=== PATIENT | male | born 1950 | race Two or more races ===

== ENCOUNTER 2020-04-19 09:10 | Outpatient (REF) | payer MEDICARE, SELFPAY ==
[2020-04-19 11:01] LABS: Basophils Percent Auto 0.3 % (0-2); Eosinophils Absolute Auto 0.2 X10*3/uL (0.0-0.4); Eosinophils Percent Auto 2.2 % (0-4); Hematocrit 53.3 % (42-52); Hemoglobin 18.2 g/dl (14.0-18.0); Imm Gran Abs Auto 0.02 X10*3/uL (0.00-0.03); Imm Gran Pct Auto 0.3 % (0.0-0.4); Lymphocytes Percent Auto 30.3 % (20-40); MANUAL DIFF FLAG SCAN; Mean Corpuscular HGB Conc 34.1 g/dl (31.0-36.0); Mean Corpuscular Hemoglobin 29.8 pg (27.0-33.0); Mean Corpuscular Volume 87.2 fL (80-98); Monocytes Absolute Auto 0.6 X10*3/uL (0.1-1.2); Monocytes Percent Auto 8.8 % (2-11); Neutrophils Absolute Auto 3.9 X10*3/uL (2.0-8.3); Neutrophils Percent Auto 58.1 % (45-73); PLT CLUMP 1; Red Blood Count 6.11 X10*6/uL (4.60-5.80); Red Cell Distribution Width 13.9 % (11.0-16.0); SCAN SMEAR FLAG 1
[2020-04-19 11:11] LABS: Alanine Aminotransferase 34 U/L (0-40); Albumin Level 4.3 g/dL (3.5-5.0); Alkaline Phosphatase 55 U/L (39-117); Anion Gap 14 (12-20); Aspartate Amino Transferase 28 U/L (5-37); Bilirubin Total 1.4 mg/dL (0.0-1.0); Blood Urea Nitrogen 16 mg/dL (9-16); Carbon Dioxide 24 mmol/L (22-29); Chloride 107 mmol/L (96-108); Cholesterol 154 mg/dL; Estimated Glomerular Filt Rate > 60; Glucose Fasting 102 mg/dL (60-99); HDL Cholesterol 38 mg/dL; LDL Cholesterol Calculated 84 mg/dl; Potassium 3.9 mmol/l (3.3-5.1); Sodium 141 mmol/L (135-145); Triglycerides 160 mg/dL; Uric Acid 4.3 mg/dL (3.4-7.0)
[2020-04-19 11:17] LABS: Vitamin D 25-OH Total 44.8 ng/mL (>30)
[2020-04-19 13:52] LABS: Mean Platelet Volume 13.5 fL (9.4-12.4); Platelet Count 161 X10*3/uL (160-400); White Blood Count 6.7 X10*3/uL (4.8-10.8)
[2020-04-19 13:53] LABS: SLIDE REVIEW VERIFIED
== END 2020-04-19 09:11 | disposition home or self-care (01) ==
LOC: HO.LAB 09:10
PROVIDERS: PCP Internal Medicine; Visit Provider Internal Medicine
DX: E78.00 Pure hypercholesterolemia, unspecified (principal); E55.9 Vitamin D deficiency, unspecified; K21.9 Gastro-esophageal reflux disease without esophagitis; I10 Essential (primary) hypertension; M10.9 Gout, unspecified
CPT/HCPCS: 36415; 80053; 80061; 82306; 84550; 85025

== ENCOUNTER → 2020-06-09 12:36 | Outpatient (BNV) | payer MEDICARE, SELFPAY | PROVIDERS: PCP Internal Medicine; Referring Provider Internal Medicine; Visit Provider Internal Medicine | DX: D75.1 Secondary polycythemia (principal) | CPT/HCPCS: 99202; 99203; 99213; 99214 ==

== ENCOUNTER 2020-08-17 11:39 | Outpatient (REF) | payer MEDICARE, SELFPAY | END 2020-08-17 11:40 | disposition home or self-care (01) | LOC: HO.BBR 11:39 | PROVIDERS: Visit Provider Internal Medicine | DX: D75.1 Secondary polycythemia (principal) | CPT/HCPCS: 85018; 99195 ==

== ENCOUNTER 2020-09-24 08:43 | Outpatient (REF) | payer MEDICARE, SELFPAY ==
[2020-09-24 10:18] LABS: Alanine Aminotransferase 28 U/L (0-40); Albumin Level 4.3 g/dL (3.5-5.0); Alkaline Phosphatase 55 U/L (39-117); Anion Gap 14 (12-20); Aspartate Amino Transferase 26 U/L (5-37); Bilirubin Total 1.3 mg/dL (0.0-1.0); Blood Urea Nitrogen 14 mg/dL (9-16); Calcium 9.4 mg/dL (8.4-10.2); Carbon Dioxide 28 mmol/L (22-29); Chloride 105 mmol/L (96-108); Cholesterol 148 mg/dL; Estimated Glomerular Filt Rate > 60; Glucose Fasting 95 mg/dL (60-99); HDL Cholesterol 38 mg/dL; LDL Cholesterol Calculated 83 mg/dl; Potassium 4.5 mmol/L (3.3-5.1); Sodium 142 mmol/L (135-145); Total Protein 6.9 g/dL (6.5-8.0); Triglycerides 139 mg/dL
== END 2020-09-24 08:44 | disposition home or self-care (01) ==
LOC: HO.LAB 08:43
PROVIDERS: PCP Internal Medicine; Visit Provider Internal Medicine
DX: I10 Essential (primary) hypertension (principal); E78.5 Hyperlipidemia, unspecified
CPT/HCPCS: 36415; 80053; 80061

== ENCOUNTER 2020-09-29 13:44 | Outpatient (REF) | payer MEDICARE, SELFPAY | END 2020-09-29 13:45 | disposition home or self-care (01) | LOC: HO.BBR 13:44 | PROVIDERS: Visit Provider Internal Medicine | DX: D75.1 Secondary polycythemia (principal) | CPT/HCPCS: 36415; 85018 ==

== ENCOUNTER 2020-10-06 11:18 | Outpatient (REF) | payer MEDICARE, SELFPAY | END 2020-10-06 11:19 | disposition home or self-care (01) | LOC: HO.BBR 11:18 | PROVIDERS: Visit Provider Internal Medicine | DX: D75.1 Secondary polycythemia (principal) | CPT/HCPCS: 36415; 85014; 85018; 99195 ==

== ENCOUNTER 2020-11-17 12:02 | Outpatient (REF) | payer MEDICARE, SELFPAY | END 2020-11-17 12:03 | disposition home or self-care (01) | LOC: HO.BBR 12:02 | PROVIDERS: Visit Provider Internal Medicine | DX: D75.1 Secondary polycythemia (principal) | CPT/HCPCS: 85018; 99195 ==

== ENCOUNTER 2020-12-30 11:48 | Outpatient (REF) | payer MEDICARE, SELFPAY | END 2020-12-30 11:49 | disposition home or self-care (01) | LOC: HO.BBR 11:48 | PROVIDERS: Visit Provider Internal Medicine | DX: D75.1 Secondary polycythemia (principal) | CPT/HCPCS: 85014; 85018; 99195 ==

== ENCOUNTER 2021-01-20 10:41 | Outpatient (REF) | payer MEDICARE, SELFPAY ==
--- NOTE | ~2021-01-20 | US_ITS ---
EXAMINATION: US RETROPERITONEAL LIMITED (AORTA) CLINICAL INFORMATION: Personal history of nicotine dependence. COMPARISON: Ultrasound aorta 12/25/2019. TECHNIQUE: Sanches-scale, color Doppler and spectral Doppler evaluation of the abdominal aorta. FINDINGS: There is scattered atherosclerotic disease present. There is no abdominal aortic aneurysm. The measurements of the aorta in maximum AP and transverse dimensions respectively are as follows: Proximal: 2.6 x 2.3 cm. Previously, 2.4 x 2.4 cm. Mid: 2.0 x 2.5 cm. Previously, 2.2 x 2.1 cm. Distal: 2.0 x 1.8 cm. Previously, 1.8 x 1.4 cm. PSV: 81.3 cm/sec The measurements of the common iliac arteries in maximum dimensions are as follows: Right: AP: 1.5 cm. TRV: 1.1 cm. Previously, 1.4 x 1.3 cm. Left: AP: 1.3 cm. TRV: 0.6 cm. Previously, 1.2 x 1.0 cm. US/US abdominal aortic aneurysm IMPRESSION: There is scattered atherosclerotic disease present. There is no abdominal aortic aneurysm..
== END 2021-01-20 10:42 | disposition home or self-care (01) ==
LOC: HO.US 10:41
PROVIDERS: PCP Internal Medicine; Visit Provider Internal Medicine
DX: Z12.2 Encounter for screening for malignant neoplasm of respiratory organs (principal); Z87.891 Personal history of nicotine dependence
CPT/HCPCS: 76706

== ENCOUNTER 2021-02-10 11:54 | Outpatient (REF) | payer MEDICARE, SELFPAY | END 2021-02-10 11:55 | disposition home or self-care (01) | LOC: HO.BBR 11:54 | PROVIDERS: PCP Internal Medicine; Visit Provider Internal Medicine | DX: D75.1 Secondary polycythemia (principal) | CPT/HCPCS: 85018; 99195 ==

== ENCOUNTER 2021-02-24 12:20 | Outpatient (REF) | payer MEDICARE, SELFPAY ==
[2021-02-24 15:07] LABS: Alanine Aminotransferase 26 U/L (0-40); Albumin Level 4.5 g/dL (3.5-5.0); Alkaline Phosphatase 57 U/L (39-117); Anion Gap 12 (12-20); Aspartate Amino Transferase 25 U/L (5-37); Blood Urea Nitrogen 13 mg/dL (9-16); Carbon Dioxide 28 mmol/L (22-29); Chloride 105 mmol/L (96-108); Estimated Glomerular Filt Rate > 60; Glucose Random 90 mg/dL (60-115); Potassium 4.5 mmol/L (3.3-5.1); Sodium 140 mmol/L (135-145); Total Protein 7.1 g/dL (6.5-8.0); Uric Acid 3.5 mg/dL (3.4-7.0)
== END 2021-02-24 12:21 | disposition home or self-care (01) ==
LOC: HO.LAB 12:20
PROVIDERS: PCP Internal Medicine; Visit Provider Nurse Practitioner Family
DX: M10.9 Gout, unspecified (principal); Z79.899 Other long term (current) drug therapy
CPT/HCPCS: 36415; 80053; 84550; 99212

== ENCOUNTER 2021-03-24 10:40 | Outpatient (REF) | payer MEDICARE, SELFPAY | END 2021-03-24 10:41 | disposition home or self-care (01) | LOC: HO.BBR 10:40 | PROVIDERS: Visit Provider Internal Medicine | DX: D75.1 Secondary polycythemia (principal) | CPT/HCPCS: 85014; 85018; 99195 ==

== ENCOUNTER 2021-04-26 09:21 | Outpatient (REF) | payer MEDICARE, SELFPAY ==
[2021-04-26 10:57] LABS: Alanine Aminotransferase 26 U/L (0-40); Albumin Level 4.4 g/dL (3.5-5.0); Alkaline Phosphatase 61 U/L (39-117); Anion Gap 13 (12-20); Aspartate Amino Transferase 24 U/L (5-37); Blood Urea Nitrogen 14 mg/dL (9-16); Carbon Dioxide 27 mmol/L (22-29); Chloride 106 mmol/L (96-108); Cholesterol 140 mg/dL; Estimated Glomerular Filt Rate > 60; Glucose Fasting 98 mg/dL (60-99); HDL Cholesterol 34 mg/dL; LDL Cholesterol Calculated 69 mg/dl; Potassium 4.9 mmol/L (3.3-5.1); Sodium 141 mmol/L (135-145); Total Protein 7.2 g/dL (6.5-8.0); Triglycerides 186 mg/dL
[2021-04-26 11:08] LABS: Uric Acid 4.3 mg/dL (3.4-7.0)
[2021-04-30 14:56] LABS: Vitamin D 25-OH, D2 <4 ng/mL; Vitamin D 25-OH, D3 34 ng/mL; Vitamin D 25-OH, Total 34 ng/mL (30-100)
== END 2021-04-26 09:22 | disposition home or self-care (01) ==
LOC: HO.LAB 09:21
PROVIDERS: PCP Internal Medicine; Visit Provider Internal Medicine
DX: L40.50 Arthropathic psoriasis, unspecified (principal); E78.5 Hyperlipidemia, unspecified; M10.9 Gout, unspecified; E55.9 Vitamin D deficiency, unspecified
CPT/HCPCS: 36415; 80053; 80061; 82306; 84550

== ENCOUNTER 2022-02-24 12:50 | Outpatient (REF) | payer MEDICARE, SELFPAY ==
--- NOTE | ~2022-02-24 | XR_ITS ---
EXAMINATION: XR SHOULDER, RIGHT CLINICAL INFORMATION: Pain. COMPARISON: Radiographs dated 06/28/2016. TECHNIQUE: AP external rotation, Grashey, scapular Y, and axillary views of the right shoulder. FINDINGS: Bony alignment and mineralization are normal. The glenohumeral joint is intact. The acromioclavicular and coracoclavicular intervals are normal. There is moderate osteoarthritic change of the acromioclavicular joint. There is a distal acromial undersurface osteophyte. Faint calcific tendinitis is suspected of the right rotator cuff. No foreign body is seen. This no right pneumothorax. XR/XR shoulder LT min 2V IMPRESSION: 1. No fracture or dislocation is seen. 2. There is moderate osteoarthritic change of the right acromioclavicular joint. 3. Faint calcific tendinitis is suspected of the right rotator cuff. EXAMINATION: XR SHOULDER, LEFT CLINICAL INFORMATION: Pain. COMPARISON: Radiographs dated 06/28/2016. TECHNIQUE: AP external rotation, Grashey, scapular Y, and axillary views of the left shoulder. FINDINGS: Bony alignment and mineralization are normal. The glenohumeral joint is intact. The acromioclavicular and coracoclavicular intervals are normal. No fracture or dislocation is seen. There is mild calcific tendinitis of the left rotator cuff insertion, best seen on the axial view. No foreign body is seen. There is no left pneumothorax. IMPRESSION: 1. No fracture or dislocation is seen. 2. There is mild calcific tendinitis of the left rotator cuff insertion.
--- NOTE | ~2022-02-24 | XR_ITS ---
EXAMINATION: XR LUMBOSACRAL SPINE CLINICAL INFORMATION: Lower back pain. COMPARISON: Radiographs dated 02/13/2019. TECHNIQUE: AP and lateral views of the lumbar spine and lateral view of the lumbosacral junction. FINDINGS: There is bony demineralization. Vertebral body heights and alignment are normal. The lumbar disc spaces are well-maintained. No acute fracture or spondylolisthesis is seen. There is multi-level very mild lumbar anterior spondylosis. The posterior elements are intact. The paravertebral soft tissues are unremarkable. XR/XR lumbar spine 2-3V IMPRESSION: 1. No acute fracture or spondylolisthesis is seen. 2. The lumbar disc spaces are well-maintained. 3. There is multi-level very mild lumbar spondylosis.
--- NOTE | ~2022-02-24 | XR_ITS ---
EXAMINATION: XR SHOULDER, RIGHT CLINICAL INFORMATION: Pain. COMPARISON: Radiographs dated 06/28/2016. TECHNIQUE: AP external rotation, Grashey, scapular Y, and axillary views of the right shoulder. FINDINGS: Bony alignment and mineralization are normal. The glenohumeral joint is intact. The acromioclavicular and coracoclavicular intervals are normal. There is moderate osteoarthritic change of the acromioclavicular joint. There is a distal acromial undersurface osteophyte. Faint calcific tendinitis is suspected of the right rotator cuff. No foreign body is seen. This no right pneumothorax. XR/XR shoulder RT min 2V IMPRESSION: 1. No fracture or dislocation is seen. 2. There is moderate osteoarthritic change of the right acromioclavicular joint. 3. Faint calcific tendinitis is suspected of the right rotator cuff. EXAMINATION: XR SHOULDER, LEFT CLINICAL INFORMATION: Pain. COMPARISON: Radiographs dated 06/28/2016. TECHNIQUE: AP external rotation, Grashey, scapular Y, and axillary views of the left shoulder. FINDINGS: Bony alignment and mineralization are normal. The glenohumeral joint is intact. The acromioclavicular and coracoclavicular intervals are normal. No fracture or dislocation is seen. There is mild calcific tendinitis of the left rotator cuff insertion, best seen on the axial view. No foreign body is seen. There is no left pneumothorax. IMPRESSION: 1. No fracture or dislocation is seen. 2. There is mild calcific tendinitis of the left rotator cuff insertion.
--- NOTE | ~2022-02-24 | XR_ITS ---
EXAMINATION: XR KNEE, RIGHT CLINICAL INFORMATION: Pain. COMPARISON: None. TECHNIQUE: Frontal, lateral and axial views of the right knee are submitted. FINDINGS: Bony alignment and mineralization are normal. No significant varus or valgus configuration is seen. There is moderate narrowing of the medial joint space compartment, with peripheral osteophyte formation. The lateral and patellofemoral joint space compartments are well maintained. There is chondrocalcinosis. No fracture or dislocation is seen. There is a small right knee joint effusion. No foreign body is seen. XR/XR knee LT 3V IMPRESSION: 1. No fracture or dislocation is seen. 2. There is a small right knee joint effusion. 3. There is moderate osteoarthritic change of the medial joint space compartment of the right knee. 4. There is chondrocalcinosis, which can be associated with CPPD. EXAMINATION: XR KNEE, LEFT CLINICAL INFORMATION: Pain. COMPARISON: Radiographs dated 02/05/2013. TECHNIQUE: Frontal, lateral and axial views of the left knee are submitted. FINDINGS: Bony alignment and mineralization are normal. No significant varus or valgus configuration is seen. There is moderate narrowing of the medial joint space compartment. The lateral joint space compartment is well-maintained. The patellofemoral joint space compartment shows mild lateral narrowing. There is chondrocalcinosis. No fracture or dislocation is seen. There is a moderate joint effusion. There is degenerative calcification of the distal patellar tendon insertion. No foreign body is noted. IMPRESSION: 1. No fracture or dislocation is seen. 2. There is a moderate left knee joint effusion. 3. There is moderate osteoarthritic change of the medial joint space compartment of the right knee, and mild osteoarthritic change is seen of the patellofemoral compartment. 4. There is chondrocalcinosis, which can be associated with CPPD.
--- NOTE | ~2022-02-24 | XR_ITS ---
EXAMINATION: XR KNEE, RIGHT CLINICAL INFORMATION: Pain. COMPARISON: None. TECHNIQUE: Frontal, lateral and axial views of the right knee are submitted. FINDINGS: Bony alignment and mineralization are normal. No significant varus or valgus configuration is seen. There is moderate narrowing of the medial joint space compartment, with peripheral osteophyte formation. The lateral and patellofemoral joint space compartments are well maintained. There is chondrocalcinosis. No fracture or dislocation is seen. There is a small right knee joint effusion. No foreign body is seen. XR/XR knee RT 3V IMPRESSION: 1. No fracture or dislocation is seen. 2. There is a small right knee joint effusion. 3. There is moderate osteoarthritic change of the medial joint space compartment of the right knee. 4. There is chondrocalcinosis, which can be associated with CPPD. EXAMINATION: XR KNEE, LEFT CLINICAL INFORMATION: Pain. COMPARISON: Radiographs dated 02/05/2013. TECHNIQUE: Frontal, lateral and axial views of the left knee are submitted. FINDINGS: Bony alignment and mineralization are normal. No significant varus or valgus configuration is seen. There is moderate narrowing of the medial joint space compartment. The lateral joint space compartment is well-maintained. The patellofemoral joint space compartment shows mild lateral narrowing. There is chondrocalcinosis. No fracture or dislocation is seen. There is a moderate joint effusion. There is degenerative calcification of the distal patellar tendon insertion. No foreign body is noted. IMPRESSION: 1. No fracture or dislocation is seen. 2. There is a moderate left knee joint effusion. 3. There is moderate osteoarthritic change of the medial joint space compartment of the right knee, and mild osteoarthritic change is seen of the patellofemoral compartment. 4. There is chondrocalcinosis, which can be associated with CPPD.
[2022-02-24 13:02] LABS: MANUAL DIFF FLAG NO
[2022-02-24 13:26] LABS: Basophils Percent Auto 0.3 % (0-2); Eosinophils Absolute Auto 0.1 X10*3/uL (0.0-0.4); Eosinophils Percent Auto 2.1 % (0-4); Hematocrit 44.9 % (42.0-52.0); Hemoglobin 13.9 g/dl (14.0-18.0); Imm Gran Abs Auto 0.01 X10*3/uL (0.00-0.03); Imm Gran Pct Auto 0.1 % (0.0-0.4); Lymphocytes Absolute Auto 2.1 X10*3/uL (1.2-4.9); Lymphocytes Percent Auto 31.3 % (20-40); Mean Corpuscular Hemoglobin 23.4 pg (27.0-33.0); Mean Corpuscular Volume 75.5 fL (80.0-98.0); Mean Platelet Volume 12.6 fL (9.4-12.4); Monocytes Absolute Auto 0.7 X10*3/uL (0.1-1.2); Monocytes Percent Auto 9.7 % (2-11); Neutrophils Absolute Auto 3.8 x10*3/uL (2.0-8.3); Neutrophils Percent Auto 56.5 % (45-73); Platelet Count 182 X10*3/uL (160-400); Red Blood Count 5.95 X10*6/uL (4.60-5.80); Red Cell Distribution Width 18.3 % (11.0-16.0); White Blood Count 6.8 X10*3/uL (4.8-10.8)
[2022-02-24 13:57] LABS: Alanine Aminotransferase 22 U/L (0-40); Aspartate Amino Transferase 23 U/L (5-37); Blood Urea Nitrogen 15 mg/dL (9-16); C Reactive Protein 0.07 mg/dL (< or = 0.50); Estimated Glomerular Filt Rate > 60; Uric Acid 3.7 mg/dL (3.4-7.0)
[2022-02-24 14:06] LABS: Erythrocyte Sedimentation Rate 1 MM/HR (0-15)
[2022-02-24 14:10] LABS: Rheumatoid Factor < 15.0 IU/mL (<15.0)
[2022-02-28 17:37] LABS: Cyclic Citrullinated Peptide <16 UNITS
== END 2022-02-24 12:51 | disposition home or self-care (01) ==
LOC: HO.LAB 12:50
PROVIDERS: PCP Internal Medicine; Visit Provider Nurse Practitioner Family
DX: M25.511 Pain in right shoulder (principal); M25.562 Pain in left knee; M25.561 Pain in right knee; M25.512 Pain in left shoulder; M54.50 Low back pain, unspecified; M10.9 Gout, unspecified; Z79.899 Other long term (current) drug therapy
CPT/HCPCS: 36415; 72100; 73030; 73562; 82565; 84450; 84460; 84520; 84550; 85025; 85652; 86140; 86200; 86431; 99212

== ENCOUNTER → 2022-04-27 09:51 | Outpatient (BNVA) | payer MEDICARE, SELFPAY | PROVIDERS: PCP Internal Medicine; Referring Provider Internal Medicine; Visit Provider Nurse Practitioner Family | DX: M10.9 Gout, unspecified (principal); M54.50 Low back pain, unspecified; M25.561 Pain in right knee; M25.562 Pain in left knee; M25.521 Pain in right elbow | CPT/HCPCS: 99212 ==

== ENCOUNTER 2022-05-08 09:17 | Outpatient (REF) | payer OTHER, SELFPAY ==
[2022-05-08 09:43] LABS: MANUAL DIFF FLAG NO
[2022-05-08 10:07] LABS: Basophils Percent Auto 0.3 % (0-2); Eosinophils Absolute Auto 0.2 X10*3/uL (0.0-0.4); Eosinophils Percent Auto 3.4 % (0-4); Hematocrit 46.6 % (42.0-52.0); Hemoglobin 14.7 g/dl (14.0-18.0); Imm Gran Abs Auto 0.01 X10*3/uL (0.00-0.03); Imm Gran Pct Auto 0.1 % (0.0-0.4); Lymphocytes Absolute Auto 2.1 X10*3/uL (1.2-4.9); Lymphocytes Percent Auto 30.9 % (20-40); Mean Corpuscular HGB Conc 31.5 g/dl (31.0-36.0); Mean Corpuscular Hemoglobin 23.6 pg (27.0-33.0); Mean Corpuscular Volume 74.8 fL (80.0-98.0); Mean Platelet Volume 12.1 fL (9.4-12.4); Monocytes Absolute Auto 0.6 X10*3/uL (0.1-1.2); Monocytes Percent Auto 9.1 % (2-11); Neutrophils Absolute Auto 3.8 x10*3/uL (2.0-8.3); Neutrophils Percent Auto 56.2 % (45-73); Platelet Count 195 X10*3/uL (160-400); Red Blood Count 6.23 X10*6/uL (4.60-5.80); Red Cell Distribution Width 17.4 % (11.0-16.0); White Blood Count 6.7 X10*3/uL (4.8-10.8)
[2022-05-08 11:00] LABS: Erythrocyte Sedimentation Rate 1 MM/HR (0-15)
[2022-05-08 12:03] LABS: Alanine Aminotransferase 24 U/L (0-40); Albumin Level 4.4 g/dL (3.5-5.0); Alkaline Phosphatase 59 U/L (39-117); Anion Gap 12 (12-20); Aspartate Amino Transferase 22 U/L (5-37); Bilirubin Total 1.1 mg/dL (0.0-1.0); Blood Urea Nitrogen 14 mg/dL (9-16); C Reactive Protein < 0.10 mg/dL (< or = 0.50); Calcium 9.6 mg/dL (8.4-10.2); Carbon Dioxide 26 mmol/L (22-29); Chloride 105 mmol/L (96-108); Cholesterol 164 mg/dL; Estimated Glomerular Filt Rate > 60; Glucose Fasting 102 mg/dL (60-99); HDL Cholesterol 37 mg/dL; Iron 47 mcg/dL (45-160); LDL Cholesterol Calculated 88 mg/dl; PSA,Total (Free>4and<10) 9.88 ng/mL (0.00-4.00); Percent Iron Saturation 12 % (15-50); Potassium 4.3 mmol/L (3.3-5.1); Sodium 139 mmol/L (135-145); Total Iron Binding Capacity 397 mcg/dL (228-428); Triglycerides 196 mg/dL; Unsaturated Iron Binding 350 ug/dL; Vitamin D 25-OH Total 43.4 ng/mL (>30)
[2022-05-09 09:34] LABS: Free Prostate Spec Ag 0.7 ng/mL; Percent Free Prostate Spec Ag 8 % (calc) (>25); Prostate Specific Ag Total 8.9 ng/mL (< OR = 4.0)
== END 2022-05-08 09:18 | disposition home or self-care (01) ==
LOC: HO.LAB 09:17
PROVIDERS: Absent Provider Internal Medicine; PCP Internal Medicine; Visit Provider Nurse Practitioner Family
DX: D64.9 Anemia, unspecified (principal); D75.1 Secondary polycythemia; E55.9 Vitamin D deficiency, unspecified; L40.50 Arthropathic psoriasis, unspecified; E78.5 Hyperlipidemia, unspecified; M10.9 Gout, unspecified; Z79.899 Other long term (current) drug therapy; Z12.5 Encounter for screening for malignant neoplasm of prostate
CPT/HCPCS: 36415; 80053; 80061; 82306; 83540; 84153; 84154; 84550; 85025; 85652; 86140

== ENCOUNTER → 2022-05-11 11:25 | Outpatient (BNVA) | payer OTHER, SELFPAY | PROVIDERS: Visit Provider Orthopaedic Surgery | DX: M17.12 Unilateral primary osteoarthritis, left knee (principal) | CPT/HCPCS: 99202 ==

== ENCOUNTER → 2022-06-12 11:22 | Outpatient (BNVA) | payer OTHER, SELFPAY | PROVIDERS: PCP Internal Medicine; Visit Provider Anesthesiology | DX: M17.0 Bilateral primary osteoarthritis of knee (principal); M47.816 Spondylosis without myelopathy or radiculopathy, lumbar region; M19.019 Primary osteoarthritis, unspecified shoulder; M46.1 Sacroiliitis, not elsewhere classified; M53.3 Sacrococcygeal disorders, not elsewhere classified; G89.4 Chronic pain syndrome; G58.9 Mononeuropathy, unspecified; L40.50 Arthropathic psoriasis, unspecified | CPT/HCPCS: 99202 ==

== ENCOUNTER 2022-07-05 10:14 | Day surgery (SDC) | payer OTHER, SELFPAY ==
[2022-07-05 06:49] VITALS: BMI 33.8
[2022-07-05 10:16] VITALS: BP 156/89; PULSE 100; RESP 18; TEMP 36.9; O2SAT 98
[2022-07-05] MEDS: Lactated Ringers 1,000 ML 50 ML IVCONT (10:36)
--- NOTE | 2022-07-05 10:41 | HO.ANESPROP2 ---
HPI - Anesthesia Eval Consult details Narrative: colonoscopy PMF Active Problems Active Problems: All Active Problems (Updated 06/28/22 @ 10:52 by Therese Campbell MD) Pain of both sacroiliac joints (Acute) Sacroiliitis (Acute) Psoriasis arthropathica (Acute) Mononeuropathy, unspecified (Acute) Acromioclavicular joint arthritis (Acute) Chronic pain syndrome (Acute) Spondylosis of lumbar region without myelopathy or radiculopathy (Acute) Localized osteoarthritis of knees, bilateral (Acute) Osteoarthritis of left knee (Acute) Lumbar spondylosis (Acute) Osteoarthritis of knees, bilateral (Acute) Chondrocalcinosis (Acute) Psoriasis (Acute) Family history of colon cancer (Acute) Former smoker (Acute) Gout (Acute) Polycythemia (Chronic) GERD (gastroesophageal reflux disease) (Acute) Pure hypercholesterolemia (Acute) Essential hypertension (Acute) Past Medical History Medical History Elevated hemoglobin Essential hypertension Former smoker GERD (gastroesophageal reflux disease) Gout Pure hypercholesterolemia Family History Family History Father Asthma Mother Hypertension Stomach cancer Family/Other Substance use disorder Brother Cancer, Onset Age: 61 Family history of problems with anesthesia: No Surgical History Surgical History H/O wrist surgery History of foot surgery History of Problems with Anesthesia: No Social History Social History Household Members: Spouse and Significant Other Housing: Apartment Alcohol intake: current Alcohol intake frequency: holidays/special occasions only Alcohol type: beer and hard liquor Patient Tobacco Use Status: Former Tobacco user Tobacco use type: Cigarette e-Cigarette/Vaping Use: Never Used Second Hand Smoke Exposure: No service: No Current occupational status: disabled Cognitive needs: No Hearing needs: No Vision needs: No Meds Allergies Allergy/AdvReac Type Severity Reaction Status Date / Time amitriptyline Allergy Intermediate stomach Verified 07/11/22 11:03 pain aspirin Allergy Intermediate stomach Verified 07/11/22 11:03 pain Active Medications: Current Medications Lactated Ringer's (Lr) 1,000 mls @ 50 mls/hr IVCONT .Q20H ADE Last Admin: 07/05/22 10:36 Dose: 50 mls/hr Sodium Biphosphate/Sodium Phosphate (Sodium Phosphate,Curry-Dibasic 133 Ml Enema) 133 ml ME ONCE PRN PRN Reason: Poor Colonoscopy Prep Results Home Medications Medication Instructions Recorded Confirmed Last Taken Type acetaminophen 500 mg tablet 500 mg PO BID PRN Pain 04/27/21 06/28/22 Unknown History [id number] 1 cap PO DAILY 04/27/21 06/28/22 06/28/22 History oil 350 mg- 400 mg capsule adalimumab 40 mg/0.4 mL 40 mg subcut Q2W 02/24/22 06/28/22 Unknown History subcutaneous pen kit (Humira(CF) Pen) Exam Exam Date and Time: July 05, 2022 1041 Height,Weight and Vital Signs: Height 5 ft 7 in Weight 97.976 kg Last Vital Signs Temp 98.4 F 07/05/22 10:16 Pulse 100 07/05/22 10:16 Resp 18 07/05/22 10:16 BP 156/89 H 07/05/22 10:16 Pulse Ox 98 07/05/22 10:16 O2 Del Method 07/05/22 10:16 Airway Mallampati Class: II TM Dist: >3cm Neck ROM: Full Heart: OK Lungs: OK Assessment and Plan Assessment Anesthesia Assessment: Anesthesia Plan Discussed and Chart Reviewed Final Anesthetic Review Family History of Problems with Anesthesia: No History of Problems with Anesthesia: No NPO: Yes ASA Class: III Final Preanesthetic Review: No Changes in Pt Med Stat, Meds/Allgs Chart Reviewed, Consent Obtained/Reviewed and Anes Risks/Benef Reviewed Patient Risk: Intermediate Procedure Risk: Low Anesthetic Plan Anesthetic Plan: MAC: Disposition: Standard PACU
--- NOTE | 2022-07-05 12:38 | P.BOP_ITS ---
Brief Operative Note Date of Service: 07/05/22 Pre-op diagnosis: Screening Post-op diagnosis: other (Diverticulosis) Procedure: Colonoscopy to the cecum Surgeon: Kike Santos Anesthesia: MAC Was an [employer] used for this Procedure?: No Estimated blood loss (mL): 0 Pathology: none sent Condition: stable Disposition: PACU
[2022-07-05 12:41] VITALS: BP 102/80; PULSE 95; RESP 20; TEMP 36.3; O2SAT 91
[2022-07-05 12:56] VITALS: BP 112/67; PULSE 107; RESP 18; O2SAT 95
[2022-07-05 13:11] VITALS: BP 110/84; PULSE 106; RESP 18; TEMP 36.3; O2SAT 96
--- NOTE | 2022-07-05 22:44 | OP_ITS ---
SURGEON: Kike Santos MD INDICATIONS: The patient presents for evaluation of a previous history of tubular adenoma of the colon and need colorectal cancer screening. Full consent has been obtained from him for this, including risks of bleeding and perforation. PREOPERATIVE DIAGNOSIS: POSTOPERATIVE DIAGNOSIS: PROCEDURE PERFORMED: Colonoscopy to the cecum. ESTIMATED BLOOD LOSS: COMPLICATIONS: ANESTHESIA: Medication used, monitored anesthesia care. ASSISTANTS: SPECIMENS: PREOPERATIVE DIAGNOSES: Personal history of tubular adenoma of the colon and colorectal cancer screening. POSTOPERATIVE DIAGNOSES: Personal history of tubular adenoma of the colon and colorectal cancer screening, diverticulosis, and internal hemorrhoids. DESCRIPTION OF PROCEDURE: The patient was placed in the left lateral decubitus position. The digital rectal exam revealed no abnormalities. The Olympus video pediatric colonoscope was then entered into the rectum and advanced to the cecum with assistance of abdominal wall pressure. Once in the cecum, I did identify normal-appearing cecal pouch with appendiceal orifice and normal-appearing ileocecal valve. The entire cecum and ileocecal valve appeared normal. The scope was then slowly withdrawn assessing all mucosal surface carefully. Preparation was excellent. I did not visualize any type of polyps, colitis, or angiodysplasia. There was a moderate amount of sigmoid diverticulosis. In the rectum, the scope was retroflexed visualizing internal hemorrhoids, but no other pathology. The rectal mucosa appeared normal. The scope was straightened and withdrawn from the patient. He tolerated the procedure well and was returned to the recovery area in stable condition. IMPRESSION: 1. Diverticulosis. 2. Internal hemorrhoids. PLAN: I would recommend a repeat colonoscopy in 5 years for further screening. He will otherwise see me on a p.r.n. basis. Kike Santos MD RMW/NEENAL / [phone]
== END 2022-07-05 14:26 | disposition home or self-care (01) ==
PROVIDERS: PCP Internal Medicine; Visit Provider Internal Medicine
PROC: 0DJD8ZZ Inspection of Lower Intestinal Tract, Via Natural or Artificial Opening Endoscopic (ICD-10-PCS; CPT 45378; principal; 2022-07-05 11:40)
DX: Z12.11 Encounter for screening for malignant neoplasm of colon (principal); Z86.010 Personal history of colon polyps; K57.30 Diverticulosis of large intestine without perforation or abscess without bleeding; K64.8 Other hemorrhoids; I10 Essential (primary) hypertension; E78.5 Hyperlipidemia, unspecified; M10.9 Gout, unspecified; Z79.82 Long term (current) use of aspirin; Z79.899 Other long term (current) drug therapy; Z88.8 Allergy status to other drugs, medicaments and biological substances; Z87.891 Personal history of nicotine dependence
CPT/HCPCS: G0105

== ENCOUNTER 2022-07-11 06:15 | Outpatient (REF) | payer OTHER, SELFPAY ==
--- NOTE | ~2022-07-11 | FL_ITS ---
EXAMINATION: XR FLUOROSCOPY WITH IMAGES CLINICAL INFORMATION: M53.3 - Sacrococcygeal disorders, not elsewhere classified COMPARISON: None. TECHNIQUE: Fluoroscopy Supervised By: Dr. Sotero Sanchez. Fluoroscopy Time: 0.2 minutes. Cumulative Dose: 4.37 mGy. DAP: 1.19 Gycm2. Images: 2. FINDINGS: Spinal needles overlie the mid to lower left and mid to lower right SI joints. There is contrast in the periarticular soft tissues with probable early intra-articular contrast. No vasculature communication appreciated. FL/FL guidance in treatment room IMPRESSION: Fluoroscopy for pain management procedures.
== END 2022-07-11 06:16 | disposition home or self-care (01) ==
LOC: CF 06:15
PROVIDERS: Visit Provider Anesthesiology
DX: M46.1 Sacroiliitis, not elsewhere classified (principal); M53.3 Sacrococcygeal disorders, not elsewhere classified; M17.0 Bilateral primary osteoarthritis of knee; M47.816 Spondylosis without myelopathy or radiculopathy, lumbar region; G89.4 Chronic pain syndrome; M19.019 Primary osteoarthritis, unspecified shoulder; G58.9 Mononeuropathy, unspecified; L40.50 Arthropathic psoriasis, unspecified
CPT/HCPCS: 27096

== ENCOUNTER → 2022-07-13 10:18 | Outpatient (BNVA) | payer OTHER, SELFPAY | PROVIDERS: PCP Internal Medicine; Visit Provider Anesthesiology | DX: M17.0 Bilateral primary osteoarthritis of knee (principal); M47.816 Spondylosis without myelopathy or radiculopathy, lumbar region; G89.4 Chronic pain syndrome; M19.019 Primary osteoarthritis, unspecified shoulder; G58.9 Mononeuropathy, unspecified; L40.50 Arthropathic psoriasis, unspecified; M46.1 Sacroiliitis, not elsewhere classified; M53.3 Sacrococcygeal disorders, not elsewhere classified | CPT/HCPCS: Q3014 ==

== ENCOUNTER 2022-08-24 11:18 | Outpatient (REF) | payer OTHER, SELFPAY ==
[2022-08-24 11:45] LABS: MANUAL DIFF FLAG NO
[2022-08-24 12:02] LABS: Basophils Percent Auto 0.4 % (0-2); Eosinophils Absolute Auto 0.2 X10*3/uL (0.0-0.4); Eosinophils Percent Auto 2.4 % (0-4); Hematocrit 48.4 % (42.0-52.0); Hemoglobin 15.3 g/dl (14.0-18.0); Imm Gran Abs Auto 0.02 X10*3/uL (0.00-0.03); Imm Gran Pct Auto 0.3 % (0.0-0.4); Lymphocytes Absolute Auto 2.3 X10*3/uL (1.2-4.9); Lymphocytes Percent Auto 34.7 % (20-40); Mean Corpuscular HGB Conc 31.6 g/dl (31.0-36.0); Mean Corpuscular Hemoglobin 24.8 pg (27.0-33.0); Mean Corpuscular Volume 78.6 fL (80.0-98.0); Mean Platelet Volume 13.1 fL (9.4-12.4); Monocytes Absolute Auto 0.5 X10*3/uL (0.1-1.2); Monocytes Percent Auto 7.5 % (2-11); Neutrophils Absolute Auto 3.7 x10*3/uL (2.0-8.3); Neutrophils Percent Auto 54.7 % (45-73); Platelet Count 179 X10*3/uL (160-400); Red Blood Count 6.16 X10*6/uL (4.60-5.80); Red Cell Distribution Width 17.9 % (11.0-16.0); White Blood Count 6.7 X10*3/uL (4.8-10.8)
[2022-08-24 12:23] LABS: Alanine Aminotransferase 24 U/L (0-40); Albumin Level 4.3 g/dL (3.5-5.0); Alkaline Phosphatase 59 U/L (39-117); Anion Gap 13 (12-20); Aspartate Amino Transferase 22 U/L (5-37); Bilirubin Total 1.2 mg/dL (0.0-1.0); Blood Urea Nitrogen 13 mg/dL (9-16); Calcium 9.7 mg/dL (8.4-10.2); Carbon Dioxide 28 mmol/L (22-29); Chloride 106 mmol/L (96-108); Estimated Glomerular Filt Rate > 60; Glucose Random 113 mg/dL (60-115); Potassium 4.7 mmol/L (3.3-5.1); Sodium 142 mmol/L (135-145); Total Protein 7.1 g/dL (6.5-8.0)
== END 2022-08-24 11:19 | disposition home or self-care (01) ==
LOC: HO.LAB 11:18
PROVIDERS: Visit Provider Dermatology
DX: L40.0 Psoriasis vulgaris (principal)
CPT/HCPCS: 36415; 80053; 85025

== ENCOUNTER → 2022-08-31 12:30 | Outpatient (BNVA) | payer OTHER, SELFPAY | PROVIDERS: PCP Internal Medicine; Visit Provider Nurse Practitioner Family | DX: M10.9 Gout, unspecified (principal); M25.511 Pain in right shoulder; M25.512 Pain in left shoulder; M47.816 Spondylosis without myelopathy or radiculopathy, lumbar region; M17.12 Unilateral primary osteoarthritis, left knee | CPT/HCPCS: 99212 ==

== ENCOUNTER 2022-09-04 08:44 | Outpatient (REF) | payer OTHER, SELFPAY ==
[2022-09-04 09:03] LABS: MANUAL DIFF FLAG NO
[2022-09-04 09:43] LABS: Basophils Percent Auto 0.4 % (0-2); Eosinophils Absolute Auto 0.2 X10*3/uL (0.0-0.4); Eosinophils Percent Auto 2.7 % (0-4); Hematocrit 49.5 % (42.0-52.0); Hemoglobin 15.5 g/dl (14.0-18.0); Imm Gran Abs Auto 0.02 X10*3/uL (0.00-0.03); Imm Gran Pct Auto 0.3 % (0.0-0.4); Lymphocytes Absolute Auto 2.7 X10*3/uL (1.2-4.9); Lymphocytes Percent Auto 40.7 % (20-40); Mean Corpuscular HGB Conc 31.3 g/dl (31.0-36.0); Mean Corpuscular Hemoglobin 24.4 pg (27.0-33.0); Mean Corpuscular Volume 77.8 fL (80.0-98.0); Mean Platelet Volume 12.5 fL (9.4-12.4); Monocytes Absolute Auto 0.6 X10*3/uL (0.1-1.2); Neutrophils Absolute Auto 3.1 x10*3/uL (2.0-8.3); Neutrophils Percent Auto 46.9 % (45-73); Platelet Count 173 X10*3/uL (160-400); Red Blood Count 6.36 X10*6/uL (4.60-5.80); Red Cell Distribution Width 17.2 % (11.0-16.0); White Blood Count 6.7 X10*3/uL (4.8-10.8)
[2022-09-04 10:31] LABS: Alanine Aminotransferase 24 U/L (0-40); Albumin Level 4.2 g/dL (3.5-5.0); Alkaline Phosphatase 53 U/L (39-117); Anion Gap 12 (12-20); Aspartate Amino Transferase 23 U/L (5-37); Bilirubin Total 1.2 mg/dL (0.0-1.0); Blood Urea Nitrogen 13 mg/dL (9-16); Calcium 9.5 mg/dL (8.4-10.2); Carbon Dioxide 28 mmol/L (22-29); Chloride 106 mmol/L (96-108); Cholesterol 152 mg/dL; Estimated Glomerular Filt Rate > 60; Glucose Fasting 96 mg/dL (60-99); HDL Cholesterol 36 mg/dL; LDL Cholesterol Calculated 80 mg/dl; Potassium 4.6 mmol/L (3.3-5.1); Sodium 141 mmol/L (135-145); Total Protein 6.9 g/dL (6.5-8.0); Triglycerides 182 mg/dL; Uric Acid 3.4 mg/dL (3.4-7.0)
== END 2022-09-04 08:45 | disposition home or self-care (01) ==
LOC: HO.LAB 08:44
PROVIDERS: PCP Internal Medicine; Visit Provider Internal Medicine
DX: M10.9 Gout, unspecified (principal); E78.5 Hyperlipidemia, unspecified; E55.9 Vitamin D deficiency, unspecified; D64.9 Anemia, unspecified; D75.1 Secondary polycythemia; K21.9 Gastro-esophageal reflux disease without esophagitis
CPT/HCPCS: 36415; 80053; 80061; 82306; 84550; 85025

== ENCOUNTER → 2022-09-21 13:18 | Outpatient (REF) | payer OTHER, SELFPAY ==
--- NOTE | 2022-09-21 13:22 | CA_ITS ---
Transthoracic Echocardiogram Patient (Last, First, Middle): Leeroy Davis, Gender: Male Date of : 1950 Age: 72 Procedure Date: 09/21/2022 Procedure Type: Transthoracic Echocardiogram Location: OP Height: 167.64 cm Weight: 97.07 kg BSA: 2.06 m2 Heart Rate: bpm BP: 138 / 90 mmHg Shoe Caser: TO Referring MD: Isamar Peña CLASSIFICATION AND TREATMENT DIRECTOR Felt Pad Cutter: Oseas Dennis MD Symptoms: R06.02 - Shortness of breath Study Quality: Fair/Contrast ECG Rhythm: Sinus Conclusions: - 1. Normal LV systolic function with impaired relaxation filling pattern with mild asymmetric septal hypertrophy 2. Normal cardiac valvular Doppler 3. Mildly dilated ascending aorta at 4 cm 4. No gross pericardial effusion Findings Procedure Information Contrast agent, definity, is being given per protocol without apparent complications. Left Ventricle Normal left ventricular size, thickness, and systolic function. The visually estimated ejection fraction is between 60-65%. Spectral Doppler is indicative of an impaired relaxation filling pattern. E/E prime ratio is between 8 and 15 consistent with indeterminate filling pressures. There is mild septal asymmetric hypertrophy. Right Ventricle Normal right ventricular cavity size and systolic function. Atria The left atrium is normal in size. Interatrial shunt cannot be excluded. The right atrium is normal in size. Aortic Valve Normal aortic valve structure and function. There is no aortic valve stenosis. There is no aortic valve regurgitation. Mitral Valve There is mild anterior and posterior mitral leaflet thickening. There is trace mitral valve regurgitation. There is no mitral valve stenosis. Pulmonic Valve The pulmonic valve was not well visualized. Tricuspid Valve Likely normal tricuspid valve structure and function. Tricuspid regurgitation envelope is inadequate for calculation of right ventricular systolic pressure. Normal right atrial pressure. Great Vessels The pulmonary artery was not well visualized. There is mild dilatation of the ascending aorta. Venous The inferior vena cava is normal in size and collapses greater than 50% with inspiration. Pericardium/Pleural There is no evidence of pericardial effusion. Prior Study Comparison No prior study available for comparison. Measurements 2D Linear Measurements IVSd: 1.37 0.6-0.9/0.6-1.0 cm LVIDd: 3.83 3.9-5.3/4.2-5.9 cm LVIDd Index: 1.86 2.4-3.2/2.2-3.1 cm/m2 LVIDs: 2.53 2.0-3.6 cm LVPWd: 0.96 0.7-1.1 cm LA Diam: 3.10 2.7-3.8/3.0-4.0 cm LAIDs Index: 1.50 1.5-2.3 cm/m2 LV Mass: 185.14 67-162/88-224 g LV Mass Index: 89.87 43-95/49-115 g/m2 LVOT Diam: 2.20 3.0+(-)1.3 cm 2D Systolic Function EF 4C: 57.50 >55% EF 2C: 66.20 >55% EF BiP: 62.20 >55% Mitral Valve MV Pk E: 0.60 MV PK A: 0.89 MV Decel Time: 127.00 E/A: 0.70 E'Lateral: 6.96 E'Medial: 4.46 E/E' Med: 13.50 E/E' Lat: 8.60 PHT: 37.00 MVA PHT: 5.95 Decel [place]: 4.73 Aortic Valve AoV Pk Jermaine: 0.95 AoV Mn Jermaine: 0.69 AoV VTI: 0.18 AoV Pk Grad: 4.00 Aov Mn Grad: 2.00 CATERINA Cont.VTI: 3.08 LVOT LVOT Pk Jermaine: 0.79 LVOT Mn Jermaine: 0.52 LVOT VTI: 0.14 LVOT Pk Grad: 2.00 LVOT Mn Grad: 1.00 LVOT Diam: 2.20 LVOT Area: 3.80 Diastolic Function MV Pk E: 0.60 MV Pk A: 0.89 E/A: 0.70 E'Medial: 4.46 E/E' Med: 13.50 E' Laterial: 6.96 E/E' Lat: 8.60 Right Ventricle TAPSE (mm): 18.00 TVS' Jermaine: 10.70 Tricuspid Valve RA Press: 3.00 Great Vessels Aorta Sinus of Valsalva: 3.89 2.0-3.[address] [place]: 3.18 1.7-3.4 cm Ao Asc: 4.00 2.1-3.4 cm Updated in Other Vendor System with Status of Final Oseas Dennis MD electronically signed on 09/22/2022 10:31:08 AM with status of Final
== END ==
LOC: HO.CARD 13:18
PROVIDERS: PCP Internal Medicine; Visit Provider Nurse Practitioner Family
DX: R06.02 Shortness of breath (principal)
CPT/HCPCS: 93306; Q9957

== ENCOUNTER → 2022-10-03 12:01 | Outpatient (REF) | payer OTHER, SELFPAY ==
--- NOTE | 2022-10-03 12:05 | ECG_ITS ---
Test Reason : Z87.898 Blood Pressure : / mmHG Vent. Rate : 104 BPM Atrial Rate : 104 BPM P-R Int : 162 ms QRS Dur : 096 ms QT Int : 334 ms P-R-T Axes : 038 007 -14 degrees QTc Int : 439 ms Sinus tachycardia Otherwise normal ECG When compared with ECG of 26-OCT-2020 11:20, No significant change was found Referred By: Isamar Peña Electronically Signed By:JUNITO TRONCOSO
== END ==
LOC: HO.CARD 12:01
PROVIDERS: PCP Internal Medicine; Visit Provider Nurse Practitioner Family
DX: Z87.898 Personal history of other specified conditions (principal)
CPT/HCPCS: 93005

== ENCOUNTER 2022-10-31 11:00 | Outpatient (RCR) | payer OTHER, SELFPAY ==
--- NOTE | 2022-09-19 14:46 | MHC.PT.EP ---
[facility] [place] Office [place] Office [place] Office [address] Vinnie Guerin [address] [phone] F: [phone] F: [phone] F: [phone] F: [phone] Physical Therapy Plan of Care Date of Evaluation: Date of Surgery: N/A Diagnosis: OA of let and right shoulder (RC) Assessment: pt is a 72 y/o male presenting to physical therapy w/ referring diagnosis of osteoarthritis of left and right shoulder. Impairments include pain, decreased range of motion, decreased strength, impaired functional mobility, impaired postural awareness, and altered ambulation mechanics. pt is a fair candidate for skilled PT due to age, potential remediation of impairments, typical disease/condition progression and prognosis, comorbidities, and motivation. pt would benefit from skilled PT intervention to provide a tailored strengthening and stretching exercise program, functional training, gait training, postural re-training, neuromuscular re-education, modalities as needed for pain, equipment safety demonstration. Frequency and Duration: The patient will be seen 2x/wk for 4 wks Short Term Goals: pt will be I w/ HEP to promote self-management of condition. pt will improve cervical rotation by 10* to promote ease in head turns w/ driving. Copper Plate Printer Goals: pt will report <4/10 neck pain w/ cervical AROM while ambulating to promote improved head turns for safety. pt will demo proper lifting mechanics of 20# x5 reps w/o verbal cueing. Treatment Plan: Modalities to reduce pain, spasms and effusion. Manual therapy to restore motion and function. Therapeutic exercise to improve strength and flexibility. Neuromuscular re-education for posture and balance. Therapeutic activities to return to functional activities of daily living. Electronically signed by: Lawanda Jensen PT, DPT Please sign and return to therapist. Thank you for your referral.
--- NOTE | 2022-09-28 11:46 | MHC.PT.DC ---
[facility] [place] Office [place] Office [place] Office [address] Vinnie Guerin [address] [phone] F: [phone] F: [phone] F: [phone] F: [phone] Physical Therapy Discharge Report Diagnosis: OA of let and right shoulder (RC) Date of Surgery: N/A Date of Evaluation: 09/19/22 Date of Discharge: 09/28/22 Treatments to Date: 1 Cancellations to Date: 0 No Shows to Date: 2 Discharge Status: Visit Non-compliance Discharge Summary: The patient has no showed two consecutive appointments. He is being discharged for non-compliance. He only attended the evaluation. Electronically signed by: Lawanda Jensen PT, DPT Please sign and return to therapist. Thank you for your referral.
--- NOTE | 2022-10-31 11:50 | MHC.PT.DC ---
[facility] [place] Office [place] Office [place] Office [address] Vinnie Guerin [address] [phone] F: [phone] F: [phone] F: [phone] F: [phone] Physical Therapy Discharge Report Diagnosis: OA of let and right shoulder (RC) Date of Surgery: N/A Date of Evaluation: 09/19/22 Date of Discharge: 10/31/22 Treatments to Date: 8 Cancellations to Date: 0 No Shows to Date: 2 Discharge Status: Improved Function Independent with HEP Discharge Summary: The patient reported he is starting to notice an improvement in his upper trapezius pain. He has better postural awareness and now and understanding how his posture may affect his symptoms. He is independent with his home exercise program and is discharged from this physical therapy plan of care at this time. Electronically signed by: Lawanda Chappell PT, DPT Please sign and return to therapist. Thank you for your referral.
== END 2022-10-31 11:49 | disposition home or self-care (01) ==
LOC: HO.PT 11:00
PROVIDERS: PCP Internal Medicine; Visit Provider Nurse Practitioner Family
DX: M19.011 Primary osteoarthritis, right shoulder (principal); M19.012 Primary osteoarthritis, left shoulder
CPT/HCPCS: 97110; 97140; 97162

== ENCOUNTER 2022-12-14 13:48 | Outpatient (AMB) | payer OTHER, SELFPAY ==
[2022-12-14 13:52] VITALS: BP 120/90; PULSE 110; BMI 34.7
--- NOTE | 2022-12-14 13:52 | A.OFFVIS_ITS ---
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 chest pain and dizziness Intake Note: NPV Automation Controls Expert Required: Yes Automation Controls Expert Language: Email Campaign Specialist Name: [id number] Carroll Accompanied by: Self / Same As Patient Allergies amitriptyline Allergy (Intermediate, Verified 12/14/22 13:54) stomach pain aspirin Allergy (Intermediate, Verified 12/14/22 13:54) stomach pain Medication List - Last Reconciled 12/14/22 by Alec Barker MD acetaminophen 500 mg PO BID PRN adalimumab (Humira(CF) Pen) 40 mg subcut Q2W allopurinol 300 mg PO DAILY 90 days aspirin 81 mg PO DAILY atorvastatin 20 mg PO DAILY cholecalciferol (vitamin D3) 50 mcg PO DAILY 90 days lisinopril 40 mg PO DAILY 90 days metoprolol succinate ER 50 mg PO DAILY 90 days oztmw-6w-[id number]-epa-fish oil 350-400 mg 1 cap PO DAILY omeprazole 20 mg PO BID HPI HPI Comments History of Present Illness Details Leeroy is here evaluation of several complaints. Discussed with patient using child welfare consultant. Multiple complaints including chest pain at different times, shortness of breath, palpitations, with and without exertion. He also states he gets dizzy frequently and has fallen down several times. His heart rate is quite high and it has been this way for quite some time. No known coronary disease myocardial infarction or cardiomyopathy. He states he drinks to take he does every day. Not clear if that is the reason for the tachycardia. [facility] Medical History Elevated hemoglobin Essential hypertension Former smoker GERD (gastroesophageal reflux disease) Gout Pure hypercholesterolemia Surgical History H/O wrist surgery History of foot surgery Family History Father Asthma Mother Hypertension Stomach cancer Family/Other Substance use disorder Brother Cancer, Onset Age: 61 Social History (Updated 12/14/22 @ 14:31 by Alec Barker MD) Household Members: Spouse and Significant Other Housing: Apartment Alcohol intake: current Alcohol type: beer and hard liquor Patient Tobacco Use Status: Former Tobacco user Tobacco use type: Cigarette e-Cigarette/Vaping Use: Never Used Second Hand Smoke Exposure: No service: No Current occupational status: disabled Cognitive needs: No Hearing needs: No Vision needs: No Review of Systems Const Denies chills, Denies daytime sleepiness, Denies fatigue, Denies fever(s), Denies frequent falls, Denies night sweats, Denies snoring, Denies weakness, Den ies weight gain and Denies weight loss Eyes Denies loss of vision ENT Denies dizziness and Denies hearing loss Card Denies chest pain, Denies chest pain with activity, Denies syncope, Denies rapid heart rate, Denies edema, Denies claudication, Denies leg edema, Denies lightheadedness, Denies palpitations, Denies dyspnea, Denies dyspnea on exertion and Denies orthopnea Resp Denies cough, Denies excessive phlegm production, Denies dyspnea, Denies dyspnea on exertion, Denies snoring and Denies wheezing GI Denies abdominal pain, Denies hematochezia, Denies change in bowel habits, Denies change in stool character, Denies heartburn, Denies nausea and Denies vomiting Denies hematuria, Denies dysuria and Denies urinary frequency Musc Denies arthralgias, Denies muscle weakness, Denies numbness and Denies tingling Skin/Breast Denies nail changes and Denies rash Neuro Denies Abnormal speech present, Denies dizziness, Denies syncope, Denies frequent falls, Denies loss of vision, Denies memory loss, Denies numbness, Denies tingling and Denies weakness Psych Denies depression and Denies memory loss Endo Denies fatigue and Denies palpitations Aller/Immun Denies wheezing Physical Exam Vital Signs: Last Vital Signs Pulse 110 H 12/14/22 13:52 BP 120/90 H 12/14/22 13:52 BMI result Body Mass Index 34.7 Const General: comfortable and no acute distress Orientation/consciousness: patient oriented x3 HEENT Other: Unremarkable Head: Yes normal to inspection Neck Neck: Yes normal visual inspection Chest Chest palpation & inspection: normal inspection of the chest Resp Auscultation: clear to auscultation bilaterally Cardio Palpation: normal PMI Heart sounds: S1 normal heart sound present, S2 normal heart sound present, no gallops, no murmurs and no rubs GI Palpation (GI): Soft to palpation Back/Spine/Pelvis Other: unremarkable Skin General skin exam: no rashes or lesions noted Neuro General: patient oriented x3 Speech: No Abnormal speech present Extrem General: Yes normal to inspection Psych Mental Status: mental status grossly normal Office Procedures EKG Details: EKG with sinus tachycardia 108/Min; no significant ST-T changes and otherwise unremarkable[place] [id number], Complete Assessment & Plan Assessment & Plan (1) Sinus tachycardia: Code(s): R00.0 - Tachycardia, unspecified (2) Essential hypertension: Code(s): I10 - Essential (primary) hypertension (3) Precordial chest pain: Code(s): R07.2 - Precordial pain (4) Syncope: Code(s): R55 - Syncope and collapse Plan Various complaints including chest pain, shortness of breath, palpitations, dizziness/syncope at different times, with and without exertion. History of daily alcohol use. Recent echocardiogram with normal LVEF, 60-65%; mild septal hypertrophy and mild ascending aortic dilatation. No significant valvular issues. We will get comprehensive workup including stress test and Holter. With regard to the tachycardia, not clear if it is related to daily alcohol use. Certainly possible. In that case main recommendation will be to cut back on alcohol use. May also decrease MARÍA inhibitors and rather increase beta-ela dosing as well. To be followed up after testing. Orders: Orders CA stress test Today R07.2 - Precordial pain ECG 3 day holter monitor Today I49.8 - Other specified cardiac arrhythmias, R00.0 - Tachycardia, unspecified NM cardiolite stress test Today R07.2 - Precordial pain Coding Level of Care Code New Pt Level 4 (11457) Diagnoses Sinus tachycardia R00.0 Essential hypertension I10 Precordial chest pain R07.2 Syncope R55 CPT Codes EKG - CPT: 19202-[id number], Complete ([id number])
== END 2022-12-14 14:22 | disposition home or self-care (01) ==
PROVIDERS: Visit Provider Internal Medicine
DX: R00.0 Tachycardia, unspecified (principal); I10 Essential (primary) hypertension; R07.2 Precordial pain; R55 Syncope and collapse
CPT/HCPCS: 93010; 99214

== ENCOUNTER → 2022-12-14 13:48 | Outpatient (BNVA) | payer OTHER, SELFPAY | PROVIDERS: Visit Provider Internal Medicine | DX: R07.2 Precordial pain (principal); I10 Essential (primary) hypertension; R55 Syncope and collapse; R00.0 Tachycardia, unspecified | CPT/HCPCS: 93005; 99212 ==

== ENCOUNTER 2023-01-09 09:01 | Outpatient (AMB) | payer OTHER, SELFPAY ==
--- NOTE | 2023-01-09 09:17 | A.OFFPC_ITS ---
Vital Signs 01/09/23 09:21 01/09/23 10:25 Height 5 ft 5.75 in Weight 209 lb 6 oz BMI 34.0 BP 144/90 H 138/80 Blood Pressure Location Lt brachial Lt brachial Position Sitting Sitting Pulse 115 H Pulse Source Pulse Oximeter Pulse Oximetry (%) 97 Oxygen Delivery Method Room Air Intake Visit Reasons: Physical Exam Intake Note: Patient is here today for a physical. Him Assistant Required: No Accompanied by: Self / Same As Patient Allergies amitriptyline Allergy (Intermediate, Verified 01/09/23 09:45) stomach pain aspirin Allergy (Intermediate, Verified 01/09/23 09:45) stomach pain Medication List - Last Reconciled 01/09/23 by Cristina Calixto MD acetaminophen 500 mg PO BID PRN adalimumab (Humira(CF) Pen) 40 mg subcut Q2W allopurinol 300 mg PO DAILY 90 days aspirin 81 mg PO DAILY atorvastatin 20 mg PO DAILY cholecalciferol (vitamin D3) 50 mcg PO DAILY 90 days lisinopril 40 mg PO DAILY 90 days metoprolol succinate ER 50 mg PO DAILY 90 days krbif-0v-ylk-epa-fish oil 350-400 mg 1 cap PO DAILY omeprazole 20 mg PO BID Tobacco use date assessed: 09/14/22 Fall risk assessment: No Falls in past year Last assessed Fall Risk: 01/09/23 Dental Screening Dental Screen Date: 01/09/23 Did you have a dental visit in the last 12 months?: Yes Did you have a dental problem in the last 6 months where you did not have access to dental care?: Yes Was dental information given to patient?: Patient has dentist HPI HPI Comments History of Present Illness Details This is a 72-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 Psoriasis is follow by Dermatology and well control with Humira. Last colonoscopy was 2016 and next colonoscopy should be 2026. Denies any chest pain or shortness of breath. No fever or cough. [facility] Medical History Elevated hemoglobin Essential hypertension Former smoker GERD (gastroesophageal reflux disease) Gout Pure hypercholesterolemia Surgical History H/O wrist surgery History of foot surgery Family History (Updated 01/09/23 @ 09:51 by Cristina Calixto MD) Father Asthma Mother Hypertension Stomach cancer, Onset Age: 50 Family/Other Substance use disorder Brother Cancer, Onset Age: 61 Social History Household Members: Spouse and Significant Other Housing: Apartment Alcohol intake: current Alcohol type: beer and hard liquor Patient Tobacco Use Status: Former Tobacco user Tobacco use type: Cigarette e-Cigarette/Vaping Use: Never Used Second Hand Smoke Exposure: No service: No Current occupational status: disabled Cognitive needs: No Hearing needs: No Vision needs: No Questionnaire Thrive Questionnaire Date Thrive assessed: 09/14/22 TARYN-7 AMB Questionnaire TARYN-7 Date TARYN - 7 assessed: 09/14/22 Source: Developed by Drs. Kike Nichols, Jodi Eng, Keith Treadwell and colleagues, with an educational oscar from [employer]. Review of Systems Const All systems reviewed & are unremarkable except as noted in HPI and below Eyes Reports no additional complaints, Denies change in vision and Denies other visual disturbances Card Denies chest pain at rest, Denies chest pain with activity, Denies edema, Denies irregular heart rhythm, Denies claudication, Denies dyspnea, Denies dyspnea on exertion, Denies orthopnea, Denies paroxysmal nocturnal dyspnea and Denies slow heart rate Resp Denies cough, Denies dyspnea and Denies dyspnea on exertion GI Denies abdominal pain, Denies change in bowel habits, Denies excessive flatus, Denies nausea and Denies vomiting Denies urinary hesitancy, Denies urinary incontinence and Denies urinary urgency Musc Denies abnormal gait, Denies atrophy, Denies deformity and Denies limited range of motion Skin/Breast Denies bleeding lesions, Denies changing lesions and Denies rash Neuro Denies abnormal gait and Denies lack of coordination Physical exam (Primary Care) Vital Signs: Last Vital Signs Pulse 115 H 01/09/23 09:21 BP 144/90 H 01/09/23 09:21 Pulse Ox 97 01/09/23 09:21 Oxygen Delivery Method Room Air 01/09/23 09:21 BMI result Body Mass Index 34.0 Tobacco/Smoking Status: Tobacco use Status Tobacco use date assessed 09/14/22 01/09/23 09:17 Patient Tobacco Use Status Former Tobacco user 08/15/23 09:17 Tobacco use type Cigarette 01/09/23 09:17 e-Cigarette/Vaping Use Never Used 01/09/23 09:17 Thrive Assessment: Date of Thrive Assessment Date Thrive assessed 09/14/22 01/09/23 09:17 Const Orientation/consciousness: patient oriented x3 HENMT Head: Yes normal to inspection, Yes normocephalic and Yes atraumatic Ears: external ears normal Eyes General: appearance normal, both eyes and all related structures Eyelids: Yes eyelids normal Conjunctivae: conjunctivae normal Neck Neck: Yes normal visual inspection and Yes supple Resp Effort & Inspection: normal respiratory effort Auscultation: clear to auscultation bilaterally Cardio Jugular venous distension: no JVD Rate: regular rate Rhythm: regular rhythm Heart sounds: S1 normal heart sound present and S2 normal heart sound present GI Inspection: Yes normal to inspection Palpation (GI): Soft to palpation and nontender Auscultation: normal bowel sounds Skin General skin exam: no rashes or lesions noted Neuro General: patient oriented x3 and no focal motor deficits Extrem General: Yes full ROM Psych Appearance: grossly normal Assessment and Plan Assessment & Plan (1) Physical exam: Code(s): Z00.00 - Encounter for general adult medical examination without abnormal findings Plan: Repeat in a year (2) Psoriasis arthropathica: Code(s): L40.50 - Arthropathic psoriasis, unspecified Plan: Continue [facility] Coding Level of Care Code Est Pt Prev Care >65y(77786) Diagnoses Physical exam Z00.00 Psoriasis arthropathica L40.50 Time Spent (min) 35
[2023-01-09 09:21] VITALS: BP 144/90; PULSE 115; O2SAT 97; BMI 34.0
[2023-01-09 10:25] VITALS: BP 138/80
== END 2023-01-09 10:07 | disposition home or self-care (01) ==
PROVIDERS: Visit Provider Internal Medicine
DX: Z00.00 Encounter for general adult medical examination without abnormal findings (principal); L40.50 Arthropathic psoriasis, unspecified
CPT/HCPCS: 99397

== ENCOUNTER → 2023-01-25 08:13 | Outpatient (REF) | payer OTHER, SELFPAY ==
--- NOTE | ~2023-01-25 | NM_ITS ---
EXERCISE MYOCARDIAL PERFUSION STUDY INDICATION: Chest pain TECHNIQUE: The patient was brought in for an exercise perfusion study on 01/25/2023. Patient performed exercise as per Dustin protocol and was injected 30 mCi of sestamibi once target heart rate was achieved. Images were obtained using the SPECT gamma camera interlaced with the gating device. Images were obtained in supine position. Resting perfusion study was performed on 01/30/2023. Patient was administered 30 mCi of sestamibi intravenously at rest. Images were then obtained in supine position. Images were processed with the software and compared side to side in short axis, horizontal long axis and vertical long axis views. Total DLP 183mGy-cm. FINDINGS: Raw images were reviewed. Arms by the patient's side. The stress perfusion study showed mildly diminished tracer uptake along the basal to mid lateral wall. There is improvement with CT attenuation correction, suggestive of soft tissue attenuation artifact. The gated study shows normal LV systolic function with calculated LVEF of 74%. LV cavity is normal in size. The gated study shows normal wall thickening and contraction of segments. Resting study shows no significant perfusion abnormality. Gating at rest reveals normal wall motion with ejection fraction at 70%. The findings are consistent with no clear reversible or fixed perfusion defects. NM/NM cardiolite stress test IMPRESSION: 1. Myocardial perfusion imaging study shows normal myocardial perfusion. 2. Gated LVEF is 74% during stress and 70% during rest. 3. Transient ischemic dilatation not present. EKG component of the test reported separately.
--- NOTE | 2023-01-25 08:16 | CA_ITS ---
Acquisition Time: 2023-01-25 08:46:21 Total Exercise Time: 00:08:59 Test Indications: CP Medications: SEE H Protocol: BECK Max HR: 148 BPM 98% of Pred: 150 BPM Max BP: 140/080 mmHG Max Work Load: 10.1 METS Exercise stress test exercise 8 min 59 sec of Beck protocol achieivng 98% MPHR, with mild to moderate SOB, no chest discomfort, with isolated PACs, without EKG changes. Nuclear images pending. Test reviewed with Dr. Mittal. Referred By: Alec Barker Overread By: Carlee Sethi
--- NOTE | 2023-01-25 08:16 | HM_ITS ---
Conclusion: 1. Patient was monitored for total period of 2 days and 23 hours 2. Baseline was normal sinus rhythm with average heart of 104 beats per minute 3. No significant pauses noted 4. Frequent sinus tachycardia noted with 61% of time heart rate greater than 100 beats per minute 5. Few episodes of Mobitz type 1 second-degree AV block noted mostly during sleep time 6. Rare PACs noted 7. No patient reported events MTDD
== END ==
LOC: HO.CARD 08:13
PROVIDERS: PCP Internal Medicine; Visit Provider Internal Medicine
DX: R07.2 Precordial pain (principal); I49.8 Other specified cardiac arrhythmias; R00.0 Tachycardia, unspecified
CPT/HCPCS: 78452; 93017; 93242; A9500; J0280; J2785

== ENCOUNTER → 2023-01-25 08:16 | Outpatient (BNV) | payer OTHER, SELFPAY | PROVIDERS: PCP Internal Medicine; Visit Provider Nurse Practitioner | DX: R00.0 Tachycardia, unspecified (principal) | CPT/HCPCS: 78452; 93016; 93018; 93244 ==

== ENCOUNTER 2023-03-09 09:24 | Outpatient (REF) | payer OTHER, SELFPAY ==
[2023-03-09 12:34] LABS: Vitamin D 25-OH Total 46.5 ng/mL (>30)
== END 2023-03-09 09:25 | disposition home or self-care (01) ==
LOC: HO.LAB 09:24
PROVIDERS: Absent Provider Nurse Practitioner Family; PCP Internal Medicine; Visit Provider Nurse Practitioner Family
DX: I44.1 Atrioventricular block, second degree (principal); R55 Syncope and collapse; R07.2 Precordial pain; R00.0 Tachycardia, unspecified; M10.9 Gout, unspecified; E55.9 Vitamin D deficiency, unspecified; G47.10 Hypersomnia, unspecified; Z79.899 Other long term (current) drug therapy
CPT/HCPCS: 36415; 82306; 84550; 93005; 99212

== ENCOUNTER 2023-03-09 09:24 | Outpatient (AMB) | payer OTHER, SELFPAY ==
[2023-03-09 09:54] VITALS: BP 138/72; PULSE 107; BMI 34.8
--- NOTE | 2023-03-09 09:54 | A.OFFVIS_ITS ---
Intake Vital Signs 03/09/23 09:54 Height 5 ft 5 in Weight 208 lb 15.971 oz BMI 34.8 BP 138/72 Blood Pressure Location Lt brachial Position Sitting Pulse 107 H Intake Visit Reasons: r/s followup after testing per km Intake Note: r/s f/u Body Painter Required: Yes Body Painter Name: stoney wilder [id number] Allergies amitriptyline Allergy (Intermediate, Verified 03/09/23 10:03) stomach pain aspirin Allergy (Intermediate, Verified 03/09/23 10:03) stomach pain Medication List - Last Reconciled 03/09/23 by STEVEN Dumont acetaminophen 500 mg PO BID PRN adalimumab (Humira(CF) Pen) 40 mg subcut Q2W allopurinol 300 mg PO DAILY 90 days aspirin 81 mg PO DAILY atorvastatin 20 mg PO DAILY cholecalciferol (vitamin D3) 50 mcg PO DAILY 90 days lisinopril 40 mg PO DAILY 90 days metoprolol succinate ER 50 mg PO DAILY 90 days omeprazole 20 mg PO BID HPI r/s followup after testing per km HPI Chuck Umaña is a 73-year-old male with past medical history of hypertension, hyperlipidemia, prior smoking who was being evaluated for chest discomfort, shortness of breath, syncope and heart palpitations. He recently underwent a stress test, Holter monitor and echocardiogram. He now presents for follow-up. Today he reports that he had a presyncopal event on 03/06/2023 following a prostate biopsy. He had become diaphoretic and clammy, like he was going to pass out. After 15 minutes of rest he was back to his baseline. He left the doctor's office that then wall waiting for his ride he had a recurrent episode that his states was worse. EMS was called and was transported to [facility] for evaluation. History with IV fluids and his testing showed no acute abnormalities. He was discharged to home following workup. He has not had recurrent episodes since then. His states that he has had about 8 fainting/ near fainting episodes in the past. She says it usually occurs following physical activity. She describes 1 episode at her sister's house where he had been cutting some wood then sat down, became diaphoretic and had a near fainting episode. He does have chest discomfort at times but is vague in describing it. He also feels heart palpitation where his heart is being fast. He has some shortness of breath with activity. He admits to being mostly sedentary. He is upset today over the of his aunt this morning. 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 [facility] Medical History Former smoker Gout Elevated hemoglobin GERD (gastroesophageal reflux disease) Pure hypercholesterolemia Essential hypertension Surgical History H/O wrist surgery History of foot surgery Family History Father Asthma Mother Hypertension Stomach cancer, Onset Age: 50 Family/Other Substance use disorder Brother Cancer, Onset Age: 61 Social History Household Members: Spouse and Significant Other Housing: Apartment Alcohol intake: current Alcohol intake frequency: holidays/special occasions only Alcohol type: beer and hard liquor Patient Tobacco Use Status: Former Tobacco user Tobacco use type: Cigarette e-Cigarette/Vaping Use: Never Used Second Hand Smoke Exposure: No service: No Current occupational status: disabled Cognitive needs: No Hearing needs: No Vision needs: No Review of Systems Const All systems reviewed & are unremarkable except as noted in HPI and below ENT Reports dizziness Card Reports chest pain, Denies chest pain at rest, Denies chest pain with activity, Reports rapid heart rate, Denies pedal edema, Denies edema, Denies leg edema, Denies lightheadedness, Denies palpitations, Denies dyspnea, Reports dyspnea on exertion and Denies orthopnea Resp Denies cough, Denies dyspnea and Reports dyspnea on exertion GI Denies hematochezia and Denies change in stool character Musc Denies abnormal gait, Denies limited range of motion, Denies muscle cramps, Denies muscle weakness, Denies numbness, Denies radiating pain into limb, Denies stiffness and Denies tingling Neuro Denies abnormal gait, Reports dizziness, Denies numbness and Denies tingling Endo Denies palpitations Physical Exam Vital Signs: Last Vital Signs Pulse 107 H 03/09/23 09:54 BP 138/72 03/09/23 09:54 BMI result Body Mass Index 34.8 Const General: cooperative, healthy appearing, comfortable and no acute distress Orientation/consciousness: patient oriented x3 Neck Neck: Yes normal visual inspection Resp Effort & Inspection: normal respiratory effort Auscultation: clear to auscultation bilaterally, no crackles, no rales, no rhonchi and no wheezes Cardio Jugular venous distension: no JVD Rate: regular rate Rhythm: regular rhythm Heart sounds: S1 normal heart sound present, S2 normal heart sound present, no murmurs and no rubs Neuro General: patient oriented x3 Extrem General: Yes normal to inspection Psych Appearance: grossly normal Mental Status: mental status grossly normal Speech and movement: Normal speech and movement present Office Procedures EKG Details: Today, read by me, sinus tachycardia, no acute ST or T-wave abnormalities, rate 107, QTC 451 milliseconds [id number], Complete Assessment & Plan Assessment & Plan (1) Syncope: Code(s): R55 - Syncope and collapse Qualifiers: Syncope type: vasovagal syncope Qualified Code(s): R55 - Syncope and collapse Plan: Reported episodes of presyncope/syncope at home, at approximately 8 in the past. He did have episode presyncope on 03/06/2023 following prostate biopsy, it in the office. Became cold, diaphoretic, presyncopal. Episode treated conservatively and lasted approximately 15 minutes before he was back to baseline. He was low to leave the office and then had recurrent episode while waiting for his ride. describes this episode as being worse, further details unclear. EMS was called and he was transported to [facility] where he underwent evaluation. Notes reviewed: Lab work negative, EKG no acute findings, CT of the head not done as he did not fall or strike head. They concluded probable vasovagal syncope. Reviewed this with patient and and is insistent there is more to this. She said he has had episodes following exertional activity. An echocardiogram was done on 09/21/2022 showing EF 60-65%, mild septal hypertrophy, mildly dilated ascending aorta. A Holter monitor done for 3 days on 01/25/2023 showing sinus rhythm/sinus tach with average heart rate 104, 61% of the time heart rate greater than 100, evidence of Mobitz 1 during sleep time, rare PAC. An exercise stress test was done on 01/25/2023 with exercise 9 minutes, shortness of breath present, no EKG changes and normal myocardial perfusion imaging. He did not have any noted presyncope or syncope following his exercise. Reviewed these findings with patient and . Will check with his preventive maintenance engineer Dr. Barker regarding a tilt-table test for definitive diagnosis. Reviewed need for maintaining good hydration, recognizing symptoms and getting in a laying down position if he feel symptoms coming on. Will check a sleep study as he had evidence of Mobitz 1 during sleep hours. Continue on current metoprolol and lisinopril. Blood pressure is in normal range at this time. Cardiology follow-up in 4-6 weeks, sooner if needed. He tells me he is leaving for [place] on 05/01/2023 and will be back on 05/24/2023. (2) Precordial chest pain: Code(s): R07.2 - Precordial pain Plan: Vague description of chest discomfort. Cardiac testing as above. He does have cardiac risk factors of obesity, hypertension, hyperlipidemia and smoking. Symptom at present seems atypical for angina. (3) Sinus tachycardia: Code(s): R00.0 - Tachycardia, unspecified Plan: Patient has sinus tachycardia. Holter monitor shows 61% of the time heart rate greater than 100. EKG done today showing sinus tach, rate 107. He can feel the palpitation of his heart beating fast. He is on metoprolol XL 50 mg daily. Echo shows normal EF. He did have some Mobitz 1 seen on Holter monitor during sleep. Will hold off on increasing beta-ela at this time. Unclear why he is tachycardic. His lab work recently done at [facility] is in normal limits. He does have alcohol use. The need for good hydration with water reviewed. (4) Hospital discharge follow-up: Code(s): Z09 - Encounter for follow-up examination after completed treatment for conditions other than malignant neoplasm (5) Mobitz type 1 second degree atrioventricular block: Code(s): I44.1 - Atrioventricular block, second degree Orders: Orders RT PSG in-lab sleep study Today G47.10 - Hypersomnia, unspecified, I44.1 - Atrioventricular block, second degree Coding Level of Care Code Est Pt Level 4 (46092) Diagnoses Vasovagal syncope R55 Syncope type: vasovagal syncope Precordial chest pain R07.2 Sinus tachycardia R00.0 Hospital discharge follow-up Z09 Mobitz type 1 second degree atrioventricular block I44.1 CPT Codes EKG - CPT: 25121-[id number], Complete ([id number]) Time Spent (min) 30
== END 2023-03-09 10:44 | disposition home or self-care (01) ==
PROVIDERS: PCP Internal Medicine; Visit Provider Nurse Practitioner Family
DX: R55 Syncope and collapse (principal); R07.2 Precordial pain; R00.0 Tachycardia, unspecified; Z09 Encounter for follow-up examination after completed treatment for conditions other than malignant neoplasm; I44.1 Atrioventricular block, second degree
CPT/HCPCS: 93010; 99214

== ENCOUNTER 2023-03-13 09:24 | Outpatient (AMB) | payer OTHER, SELFPAY ==
[2023-03-13 09:40] VITALS: BP 126/100; PULSE 110; TEMP 36.3; O2SAT 96; BMI 34.7
--- NOTE | 2023-03-13 09:40 | A.OFFVIS_ITS ---
Intake Vital Signs 03/13/23 09:40 Height 5 ft 5 in Weight 208 lb 5.389 oz BMI 34.7 BP 126/100 H Blood Pressure Location Lt brachial Position Sitting Pulse 110 H Pulse Source Pulse Oximeter Temp 97.4 F Temp Source Skin Pulse Oximetry (%) 96 Oxygen Delivery Method Room Air Intake Visit Reasons: osteoarthritis, gout, psoriasis Intake Note: Patient presents today to follow up on OA and gout. c/o multiple joint pains Seen at [facility] for dizziness. Seen by promotional advertising assistant, further workup is pending. Staffing Branch Manager Required: Yes Staffing Branch Manager Language: Sales Representative Graphic Art Name: Alberto [id number] Information Interpreted: clinical only Accompanied by: Spouse Allergies amitriptyline Allergy (Intermediate, Verified 03/13/23 09:48) stomach pain aspirin Allergy (Intermediate, Verified 03/13/23 09:48) stomach pain Medication List - Last Reconciled 03/13/23 by Armin Smiley MD acetaminophen 500 mg PO BID PRN adalimumab (Humira(CF) Pen) 40 mg subcut Q2W allopurinol 300 mg PO DAILY 90 days aspirin 81 mg PO DAILY atorvastatin 20 mg PO DAILY calcipotriene 0.005% 1 appl topical QAM cholecalciferol (vitamin D3) 50 mcg PO DAILY 90 days lisinopril 40 mg PO DAILY 90 days metoprolol succinate ER 50 mg PO DAILY 90 days omeprazole 20 mg PO BID HPI HPI Comments History of Present Illness Details The patient returns today with his for evaluation of his osteoarthritis. We used the [employer] translating service. He has known psoriasis, treated with Humira 40 mg every 2 weeks. That is taking care of all of psoriasis and he has no skin lesions. Previous visit earlier this year with [facility] did not reveal evidence for inflammatory arthritis. Areas of pain still include the neck, lower back, hips shoulders, and the left knee. He was sent for some PT for the shoulders but they did really improve much. He is more concerned about the lower back and knee pain. He did have a corticosteroid injection in the back that did not help much. The knee on the left is occasionally swollen. He does take acetaminophen for symptoms, usually about 3 of the 500 mg tablets of acetaminophen a day. He has a history of injuries in the past, most of them sound like the fractures of the left hand, left femur, and the left knee. The knee sounds like it might have had arthroscopy in the past. He is on 300 mg daily allopurinol for gout and does not recall any recent gout attacks in the last few years [facility] Medical History Former smoker Gout Elevated hemoglobin GERD (gastroesophageal reflux disease) Pure hypercholesterolemia Essential hypertension Surgical History H/O wrist surgery History of foot surgery Family History Father Asthma Mother Hypertension Stomach cancer, Onset Age: 50 Family/Other Substance use disorder Brother Cancer, Onset Age: 61 Social History Household Members: Spouse and Significant Other Housing: Apartment Alcohol intake: current Alcohol intake frequency: holidays/special occasions only Alcohol type: beer and hard liquor Patient Tobacco Use Status: Former Tobacco user Tobacco use type: Cigarette e-Cigarette/Vaping Use: Never Used Second Hand Smoke Exposure: No service: No Current occupational status: disabled Cognitive needs: No Hearing needs: No Vision needs: No Review of Systems Const Details: It sounds like he does not exercise much, mostly related to having back pain or knee pain with walking. Negative for appetite change, weight change, fever, chills, malaise and fatigue Eyes Details: Negative for vision change, dry eyes,headaches and dizziness Skin/Breast Details: Negative for itching, rash, hives, Raynaud's symptoms, sun sensitivity, and skin cancer Endo Details: Negative for polyuria and polydypsia Colt/Lymph Details: Negative for excessive bruising or bleeding. Physical Exam Vital Signs: Last Vital Signs Temp 97.4 F 03/13/23 09:40 Pulse 110 H 03/13/23 09:40 BP 126/100 H 03/13/23 09:40 Pulse Ox 96 03/13/23 09:40 Oxygen Delivery Method Room Air 03/13/23 09:40 BMI result Body Mass Index 34.7 APPEARANCE: Patient in no acute distress EYES no redness, pupils equal and reactive to light, eyelids normal. No temporal artery tenderness, redness or swelling. Skin: No psoriatic lesions noted Cervical Spine: Full range of motion with mild discomfort at the extremes of lateral flexion or lateral rotation. There is some slight cervical muscle tenderness. Thoracic Spine:? No scoliosis.? No tenderness on palpation. Lumbar Spine:? Alignment normal.? Pain with flexion and extension. Tenderness to palpation of the lumbar spine. Hands: Normal pain-free range of motion with some slight bony enlargement at the thumb IP in a few of the PIP joints. These are minimally tender. There is no soft tissue, swelling, increased warmth or erythema. There is no thenar atrophy, flexor tendon triggering or sensory loss. Wrists:? LEFT: There is a scar on the dorsum of the wrist. The wrist seem somewhat thickened. He can only extend about 10 degrees and flexes about 30 degrees with mild pain. He says this area was fractured a number of years ago and required surgery. Healed scar noted over the top of the wrist/dorsal aspect of hand. No increased warmth or erythema. RIGHT: Normal pain-free range of motion without tenderness, swelling, increased warmth or erythema. Elbows: LEFT: Normal pain-free range of motion without tenderness, swelling, increased warmth or erythema. RIGHT: Full pain-free range of motion without tenderness, swelling, increased or erythema. Shoulders: Mild discomfort with abduction at about 150 degrees or with more than 20 degrees of internal or external rotation. There is mild anterior tenderness without swelling at, adenopathy or abductor weakness. internal rotation. No weakness swelling, increased warmth or erythema. Hips:? Right: Full range of motion with mild lumbar pain with extremes of normal internal or external rotation. No groin pain with motion. Left: Rotation also causes pain in the lumbar region in the left hip but there is some diminishment in the extent of internal and external rotation possible. No groin pain however seems to occur with motion. Hip bursa:? Slight bilateral trochanteric tenderness. Knees: LEFT: Full range of motion with mild pain at the extremes of normal flexion or extension. There is medial compartment tenderness without redness or effusion. There is mild patellofemoral crepitus. RIGHT: Full range of motion without pain. No tenderness, swelling, increased warmth erythema. No effusion crepitation noted. Ankles:? Normal pain-free range of motion without tenderness, swelling, increased warmth or erythema. Feet: Normal pain-free range of motion without tenderness, swelling, increased warmth or erythema. ? Results Reviewed Results Reviewed: [address] [address] XRay Report Signed Patient: Leeroy Davis MR#: [id number] : 1950 Acct:[id number] Age/Sex: 72 / M ADM Date: 02/24/[address]: Isamar Peña NP Ordering Physician: Isamar Peña NP Date of Service: 02/24/22 Procedure(s): XR shoulder LT min 2V Accession Number(s): [id number] cc: Isamar Peña NP~ EXAMINATION: XR SHOULDER, RIGHT CLINICAL INFORMATION: Pain. COMPARISON: Radiographs dated 06/28/2016. TECHNIQUE: AP external rotation, Grashey, scapular Y, and axillary views of the right shoulder. FINDINGS: Bony alignment and mineralization are normal. The glenohumeral joint is intact. The acromioclavicular and coracoclavicular intervals are normal. There is moderate osteoarthritic change of the acromioclavicular joint. There is a distal acromial undersurface osteophyte. Faint calcific tendinitis is suspected of the right rotator cuff. No foreign body is seen. This no right pneumothorax. XR/XR shoulder LT min 2V IMPRESSION: 1. No fracture or dislocation is seen. 2. There is moderate osteoarthritic change of the right acromioclavicular joint. 3. Faint calcific tendinitis is suspected of the right rotator cuff. EXAMINATION: XR SHOULDER, LEFT CLINICAL INFORMATION: Pain. COMPARISON: Radiographs dated 06/28/2016. TECHNIQUE: AP external rotation, Grashey, scapular Y, and axillary views of the left shoulder. FINDINGS: Bony alignment and mineralization are normal. The glenohumeral joint is intact. The acromioclavicular and coracoclavicular intervals are normal. No fracture or dislocation is seen. There is mild calcific tendinitis of the left rotator cuff insertion, best seen on the axial view. No foreign body is seen. There is no left pneumothorax. IMPRESSION: 1. No fracture or dislocation is seen. 2. There is mild calcific tendinitis of the left rotator cuff insertion. Dictated By: Mu Singer MD Signed By: <Electronically signed by Mu Singer MD in OV> 02/28/22 [id number] [place] [address] XRay Report Signed Patient: Leeroy Davis MR#: [id number] : 1950 Acct:[id number] Age/Sex: 72 / M ADM Date: 02/24/[address]: Isamar Peña NP Ordering Physician: Isamar Peña NP Date of Service: 02/24/22 Procedure(s): XR knee RT 3V Accession Number(s): [id number] cc: Isamar Peña NP~ EXAMINATION: XR KNEE, RIGHT CLINICAL INFORMATION: Pain. COMPARISON: None. TECHNIQUE: Frontal, lateral and axial views of the right knee are submitted. FINDINGS: Bony alignment and mineralization are normal. No significant varus or valgus configuration is seen. There is moderate narrowing of the medial joint space compartment, with peripheral osteophyte formation. The lateral and patellofemoral joint space compartments are well maintained. There is chondrocalcinosis. No fracture or dislocation is seen. There is a small right knee joint effusion. No foreign body is seen. XR/XR knee RT 3V IMPRESSION: 1. No fracture or dislocation is seen. 2. There is a small right knee joint effusion. 3. There is moderate osteoarthritic change of the medial joint space compartment of the right knee. 4. There is chondrocalcinosis, which can be associated with CPPD. EXAMINATION: XR KNEE, LEFT CLINICAL INFORMATION: Pain. COMPARISON: Radiographs dated 02/05/2013. TECHNIQUE: Frontal, lateral and axial views of the left knee are submitted. FINDINGS: Bony alignment and mineralization are normal. No significant varus or valgus configuration is seen. There is moderate narrowing of the medial joint space compartment. The lateral joint space compartment is well-maintained. The patellofemoral joint space compartment shows mild lateral narrowing. There is chondrocalcinosis. No fracture or dislocation is seen. There is a moderate joint effusion. There is degenerative calcification of the distal patellar tendon insertion. No foreign body is noted. IMPRESSION: 1. No fracture or dislocation is seen. 2. There is a moderate left knee joint effusion. 3. There is moderate osteoarthritic change of the medial joint space compartment of the right knee, and mild osteoarthritic change is seen of the patellofemoral compartment. 4. There is chondrocalcinosis, which can be associated with CPPD. Assessment & Plan Assessment & Plan (1) Psoriasis: Comment: Humira since 2019 Code(s): L40.9 - Psoriasis, unspecified (2) Gout: Comment: well controlled on allopurinol 300mg daily Code(s): M10.9 - Gout, unspecified (3) Spondylosis of lumbar region without myelopathy or radiculopathy: Code(s): M47.816 - Spondylosis without myelopathy or radiculopathy, lumbar region (4) Tendinitis of both rotator cuffs: Code(s): M75.81 - Other shoulder lesions, right shoulder; M75.82 - Other shoulder lesions, left shoulder (5) Osteoarthritis of knees, bilateral: Code(s): M17.0 - Bilateral primary osteoarthritis of knee Plan The patient has a history of well-controlled psoriasis on Humira. Presently I do not see any signs of an active inflammatory arthritis that would make us think he has psoriatic arthritis. Gout symptoms haave been controlled on the allopurinol. 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 The right knee has regular osteoarthritis as does the lower back. The AC joints are involved with OA likely giving him some degree of impingement and rotator cuff tendinitis. Treatment with acetaminophen is recommended for now. I do not think his symptoms presently would mandate a surgical approach but he seems to be very limited walking because of the left knee pain. We will have him come back in a few weeks for corticosteroid injection for that area. In the meantime he can certainly continue with the use of acetaminophen up to 3 g a day in split doses. Medications: New omeprazole 20 mg PO BID 180 caps 0RF Coding Level of Care Code Est Pt Level 4 (26577) Diagnoses Psoriasis L40.9 Gout M10.9 Spondylosis of lumbar region without myelopathy or radiculopathy M47.816 Tendinitis of both rotator cuffs M75.81; M75.82 Osteoarthritis of knees, bilateral M17.0
== END 2023-03-13 10:35 | disposition home or self-care (01) ==
PROVIDERS: PCP Internal Medicine; Visit Provider Internal Medicine Rheumatology
DX: L40.9 Psoriasis, unspecified (principal); M10.9 Gout, unspecified; M47.816 Spondylosis without myelopathy or radiculopathy, lumbar region; M75.81 Other shoulder lesions, right shoulder; M75.82 Other shoulder lesions, left shoulder; M17.0 Bilateral primary osteoarthritis of knee
CPT/HCPCS: 99214

== ENCOUNTER → 2023-03-13 09:24 | Outpatient (BNVA) | payer OTHER, SELFPAY | PROVIDERS: PCP Internal Medicine; Visit Provider Internal Medicine Rheumatology | DX: M75.32 Calcific tendinitis of left shoulder (principal); M17.0 Bilateral primary osteoarthritis of knee; M10.9 Gout, unspecified; M47.816 Spondylosis without myelopathy or radiculopathy, lumbar region; L40.9 Psoriasis, unspecified | CPT/HCPCS: 99212 ==

== ENCOUNTER → 2023-03-25 19:30 | Outpatient (REF) | payer OTHER, SELFPAY | LOC: HO.SL 19:30 | PROVIDERS: Visit Provider Nurse Practitioner Family | DX: G47.33 Obstructive sleep apnea (adult) (pediatric) (principal); G47.61 Periodic limb movement disorder; G47.10 Hypersomnia, unspecified; I44.1 Atrioventricular block, second degree | CPT/HCPCS: 95810 ==

== ENCOUNTER → 2023-03-25 21:30 | Outpatient (BNV) | payer OTHER, SELFPAY | PROVIDERS: Visit Provider Internal Medicine | DX: G47.33 Obstructive sleep apnea (adult) (pediatric) (principal); G47.61 Periodic limb movement disorder | CPT/HCPCS: 95810 ==

== ENCOUNTER 2023-03-29 10:29 | Outpatient (AMB) | payer OTHER, SELFPAY ==
--- NOTE | 2023-03-29 10:32 | MHC.OFFVIS ---
Intake Vital Signs 03/29/23 10:34 Height 5 ft 5 in Weight 209 lb 7.026 oz BMI 34.8 BP 102/60 Blood Pressure Location Lt brachial Position Sitting Pulse 93 Pulse Source Pulse Oximeter Temp 97.1 F Temp Source Skin Pulse Oximetry (%) 97 Oxygen Delivery Method Room Air Intake Visit Reasons: injection on the knee Intake Note: Patient presents today for a injection of the left knee. c/o worsening right shoulder pain. Faculty Neuropsychologist Required: Yes Faculty Neuropsychologist Language: Labor Arbitrator Name: Rachel [id number] Information Interpreted: clinical only Accompanied by: Self / Same As Patient Allergies amitriptyline Allergy (Intermediate, Verified 03/29/23 10:34) stomach pain aspirin Allergy (Intermediate, Verified 03/29/23 10:34) stomach pain HPI HPI Comments History of Present Illness Details The patient returns today for a cortisone injection in the left knee and right shoulder. We had talked about this at his previous visit. He has known gout, psoriatic arthritis, rotator cuff tendinitis and osteoarthritis. [facility] Medical History Former smoker Gout Elevated hemoglobin GERD (gastroesophageal reflux disease) Pure hypercholesterolemia Essential hypertension Surgical History H/O wrist surgery History of foot surgery Family History Father Asthma Mother Hypertension Stomach cancer, Onset Age: 50 Family/Other Substance use disorder Brother Cancer, Onset Age: 61 Social History Household Members: Spouse and Significant Other Housing: Apartment Alcohol intake: current Alcohol intake frequency: holidays/special occasions only Alcohol type: beer and hard liquor Patient Tobacco Use Status: Former Tobacco user Tobacco use type: Cigarette e-Cigarette/Vaping Use: Never Used Second Hand Smoke Exposure: No service: No Current occupational status: disabled Cognitive needs: No Hearing needs: No Vision needs: No Review of Systems Const Details: Negative for appetite change, weight change, fever, chills, malaise and fatigue Endo Details: Negative for polyuria and polydypsia Colt/Lymph Details: Negative for excessive bruising or bleeding. Physical Exam Vital Signs: Last Vital Signs Temp 97.1 F 03/29/23 10:34 Pulse 93 03/29/23 10:34 BP 102/60 03/29/23 10:34 Pulse Ox 97 03/29/23 10:34 Oxygen Delivery Method Room Air 03/29/23 10:34 BMI result Body Mass Index 34.8 APPEARANCE: Patient in no acute distress Shoulders: Right: Mild to moderate pain with abduction 120 degrees or with more than 20 degrees of internal or external rotation. There is mild anterior and subacromial tenderness without swelling or adenopathy. Left: Mild discomfort with abduction at about 150 degrees or with the extremes of normal internal or external rotation. There is mild anterior tenderness without swelling at, adenopathy or abductor weakness. internal rotation. No weakness swelling, increased warmth or erythema. Knees: LEFT: Full range of motion with mild pain at the extremes of normal flexion or extension. There is medial compartment tenderness without redness or effusion. There is mild patellofemoral crepitus. RIGHT: Full range of motion without pain. No tenderness, swelling, increased warmth erythema. No effusion crepitation noted. Office Procedures Joint Injection/Drain Joint Injection/Drain Primary Site: right shoulder Secondary Site: left knee Injected: 80 mg of, Celestone, with 3 mL of and 1% plain lidocaine Coding Details: With the patient's consent the left knee was prepped with ChloraPrep and alcohol. The skin was anesthetized with 2 cc of 1% lidocaine. The knee was then injected with 40 mg of triamcinolone and 1 cc of I % lidocaine. The patient tolerated the procedure with no immediate adverse effects. The right shoulder was prepped ChloraPrep and alcohol. The subacromial space was injected with 40 mg of triamcinolone and 1 cc of lidocaine. Patient tolerated the procedure well no apparent immediate side effects. 96545 - Large joint Procedure code (CPT) selection complete Assessment & Plan Assessment & Plan (1) Tendinitis of both rotator cuffs: Code(s): M75.81 - Other shoulder lesions, right shoulder; M75.82 - Other shoulder lesions, left shoulder (2) Osteoarthritis of knees, bilateral: Code(s): M17.0 - Bilateral primary osteoarthritis of knee Plan He remains symptomatic from rotator cuff tendinitis in both shoulders, much more so on the right. Similarly there is OA in the knees and more symptoms are notable on the left. We reviewed potential side effects of corticosteroid injections. With the patient's consent the left knee was prepped with ChloraPrep and alcohol. The skin was anesthetized with 2 cc of 1% lidocaine. The knee was then injected with 40 mg of triamcinolone and 1 cc of I % lidocaine. The patient tolerated the procedure with no immediate adverse effects. The right shoulder was prepped ChloraPrep and alcohol. The subacromial space was injected with 40 mg of triamcinolone and 1 cc of lidocaine. Patient tolerated the procedure well no apparent immediate side effects. He will see how these do over the next few months. The areas could be reinjected in 4-5 months if he thinks there is a benefit. We will aim for follow-up at about 5 months for evaluation of his gout, psoriasis, psoriatic arthritis and osteoarthritis.. Orders: Orders AMB Joint Injection/Aspiration Today M17.0 - Bilateral primary osteoarthritis of knee, M75.81 - Other shoulder lesions, right shoulder, M75.82 - Other shoulder lesions, left shoulder Coding Level of Care Code Procedure Only Diagnoses Tendinitis of both rotator cuffs M75.81; M75.82 Osteoarthritis of knees, bilateral M17.0 CPT Codes Coding - 39491 Large joint: 41823 - Large joint ([id number])
[2023-03-29 10:34] VITALS: BP 102/60; PULSE 93; TEMP 36.2; O2SAT 97; BMI 34.8
== END 2023-03-29 11:03 | disposition home or self-care (01) ==
PROVIDERS: PCP Internal Medicine; Visit Provider Internal Medicine Rheumatology
DX: M75.81 Other shoulder lesions, right shoulder (principal); M75.82 Other shoulder lesions, left shoulder; M17.0 Bilateral primary osteoarthritis of knee
CPT/HCPCS: 20610

== ENCOUNTER → 2023-03-29 10:29 | Outpatient (BNVA) | payer OTHER, SELFPAY | PROVIDERS: PCP Internal Medicine; Visit Provider Internal Medicine Rheumatology | DX: M75.81 Other shoulder lesions, right shoulder (principal); M75.82 Other shoulder lesions, left shoulder; M17.0 Bilateral primary osteoarthritis of knee | CPT/HCPCS: 20610 ==

== ENCOUNTER 2023-06-01 08:35 | Outpatient (REF) | payer OTHER, SELFPAY | END 2023-06-01 08:36 | disposition home or self-care (01) | LOC: HO.LAB 08:35 | PROVIDERS: PCP Internal Medicine; Visit Provider Internal Medicine | DX: E55.9 Vitamin D deficiency, unspecified (principal); M10.9 Gout, unspecified; R55 Syncope and collapse; E78.5 Hyperlipidemia, unspecified | CPT/HCPCS: 36415; 80053; 80061; 82306; 84550 ==

== ENCOUNTER 2023-06-06 13:11 | Outpatient (AMB) | payer OTHER, SELFPAY ==
[2023-06-06 13:22] VITALS: BP 112/86; PULSE 106; RESP 17; O2SAT 96; BMI 33.0
--- NOTE | 2023-06-06 13:22 | MHC.PC.OV ---
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: No Accompanied by: Spouse Allergies amitriptyline Allergy (Intermediate, Verified 06/06/23 13:47) stomach pain aspirin Allergy (Intermediate, Verified 06/06/23 13:47) stomach pain Medication List - Last Reconciled 06/06/23 by Cristina Calixto MD acetaminophen 500 mg PO BID PRN adalimumab (Humira(CF) Pen) 40 mg subcut Q2W allopurinol 300 mg PO DAILY 90 days aspirin 81 mg PO DAILY atorvastatin 20 mg PO DAILY calcipotriene 0.005% 1 appl topical QAM cholecalciferol (vitamin D3) 50 mcg PO DAILY 90 days lisinopril 40 mg PO DAILY 90 days metoprolol succinate ER 50 mg PO DAILY 90 days omeprazole 20 mg PO BID ropinirole 0.5 mg PO BEDTIME 30 days Tobacco use date assessed: 06/06/23 Fall risk assessment: No Falls in past year Last assessed Fall Risk: 06/06/23 Dental Screening Dental Screen Date: 06/06/23 Did you have a dental visit in the last 12 months?: No Did you have a dental problem in the last 6 months where you did not have access to dental care?: No Was dental information given to patient?: No HPI HPI Comments History of Present Illness Details This is a 73-year-old male with hypertension, pure hypercholesterolemia, GERD and psoriasis that comes today accompanied by Sadie for follow-up on his conditions. Blood pressure stable. Cholesterol stable with statins. GERD well control with medications. Psoriasis also stable with Humira. Had a syncopal episode as per while doing prostate biopsy which was negative for cancer. This happened in February 2023. He is follow by a senior enlisted advisor. [facility] Medical History Former smoker Gout Elevated hemoglobin GERD (gastroesophageal reflux disease) Pure hypercholesterolemia Essential hypertension Surgical History H/O wrist surgery History of foot surgery Family History Father Asthma Mother Hypertension Stomach cancer, Onset Age: 50 Family/Other Substance use disorder Brother Cancer, Onset Age: 61 Social History Household Members: Spouse and Significant Other Housing: Apartment Alcohol intake: current Alcohol intake frequency: holidays/special occasions only Alcohol type: beer and hard liquor Patient Tobacco Use Status: Former Tobacco user Tobacco use type: Cigarette e-Cigarette/Vaping Use: Never Used Second Hand Smoke Exposure: No service: No Current occupational status: disabled Cognitive needs: No Hearing needs: No Vision needs: No Questionnaire PHQ-9 Over the last 2 weeks, how often have you been bothered by any of the following problems? 1. Little interest or pleasure in doing things: not at all 2. Feeling down, depressed, or hopeless: not at all 3. Trouble falling or staying asleep, or sleeping too much: not at all 4. Feeling tired or having little energy: not at all 5. Poor appetite or overeating: not at all 6. Feeling bad about yourself - or that you are a failure or have let yourself or your family down: not at all 7. Trouble concentrating on things, such as reading the newspaper or watching television: not at all 8. Moving or speaking so slowly that other people could have noticed. Or the opposite - being so fidgety or restless that you have been moving around a lot more than usual: not at all 9. Thoughts that you would be better off or of hurting yourself in some way: not at all Total score: 0 Depression Screening Interpretation: Negative Depression Screening Done: Yes 86379 - PHQ-9 Billing: Yes Source: Developed by Drs. Kike Nichols, Jodi Eng, Keith Treadwell and colleagues, with an educational oscar from [employer]. Thrive Questionnaire Date Thrive assessed: 06/06/23 I am a: Patient What is your living situation today?: I have a steady place to live Within the past 12 months, did the food you bought not last and you didn't have the money to get more?: Never true Within the past 12 months, did you worry whether your food would run out before you got money to buy more?: Never true Do you have trouble paying for medicines?: No Do you have trouble getting transportation to medical appointments?: No Do you have trouble paying your heating and electricity bill?: No Do you have trouble taking care of your child, family member or friend?: No Do you have trouble with day-to-day activities such as bathing, preparing meals, shopping, managing finances, etc.?: No Are you currently unemployed and looking for a job?: No Are you interested in more education?: No Please select the resources that you would like help with: None Currently or been in a relationship where the following occur: no concerns reported AUDIT C Alcohol Use Questionnaire (AUDIT-C) 1. How often do you have a drink containing alcohol?: 2-3 times a week 2. How many drinks containing alcohol do you have on a typical day when you are drinking?: 1 or 2 3. How often do you have six or more drinks on one occasion?: Never Total Score: 3 TARYN-7 AMB Questionnaire TARYN-7 Date TARYN - 7 assessed: 06/06/23 Feeling nervous, anxious, or on edge: 0 = Not at all Not being able to stop or control worryin = Not at all Worrying too much about different things: 0 = Not at all Trouble relaxin = Not at all Being so restless that it is hard to sit still: 0 = Not at all Becoming easily annoyed or irritable: 0 = Not at all Feeling afraid as if something awful might happen: 0 = Not at all Total TARYN-7 score (0-4 normal; 5-9 mild; 10-14 moderate; 15-21 severe): 0 Source: Developed by Drs. Kike Nichols, Jodi Eng, Keith Treadwell and colleagues, with an educational oscar from [employer]. TARYN-7 Assessment Billing TARYN-7 Assessment Tool: TARYN-7 Assessment 00727 Review of Systems Const All systems reviewed & are unremarkable except as noted in HPI and below Eyes Reports no additional complaints, Denies change in vision and Denies other visual disturbances Card Denies chest pain at rest, Denies chest pain with activity, Denies edema, Denies irregular heart rhythm, Denies claudication, Denies dyspnea, Denies dyspnea on exertion, Denies orthopnea, Denies paroxysmal nocturnal dyspnea and Denies slow heart rate Resp Denies cough, Denies dyspnea and Denies dyspnea on exertion GI Denies abdominal pain, Denies change in bowel habits, Denies excessive flatus, Denies nausea and Denies vomiting Denies urinary hesitancy, Denies urinary incontinence and Denies urinary urgency Musc Denies abnormal gait, Denies atrophy, Denies deformity and Denies limited range of motion Skin/Breast Denies bleeding lesions, Denies changing lesions and Denies rash Neuro Denies abnormal gait, Denies behavioral changes and Denies lack of coordination Psych Denies behavioral changes Physical exam (Primary Care) Vital Signs: Last Vital Signs Pulse 106 H 06/06/23 13:22 Resp 17 06/06/23 13:22 BP 112/86 06/06/23 13:22 Pulse Ox 96 06/06/23 13:22 Oxygen Delivery Method Room Air 06/06/23 13:22 BMI result Body Mass Index 33.0 Tobacco/Smoking Status: Tobacco use Status Tobacco use date assessed 06/06/23 06/06/23 13:33 Patient Tobacco Use Status Former Tobacco user 06/06/23 13:26 Tobacco use type Cigarette 06/06/23 13:26 e-Cigarette/Vaping Use Never Used 06/06/23 13:26 PHQ-9: PHQ-9 Score PHQ-9: Total score 0 06/06/23 13:52 Depression Screening Interpretation: Negative Thrive Assessment: Date of Thrive Assessment Date Thrive assessed 06/06/23 06/06/23 13:33 Currently or been in a relationship where the following occur: no concerns reported Eyes General: appearance normal, both eyes and all related structures Eyelids: Yes eyelids normal Conjunctivae: conjunctivae normal Neck Neck: Yes normal visual inspection and Yes supple Resp Effort & Inspection: normal respiratory effort Auscultation: clear to auscultation bilaterally Cardio Jugular venous distension: no JVD Rate: regular rate Rhythm: regular rhythm Heart sounds: S1 normal heart sound present and S2 normal heart sound present Extrem General: Yes full ROM Assessment and Plan Assessment & Plan (1) Essential hypertension: Code(s): I10 - Essential (primary) hypertension Plan: Continue lisinopril. Blood pressure goal is equal or less than 130/80. (2) Pure hypercholesterolemia: Code(s): E78.00 - Pure hypercholesterolemia, unspecified Plan: Continue statins. (3) GERD (gastroesophageal reflux disease): Code(s): K21.9 - Gastro-esophageal reflux disease without esophagitis Qualifiers: Esophagitis presence: esophagitis presence not specified Qualified Code(s): K21.9 - Gastro-esophageal reflux disease without esophagitis Plan: Continue PPIs as needed. (4) Psoriasis: Comment: Humira since 2019 Code(s): L40.9 - Psoriasis, unspecified Plan: Continue humira. Orders: Orders Complete Blood Count Auto Diff 7 Months L40.9 - Psoriasis, unspecified Lipid Panel 7 Months E78.5 - Hyperlipidemia, unspecified Uric Acid 7 Months M10.9 - Gout, unspecified Comprehensive [place]. Panel Fast 7 Months K21.9 - Gastro-esophageal reflux disease without esophagitis Coding Level of Care Code Est Pt Level 4 (49435) Diagnoses Essential hypertension I10 Pure hypercholesterolemia E78.00 Gastroesophageal reflux disease, unspecified whether esophagitis present K21.9 Esophagitis presence: esophagitis presence not specified Psoriasis L40.9 Additional Codes TARYN-7 Assessment Billing - TARYN-7 Assessment Tool: TARYN-7 Assessment [id number] ([id number]) Time Spent (min) 24
== END 2023-06-06 14:09 | disposition home or self-care (01) ==
PROVIDERS: PCP Internal Medicine; Visit Provider Internal Medicine
DX: I10 Essential (primary) hypertension (principal); E78.00 Pure hypercholesterolemia, unspecified; K21.9 Gastro-esophageal reflux disease without esophagitis; L40.9 Psoriasis, unspecified
CPT/HCPCS: 99214

== ENCOUNTER 2023-07-20 09:48 | Outpatient (AMB) | payer OTHER, SELFPAY ==
--- NOTE | 2023-07-20 10:00 | A.OFFVIS_ITS ---
Intake Vital Signs 07/20/23 10:01 Height 5 ft 6 in Weight 209 lb 14.081 oz BMI 33.9 BP 128/80 Blood Pressure Location Lt brachial Position Sitting Pulse 116 H Pulse Source Pulse Oximeter Intake Visit Reasons: follow up Gallery Assistant Required: Yes Gallery Assistant Language: Senior Capital Markets Specialist Name: Ragini higgins [id number] Physical Plant Employee: Physical Plant Employee Present Allergies amitriptyline Allergy (Intermediate, Verified 07/20/23 10:06) stomach pain aspirin Allergy (Intermediate, Verified 07/20/23 10:06) stomach pain Medication List - Last Reconciled 07/20/23 by Carole Renae NP-C acetaminophen 500 mg PO BID PRN adalimumab (Humira(CF) Pen) 40 mg subcut Q2W allopurinol 300 mg PO DAILY 90 days aspirin 81 mg PO DAILY atorvastatin 20 mg PO DAILY calcipotriene 0.005% 1 appl topical QAM cholecalciferol (vitamin D3) 50 mcg PO DAILY 90 days lisinopril 40 mg PO DAILY 90 days metoprolol succinate ER 50 mg PO DAILY 90 days omeprazole 20 mg PO BID ropinirole 0.5 mg PO BEDTIME 30 days HPI follow up HPI Details Leeroy is a 73-year-old male with past medical history of hypertension, hyperlipidemia, prior smoking who was recently evaluated for chest discomfort, shortness of breath, syncope and heart palpitations. On last visit a sleep study and tilt-table test were ordered and he now presents for follow-up. Today he reports that he went for the tilt-table test and they could not find his name in the computer. He has not had any recurrent syncopal events since his last visit. On last visit he described an episode of presyncope after having a prostate biopsy in his doctor's office. He was evaluated at [facility] and felt to have a vasovagal event at that time. His had described to me that he has had up to 8 fainting and near fainting episodes in the past, usually following physical activity. Today he denies any chest discomfort at rest or with activity. No concerning shortness of breath, palpitations, lightheadedness, PND, orthopnea or edema. He does only light activity. Taking meds as directed. is present. 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 [facility] Medical History Former smoker Gout Elevated hemoglobin GERD (gastroesophageal reflux disease) Pure hypercholesterolemia Essential hypertension Surgical History H/O wrist surgery History of foot surgery Family History Father Asthma Mother Hypertension Stomach cancer, Onset Age: 50 Family/Other Substance use disorder Brother Cancer, Onset Age: 61 Social History Household Members: Spouse and Significant Other Housing: Apartment Alcohol intake: current Alcohol intake frequency: holidays/special occasions only Alcohol type: beer and hard liquor Patient Tobacco Use Status: Former Tobacco user Tobacco use type: Cigarette e-Cigarette/Vaping Use: Never Used Second Hand Smoke Exposure: No service: No Current occupational status: disabled Cognitive needs: No Hearing needs: No Vision needs: No Review of Systems Const All systems reviewed & are unremarkable except as noted in HPI and below ENT Denies dizziness Card Denies chest pain, Denies chest pain at rest, Denies chest pain with activity, Denies rapid heart rate, Denies pedal edema, Denies edema, Denies leg edema, Denies lightheadedness, Denies palpitations, Denies dyspnea, Denies dyspnea on exertion and Denies orthopnea Resp Denies cough, Denies dyspnea and Denies dyspnea on exertion GI Denies hematochezia and Denies change in stool character Musc Denies abnormal gait, Denies limited range of motion, Denies muscle cramps, Denies muscle weakness, Denies numbness, Denies radiating pain into limb, Denies stiffness and Denies tingling Neuro Denies abnormal gait, Denies dizziness, Denies numbness and Denies tingling Endo Denies palpitations Physical Exam Vital Signs: Last Vital Signs Pulse 116 H 07/20/23 10:01 BP 128/80 07/20/23 10:01 BMI result Body Mass Index 33.9 Const General: cooperative, healthy appearing, comfortable and no acute distress Orientation/consciousness: patient oriented x3 Neck Neck: Yes normal visual inspection Resp Effort & Inspection: normal respiratory effort Auscultation: clear to auscultation bilaterally, no crackles, no rales, no rhonchi and no wheezes Cardio Jugular venous distension: no JVD Rate: regular rate Rhythm: regular rhythm Heart sounds: S1 normal heart sound present, S2 normal heart sound present, no murmurs and no rubs Neuro General: patient oriented x3 Extrem General: Yes normal to inspection Psych Appearance: grossly normal Mental Status: mental status grossly normal Speech and movement: Normal speech and movement present Assessment & Plan Assessment & Plan (1) Syncope: Code(s): R55 - Syncope and collapse Qualifiers: Syncope type: vasovagal syncope Qualified Code(s): R55 - Syncope and collapse Plan: Reported episodes of presyncope/syncope at home, at approximately 8 in the past. He did have episode presyncope on 03/06/2023 following prostate biopsy, in the office. EMS was called and he was transported to [facility] where he underwent evaluation. Notes reviewed and they concluded probable vasovagal syncope. Reviewed this with patient and and is insistent there is more to this. She said he has had fainting episodes following exertional activity. An echocardiogram was done on 09/21/2022 showing EF 60-65%, mild septal hypertrophy, mildly dilated ascending aorta. A Holter monitor done for 3 days on 01/25/2023 showing sinus rhythm/sinus tach with average heart rate 104, 61% of the time heart rate greater than 100, evidence of Mobitz 1 during sleep time, rare PAC. An exercise stress test was done on 01/25/2023 with exercise 9 minutes, shortness of breath present, no EKG changes and normal myocardial pe rfusion imaging. He did not have any noted presyncope or syncope following his exercise. Reviewed these findings with patient and . A tilt-table test was ordered however patient went to [facility] to have done and they could not find his name in the computer. Will need to have this test rescheduled. No recurrent syncopal events since his last visit in February. Reviewed the need for maintaining good hydration, recognizing symptoms and getting in a laying down position if he feel symptoms coming on. Continue on current metoprolol and lisinopril. Blood pressure is in normal range at this time. Cardiology follow- up in 3 months, sooner if needed. Emergency care if needed for recurrent symptoms. (2) Precordial chest pain: Code(s): R07.2 - Precordial pain Plan: Prior vague description of chest discomfort. Cardiac testing as above. He does have cardiac risk factors of obesity, hypertension, hyperlipidemia and smoking. Symptom at present seems atypical for angina. (3) Sinus tachycardia: Code(s): R00.0 - Tachycardia, unspecified Plan: Patient has sinus tachycardia. Holter monitor shows 61% of the time heart rate greater than 100. He is on metoprolol XL 50 mg daily. Echo shows normal EF. He did have some Mobitz 1 seen on Holter monitor during sleep. A sleep study was done showing no sleep apnea but severe restless legs. Patient informed of this result. Unclear why he is tachycardic. His lab work recently done at [facility] is in normal limits. He tells me that his heart rate always runs fast and that is his normal. He does admit to alcohol use. Reviewed The need for good hydration with water reviewed. Will increase metoprolol XL up to 75 mg daily. (4) Mobitz type 1 second degree atrioventricular block: Code(s): I44.1 - Atrioventricular block, second degree Plan: Brief during sleep. No daytime second-degree heart block reported. No sleep apnea noted on sleep study Plan Time spent on chart review, documentation, interview and assessment Medications: Changed From metoprolol succinate ER 50 mg PO DAILY 90 days 90 tabs 2RF To metoprolol succinate ER 75 mg (1.5 x 50 mg) PO DAILY 90 days 135 tabs 3RF Coding Level of Care Code Est Pt Level 4 (78745) Diagnoses Vasovagal syncope R55 Syncope type: vasovagal syncope Precordial chest pain R07.2 Sinus tachycardia R00.0 Mobitz type 1 second degree atrioventricular block I44.1 Time Spent (min) 28
[2023-07-20 10:01] VITALS: BP 128/80; PULSE 116; BMI 33.9
== END 2023-07-20 10:35 | disposition home or self-care (01) ==
PROVIDERS: PCP Internal Medicine; Visit Provider Nurse Practitioner Family
DX: R55 Syncope and collapse (principal); R07.2 Precordial pain; R00.0 Tachycardia, unspecified; I44.1 Atrioventricular block, second degree
CPT/HCPCS: 99214

== ENCOUNTER → 2023-07-20 09:48 | Outpatient (BNVA) | payer OTHER, SELFPAY | PROVIDERS: PCP Internal Medicine; Visit Provider Nurse Practitioner Family | DX: R55 Syncope and collapse (principal); R07.2 Precordial pain; R00.0 Tachycardia, unspecified; I44.1 Atrioventricular block, second degree | CPT/HCPCS: 99212 ==

== ENCOUNTER 2023-08-28 10:32 | Outpatient (AMB) | payer OTHER, SELFPAY ==
--- NOTE | 2023-08-28 10:37 | A.OFFVIS_ITS ---
Intake Vital Signs 08/28/23 10:44 Height 5 ft 6 in Weight 213 lb 2.992 oz BMI 34.4 BP 116/80 Blood Pressure Location Rt brachial Position Sitting Pulse 117 H Pulse Source Pulse Oximeter Pulse Oximetry (%) 97 Oxygen Delivery Method Room Air Intake Visit Reasons: psa/oa with international marketing specialist/CM Intake Note: Patient last seen 03/29/[address] Smiley, presents today for follow up and test results. c/o etelvina hip pain, limping due to pain Track Patrol Required: Yes Track Patrol Language: Ekg Monitor Tech Name: [id number] Information Interpreted: clinical only Accompanied by: Spouse Allergies amitriptyline Allergy (Intermediate, Verified 08/28/23 10:45) stomach pain aspirin Allergy (Intermediate, Verified 08/28/23 10:45) stomach pain HPI HPI Comments History of Present Illness Details Mr. Santana 73-year-old male returns today with his for follow-up of his osteoarthritis, gout rotator cuff tendinitis and possible psoriatic arthritis. We used the [employer] translating service. He has known psoriasis, treated with Humira 40 mg every 2 weeks prescribed by Dermatology. He denies any skin lesions since last visit. Areas of pain still include the neck, lower back, hips, shoulders, and the left knee. He was sent for some PT for the shoulders but did not find it very effective. He is more concerned about the lower back and knee pain. He received cortisone injection at last visit for the left knee and right shoulder. He says the shoulder is improved but the left knee still remain bothersome and it did not help the knee for long. The knee on the left is occasionally swells and makes it very challenging to walk. Today he has on a knee brace. He does take acetaminophen 500 mg t.i.d. for symptoms. He is on 300 mg daily allopurinol (PCP prescribed) for gout and does not recall any recent gout attacks in the last few years. NB:Prior visits do not record any clear symptoms related to PSA. Patient not interested in surgical options for his knees [facility] Medical History (Updated 08/28/23 @ 11:26 by NITZA Sorensen-JOSE) Psoriatic arthritis Former smoker Gout Elevated hemoglobin GERD (gastroesophageal reflux disease) Pure hypercholesterolemia Essential hypertension Surgical History H/O wrist surgery History of foot surgery Family History Father Asthma Mother Hypertension Stomach cancer, Onset Age: 50 Family/Other Substance use disorder Brother Cancer, Onset Age: 61 Social History Household Members: Spouse and Significant Other Housing: Apartment Alcohol intake: current Alcohol intake frequency: holidays/special occasions only Alcohol type: beer and hard liquor Patient Tobacco Use Status: Former Tobacco user Tobacco use type: Cigarette e-Cigarette/Vaping Use: Never Used Second Hand Smoke Exposure: No service: No Current occupational status: disabled Cognitive needs: No Hearing needs: No Vision needs: No Review of Systems Const All systems reviewed & are unremarkable except as noted in HPI and below Physical Exam Vital Signs: Last Vital Signs Pulse 117 H 08/28/23 10:44 BP 116/80 08/28/23 10:44 Pulse Ox 97 08/28/23 10:44 Oxygen Delivery Method Room Air 08/28/23 10:44 BMI result Body Mass Index 34.4 APPEARANCE: Patient in no acute distress EYES no redness, pupils equal and reactive to light, eyelids normal. No temporal artery tenderness, redness or swelling. HEART:? Tachycardia but BP in normal range, S1-S2 heard, no murmurs, rubs or gallops. - patient and his endorses that his heart rate is always high LUNG:? Clear to percussion and auscultation Skin: No psoriatic lesions noted Cervical Spine: Full range of motion with mild discomfort at the extremes of lateral flexion or lateral rotation. There is some slight cervical muscle tenderness. Thoracic Spine:? No scoliosis.? No tenderness on palpation. Lumbar Spine:? Alignment normal.? Pain with flexion and extension. Tenderness to palpation of the lumbar spine. Hands: Normal pain-free range of motion with some slight bony enlargement at the thumb IP in a few of the PIP joints. These are minimally tender. There is no soft tissue, swelling, increased warmth or erythema. There is no thenar atrophy, flexor tendon triggering or sensory loss. Wrists:? LEFT: There is a scar on the dorsum of the wrist. The wrist seem somewhat thickened. He can only extend about 10 degrees and flexes about 30 degrees with mild pain. He says this area was fractured a number of years ago and required surgery. Healed scar noted over the top of the wrist/dorsal aspect of hand. No increased warmth or erythema. RIGHT: Normal pain-free range of motion without tenderness, swelling, increased warmth or erythema. Elbows: LEFT: Normal pain-free range of motion without tenderness, swelling, increased warmth or erythema. RIGHT: Full pain-free range of motion without tenderness, swelling, increased or erythema. Shoulders: Mild discomfort with abduction at about 150 degrees or with more than 20 degrees of internal or external rotation. There is mild anterior tenderness without swelling at, adenopathy or abductor weakness. internal rotation. No weakness swelling, increased warmth or erythema. Hips:? Right: Full range of motion with mild lumbar pain with extremes of normal internal or external rotation. No groin pain with motion. Left: Rotation also causes pain in the lumbar region in the left hip but there is some diminishment in the extent of internal and external rotation possible. No groin pain however seems to occur with motion. Hip bursa:? Slight bilateral trochanteric tenderness. Knees: LEFT: Full range of motion with mild pain at the extremes of normal flexion or extension. There is medial compartment tenderness without redness or effusion. There is mild patellofemoral crepitus. RIGHT: Full range of motion without pain. No tenderness, swelling, increased warmth erythema. No effusion crepitation noted. Ankles:? Normal pain-free range of motion without tenderness, swelling, increased warmth or erythema. Feet: Normal pain-free range of motion without tenderness, swelling, increased warmth or erythema. ? Results Reviewed Results Reviewed: 04/03/2023 lab WBC 13.1 RBC 6.46 HGB 16.7 HCT 51.7 Uric acid 3.7 AST 27 ALT 26 Vitamin-D 42.7 Assessment & Plan Assessment & Plan (1) Psoriasis: Comment: Humira since 2020 Code(s): L40.9 - Psoriasis, unspecified (2) Gout: Comment: well controlled on allopurinol 300mg daily Code(s): M10.9 - Gout, unspecified Qualifiers: Chronicity: chronic Gout etiology: idiopathic Gout site: multiple sites Presence of tophus: without tophus Qualified Code(s): M1A.09X0 - Idiopathic chronic gout, multiple sites, without tophus (tophi) (3) Tendinitis of both rotator cuffs: Code(s): M75.81 - Other shoulder lesions, right shoulder; M75.82 - Other shoulder lesions, left shoulder (4) Osteoarthritis of knees, bilateral: Code(s): M17.0 - Bilateral primary osteoarthritis of knee Qualifiers: Osteoarthritis type: primary Qualified Code(s): M17.0 - Bilateral primary osteoarthritis of knee Plan #OA/shoulders and knees:He remains improved in the shoulders since the injection at last visit. He has OA in the knees and more symptoms are notable on the left. He denies much benefit with the injection to the left knee at last visit so will not inject this visit. Patient has been told by Ortho that it is [id number] for his knees and he does not want to do surgery. I discussed with patient that his osteoarthritis pain will not be improved by the Humira or any other immunosuppressive therapy. He does say that the acetaminophen helps so I have encouraged him to continue with Tylenol as needed. Discussed with patient not to exceed 3 g per day for the acetaminophen. #PSO: The psoriasis seem well controlled on the Humira, this is prescribed by derm. Today there has no signs of active inflammation to suggest psoriatic arthritis. Continue Humira 40 mg QOW #Gout: He has not had any gout flares for few years per patient. His uric acid is at goal, below 6. Continue allopurinol 300 mg daily. I spent 35 minutes reviewing history, evaluating patient, and documenting Follow-up in 4 months Orders: Orders Complete Blood Count Auto Diff 08/28/23 L40.9 - Psoriasis, unspecified, L40.50 - Arthropathic psoriasis, unspecified Erythrocyte Sedimentation Rate 08/28/23 L40.9 - Psoriasis, unspecified, L40.50 - Arthropathic psoriasis, unspecified Comprehensive Met. Panel 08/28/23 L40.9 - Psoriasis, unspecified, L40.50 - Arthropathic psoriasis, unspecified C Reactive Protein 08/28/23 L40.9 - Psoriasis, unspecified, L40.50 - Arthropathic psoriasis, unspecified Coding Level of Care Code Est Pt Level 4 (14937) Diagnoses Psoriasis L40.9 Idiopathic chronic gout of multiple sites without tophus M1A.09X0 Chronicity: chronic Gout etiology: idiopathic Gout site: multiple sites Presence of tophus: without tophus Tendinitis of both rotator cuffs M75.81; M75.82 Primary osteoarthritis of both knees M17.0 Osteoarthritis type: primary
[2023-08-28 10:44] VITALS: BP 116/80; PULSE 117; O2SAT 97; BMI 34.4
== END 2023-08-28 11:13 | disposition home or self-care (01) ==
PROVIDERS: PCP Internal Medicine; Visit Provider Nurse Practitioner Family
DX: L40.9 Psoriasis, unspecified (principal); M1A.09X0 Idiopathic chronic gout, multiple sites, without tophus (tophi); M75.81 Other shoulder lesions, right shoulder; M75.82 Other shoulder lesions, left shoulder; M17.0 Bilateral primary osteoarthritis of knee
CPT/HCPCS: 99214

== ENCOUNTER → 2023-08-28 10:32 | Outpatient (BNVA) | payer OTHER, SELFPAY | PROVIDERS: PCP Internal Medicine; Visit Provider Nurse Practitioner Family | DX: L40.9 Psoriasis, unspecified (principal); M17.0 Bilateral primary osteoarthritis of knee; M1A.09X0 Idiopathic chronic gout, multiple sites, without tophus (tophi); M75.81 Other shoulder lesions, right shoulder; M75.82 Other shoulder lesions, left shoulder | CPT/HCPCS: 99212 ==

== ENCOUNTER 2023-10-01 13:13 | Outpatient (AMB) | payer OTHER, SELFPAY ==
[2023-10-01 13:24] VITALS: BP 120/92; PULSE 106; BMI 34.2
--- NOTE | 2023-10-01 13:24 | A.OFFVIS_ITS ---
Vital Signs 10/01/23 13:24 Height 5 ft 6 in Weight 211 lb 10.3 oz BMI 34.2 BP 120/92 H Blood Pressure Location Lt brachial Position Sitting Pulse 106 H Pulse Source Pulse Oximeter Intake Visit Reasons: r/s 10/02/23 3 mos followup Bit Grinder Required: Yes Bit Grinder Language: Vein Access Technician Name: stoney boothe [id number] Allergies amitriptyline Allergy (Intermediate, Verified 10/01/23 13:26) stomach pain aspirin Allergy (Intermediate, Verified 10/01/23 13:26) stomach pain Medication List - Last Reconciled 10/01/23 by STEVEN Dumont acetaminophen 500 mg PO BID PRN adalimumab (Humira(CF) Pen) 40 mg subcut Q2W allopurinol 300 mg PO DAILY 90 days aspirin 81 mg PO DAILY atorvastatin 20 mg PO DAILY calcipotriene 0.005% 1 appl topical QAM cholecalciferol (vitamin D3) 50 mcg PO DAILY 90 days lisinopril 50 mg PO DAILY metoprolol succinate ER 75 mg (1.5 x 50 mg) PO DAILY 90 days omeprazole 20 mg PO BID HPI HPI r/s 10/02/23 3 mos followup: Details: Leeroy is a 73-year-old male with past medical history of hypertension, hyperlipidemia, prior smoking who was recently evaluated for chest discomfort, shortness of breath, syncope and heart palpitations without related findings. He recently had a tilt table test and now presents for follow up. Today he reports that he has not had any presyncope or syncopal events since his last visit in June. On his prior visit he described an episode of p resyncope after having a prostate biopsy in his doctor's office. He was evaluated at [facility] and felt to have a vasovagal event at that time. His had described to me that he has had up to 8 fainting and near fainting episodes in the past, usually following stress or physical activity. He has been doing well with no chest discomfort at rest or with activity. His prior symptom has fully resolved. He has no concerning shortness of breath, palpitations, lightheadedness, PND, orthopnea or edema. He does only light activity. His primary complaint today is of orthopedic issues which he relates to his arthritis. Taking meds as directed. is present. Certified retention representative used. [facility] Medical History Psoriatic arthritis Former smoker Gout Elevated hemoglobin GERD (gastroesophageal reflux disease) Pure hypercholesterolemia Essential hypertension Surgical History H/O wrist surgery History of foot surgery Family History Father Asthma Mother Hypertension Stomach cancer, Onset Age: 50 Family/Other Substance use disorder Brother Cancer, Onset Age: 61 Social History Household Members: Spouse and Significant Other Housing: Apartment Alcohol intake: current Alcohol intake frequency: holidays/special occasions only Alcohol type: beer and hard liquor Patient Tobacco Use Status: Former Tobacco user Tobacco use type: Cigarette e-Cigarette/Vaping Use: Never Used Second Hand Smoke Exposure: No service: No Current occupational status: disabled Cognitive needs: No Hearing needs: No Vision needs: No Review of Systems Const All systems reviewed & are unremarkable except as noted in HPI and below ENT Denies dizziness Card Denies chest pain, Denies chest pain at rest, Denies chest pain with activity, Denies rapid heart rate, Denies pedal edema, Denies edema, Denies leg edema, Denies lightheadedness, Denies palpitations, Denies dyspnea, Denies dyspnea on exertion and Denies orthopnea Resp Denies cough, Denies dyspnea and Denies dyspnea on exertion GI Denies hematochezia and Denies change in stool character Musc Details: Arthritis pains Denies abnormal gait, Denies limited range of motion, Denies muscle cramps, Denies muscle weakness, Denies numbness, Denies radiating pain into limb, Denies stiffness and Denies tingling Neuro Denies abnormal gait, Denies dizziness, Denies numbness and Denies tingling Endo Denies palpitations Physical Exam Vital Signs: Last Vital Signs Pulse 106 H 10/01/23 13:24 BP 120/92 H 10/01/23 13:24 BMI result Body Mass Index 34.2 Const General: cooperative, healthy appearing, comfortable and no acute distress Orientation/consciousness: patient oriented x3 Neck Neck: Yes normal visual inspection Resp Effort & Inspection: normal respiratory effort Auscultation: clear to auscultation bilaterally, no crackles, no rales, no rhonchi and no wheezes Cardio Jugular venous distension: no JVD Rate: tachycardic Rhythm: regular rhythm Heart sounds: S1 normal heart sound present, S2 normal heart sound present, no murmurs and no rubs Neuro General: patient oriented x3 Extrem General: Yes normal to inspection Psych Appearance: grossly normal Mental Status: mental status grossly normal Speech and movement: Normal speech and movement present Assessment & Plan Assessment & Plan (1) Syncope: Code(s): R55 - Syncope and collapse Category: Medical Qualifiers: Syncope type: vasovagal syncope Qualified Code(s): R55 - Syncope and collapse Plan: Reported episodes of presyncope/syncope at home, at approximately 8 in the past. He did have episode presyncope on 03/06/2023 following prostate biopsy, in the office. EMS was called and he was transported to [facility] where he underwent evaluation. Notes reviewed and they concluded probable vasovagal syncope. Reviewed this with patient and and is insistent there is more to this. She said he has had fainting episodes following exertional activity. An echocardiogram was done on 09/21/2022 showing EF 60-65%, mild septal hypertrophy, mildly dilated ascending aorta. A Holter monitor done for 3 days on 01/25/2023 showing sinus rhythm/sinus tach with average heart rate 104, 61% of the time heart rate greater than 100, evidence of Mobitz 1 during sleep time, rare PAC. An exercise stress test was done on 01/25/2023 with exercise 9 minutes, shortness of breath present, no EKG changes and normal myocardial perfusion imaging. He did not have any noted presyncope or syncope following his exercise. A tilt-table test was done on 09/24/2023 confirming vasovagal syncope. He has not had any presyncope or syncope since his episode in February. Reviewed this diagnosis with him in detail. Instructed on the need to increase fluid intake, recognize symptoms, avoid triggers if possible. He needs to sit/lay down if he develops presyncopal symptoms. Avoid syncope from a standing position. He states understanding. Continue on current metoprolol and lisinopril. Blood pressure is in normal range at this time. Cardiology follow- up in 6 months, sooner if needed. Emergency care if needed for recurrent symptoms. (2) Precordial chest pain: Code(s): R07.2 - Precordial pain Category: Medical Plan: Prior vague description of chest discomfort. Cardiac testing as above. He does have cardiac risk factors of obesity, hypertension, hyperlipidemia and smoking. Symptom had been atypical for angina. No anginal sounding symptoms at this time. (3) Sinus tachycardia: Code(s): R00.0 - Tachycardia, unspecified Category: Medical Plan: Patient has sinus tachycardia. Holter monitor shows 61% of the time heart rate greater than 100. He is on metoprolol XL currently 75 mg daily. Echo shows normal EF. He did have some Mobitz 1 seen on Holter monitor during sleep. A sleep study was done showing no sleep apnea but severe restless legs. Patient previously informed of this result. His lab work recently done at [facility] is in normal limits. Unclear why he is tachycardic. Will enter order for TSH. Plan for repeat Holter and echo prior to his next visit. Will need to assess for tachycardia induced cardiomyopathy. Continue metoprolol. Maintain good hydration. Continue activity as tolerated. (4) Mobitz type 1 second degree atrioventricular block: Code(s): I44.1 - Atrioventricular block, second degree Category: Medical Plan: Brief during sleep. No daytime second-degree heart block reported. No sleep apnea noted on sleep study. Re-evaluate Holter prior to next visit Plan Time spent on chart review, documentation, interview and assessment Orders: Orders CA echo transthoracic complete 03/24/24 I44.1 - Atrioventricular block, second degree, R00.0 - Tachycardia, unspecified ECG 3 day holter monitor 03/24/24 I44.1 - Atrioventricular block, second degree, R00.0 - Tachycardia, unspecified Coding Level of Care Code Est Pt Level 3 (61196) Diagnoses Vasovagal syncope R55 Syncope type: vasovagal syncope Precordial chest pain R07.2 Sinus tachycardia R00.0 Mobitz type 1 second degree atrioventricular block I44.1 Time Spent (min) 24
== END 2023-10-01 13:59 | disposition home or self-care (01) ==
PROVIDERS: PCP Internal Medicine; Visit Provider Nurse Practitioner Family
DX: R55 Syncope and collapse (principal); R07.2 Precordial pain; R00.0 Tachycardia, unspecified; I44.1 Atrioventricular block, second degree
CPT/HCPCS: 99213

== ENCOUNTER → 2023-10-01 13:13 | Outpatient (BNVA) | payer OTHER, SELFPAY | PROVIDERS: PCP Internal Medicine; Visit Provider Nurse Practitioner Family | DX: R55 Syncope and collapse (principal); R07.2 Precordial pain; R00.0 Tachycardia, unspecified; I44.1 Atrioventricular block, second degree | CPT/HCPCS: 99212 ==

== ENCOUNTER 2024-01-15 12:41 | Outpatient (AMB) | payer OTHER, SELFPAY ==
[2024-01-15 13:07] VITALS: BP 126/80; BMI 33.9
--- NOTE | 2024-01-15 13:07 | MHC.PC.OV ---
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 Required: No Accompanied by: Self / Same As Patient Allergies amitriptyline Allergy (Intermediate, Verified 01/15/24 13:35) stomach pain aspirin Allergy (Intermediate, Verified 01/15/24 13:35) stomach pain Medication List - Last Reconciled 01/15/24 by Cristina Calixto MD acetaminophen 500 mg PO BID PRN adalimumab (Humira(CF) Pen) 40 mg subcut Q2W allopurinol 300 mg PO DAILY 90 days aspirin 81 mg PO DAILY atorvastatin 20 mg PO DAILY calcipotriene 0.005% 1 appl topical QAM cholecalciferol (vitamin D3) 50 mcg PO DAILY 90 days lisinopril 50 mg PO DAILY metoprolol succinate ER 75 mg (1.5 x 50 mg) PO DAILY 90 days omeprazole 20 mg PO BID Tobacco use date assessed: 06/06/23 Fall risk assessment: No Falls in past year Last assessed Fall Risk: 01/15/24 Dental Screening Dental Screen Date: 01/15/24 Did you have a dental visit in the last 12 months?: Yes Did you have a dental problem in the last 6 months where you did not have access to dental care?: No Was dental information given to patient?: Patient has dentist HPI HPI Comments History of Present Illness Details This is a 73-year-old male with psoriatic arthritis that comes accompanied by for his physical exam. Psoriatic arthritis stable with medications and follow by Dermatology. Last colonoscopy was 2022 and next colonoscopy should be 2027. Denies any chest pain or shortness on breath. He is obese and was advised to do diet and exercise to reach BMI goal less than 30. [facility] Medical History (Updated 01/15/24 @ 14:16 by Cristina Calixto MD) Psoriatic arthritis Former smoker Gout Elevated hemoglobin GERD (gastroesophageal reflux disease) Pure hypercholesterolemia Essential hypertension Surgical History H/O wrist surgery History of foot surgery Family History Father Asthma Mother Hypertension Stomach cancer, Onset Age: 50 Family/Other Substance use disorder Brother Cancer, Onset Age: 61 Social History Household Members: Spouse and Significant Other Housing: Apartment Alcohol intake: current Alcohol intake frequency: holidays/special occasions only Alcohol type: beer and hard liquor Patient Tobacco Use Status: Former Tobacco user Tobacco use type: Cigarette e-Cigarette/Vaping Use: Never Used Second Hand Smoke Exposure: No service: No Current occupational status: disabled Cognitive needs: No Hearing needs: No Vision needs: No Questionnaire Thrive Questionnaire Date Thrive assessed: 06/06/23 TARYN-7 AMB Questionnaire TARYN-7 Date ATRYN - 7 assessed: 06/06/23 Source: Developed by Drs. Kike Nichols, Jodi Eng, Keith Treadwell and colleagues, with an educational oscar from [employer]. Review of Systems Const All systems reviewed & are unremarkable except as noted in HPI and below Card Denies chest pain at rest, Denies chest pain with activity, Denies edema, Denies irregular heart rhythm, Denies claudication, Denies dyspnea, Denies dyspnea on exertion, Denies orthopnea, Denies paroxysmal nocturnal dyspnea and Denies slow heart rate Resp Denies cough, Denies dyspnea and Denies dyspnea on exertion GI Denies abdominal pain, Denies change in bowel habits, Denies excessive flatus, Denies nausea and Denies vomiting Denies urinary hesitancy, Denies urinary incontinence and Denies urinary urgency Musc Denies atrophy, Denies deformity and Denies limited range of motion Physical exam (Primary Care) Vital Signs: Last Vital Signs BP 126/80 01/15/24 13:07 BMI result Body Mass Index 33.9 BMI Assessment/Plan discussion: High BMI High, discussed plan: lifestyle, weight reduction, dietary, physical activity and alcohol moderation Tobacco/Smoking Status: Tobacco use Status Tobacco use date assessed 06/06/23 01/15/24 13:10 Patient Tobacco Use Status Former Tobacco user 01/15/24 13:10 Tobacco use type Cigarette 01/15/24 13:10 e-Cigarette/Vaping Use Never Used 01/15/24 13:10 Thrive Assessment: Date of Thrive Assessment Date Thrive assessed 06/06/23 01/15/24 13:10 HENMT Head: Yes normal to inspection, Yes normocephalic and Yes atraumatic Ears: external ears normal Eyes General: appearance normal, both eyes and all related structures Eyelids: Yes eyelids normal Conjunctivae: conjunctivae normal Neck Neck: Yes normal visual inspection and Yes supple Resp Effort & Inspection: normal respiratory effort Auscultation: clear to auscultation bilaterally Cardio Jugular venous distension: no JVD Rate: regular rate Rhythm: regular rhythm Heart sounds: S1 normal heart sound present and S2 normal heart sound present GI Inspection: Yes normal to inspection Palpation (GI): Soft to palpation and nontender Auscultation: normal bowel sounds Skin General skin exam: no rashes or lesions noted Neuro General: no focal motor deficits Extrem General: Yes full ROM Psych Appearance: grossly normal Assessment and Plan Assessment & Plan (1) Physical exam: Code(s): Z00.00 - Encounter for general adult medical examination without abnormal findings Plan: Repeat in a year. (2) Psoriatic arthritis: Code(s): L40.50 - Arthropathic psoriasis, unspecified Plan: Follow-up with dermatology. Orders: Orders Uric Acid Today M10.9 - Gout, unspecified Lipid Panel Today E78.5 - Hyperlipidemia, unspecified Comprehensive [place]. Panel Fast Today L40.50 - Arthropathic psoriasis, unspecified Vitamin D 25-OH Total Today E55.9 - Vitamin D deficiency, unspecified Coding Level of Care Code Est Pt Prev Care >65y(52586) Diagnoses Physical exam Z00.00 Psoriatic arthritis L40.50 Time Spent (min) 32
== END 2024-01-15 13:47 | disposition home or self-care (01) ==
PROVIDERS: PCP Internal Medicine; Visit Provider Internal Medicine
DX: Z00.00 Encounter for general adult medical examination without abnormal findings (principal); L40.50 Arthropathic psoriasis, unspecified
CPT/HCPCS: 99397

== ENCOUNTER 2024-02-29 12:02 | Outpatient (REF) | payer OTHER, SELFPAY ==
[2024-02-29 12:14] LABS: MANUAL DIFF FLAG NO
[2024-02-29 12:30] LABS: Basophils Percent Auto 0.4 % (0-2); Eosinophils Absolute Auto 0.1 X10*3/uL (0.0-0.4); Eosinophils Percent Auto 1.7 % (0-4); Hematocrit 48.7 % (42.0-52.0); Hemoglobin 16.3 g/dl (14.0-18.0); Imm Gran Abs Auto 0.01 X10*3/uL (0.00-0.03); Imm Gran Pct Auto 0.1 % (0.0-0.4); Lymphocytes Absolute Auto 2.4 X10*3/uL (1.2-4.9); Lymphocytes Percent Auto 33.3 % (20-40); Mean Corpuscular HGB Conc 33.5 g/dl (31.0-36.0); Mean Corpuscular Hemoglobin 28.3 pg (27.0-33.0); Mean Corpuscular Volume 84.7 fL (80.0-98.0); Mean Platelet Volume 12.5 fL (9.4-12.4); Monocytes Absolute Auto 0.6 X10*3/uL (0.1-1.2); Monocytes Percent Auto 8.4 % (2-11); Neutrophils Percent Auto 56.1 % (45-73); Platelet Count 176 X10*3/uL (160-400); Red Blood Count 5.75 X10*6/uL (4.60-5.80); Red Cell Distribution Width 15.1 % (11.0-16.0); White Blood Count 7.1 X10*3/uL (4.8-10.8)
[2024-02-29 13:13] LABS: Erythrocyte Sedimentation Rate 1 MM/HR (0-15)
[2024-02-29 13:47] LABS: Alanine Aminotransferase 23 U/L (0-40); Albumin Level 4.2 g/dL (3.5-5.0); Alkaline Phosphatase 58 U/L (39-117); Anion Gap 12 (12-20); Aspartate Amino Transferase 24 U/L (5-37); Bilirubin Total 1.3 mg/dL (0.0-1.0); Blood Urea Nitrogen 15 mg/dL (9-16); C Reactive Protein < 0.10 mg/dL (< or = 0.50); Calcium 9.7 mg/dL (8.4-10.2); Carbon Dioxide 26 mmol/L (22-29); Chloride 108 mmol/L (96-108); Estimated Glomerular Filt Rate > 60; Glucose Random 106 mg/dL (60-115); Potassium 3.8 mmol/L (3.3-5.1); Sodium 142 mmol/L (135-145); Total Protein 7.2 g/dL (6.5-8.0)
== END 2024-02-29 12:03 | disposition home or self-care (01) ==
LOC: HO.LAB 12:02
PROVIDERS: PCP Internal Medicine; Visit Provider Nurse Practitioner Family
DX: L40.9 Psoriasis, unspecified (principal); L40.50 Arthropathic psoriasis, unspecified
CPT/HCPCS: 36415; 80053; 85025; 85652; 86140

== ENCOUNTER 2024-03-13 12:37 | Outpatient (AMB) | payer OTHER, SELFPAY ==
--- NOTE | 2024-03-13 12:42 | A.OFFVIS_ITS ---
Vital Signs 03/13/24 12:47 Height 5 ft 6 in Weight 210 lb 5.136 oz BMI 33.9 BP 132/80 Blood Pressure Location Lt brachial Position Sitting Pulse 113 H Pulse Source Pulse Oximeter Pulse Oximetry (%) 98 Oxygen Delivery Method Room Air Intake Visit Reasons: osteoarthritis, gout, psoriasis/lvm Intake Note: Patient presents for Osteoarthritis, Gout and Psoriasis. Enrollment Consultant Required: Yes Enrollment Consultant Language: Iv Technician Services: Enrollment Consultant Present Enrollment Consultant Name: Franco [id number] Information Interpreted: non-clinical & clinical Allergies amitriptyline Allergy (Intermediate, Verified 03/13/24 12:46) stomach pain aspirin Allergy (Intermediate, Verified 03/13/24 12:46) stomach pain Medication List - Last Reconciled 03/13/24 by Wisam Zhang MD acetaminophen 500 mg PO BID PRN adalimumab (Humira(CF) Pen) 40 mg subcut Q2W allopurinol 300 mg PO DAILY 90 days aspirin 81 mg PO DAILY atorvastatin 20 mg PO DAILY calcipotriene 0.005% 1 appl topical QAM cholecalciferol (vitamin D3) 50 mcg PO DAILY 90 days lisinopril 50 mg (1.25 x 40 mg) PO DAILY metoprolol succinate ER 75 mg PO DAILY omeprazole 20 mg PO BID HPI Comments Details: This is a 74-year-old male with gout, psoriasis and generalized osteoarthritis who presents for follow-up. He states that he continues to have low back pain, bilateral shoulder pain and bilateral knee pain worse on the left. He wears a left knee brace to help him walking. His psoriasis is well controlled with Humira which was prescribed by Dermatology. He remains on allopurinol 300 mg daily. Has not had any gout flare-ups in a very long time. [facility] Medical History Psoriatic arthritis Former smoker Gout Elevated hemoglobin GERD (gastroesophageal reflux disease) Pure hypercholesterolemia Essential hypertension Surgical History H/O wrist surgery History of foot surgery Family History Father Asthma Mother Hypertension Stomach cancer, Onset Age: 50 Family/Other Substance use disorder Brother Cancer, Onset Age: 61 Social History Household Members: Spouse and Significant Other Housing: Apartment Alcohol intake: current Alcohol intake frequency: holidays/special occasions only Alcohol type: beer and hard liquor Patient Tobacco Use Status: Former Tobacco user Tobacco use type: Cigarette e-Cigarette/Vaping Use: Never Used Second Hand Smoke Exposure: No service: No Current occupational status: disabled Cognitive needs: No Hearing needs: No Vision needs: No Review of Systems Musc Reports back pain, Reports arthralgias and Reports limited range of motion Physical Exam Vital Signs: Last Vital Signs Pulse 113 H 03/13/24 12:47 BP 132/80 03/13/24 12:47 Pulse Ox 98 03/13/24 12:47 Oxygen Delivery Method Room Air 03/13/24 12:47 BMI result Body Mass Index 33.9 Const General: cooperative, healthy appearing and comfortable Nutritional Appearance: obese Orientation/consciousness: patient oriented x3 Limitations: no limitations HEENT Head: Yes normocephalic and Yes atraumatic Mouth: moist mucous membranes Resp Effort & Inspection: normal respiratory effort and able to speak in complete sentences Skin General skin exam: no rashes or lesions noted Neuro General: patient oriented x3 Extrem Other: Mild osteoarthritic changes of both hands with no active synovitis No psoriasis rash noted Positive empty can test bilaterally Bilateral knee pain with flexion-extension, more severe on the left Assessment & Plan Assessment & Plan (1) Gout: Comment: well controlled on allopurinol 300mg daily Code(s): M10.9 - Gout, unspecified Category: Medical Qualifiers: Gout site: multiple sites Gout etiology: idiopathic Chronicity: chronic Presence of tophus: without tophus Qualified Code(s): M1A.09X0 - Idiopathic chronic gout, multiple sites, without tophus (tophi) Plan: This is a 74-year-old male with gout who presents for follow-up. Remains on allopurinol 300 mg daily. No gout flare-ups in a long time. Continue with allopurinol 300 mg daily. Check uric acid level before next visit Labs before next visit in 6 months (2) Psoriasis: Comment: Humira since 2019 Code(s): L40.9 - Psoriasis, unspecified Category: Medical Plan: Well controlled. Humira is Prescribed by Dermatology (3) Acromioclavicular joint arthritis: Code(s): M19.019 - Primary osteoarthritis, unspecified shoulder Category: Medical Qualifiers: Laterality: bilateral Qualified Code(s): M19.011 - Primary osteoarthritis, right shoulder; M19.012 - Primary osteoarthritis, left shoulder Plan: I suggested going back to pain management for re-evaluation (4) Bilateral primary osteoarthritis of knee: Code(s): M17.0 - Bilateral primary osteoarthritis of knee Category: Medical Plan: Returned to Orthopedics Plan I spent 30 minutes reviewing patient's chart, evaluating patient, ordering diag nostic workup, counseling patient and documenting in the chart Orders: Orders Comprehensive Met. Panel 6 Months M1A.09X0 - Idiopathic chronic gout, multiple sites, without tophus (tophi) Uric Acid 6 Months M1A.09X0 - Idiopathic chronic gout, multiple sites, without tophus (tophi) Coding Level of Care Code Est Pt Level 4 (27111) Complex EM visit Add On G2211 Diagnoses Idiopathic chronic gout of multiple sites without tophus M1A.09X0 Gout site: multiple sites Gout etiology: idiopathic Chronicity: chronic Presence of tophus: without tophus Psoriasis L40.9 Arthritis of both acromioclavicular joints M19.011; M19.012 Laterality: bilateral Bilateral primary osteoarthritis of knee M17.0
[2024-03-13 12:47] VITALS: BP 132/80; PULSE 113; O2SAT 98; BMI 33.9
== END 2024-03-13 13:07 | disposition home or self-care (01) ==
PROVIDERS: PCP Internal Medicine; Visit Provider Student in an Organized Health Care Education/Training Program
DX: M1A.09X0 Idiopathic chronic gout, multiple sites, without tophus (tophi) (principal); L40.9 Psoriasis, unspecified; M19.011 Primary osteoarthritis, right shoulder; M19.012 Primary osteoarthritis, left shoulder; M17.0 Bilateral primary osteoarthritis of knee
CPT/HCPCS: 99214; G2211

== ENCOUNTER → 2024-03-13 12:37 | Outpatient (BNVA) | payer OTHER, SELFPAY | PROVIDERS: PCP Internal Medicine; Visit Provider Student in an Organized Health Care Education/Training Program | DX: M1A.09X0 Idiopathic chronic gout, multiple sites, without tophus (tophi) (principal); L40.9 Psoriasis, unspecified; M19.011 Primary osteoarthritis, right shoulder; M19.012 Primary osteoarthritis, left shoulder; M17.0 Bilateral primary osteoarthritis of knee | CPT/HCPCS: 99212 ==

== ENCOUNTER → 2024-03-17 13:34 | Outpatient (REF) | payer OTHER, SELFPAY ==
--- NOTE | 2024-03-17 13:55 | CA_ITS ---
Transthoracic Echocardiogram Patient (Last, First, Middle): Leeroy Davis, Gender: Male Date of : 1950 Age: 74 Procedure Date: 03/17/2024 Procedure Type: Transthoracic Echocardiogram Location: OP Height: 167.64 cm Weight: 95.26 kg BSA: 2.04 m2 Heart Rate: bpm BP: 130 / 90 mmHg Dishroom Attendant: HARISH Referring MD: Carole Renae AUDIOVISUAL TECHNICIANBelia Symptoms: R00.0 - Tachycardia, unspecified Study Quality: Fair ECG Rhythm: Sinus Conclusions: - The left ventricular systolic function is normal. The calculated ejection fraction is 57% by biplane method. - No obvious valvular pathology seen on this study. Findings Left Ventricle Normal left ventricular cavity size. The left ventricular systolic function is normal. The calculated ejection fraction is 57% by biplane method. There is no evidence of regional wall motion abnormalities. Evidence suggests grade I (mild) diastolic dysfunction. There is mild septal asymmetric hypertrophy. Right Ventricle Normal right ventricular cavity size and systolic function. Atria Both atria are normal in size. Aortic Valve The aortic valve was not well visualized. There is no aortic valve stenosis. There is no aortic valve regurgitation. Mitral Valve The mitral valve appears normal. There is no mitral valve regurgitation. There is no mitral valve stenosis. Pulmonic Valve The pulmonic valve is likely normal. Tricuspid Valve There is trace tricuspid valve regurgitation. There is no evidence of pulmonary hypertension. Great Vessels There is mild dilatation of the ascending aorta measuring 4.00 cm. Venous The inferior vena cava is normal in size and collapses greater than 50% with inspiration. Pericardium/Pleural There is no evidence of pericardial effusion. Prior Study Comparison No significant change compared to prior study dated: 09/21/2022. Recommendations, Care & Conclusions No obvious valvular pathology seen on this study. Measurements 2D Linear Measurements IVSd: 1.19 0.6-0.9/0.6-1.0 cm LVIDd: 3.52 3.9-5.3/4.2-5.9 cm LVIDd Index: 1.73 2.4-3.2/2.2-3.1 cm/m2 LVIDs: 2.50 2.0-3.6 cm LVPWd: 0.97 0.7-1.1 cm LA Diam: 3.40 2.7-3.8/3.0-4.0 cm LAIDs Index: 1.67 1.5-2.3 cm/m2 LV Mass: 144.72 67-162/88-224 g LV Mass Index: 70.94 43-95/49-115 g/m2 LVOT Diam: 2.20 3.0+(-)1.3 cm 2D Systolic Function EF 4C: 59.20 >55% EF 2C: 52.10 >55% EF BiP: 56.50 >55% Mitral Valve MV Pk E: 0.60 MV PK A: 1.07 E/A: 0.60 E'Lateral: 5.87 E'Medial: 4.35 E/E' Med: 13.80 E/E' Lat: 10.20 Aortic Valve AoV Pk Jermaine: 1.04 AoV Mn Jermaine: 0.75 AoV VTI: 0.21 AoV Pk Grad: 4.00 Aov Mn Grad: 3.00 CATERINA Cont.VTI: 2.84 LVOT LVOT Pk Jermaine: 0.75 LVOT Mn Jermaine: 0.54 LVOT VTI: 0.15 LVOT Pk Grad: 2.00 LVOT Mn Grad: 1.00 LVOT Diam: 2.20 LVOT Area: 3.80 Diastolic Function MV Pk E: 0.60 MV Pk A: 1.07 E/A: 0.60 E'Medial: 4.35 E/E' Med: 13.80 E' Laterial: 5.87 E/E' Lat: 10.20 Right Ventricle TAPSE (mm): 19.90 TVS' Jermaine: 11.20 Tricuspid Valve TR Pk Jermaine: 1.06 TR Pk Grad: 4.00 RA Press: 3.00 RVSP: 7.00 Great Vessels Aorta Sinus of Valsalva: 3.78 2.0-3.[address] [place]: 3.26 1.7-3.4 cm Ao Asc: 4.00 2.1-3.4 cm Updated in Other Vendor System with Status of Final Alec Barker MD electronically signed on 03/18/2024 9:34:26 AM with status of Final
--- NOTE | 2024-03-17 13:55 | HM_ITS ---
* Total monitoring time 3 days. * Underlying rhythm is sinus with an average rate of 106/min. * About 74% of the time, rate > 100/Min. * Rare supraventricular ectopy. * Rare ventricular ectopy. * Mobitz type 1 second-degree heart block noted at 06:54 and 08:13. * No patient markers or diary events. MTDD
== END ==
LOC: HO.CARD 13:34
PROVIDERS: PCP Internal Medicine; Visit Provider Nurse Practitioner Family
DX: R00.0 Tachycardia, unspecified (principal); I44.1 Atrioventricular block, second degree
CPT/HCPCS: 93242; 93306

== ENCOUNTER → 2024-03-17 13:55 | Outpatient (BNV) | payer OTHER, SELFPAY | PROVIDERS: PCP Internal Medicine; Visit Provider Internal Medicine | DX: I44.1 Atrioventricular block, second degree (principal); I47.10 Supraventricular tachycardia, unspecified | CPT/HCPCS: 93244; 93306 ==

== ENCOUNTER 2024-04-03 12:28 | Outpatient (REF) | payer OTHER, SELFPAY ==
[2024-04-03 15:19] LABS: TSH reflex Free T4 1.72 uIU/mL (0.32-4.0)
== END 2024-04-03 12:29 | disposition home or self-care (01) ==
LOC: HO.LAB 12:28
PROVIDERS: PCP Internal Medicine; Visit Provider Nurse Practitioner Family
DX: R00.0 Tachycardia, unspecified (principal); R55 Syncope and collapse; R07.2 Precordial pain; I44.1 Atrioventricular block, second degree
CPT/HCPCS: 36415; 84443; 93005; 99212

== ENCOUNTER 2024-04-03 12:28 | Outpatient (AMB) | payer OTHER, SELFPAY ==
[2024-04-03 12:42] VITALS: BP 124/82; PULSE 108; BMI 34.1
--- NOTE | 2024-04-03 12:42 | A.OFFVIS_ITS ---
Vital Signs 04/03/24 12:42 Height 5 ft 6 in Weight 211 lb 3.245 oz BMI 34.1 BP 124/82 Blood Pressure Location Rt brachial Position Sitting Pulse 108 H Pulse Source Monitor Intake Visit Reasons: 6 mnth Driver Trainee Required: Yes Driver Trainee Name: stoney scott [id number] Spanish Moss Picker: Spanish Moss Picker Present Allergies amitriptyline Allergy (Intermediate, Verified 04/03/24 12:44) stomach pain aspirin Allergy (Intermediate, Verified 04/03/24 12:44) stomach pain Medication List - Last Reconciled 04/03/24 by Carole Renae NP-C acetaminophen 500 mg PO BID PRN adalimumab (Humira(CF) Pen) 40 mg subcut Q2W allopurinol 300 mg PO DAILY 90 days aspirin 81 mg PO DAILY atorvastatin 20 mg PO DAILY calcipotriene 0.005% 1 appl topical QAM cholecalciferol (vitamin D3) 50 mcg PO DAILY 90 days lisinopril 50 mg (1.25 x 40 mg) PO DAILY metoprolol succinate ER 100 mg PO DAILY omeprazole 20 mg PO BID HPI HPI 6 mnth: Details: Leeroy is a 74-year-old male with past medical history of hypertension, hyperlipi demia, prior smoking, vasovagal syncope, prior chest discomfort with normal stress test, sinus tachycardia who presents for follow-up. Today he reports that he has not had any presyncope or syncopal events since his last visit in September. He is overall pleased with how he has been feeling. He has not had any recent chest discomfort at rest or with activity. He has no concerning shortness of breath, palpitations, lightheadedness, PND, orthopnea or edema. He does only light activity. He has orthopedic issues which he relates to his arthritis. Taking meds as directed. is present. Certified agriculture specialist used. [facility] Medical History Psoriatic arthritis Former smoker Gout Elevated hemoglobin GERD (gastroesophageal reflux disease) Pure hypercholesterolemia Essential hypertension Surgical History H/O wrist surgery History of foot surgery Family History Father Asthma Mother Hypertension Stomach cancer, Onset Age: 50 Family/Other Substance use disorder Brother Cancer, Onset Age: 61 Social History Household Members: Spouse and Significant Other Housing: Apartment Alcohol intake: current Alcohol intake frequency: holidays/special occasions only Alcohol type: beer and hard liquor Patient Tobacco Use Status: Former Tobacco user Tobacco use type: Cigarette e-Cigarette/Vaping Use: Never Used Second Hand Smoke Exposure: No service: No Current occupational status: disabled Cognitive needs: No Hearing needs: No Vision needs: No Review of Systems Const All systems reviewed & are unremarkable except as noted in HPI and below ENT Denies dizziness Card Denies chest pain, Denies chest pain at rest, Denies chest pain with activity, Denies rapid heart rate, Denies pedal edema, Denies edema, Denies leg edema, Denies lightheadedness, Denies palpitations, Denies dyspnea, Denies dyspnea on exertion and Denies orthopnea Resp Denies cough, Denies dyspnea and Denies dyspnea on exertion GI Denies hematochezia and Denies change in stool character Musc Denies abnormal gait, Denies limited range of motion, Denies muscle cramps, D enies muscle weakness, Denies numbness, Denies radiating pain into limb, Denies stiffness and Denies tingling Neuro Denies abnormal gait, Denies dizziness, Denies numbness and Denies tingling Endo Denies palpitations Physical Exam Vital Signs: Last Vital Signs Pulse 108 H 04/03/24 12:42 BP 124/82 04/03/24 12:42 BMI result Body Mass Index 34.1 Const General: cooperative, healthy appearing, comfortable and no acute distress Orientation/consciousness: patient oriented x3 Neck Neck: Yes normal visual inspection Resp Effort & Inspection: normal respiratory effort Auscultation: clear to auscultation bilaterally, no crackles, no rales, no rhonchi and no wheezes Cardio Jugular venous distension: no JVD Rate: tachycardic Rhythm: regular rhythm Heart sounds: S1 normal heart sound present, S2 normal heart sound present, no murmurs and no rubs Neuro General: patient oriented x3 Extrem General: Yes normal to inspection Psych Appearance: grossly normal Mental Status: mental status grossly normal Speech and movement: Normal speech and movement present Office Procedures EKG Details: Today, read by me, sinus tachycardia, rate 108, QTC 436 milliseconds [id number], Complete Assessment & Plan Assessment & Plan (1) Sinus tachycardia: Code(s): R00.0 - Tachycardia, unspecified Category: Medical Plan: This patient has been noted to have sinus tachycardia, which seems inappropriate. Holter monitor 01/25/2023 shows 61% of the time heart rate greater than 100. He had been on metoprolol XL currently 75 mg daily. Holter monitor done again on 03/17/2024 showing sinus tach with average heart rate 106, 74% of the time heart rate greater than 100. He was told to increase his metoprolol up to 100 mg daily which he has not done as of yet. An echocardiogram done 03/17/2024 shows EF 57%, no valve abnormalities, grade 2 diastolic dysfunction, episode of Mobitz 1 during chief operator reformer hours. A sleep study had been previously done showing no sleep apnea but severe restless legs. An EKG done today is showing sinus tachycardia, rate 108. Instructed him to increase his metoprolol XL up to 100 mg daily. Will have him back in the office in 2 weeks for a blood pressure and pulse check. May need to further titrate this medication. He drinks 2 caffeinated beverages daily. Instructed to change to decaf. Maintain good hydration. Will check TSH - lab results available prior to completion of this note and TSH was normal. No clear reason for his sinus tachycardia. Suspect inappropriate sinus tach. Will continue to follow. (2) Syncope: Code(s): R55 - Syncope and collapse Category: Medical Qualifiers: Syncope type: vasovagal syncope Qualified Code(s): R55 - Syncope and collapse Plan: Reported history of presyncope/syncope at home, at approximately 8 in the past. He did have episode presyncope on 03/06/2023 following prostate biopsy, in the office. EMS was called and he was transported to [facility] where he underwent evaluation. Notes reviewed and they concluded probable vasovagal syncope. An echocardiogram was done on 09/21/2022 showing EF 60-65%, mild septal hypertrophy, mildly dilated ascending aorta. A Holter monitor did show some evidence of Mobitz 1 during sleep, no other significant arrhythmia. An exercise stress test was done on 01/25/2023 with exercise 9 minutes, shortness of breath present, no EKG changes and normal myocardial perfusion imaging. He did not have any noted presyncope or syncope following his exercise. A tilt-table test was done on 09/24/2023 confirming vasovagal syncope. All results previously reviewed with him. He has not had any recurrent syncopal events in the last year. reviewed this diagnosis of vasovagal syncope with him in detail. Reviewed good hydration, recognizing symptoms, avoid triggers if possible. He needs to sit/lay down if he develops presyncopal symptoms. Avoid syncope from a standing position. He states understanding. Continue on current metoprolol and lisinopril. Blood pressure is in normal range at this time. Cardiology follow- up in 6 months, sooner if needed. Emergency care if needed for recurrent symptoms. (3) Precordial chest pain: Code(s): R07.2 - Precordial pain Category: Medical Plan: Prior vague description of chest discomfort. Cardiac testing as above. He does have cardiac risk factors of obesity, hypertension, hyperlipidemia and smoking. Symptom had been atypical for angina. No anginal sounding symptoms at this time. (4) Mobitz type 1 second degree atrioventricular block: Code(s): I44.1 - Atrioventricular block, second degree Category: Medical Plan: Brief during sleep. No daytime second-degree heart block reported. No sleep apnea noted on sleep study. Plan Time spent on chart review, documentation, interview and assessment Orders: Orders TSH reflex Free T4 04/03/24 R00.0 - Tachycardia, unspecified Coding Level of Care Code Est Pt Level 4 (60947) Complex EM visit Add On G2211 Diagnoses Sinus tachycardia R00.0 Vasovagal syncope R55 Syncope type: vasovagal syncope Precordial chest pain R07.2 Mobitz type 1 second degree atrioventricular block I44.1 CPT Codes EKG - CPT: 52941-[id number], Complete ([id number]) Time Spent (min) 30
== END 2024-04-03 13:16 | disposition home or self-care (01) ==
LOC: HO.HCS 12:29
PROVIDERS: PCP Internal Medicine; Visit Provider Nurse Practitioner Family
DX: R00.0 Tachycardia, unspecified (principal); R55 Syncope and collapse; R07.2 Precordial pain; I44.1 Atrioventricular block, second degree
CPT/HCPCS: 93010; 99214; G2211

== ENCOUNTER 2024-04-14 13:06 | Outpatient (AMB) | payer OTHER, SELFPAY ==
--- NOTE | 2024-04-14 13:20 | A.OFFVIS_ITS ---
Intake Visit Reasons: FU to repeat injections? Intake Note: Patient comes in to discuss injection option. Reports pain 8/10. Media Center Assistant Required: Yes Media Center Assistant Services: Media Center Assistant Present Media Center Assistant Name: Ev Allergies amitriptyline Allergy (Intermediate, Verified 04/14/24 13:29) stomach pain aspirin Allergy (Intermediate, Verified 04/14/24 13:29) stomach pain HPI Comments Details: Leeroy is back in my office after 1 year and a half of absence. He received in the beginning of 2022 diagnostic sacroiliac joint injection which resulted in 100% immediate pain relief and 1 month of 90% pain improvement. He reported excellent mobility at this time good activities of daily living good social interactions. Unfortunately the patient was lost for follow-up in 2022 and now he is in my office reporting that he wants to repeat this injection again. I explained to the patient that at this time therapeutic sacroiliac joint inje ction needs to be performed. Risks of steroid injections were briefly explained to the patient. The patient agreed to go for the procedure. Prior: very pleasant Estonian-speaking 72 years old gentleman who presents in my office with complains on lower back pain with vague radiation into bilateral lower extremities.? He reports also shoulder pain in bilateral shoulders.? He reports pain on the left lower extremity radiating to the level of the knee and slightly below that level he reports pain in the right lower ext extremity radiating all the way down to the ankle but not into the toes.? he reports that his pain stays elevated all the time 8 to 9/10 level.? .? He had x-rays done on the lumbar spine and on the shoulders the report of which is dictated as below.? He tried physical therapy for his knees and his shoulders in the past and he denied any help.? He denied any injections. Past medical history significant for hypertension and some unclear symptoms from the heart.? He is under care of social insurance analyst with diagnosis of psoriasis, he probably has psoriatic arthritis.? He never went to youth worker.? Past surgical history significant for ORIF of the hand and the toe surgery related to the back. [facility] Medical History Psoriatic arthritis Former smoker Gout Elevated hemoglobin GERD (gastroesophageal reflux disease) Pure hypercholesterolemia Essential hypertension Surgical History H/O wrist surgery History of foot surgery Family History Father Asthma Mother Hypertension Stomach cancer, Onset Age: 50 Family/Other Substance use disorder Brother Cancer, Onset Age: 61 Social History Household Members: Spouse and Significant Other Housing: Apartment Alcohol intake: current Alcohol intake frequency: holidays/special occasions o nly Alcohol type: beer and hard liquor Patient Tobacco Use Status: Former Tobacco user Tobacco use type: Cigarette e-Cigarette/Vaping Use: Never Used Second Hand Smoke Exposure: No service: No Current occupational status: disabled Cognitive needs: No Hearing needs: No Vision needs: No Review of Systems Const All systems reviewed & are unremarkable except as noted in HPI and below ENT Reports Normal hearing present Neuro Reports Normal hearing present, Denies Abnormal speech present, Denies confusion and Denies Sensory deficit (Neuro) Psych Denies confusion Physical Exam Const General: no acute distress; No confusion Orientation/consciousness: patient oriented x3 and No confusion Eyes General: appearance normal, both eyes and all related structures Pupils: Equal, round and reactive pupils present EOM: EOMs intact bilaterally Neck Neck: Yes full ROM Chest Chest palpation & inspection: normal inspection of the chest Resp Effort & Inspection: normal respiratory effort, able to speak in complete sentences, normal respiratory pattern, no audible wheezes and no cough Cardio Jugular venous distension: no JVD GI Inspection: Yes normal to inspection Back/Spine/Pelvis Other: Able to stand on bilateral tiptoes and bilateral heels. Able to flex himself forward but reports severe pain at about 70 degrees, reports severe pain in the back with flexing back backwards. Loading test is positive bilaterally. Bernadine finger test is positive bilaterally. Gaenslen test is positive bilaterally. Stinchfield test is positive bilaterally. SLR test may be positive bilaterally. But dorsiflexion of the both feet with maximal SLR does not aggravate the pain. Tenderness on palpation on paraspinal spinal regions entire lumbar spine and lower thoracic spine. Valsalva maneuver does not aggravate the pain. Reports significant pain with bending forward in the lumbar spine and also reports significant tenderness on palpation in the projection of bilateral iliac crests at the top of bilateral iliac crests in the projection of the cluneal nerves passing over on the surface of the posterior pelvis. Neuro General: patient oriented x3, gait normal and No confusion Cranial nerves: Yes CN's II-XII intact bilaterally, Yes Equal, round and reactive pupils present, Yes Normal hearing present and Yes Ability to bilaterally elevate shoulders present Speech: No Abnormal speech present Gait exam (Neuro): Normal gait present Motor exam (neuro): 5/5 motor strength present throughout Sensory Exam: No Sensory deficit (Neuro) Extrem General: No pedal edema Psych Speech and movement: Normal speech and movement present Affect: normal affect Attitude: cooperative Thought process: Normal thought process present Thought content: Normal thought content present Insight: Good insight present (Psych) Judgement: Good judgement present (Psych) Assessment & Plan Assessment & Plan (1) Localized osteoarthritis of knees, bilateral: Code(s): M17.0 - Bilateral primary osteoarthritis of knee Category: Medical (2) Spondylosis of lumbar region without myelopathy or radiculopathy: Code(s): M47.816 - Spondylosis without myelopathy or radiculopathy, lumbar region Category: Medical (3) Chronic pain syndrome: Code(s): G89.4 - Chronic pain syndrome Category: Medical (4) Acromioclavicular joint arthritis: Code(s): M19.019 - Primary osteoarthritis, unspecified shoulder Category: Medical Qualifiers: Laterality: bilateral Qualified Code(s): M19.011 - Primary osteoarthritis, right shoulder; M19.012 - Primary osteoarthritis, left shoulder (5) Mononeuropathy, unspecified: Code(s): G58.9 - Mononeuropathy, unspecified Category: Medical (6) Psoriasis arthropathica: Code(s): L40.50 - Arthropathic psoriasis, unspecified Category: Medical (7) Sacroiliitis: Code(s): M46.1 - Sacroiliitis, not elsewhere classified Category: Medical (8) Pain of both sacroiliac joints: Code(s): M53.3 - Sacrococcygeal disorders, not elsewhere classified Category: Medical Plan Leeroy is suffering from multiple pain generators all of which are stemming from the most likely psoriatic osteoarthritis.. He reports 2 days of complete pain relief after diagnostic sacroiliac joint injection. He reported 90% pain relief for a month that followed. Unfortunately he was lost for follow-up after that. He is now in my office and I offered him therapeutic sacroiliac joint injection. I will schedule this procedure without sedation.. The follow-up will be for the procedure. Patient Instructions: lead project manager NUHA Batres was with us today and helped us to maintain this conversation in Estonian. Coding Level of Care Code Est Pt Level 3 (76400) Diagnoses Localized osteoarthritis of knees, bilateral M17.0 Spondylosis of lumbar region without myelopathy or radiculopathy M47.816 Chronic pain syndrome G89.4 Arthritis of both acromioclavicular joints M19.011; M19.012 Laterality: bilateral Mononeuropathy, unspecified G58.9 Psoriasis arthropathica L40.50 Sacroiliitis M46.1 Pain of both sacroiliac joints M53.3
== END 2024-04-14 13:50 | disposition home or self-care (01) ==
PROVIDERS: PCP Internal Medicine; Visit Provider Anesthesiology
DX: M17.0 Bilateral primary osteoarthritis of knee (principal); M47.816 Spondylosis without myelopathy or radiculopathy, lumbar region; G89.4 Chronic pain syndrome; M19.011 Primary osteoarthritis, right shoulder; M19.012 Primary osteoarthritis, left shoulder; G58.9 Mononeuropathy, unspecified; L40.50 Arthropathic psoriasis, unspecified; M46.1 Sacroiliitis, not elsewhere classified; M53.3 Sacrococcygeal disorders, not elsewhere classified
CPT/HCPCS: 99213

== ENCOUNTER → 2024-04-14 13:06 | Outpatient (BNVA) | payer OTHER, SELFPAY | PROVIDERS: PCP Internal Medicine; Visit Provider Anesthesiology | DX: M17.0 Bilateral primary osteoarthritis of knee (principal); M47.816 Spondylosis without myelopathy or radiculopathy, lumbar region; M19.011 Primary osteoarthritis, right shoulder; M19.012 Primary osteoarthritis, left shoulder; M46.1 Sacroiliitis, not elsewhere classified; M53.3 Sacrococcygeal disorders, not elsewhere classified; G89.4 Chronic pain syndrome; G58.9 Mononeuropathy, unspecified; L40.50 Arthropathic psoriasis, unspecified | CPT/HCPCS: 99212 ==

== ENCOUNTER 2024-06-13 08:59 | Outpatient (REF) | payer OTHER, SELFPAY ==
[2024-06-13 09:19] LABS: MANUAL DIFF FLAG NO
[2024-06-13 09:51] LABS: Basophils Percent Auto 0.3 % (0-2); Eosinophils Absolute Auto 0.1 X10*3/uL (0.0-0.4); Hemoglobin 17.3 g/dl (14.0-18.0); Imm Gran Abs Auto 0.02 X10*3/uL (0.00-0.03); Imm Gran Pct Auto 0.3 % (0.0-0.4); Lymphocytes Absolute Auto 2.3 X10*3/uL (1.2-4.9); Lymphocytes Percent Auto 35.3 % (20-40); Mean Corpuscular HGB Conc 33.9 g/dl (31.0-36.0); Mean Corpuscular Hemoglobin 28.9 pg (27.0-33.0); Mean Corpuscular Volume 85.3 fL (80.0-98.0); Mean Platelet Volume 13.3 fL (9.4-12.4); Monocytes Absolute Auto 0.6 X10*3/uL (0.1-1.2); Monocytes Percent Auto 9.7 % (2-11); Neutrophils Absolute Auto 3.5 x10*3/uL (2.0-8.3); Neutrophils Percent Auto 52.4 % (45-73); Platelet Count 153 X10*3/uL (160-400); Red Blood Count 5.98 X10*6/uL (4.60-5.80); Red Cell Distribution Width 14.7 % (11.0-16.0); White Blood Count 6.6 X10*3/uL (4.8-10.8)
[2024-06-13 10:20] LABS: Alanine Aminotransferase 28 U/L (0-40); Albumin Level 4.3 g/dL (3.5-5.0); Alkaline Phosphatase 61 U/L (39-117); Anion Gap 9 (12-20); Aspartate Amino Transferase 29 U/L (5-37); Bilirubin Total 1.2 mg/dL (0.0-1.0); Blood Urea Nitrogen 18 mg/dL (9-16); Calcium 9.4 mg/dL (8.4-10.2); Carbon Dioxide 28 mmol/L (22-29); Chloride 109 mmol/L (96-108); Cholesterol 169 mg/dL (<200); Estimated Glomerular Filt Rate > 60; Glucose Fasting 97 mg/dL (60-99); HDL Cholesterol 40 mg/dL (>40); LDL Cholesterol Calculated 93 mg/dL (<100); Potassium 4.1 mmol/L (3.3-5.1); Sodium 142 mmol/L (135-145); Total Protein 7.7 g/dL (6.5-8.0); Triglycerides 181 mg/dL (<150); Uric Acid 3.7 mg/dL (3.4-7.0)
[2024-06-13 10:43] LABS: Vitamin D 25-OH Total 45.9 ng/mL (>30)
== END 2024-06-13 09:00 | disposition home or self-care (01) ==
LOC: HO.LAB 08:59
PROVIDERS: PCP Internal Medicine; Visit Provider Internal Medicine
DX: L40.9 Psoriasis, unspecified (principal); M10.9 Gout, unspecified; E78.5 Hyperlipidemia, unspecified; E55.9 Vitamin D deficiency, unspecified; K21.9 Gastro-esophageal reflux disease without esophagitis
CPT/HCPCS: 36415; 80053; 80061; 82306; 84550; 85025

== ENCOUNTER 2024-06-18 12:52 | Outpatient (AMB) | payer OTHER, SELFPAY ==
--- NOTE | 2024-06-18 13:33 | A.OFFPC_ITS ---
Vital Signs 06/18/24 13:45 Height 5 ft 6 in Weight 211 lb BMI 34.1 BP 126/80 Blood Pressure Location Lt brachial Position Sitting Intake Visit Reasons: polyarthralgia Intake Note: Patient here for a follow up Polyarthralgia International Trade Manager Required: Yes International Trade Manager Language: Track Superintendent Name: Cristina Calixto MD Information Interpreted: non-clinical & clinical Accompanied by: Self / Same As Patient Allergies amitriptyline Allergy (Intermediate, Verified 06/18/24 14:01) stomach pain aspirin Allergy (Intermediate, Verified 06/18/24 14:01) stomach pain Medication List - Last Reconciled 06/18/24 by Cristina Calixto MD acetaminophen 500 mg PO BID PRN adalimumab (Humira(CF) Pen) 40 mg subcut Q2W allopurinol 300 mg PO DAILY 90 days aspirin 81 mg PO DAILY atorvastatin 20 mg PO DAILY calcipotriene 0.005% 1 appl topical QAM cholecalciferol (vitamin D3) 50 mcg PO DAILY 90 days lisinopril 50 mg (1.25 x 40 mg) PO DAILY metoprolol succinate ER 100 mg PO DAILY omeprazole 20 mg PO BID Tobacco use date assessed: 06/18/24 Fall risk assessment: No Falls in past year Last assessed Fall Risk: 06/18/24 Dental Screening Dental Screen Date: 06/18/24 Did you have a dental visit in the last 12 months?: Yes Did you have a dental problem in the last 6 months where you did not have access to dental care?: No Was dental information given to patient?: Patient has dentist HPI HPI Comments History of Present Illness Details The patient is a 74-year-old male presenting with concerns related to psoriatic arthritis and shoulder pain. The patient reports a long-standing history of psoriatic arthritis, which has involved the shoulders and knees, significantly impacting his functional abilities. The shoulder pain has deteriorated to the point where he has difficulty performing daily activities. He indicates a previous visit to an orthopedist, who suggested injections, but there were complications with referral acceptance. He is currently managed with Humira for psoriatic arthritis, which he believes has mitigated the psoriasis but may not fully address his joint pain. He declines physical therapy, despite the difficulties experienced with shoulder functions. Arthritic pain significantly influences the patient's quality of life, and prior prescription medications include Tylenol for pain management and listings of atorvastatin, allopurinol, lisinopril, metoprolol, and omeprazole in his medication regimen. Overall, the patient has experienced challenges in obtaining consistent care due to referral and medication issues, necessitating further specialist evaluation. Cholesterol well controlled with statins and reports no side effects. GERD stable with PPIs. Has not had a gout attack in over 3 months and is compliant with allopurinol. [facility] Medical History (Updated 06/18/24 @ 14:10 by Cristina Calixto MD) Psoriatic arthritis Former smoker Gout Elevated hemoglobin GERD (gastroesophageal reflux disease) Pure hypercholesterolemia Essential hypertension Surgical History H/O wrist surgery History of foot surgery Family History Father Asthma Mother Hypertension Stomach cancer, Onset Age: 50 Family/Other Substance use disorder Brother Cancer, Onset Age: 61 Social History Household Members: Spouse and Significant Other Housing: Apartment Alcohol intake: current Alcohol intake frequency: holidays/special occasions on ly Alcohol type: beer and hard liquor Patient Tobacco Use Status: Former Tobacco user Tobacco use type: Cigarette e-Cigarette/Vaping Use: Never Used Second Hand Smoke Exposure: No service: No Current occupational status: disabled Cognitive needs: No Hearing needs: No Vision needs: No Questionnaire PHQ-9 Over the last 2 weeks, how often have you been bothered by any of the following problems? 1. Little interest or pleasure in doing things: not at all 2. Feeling down, depressed, or hopeless: not at all 3. Trouble falling or staying asleep, or sleeping too much: not at all 4. Feeling tired or having little energy: not at all 5. Poor appetite or overeating: not at all 6. Feeling bad about yourself - or that you are a failure or have let yourself or your family down: not at all 7. Trouble concentrating on things, such as reading the newspaper or watching television: not at all 8. Moving or speaking so slowly that other people could have noticed. Or the opposite - being so fidgety or restless that you have been moving around a lot more than usual: not at all 9. Thoughts that you would be better off or of hurting yourself in some way: not at all Total score: 0 Depression Screening Interpretation: Negative Depression Screening Done: Yes 81596 - PHQ-9 Billing: Yes Source: Developed by Drs. Kike Nichols, Jodi Eng, Keith Treadwell and colleagues, with an educational oscar from [employer]. Thrive Questionnaire Date Thrive assessed: 06/18/24 I am a: Patient What is your living situation today?: I have a steady place to live Within the past 12 months, did the food you bought not last and you didn't have the money to get more?: Never true Within the past 12 months, did you worry whether your food would run out before you got money to buy more?: Never true Do you have trouble paying for medicines?: No Do you have trouble getting transportation to medical appointments?: No Do you have trouble paying your heating and electricity bill?: No Do you have trouble taking care of your child, family member or friend?: No Do you have trouble with day-to-day activities such as bathing, preparing meals, shopping, managing finances, etc.?: No Are you currently unemployed and looking for a job?: No Are you interested in more education?: No Please select the resources that you would like help with: None Currently or been in a relationship where the following occur: No concerns reported THRIVE Score: 0 AUDIT C Alcohol Use Questionnaire (AUDIT-C) 1. How often do you have a drink containing alcohol?: 2-3 times a week 2. How many drinks containing alcohol do you have on a typical day when you are drinking?: 1 or 2 3. How often do you have six or more drinks on one occasion?: Never Total Score: 3 TARYN-7 AMB Questionnaire TARYN-7 Date TARYN - 7 assessed: 06/18/24 Feeling nervous, anxious, or on edge: 0 = Not at all Not being able to stop or control worryin = Not at all Worrying too much about different things: 0 = Not at all Trouble relaxin = Not at all Being so restless that it is hard to sit still: 0 = Not at all Becoming easily annoyed or irritable: 0 = Not at all Feeling afraid as if something awful might happen: 0 = Not at all Total TARYN-7 score (0-4 normal; 5-9 mild; 10-14 moderate; 15-21 severe): 0 Source: Developed by Drs. Kike Nichols, Jodi Eng, Keith Treadwell and colleagues, with an educational oscar from [employer]. TARYN-7 Assessment Billing TARYN-7 Assessment Tool: TARYN-7 Assessment 29163 Review of Systems Const All systems reviewed & are unremarkable except as noted in HPI and below Card Denies chest pain at rest, Denies chest pain with activity, Denies edema, Denies irregular heart rhythm, Denies claudication, Denies dyspnea, Denies dyspnea on exertion, Denies orthopnea, Denies paroxysmal nocturnal dyspnea and Denies slow heart rate Resp Denies cough, Denies dyspnea and Denies dyspnea on exertion GI Denies abdominal pain, Denies change in bowel habits, Denies excessive flatus, Denies nausea and Denies vomiting Physical exam (Primary Care) Vital Signs: Last Vital Signs BP 126/80 06/18/24 13:45 BMI result Body Mass Index 34.1 BMI Assessment/Plan discussion: High BMI High, discussed plan: lifestyle, weight reduction, dietary and physical activity Tobacco/Smoking Status: Tobacco use Status Tobacco use date assessed 06/18/24 06/18/24 13:48 Patient Tobacco Use Status Former Tobacco user 06/18/24 13:34 Tobacco use type Cigarette 06/18/24 13:34 e-Cigarette/Vaping Use Never Used 06/18/24 13:34 PHQ-9: PHQ-9 Score PHQ-9: Total score 0 06/18/24 14:04 Depression Screening Interpretation: Negative Thrive Assessment: Date of Thrive Assessment Date Thrive assessed 06/18/24 06/18/24 13:34 Currently or been in a relationship where the following occur: No concerns reported Resp Effort & Inspection: normal respiratory effort Auscultation: clear to auscultation bilaterally Cardio Jugular venous distension: no JVD Rate: regular rate Rhythm: regular rhythm Heart sounds: S1 normal heart sound present and S2 normal heart sound present Extrem General: Yes full ROM Office Procedures Flu Questionnaire Does the patient have a severe egg allergy?: No Immunizations Fluarix Triv [id number] (PF) 45 mcg (15 mcg x 3)/0.5 mL IM syringe Performing Provider: Cristina Calixto MD [facility] Documented (not given) by: DELBERT Rubi on 06/18/24 13:34 Reason Not Given: Received Previously Coding Level of Care Code Est Pt Level 4 (29414) Complex EM visit Add On G2211 Diagnoses Psoriatic arthritis L40.50 Right shoulder pain M25.511 Left shoulder pain M25.512 Idiopathic chronic gout of multiple sites without tophus M1A.09X0 Gout site: multiple sites Gout etiology: idiopathic Chronicity: chronic Presence of tophus: without tophus Gastroesophageal reflux disease, unspecified whether esophagitis present K21.9 Esophagitis presence: esophagitis presence not specified Pure hypercholesterolemia E78.00 Additional Codes TARYN-7 Assessment Billing - TARYN-7 Assessment Tool: TARYN-7 Assessment 69233 ([id number]) PHQ-9 - 13515 - PHQ-9 Billing: Yes ([id number]) Time Spent (min) 22 Assessment & Plan Assessment & Plan (1) Psoriatic arthritis: Code(s): L40.50 - Arthropathic psoriasis, unspecified Category: Medical (2) Right shoulder pain: Code(s): M25.511 - Pain in right shoulder Category: Medical (3) Left shoulder pain: Code(s): M25.512 - Pain in left shoulder Category: Medical (4) Gout: Comment: well controlled on allopurinol 300mg daily Code(s): M10.9 - Gout, unspecified Category: Medical Qualifiers: Gout site: multiple sites Gout etiology: idiopathic Chronicity: chronic Presence of tophus: without tophus Qualified Code(s): M1A.09X0 - Idiopathic chronic gout, multiple sites, without tophus (tophi) (5) GERD (gastroesophageal reflux disease): Code(s): K21.9 - Gastro-esophageal reflux disease without esophagitis Category: Medical Qualifiers: Esophagitis presence: esophagitis presence not specified Qualified Code(s): K21.9 - Gastro-esophageal reflux disease without esophagitis (6) Pure hypercholesterolemia: Code(s): E78.00 - Pure hypercholesterolemia, unspecified Category: Medical Plan - Continue current medication regimen including Humira for psoriatic arthritis and judgment to manage psoriasis. - Referral to rheumatology to reassess and optimize management of psoriatic arthritis. - Evaluate the possibility of reattempting coordination for orthopedic consultation and potential injection therapy if beneficial. - Monitor blood pressure and continue atorvastatin and lisinopril for hyperlipidemia and hypertension respectively. Patient was informed and verbally consented to the use of an ambient scribe for clinic note documentation during this visit. During the visit, I discussed the patient's ongoing issues with psoriatic arthritis for which Humira is being utilized. We reviewed potential benefits and limitations of current therapies, addressing concerns that while the medication manages psoriasis well, joint pain persists. I explained the value of rheumatology assessment to ensure optimized treatment regimens. We also touched on prior encounters with orthopedic care and the challenges faced thus far, contemplating again leveraging injection therapy wherein collaboration with orthopedics proves fruitful. I provided reassurance regarding coordination of care within the [facility] for continuation with specialists. I emphasized follow-up and coordination with rheumatology for comprehensive evaluation. We reaffirmed vigilance in blood pressure management and pharmacotherapy adherence for cardiovascular protection. Orders: Orders Influenza [id number] Immunization Today Z23 - Encounter for immunization XR shoulder LT min 2V Today M25.512 - Pain in left shoulder XR shoulder RT min 2V Today M25.511 - Pain in right shoulder Referrals Rheumatology Referral L40.50 - Arthropathic psoriasis, unspecified Medications: New [recliner] As directed 1 ea 0RF M51.369 - Other intervertebral disc degeneration, lumbar region without mention of lumbar back pain or lower extremity pain [recliner] As directed 1 ea 0RF M51.369 - Other intervertebral disc degeneration, lumbar region without mention of lumbar back pain or lower e xtremity pain Patient Instructions: - Continue taking all prescribed medications as directed, including Humira, lisinopril, atorvastatin, and others. - Look out for and report any changes or worsening of joint pain or skin conditions. - Await further instructions and coordination for rheumatology follow-up. - Maintain monitoring of blood pressure at home to ensure continued management of hypertension. - Follow lifestyle and dietary measures to support cardiovascular health and overall well-being.
[2024-06-18 13:45] VITALS: BP 126/80; BMI 34.1
--- OUTSIDE RECORDS SUMMARY | 2024-06-18 14:42 | XMS_ITS | Clinical Summary ---
Author Organization [employer] Address [address] [facility] [address] [place] [address] Care Team Providers Care Oyster Harvester Name Role Phone Unavailable Primary Care Provider Unavailabl e Allergies No known active allergies Medications Humira, 2 Pen, 40 MG/0.4ML Pen-injector Kit pen-injector INJECT 0.4ML UNDER THE SKIN EVERY WEEK 4 Active allopurinol (Zyloprim) 300 MG tablet TOME LINDSEY TABLETA TODOS LOS D 4 Active Aspirin Low Dose 81 MG EC tablet TOME LINDSEY TABLETA TODOS LOS D Active atorvastatin (Lipitor) 20 MG tablet Take 20 mg by mouth Once per day. 4 Active calcipotriene (Dovonex) 0.005 % cream APPLY TO FACE, ARMS, LEGS, TWICE A DAY NEEDED FOR FLARES, DECREASE SYMPTOMS IMPROVE 4 Active cholecalcifero l VITAMIN D (Vitamin D-3) 50 MCG (1999 UT) capsule TOME LINDSEY C PSULA TODOS LOS D 4 Active fluocinonide (Lidex) 0.05 % cream APPLY TO ARMS, TRUNK, AND LEGS TWICE DAILY NEEDED FOR FLARES, ALTERNATING WITH CALCIPOTRIENE 4 Active Social History Tobacco Use Types Packs/Day Years Used Date Smoking Tobacco: Never Smokeless Tobacco: Never Tobacco Cessation:Counseling Given: Not Answered Sex and Gender Information Value Date Recorded Sex Assigned at Male 03/27/2022 10:17 AM EDT Legal Sex Male 10:17 AM EDT Gender Identity Male 03/27/2022 10:17 AM EDT Sexual Orientation Straight 03/27/2022 10 :17 AM EDT Last Filed Vital Signs Vital Sign Reading Time Taken Comments Blood Pressure 140/86 10/16/2023 12:58 PM EDT Pulse - - Temperature - - Respiratory Rate - - Oxygen Saturation - - Inhaled Oxygen Concentration - - Weight - - Height - - Body Mass Index - - Plan of Treatment Health Maintenance Due Date Last Done Comments CT Colonography 1952 Colonoscopy 1952 Colorectal Cancer Screening 1952 Depression Screening 1952 FIT DNA/Cologuard 1952 FIT 1952 FOBT 1952 Lipid Panel 1952 SDOH Screening 1952 Sigmoidoscopy 1952 Alcohol/Substance Use Screening 1964 Hepatitis C Screening 02/06/1970 Zoster Vaccines (2 of 2) 06/15/2023 04/20/2023 COVID-19 Vaccine ( - season) 2024 03/24/2023, 12/05/2021, 04/12/2021, Additional history exists Influenza Vaccine (#1) 2024 , 04/26/2020, 04/08/2019, Additional history exists Dental Oral Exam 04/18/2024 10/16/2023, 01/2021, 01/10/2019, Additional history exists Dental Prophylaxis 04/18/2024 10/16/2023, 0 07/17/2019, 11/11/2018, Additional history exists Tobacco Screening 10/15/2024 10/16/2023 Dental X-Ray: Bitewings 10/16/2024 10/16/19 24, 07/06/2020, 01/10/2019, Additional history exists DTaP/Tdap/Td Vaccines (3 - Td or Tdap) 06/19/2026 06/19/2016, 07/08/2013, 03/13/2003 Dental X-Ray: Full Mouth 10/16/2026 024, 01/10/2019, 04/25/2010 RSV Patients and Patients Aged 60 years or older (1 - 1-dose 75+ series) 02/06/2027 Pneumococcal Vaccine: 65+ Years Completed 12/25/2022, 07/24/2017 HIB Vaccines Aged Out No longer eligi ble based on patient's age to complete this topic HPV Vaccines Aged Out No longer eligi ble based on patient's age to complete this topic Hepatitis A Vaccines Aged Out No long er eligible based on patient's age to complete this topic Hepatitis B Vaccines Aged Out No long er eligible based on patient's age to complete this topic IPV Vaccines Aged Out No longer eligi ble based on patient's age to complete this topic Meningococcal Vaccine Aged Out No keanu chucky eligible based on patient's age to complete this topic RSV under 20 months Aged Out No longe r eligible based on patient's age to complete this topic Rotavirus Vaccines Aged Out No longer eligible based on patient's age to complete this topic Procedures Procedure Name Priority Date/Time Associated Diagnosis Comments PROPHYLAXIS - ADULT Routine 10/16/2023 1 :00 PM EDT Dental plaque Dental calculus DIAGNOSTIC - DIAGNOSTIC IMAGING - INTRAORAL - COMPREHENSIVE SERIES OF RADIOGRAPHIC IMAGES Routine 10/16/2023 1:00 PM EDT PERIODIC ORAL EVALUATION - ESTABLISHED PATIENT Routine 10/16/2023 1:00 PM EDT Dental plaque Dental calculus Encounter for dental examination Teeth missing Gingival recession, generalized from Last 3 Months or Most Recently Relevant to Health Maintenance Insurance [facility]
--- OUTSIDE RECORDS SUMMARY | 2024-06-18 14:42 | XMS_ITS | Patient Health Record ---
Author Organization [facility] Address [address] [place] [address] Care Team Providers Care Computer Publisher Name Role Phone Cristina Rivera Primary Care Provider Unavailab Kike Hanks Unavailable [phone] ALLERGIES No Known Allergies REASON FOR REFERRAL No Information MEDICATIONS Medication SIG (Take, Route, Frequency, Duration) Notes Start Date End Date Status Allopurinol 300 MG Oral for 90 Active Atorvastatin Calcium 20 MG TOME LINDSEY TABLETA TODOS LOS D Oral for 90 Active Humira Pen 40 MG/0.4ML INJECT 1 PEN UNDE R THE SKIN EVERY WEEK Subcutaneous for 28 Active Omeprazole 20 MG TOME LINDSEY C PSULA DOS VECES AL D A Oral for 90 Active Metoprolol Succinate ER 50 MG Oral for 90 Active Pravastatin Sodium N ot-Taking Vitamin D3 50 MCG (1999) TOME 1 C PSULA POR V A ORAL TODOS LOS D Oral for 90 Active Aspirin Low Dose 81 MG TOME LINDSEY TABLETA TODOS LOS D Oral for 90 Active Dulcolax (colon prep) 5 MG take at 3:00 p.m and 7:00p.m. Orally two tablets twice a day for one day for 1 day 05/20/2022 Active MiraLax (colon prep) 17 GM/SCOOP 1 238Gm bottle mixed with Gatorade or Crystal Light Orally begin at 5:00 p.m. the day before the procedure for 1 day 05/20/2022 Active Dulcolax (colon prep) 5 MG take at 3:00 p.m and 7:00p.m. Orally two tablets twice a day for one day for 1 day 05/20/2022 Active MiraLax (colon prep) 17 GM/SCOOP 1 238Gm bottle mixed with Gatorade or Crystal Light Orally begin at 5:00 p.m. the day before the procedure for 1 day 05/20/2022 Active Zolpidem Tartrate No t-Taking IMMUNIZATIONS Vaccine Route Administration Date Status Comme nts Influenza Unknown 04/27/2022 Administered SOCIAL HISTORY Sex Assigned At : Social History Observation Description Sex Assigned At Unknown Alcohol Screen Question Answer Notes Did you have a drink contain ing alcohol in the past year? Yes How often did you have a dri nk containing alcohol in the past year? 4 or more times a week (4 points) How many drinks did you have on a typical day when you were drinking in the past year? 1 or 2 drinks (0 point) Points 4 Interpretation Positive PROBLEMS Problem Type ICD Code Onset Dates Problem Status W/U Status Risk SNOMED Code Notes Problem Encounter for screening for malignant neoplasm of colon (Z12.11) Active confirmed 148701468 Problem History of adenomatous polyp of colon (Z86.010) Active confirmed 316269842 Problem Personal history of colonic polyps (Z86.010) Active confirmed History of polyp of colon (situation) (140986678) Problem Diverticulosis of large intestine without perforation or abscess without bleeding (K57.30) Active confirmed Diverticul ar disease of colon (236065810) Problem Preprocedural examination (Z01.818) Active confirmed 882932292 Problem Long-term use of aspirin therapy (Z79.82) Active confirmed 035869814 PLAN OF TREATMENT Future Test Test Name Order Date COLONOSCOPY 05/31/2011 COLONOSCOPY 10/26/2016 COLONOSCOPY 05/10/2022 Insurance Providers Payer Name Payer Address Payer Phone Subscriber Number Group Number Insured Name Patient Relationship to Insured Coverage Start Date Coverage End Date [facility] Claims [address] [address] [place] [address] [id number] SYLVAIN SIMS Self - patient is the insured MEDICAL (GENERAL) HISTORY Medical History History ICD Code Hyperlipidemia HTN Gout Denies [place],DM,CVA,Lung disease,renal dise ase Colonoscopy 2005 revealed a small tubular adenoma that was removed; colonoscopy in June of 2011 was negative except for diverticulosis and internal hemorrhoids Psoriasis Negative screening colonosco py in December of 2016 other than a hyperplastic polyp Surgical History Surgery Date(Month/Year) Wrist and foot surgery
== END 2024-06-18 14:18 | disposition home or self-care (01) ==
PROVIDERS: PCP Internal Medicine; Visit Provider Internal Medicine
DX: L40.50 Arthropathic psoriasis, unspecified (principal); M25.511 Pain in right shoulder; M25.512 Pain in left shoulder; M1A.09X0 Idiopathic chronic gout, multiple sites, without tophus (tophi); K21.9 Gastro-esophageal reflux disease without esophagitis; E78.00 Pure hypercholesterolemia, unspecified; Z23 Encounter for immunization

== ENCOUNTER → 2024-06-18 12:52 | Outpatient (BNVA) | payer OTHER, SELFPAY | PROVIDERS: PCP Internal Medicine; Visit Provider Internal Medicine | DX: L40.50 Arthropathic psoriasis, unspecified (principal); M25.511 Pain in right shoulder; M25.512 Pain in left shoulder; M1A.09X0 Idiopathic chronic gout, multiple sites, without tophus (tophi); K21.9 Gastro-esophageal reflux disease without esophagitis; E78.00 Pure hypercholesterolemia, unspecified | CPT/HCPCS: 90471; 96127; 99212 ==

== ENCOUNTER 2024-09-08 11:12 | Outpatient (REF) | payer OTHER, SELFPAY ==
--- NOTE | ~2024-09-08 | XR_ITS ---
CLINICAL HISTORY: M25.511 - Pain in right shoulder 4 view right shoulder Comparison: None Findings: There is no acute fracture. There are multiple chronic healed rib fractures. Minimal arthritic change. No erosions. No radiopaque foreign body. There are calcifications in the region of the rotator cuff tendons. IMPRESSION: Likely calcific tendinitis of the rotator cuff. This document has been electronically signed by: Wendy Saucedo MD on 09/10/2024 14:33:45
--- NOTE | ~2024-09-08 | XR_ITS ---
CLINICAL HISTORY: M25.512 - Pain in left shoulder 4 view left shoulder Comparison: None Findings: Bones intact. No dislocations. Mild arthritic change of the acromioclavicular and glenohumeral joints. No erosions. No radiopaque foreign body. Small focus of calcification within the soft tissues adjacent to the greater tuberosity. IMPRESSION: There may be a mild degree of calcific tendinitis of the rotator cuff. This document has been electronically signed by: Wendy Saucedo MD on 09/10/2024 14:35:13
[2024-09-08 12:37] LABS: Alanine Aminotransferase 31 U/L (0-40); Albumin Level 4.2 g/dL (3.5-5.0); Alkaline Phosphatase 57 U/L (39-117); Anion Gap 12 (12-20); Aspartate Amino Transferase 32 U/L (5-37); Bilirubin Total 1.3 mg/dL (0.0-1.0); Blood Urea Nitrogen 12 mg/dL (9-16); Calcium 9.4 mg/dL (8.4-10.2); Carbon Dioxide 26 mmol/L (22-29); Chloride 107 mmol/L (96-108); Estimated Glomerular Filt Rate > 60; Glucose Random 106 mg/dL (60-115); Potassium 3.5 mmol/L (3.3-5.1); Sodium 141 mmol/L (135-145); Total Protein 7.1 g/dL (6.5-8.0); Uric Acid 3.2 mg/dL (3.4-7.0)
--- OUTSIDE RECORDS SUMMARY | 2024-09-08 13:14 | XMS_ITS | Patient Health Record ---
Author Organization [facility] Address [address] [place] [address] Care Team Providers Care Professor Of Legal Studies Name Role Phone Cristina Rivera Primary Care Provider Unavailab Kike Hanks Unavailable [phone] Allergies No Known Allergies Reason For Referral No Information Medications Medication SIG (Take, Route, Frequency, Duration) Notes [...] day 05/20/2022 Active Zolpidem Tartrate No t-Taking Immunizations Vaccine Route Administration Date Status Comme nts Influenza Unknown 04/27/2022 Administered Social History Alcohol Screen Question Answer Notes Did you [...] drinks (0 point) Points 4 Interpretation Positive Section Notes: He does not smoke nor drink any sig. amounts of alcohol. He does not smoke nor drink any sig. amounts of alcohol. He does not smoke; 2 drinks daily Problems Problem Type SNOMED Code ICD Code Onset Dates Problem Status W/U Status Risk Notes Problem 655136633 Encounter for screening for malignant neoplasm of colon (Z12.11) Active confirmed Problem 707474164 History of adenomatous polyp of colon (Z86.010) Active confirmed Problem History of polyp of colon (situation) (980225911) Personal history of colonic polyps (Z86.010) Active confirmed Problem Diverticular disease of colon (451249608) Diverticulosis of large intestine without perforation or abscess without bleeding (K57.30) Active confirmed Problem 735260877 Preprocedural examination (Z01.818) Active confirmed Problem 235698900 Long-term use of aspirin therapy (Z79.82) Active confirmed Plan Of Treatment Future Test Test Name Order Date COLONOSCOPY 05/31/2011 COLONOSCOPY 10/26/2016 COLONOSCOPY 05/10/2022 Insurance Providers Payer Name Payer Address Payer Phone Subscriber Number Group Number Insured Name Patient Relationship to Insured Coverage Start Date Coverage End Date [facility] Claims [address] [address] [place] [address] [id number] SYLVAIN SIMS Self - patient is the insured Medical (General) History Medical History History ICD Code Hyperlipidemia HTN Gout Denies [place],DM,CVA,Lung disease,renal dise ase Colonoscopy 2005 revealed a small tubular adenoma that was removed; colonoscopy in June of 2011 was negative except for diverticulosis and internal hemorrhoids Psoriasis Negative screening colonosco py in December of 2016 other than a hyperplastic polyp Surgical History Surgery Date(Month/Year) Wrist and foot surgery
--- OUTSIDE RECORDS SUMMARY | 2024-09-08 13:14 | XMS_ITS | Clinical Summary ---
Author Organization [employer] Address [address] [facility] 7t [place] [address] Care Team Providers Care Painter And Decorator Name Role Phone Unavailable Primary Care Provider Unavailabl e Allergies No known active allergies Medications Tabitha, 2 Pen, 40 MG/0.4ML Pen-injector Kit pen-injector [...] FOR FLARES, ALTERNATING WITH CALCIPOTRIENE 4 Active Encounters Date Type Department Care Team Description 07/29/2024 2:30 PM EST Office Visit [facility] [address] [place] [address] Kimberley Black Dental calculus (Primary Dx); Dental plaque from Last 3 Months Social History Tobacco Use Types Packs/Day Years [...] Mass Index - - Plan of Treatment Upcoming Encounters Date Type Department Care Team (Late st Contact Info) Description 02/10/2025 10:00 AM EDT Office Visit [facility] [address] [place] [address] Kimberley Black Health Maintenance Due Date Last Done Comments CT Colonography 1952 Colonoscopy 1952 Colorectal Cancer Screening 1952 Depression Screening 1952 FIT DNA/Cologuard 1952 FIT 1952 FOBT 1952 Lipid Panel 1952 SDOH Screening 1952 Sigmoidoscopy 1952 Alcohol/Substance Use Screening 1964 Hepatitis C Screening 02/06/1970 COVID-19 Vaccine ( season) 2024 03/24/2023, 12/05/2021, 04/12/2021, Additional history exists Influenza Vaccine (#1) 2024 , 03/11/2021, 04/26/2020, Additional history exists Dental Oral Exam 04/18/2024 10/16/2023, 01/2021, 01/10/2019, Additional history exists Dental X-Ray: Bitewings 10/16/2024 10/16/19 24, 07/06/2020, 01/10/2019, Additional history exists Dental Prophylaxis 01/30/2025 07/29/2024, 0 10/16/2023, 07/17/2019, Additional history exists Tobacco Screening 07/29/2025 07/29/2024 DTaP/Tdap/Td Vaccines (3 - Td or Tdap) 06/19/2026 06/19/2016, 07/08/2013, 03/13/2003 Dental X-Ray: Full Mouth 10/16/2026 024, 01/10/2019, 04/25/2010 RSV Patients and Patients Aged 60 years or older (1 - 1-dose 75+ series) 02/06/2027 Pneumococcal Vaccine: 50+ Years Completed 12/25/2022, 07/24/2017 Zoster Vaccines Completed 10/25/2023, 04/20/2023 HIB Vaccines Aged Out No longer eligi [...] Procedure Name Priority Date/Time Associated Diagnosis Comments TOPICAL APPLICATION OF FLUORIDE VARNISH Routine 07/29/2024 2:30 PM EST CASE PRESENTATION, DETAILED AND EXTENSIVE TREATMENT PLANNING Routine 07/29/2024 2:30 PM EST ORAL HYGIENE INSTRUCTIONS Routine 07/29/2024 2:30 PM EST Dental calculus Dental plaque PROPHYLAXIS - ADULT Routine 07/29/2024 2 :30 PM EST Dental calculus Dental plaque INTRAORAL - COMPLETE SERIES OF RADIOGRAPHIC IMAGES Routine 10/16/2023 1:00 PM EDT PERIODIC ORAL EVALUATION - ESTABLISHED PATIENT Routine 10/16/2023 1:00 PM EDT Dental plaque Dental calculus Encounter for dental examination Teeth missing Gingival recession, generalized from Last 3 Months or Most Recently Relevant to Health Maintenance Insurance DENTAL - [facility]
== END 2024-09-08 11:13 | disposition home or self-care (01) ==
LOC: HO.XRAY 11:12
PROVIDERS: Absent Provider Internal Medicine; PCP Internal Medicine; Visit Provider Student in an Organized Health Care Education/Training Program
DX: M1A.09X0 Idiopathic chronic gout, multiple sites, without tophus (tophi) (principal); M25.512 Pain in left shoulder; M25.511 Pain in right shoulder
CPT/HCPCS: 36415; 73030; 80053; 84550

== ENCOUNTER → 2024-09-08 11:36 | Outpatient (BNV) | payer OTHER, SELFPAY | PROVIDERS: Absent Provider Internal Medicine; PCP Internal Medicine; Visit Provider Radiology Diagnostic Radiology | DX: M25.512 Pain in left shoulder (principal); M25.511 Pain in right shoulder | CPT/HCPCS: 73030 ==

== ENCOUNTER 2024-09-09 06:33 | Outpatient (REF) | payer OTHER, SELFPAY ==
--- NOTE | ~2024-09-09 | FL_ITS ---
EXAMINATION: FL GUIDANCE ONLY HISTORY: M53.3 - Sacrococcygeal disorders, not elsewhere classified COMPARISON: None available. TECHNIQUE: Fluoroscopy time: 0.2 minutes. Cumulative Dose: 4.63 mGy. DAP: 0.707 mGym2 Images: 5. FINDINGS: Images demonstrate needles and contrast material in the regions of the bilateral sacroiliac joints. FL/FL guidance in treatment room IMPRESSION: Fluoroscopy during procedure. Please see procedure report for additional information. Electronically signed by: Kike Flaherty MD 09/10/2024 07:03 AM EDT
--- OUTSIDE RECORDS SUMMARY | 2024-09-09 06:36 | XMS_ITS | Patient Health Record ---
Author Organization [facility] Address [address] [place] [address] Care Team Providers Care Detail Manager Name Role Phone Cristina Rivera Primary Care Provider Unavailab Kike Hanks Unavailable [phone] Allergies No Known Allergies Reason For Referral [...] Problem Status W/U Status Risk Notes Problem 744914975 Encounter for screening for malignant neoplasm of colon (Z12.11) Active confirmed Problem 088758363 History of adenomatous polyp of colon (Z86.010) Active confirmed Problem History of polyp of colon (situation) (321437885) Personal history of colonic polyps (Z86.010) Active confirmed Problem Diverticular disease of colon (707368004) Diverticulosis of large intestine without perforation or abscess without bleeding (K57.30) Active confirmed Problem 704512766 Preprocedural examination (Z01.818) Active confirmed Problem 139152632 Long-term use of aspirin therapy (Z79.82) Active confirmed Plan Of Treatment Future Test Test Name Order Date COLONOSCOPY 05/31/2011 COLONOSCOPY 10/26/2016 COLONOSCOPY 05/10/2022 Insurance Providers Payer Name Payer Address Payer Phone Subscriber Number Group Number Insured Name Patient Relationship to Insured Coverage Start Date Coverage End Date [facility] Claims [address] [address] [place] [address] [id number] SYLVAIN SIMS Self - patient is the insured Medical (General) History Medical History History ICD Code Hyperlipidemia HTN Gout Denies [place],DM,CVA,Lung disease,renal dise ase Colonoscopy 2005 revealed a small tubular adenoma that was removed; colonoscopy in June of 2011 was negative except for diverticulosis and internal hemorrhoids Psoriasis Negative screening colonosco py in December of 2016 other than a hyperplastic polyp Surgical History Surgery Date(Month/Year) Wrist and foot surgery
--- OUTSIDE RECORDS SUMMARY | 2024-09-09 06:36 | XMS_ITS | Clinical Summary ---
Author Organization [employer] Address [address] [facility] [address] [place] [address] Care Team Providers Care Collar Cutter Name Role Phone Unavailable Primary Care Provider [...] Description 07/29/2024 2:30 PM EST Office Visit [facility] ADULT [facility] [address] [place] [address] Kimberley Black Dental calculus (Primary Dx); Dental [...] Description 02/10/2025 10:00 AM EDT Office Visit [facility] [address] [place] [address] Kimberley Black Health Maintenance Due Date Last [...] Relevant to Health Maintenance Insurance DENTAL - [facility]
== END 2024-09-09 06:34 | disposition home or self-care (01) ==
LOC: CF 06:33
PROVIDERS: Visit Provider Anesthesiology
DX: M53.3 Sacrococcygeal disorders, not elsewhere classified (principal); M46.1 Sacroiliitis, not elsewhere classified
CPT/HCPCS: 27096; J2003; J2795; J3301; Q9967

== ENCOUNTER 2024-09-09 12:25 | Outpatient (AMB) | payer OTHER, SELFPAY ==
[2024-09-09 12:44] VITALS: BP 177/101; PULSE 110; RESP 16; O2SAT 98
--- NOTE | 2024-09-09 12:44 | A.OFFVIS_ITS ---
Vital Signs 09/09/24 12:44 09/09/24 13:23 BP 177/101 H 180/108 H Blood Pressure Location Lt brachial Lt brachial Position Sitting Sitting Respiration 16 16 Pulse 110 H 102 H Pulse Source Pulse Oximeter Pulse Oximeter Pulse Oximetry (%) 98 96 Oxygen Delivery Method Room Air Room Air Intake Visit Reasons: BILATERAL THERAPEUTIC SIJ INJECTIONS Intake Note: Pt's BP elevated- he states it's always high Coagulating Drying Supervisor Required: Yes Coagulating Drying Supervisor Services: Coagulating Drying Supervisor Offered & Declined Coagulating Drying Supervisor Name: prefers daughter Allergies amitriptyline Allergy (Intermediate, Verified 09/09/24 12:45) stomach pain aspirin Allergy (Intermediate, Verified 09/09/24 12:45) stomach pain Medication List - Last Reconciled 09/09/24 by Rebeka Chaney LPN acetaminophen 500 mg PO BID PRN adalimumab (Humira(CF) Pen) 40 mg subcut Q2W allopurinol 300 mg PO DAILY 90 days aspirin 81 mg PO DAILY atorvastatin 20 mg PO DAILY calcipotriene 0.005% 1 appl topical QAM cholecalciferol (vitamin D3) 50 mcg PO DAILY 90 days lisinopril 50 mg (1.25 x 40 mg) PO DAILY metoprolol succinate ER 100 mg PO DAILY omeprazole 20 mg PO BID [recliner As directed] PFS Medical History Psoriatic arthritis Former smoker Gout Elevated hemoglobin GERD (gastroesophageal reflux disease) Pure hypercholesterolemia Essential hypertension Surgical History H/O wrist surgery History of foot surgery Family History Father Asthma Mother Hypertension Stomach cancer, Onset Age: 50 Family/Other Substance use disorder Brother Cancer, Onset Age: 61 Social History Household Members: Spouse and Significant Other Housing: Apartment Alcohol intake: current Alcohol intake frequency: holidays/special occasions only Alcohol type: beer and hard liquor Patient Tobacco Use Status: Former Tobacco user Tobacco use type: Cigarette e-Cigarette/Vaping Use: Never Used Second Hand Smoke Exposure: No service: No Current occupational status: disabled Cognitive needs: No Hearing needs: No Vision needs: No Physical Exam Vital Signs: Last Vital Signs Pulse 102 H 09/09/24 13:23 Resp 16 09/09/24 13:23 BP 180/108 H 09/09/24 13:23 Pulse Ox 96 09/09/24 13:23 Oxygen Delivery Method Room Air 09/09/24 13:23 Assessment & Plan Assessment & Plan (1) Sacroiliitis: Code(s): M46.1 - Sacroiliitis, not elsewhere classified Category: Medical (2) Sacroiliac joint dysfunction of both sides: Code(s): M53.3 - Sacrococcygeal disorders, not elsewhere classified Category: Medical Plan Bilateral sacroiliac joint injection therapeutic. Informed consent was thoroughly explained to the patient before the procedure.? The patient came to the operating room.? He was positioned prone on operating table with a pillow under his abdomen.? Time-out was performed delineating correct site and side of the procedure, nature of the injection, name and date of of the patient. The lower back and upper buttocks of the patient was prepped with ChloraPrep and draped with sterile utility towels.? C-arm was brought over the operating field and picture of right sacroiliac joint was demonstrated on the screen. Tilting machine contralateral left 15 degrees from the midline the anterior portion of the silhouette of the joint was superimposed on posterior portion of the silhou ette of the joint. The skin was anesthetized with mixture of ropivacaine 0.5% and lidocaine 2% one-to-one slightly medial to the silhouette of the sacroiliac joint. 22 gauge 3-1/2 inch spinal needle was inserted through the skin wheal and advanced to the sacroiliac joint. When tip of the needle entered the sacroiliac joint injection of the contrast performed delineating arthrogram. After that 4 cc of ropivacaine mixed with kenalog 40 mg was injected into the joint. Upon completion of the injection needle was removed and the procedure was repeated on the left side in the mirroring fashion.total dose of kenalog was 80 mg. After the injection the needle was removed and sterile bandades were applied Patient tolerated the procedure well. Orders: Orders FL guidance in treatment room Today M53.3 - Sacrococcygeal disorders, not elsewhere classified Coding Level of Care Code Procedure Only Diagnoses Sacroiliitis M46.1 Sacroiliac joint dysfunction of both sides M53.3
[2024-09-09 13:23] VITALS: BP 180/108; PULSE 102; RESP 16; O2SAT 96
--- OUTSIDE RECORDS SUMMARY | 2024-09-09 15:11 | XMS_ITS | Clinical Summary ---
Author Organization [employer] Address [address] [facility] [address] [place] [address] Care Team Providers Care Plans Examiner Name Role Phone Unavailable Primary Care Provider [...] Description 07/29/2024 2:30 PM EST Office Visit [facility] ADULT DENT[facility] [address] [place] [address] Kimberley Black Dental calculus (Primary Dx); Dental [...] Description 02/10/2025 10:00 AM EDT Office Visit [facility] [address] [place] [address] Kimberley Black Health Maintenance Due Date Last [...] Relevant to Health Maintenance Insurance DENTAL - [facility]
== END 2024-09-09 13:23 | disposition home or self-care (01) ==
LOC: HO.PMCPRC 12:25
PROVIDERS: PCP Internal Medicine; Visit Provider Anesthesiology
DX: M46.1 Sacroiliitis, not elsewhere classified (principal); M53.3 Sacrococcygeal disorders, not elsewhere classified
CPT/HCPCS: 27096

== ENCOUNTER 2024-09-18 10:27 | Outpatient (AMB) | payer OTHER, SELFPAY ==
--- NOTE | 2024-09-18 10:35 | MHC.OFFVIS ---
Vital Signs 09/18/24 10:44 Height 5 ft 6 in Weight 203 lb 4.259 oz BMI 32.8 BP 124/80 Blood Pressure Location Lt brachial Position Sitting Pulse 108 H Pulse Source Pulse Oximeter Pulse Oximetry (%) 96 Oxygen Delivery Method Room Air Intake Visit Reasons: Gout Intake Note: Patient presents for Gout. Director Of Neurology Required: Yes Director Of Neurology Language: Technician [employer]: Director Of Neurology Present Director Of Neurology Name: Cady [id number] Information Interpreted: non-clinical & clinical Allergies amitriptyline Allergy (Intermediate, Verified 09/18/24 10:43) stomach pain aspirin Allergy (Intermediate, Verified 09/18/24 10:43) stomach pain Medication List - Last Reconciled 09/18/24 by Lakeisha Frias MD acetaminophen 500 mg PO BID PRN adalimumab (Humira(CF) Pen) 40 mg subcut Q2W allopurinol 300 mg PO DAILY 90 days aspirin 81 mg PO DAILY atorvastatin 20 mg PO DAILY calcipotriene 0.005% 1 appl topical QAM cholecalciferol (vitamin D3) 50 mcg PO DAILY 90 days lisinopril 50 mg (1.25 x 40 mg) PO DAILY metoprolol succinate ER 100 mg PO DAILY omeprazole 20 mg PO BID [recliner As directed] HPI Comments Details: Patient is a 74-year-old male with hyperlipidemia, hypertension, GERD, polyarticular osteoarthritis including bilateral AC joint arthritis, bilateral knee arthritis and lumbar degenerative disc disease, psoriasis complicated by psoriatic arthritis, and gout here today for follow up Interval History: Patient last seen 03/13/[address] Zhang. 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 He had not had any gout flares for several years and his psoriasis was under control with the Humira. He was complaining of low back pain, bilateral shoulder pain and bilateral knee pain worse on the left at that time. No changes were made to his medication and his uric acid was at goal Today patient continues to complain of bilateral shoulder pain. Recent XRs show bilateral calcific tendonitis in the shoulder. Currently sees pain management for his back pain and receives steroid injections, last injection 09/09/24 Rheumatologic History: Psoriasis/psoriatic arthritis on Humira Non crystal proven gout on allopurinol Current Rheumatology Medication(s): Humira 40 mg SC every other week (dermatology) Allopurinol 300 mg daily PFSH Medical History Psoriatic arthritis Former smoker Gout Elevated hemoglobin GERD (gastroesophageal reflux disease) Pure hypercholesterolemia Essential hypertension Surgical History H/O wrist surgery History of foot surgery Family History Father Asthma Mother Hypertension Stomach cancer, Onset Age: 50 Family/Other Substance use disorder Brother Cancer, Onset Age: 61 Social History Household Members: Spouse and Significant Other Housing: Apartment Alcohol intake: current Alcohol intake frequency: holidays/special occasions only Alcohol type: beer and hard liquor Patient Tobacco Use Status: Former Tobacco user Tobacco use type: Cigarette e-Cigarette/Vaping Use: Never Used Second Hand Smoke Exposure: No service: No Current occupational status: disabled Cognitive needs: No Hearing needs: No Vision needs: No Review of Systems Const Details: Review of Systems Constitutional: Denies fever, chills, weight loss ENT: Denies vision changes, eye pain or eye redness, dental caries, dry mouth GI: Denies nausea, vomiting, diarrhea, abdominal pain, change in BM Pulm: Denies SOB, TEIXEIRA, hemoptysis, wheezing Cards: Denies chest pain, palpitations Skin: Denies Raynaud's, rash, nail changes, photosensitivity, MOTION 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 Well appearing and in no apparent painful distress HEENT Conjunctiva and sclera clear. ?Pupils equal round and reactive to light. ?No lymphadenopathy. ? CHEST/RESPIRATORY SYSTEM Normal respiratory effort and able to speak in complete sentences. ?Clear to auscultation bilaterally. ?No crackles, rales, rhonchi, wheezes heard. CARDIAC SYSTEM Regular rate and rhythm. ?S1 and S2 heard no murmurs. ?Radial pulses intact bilaterally MSK Hands: ?Able to make a fist. No synovitis noted to the MCPs, PIPs or DIPs. ?No tenderness to palpation of these joints. No deformities noted. ? Wrists: ?Full range of motion of the right wrist. Left wrist s/p surgical fusion after traumatic accident Elbows: Full range of motion without pain. No tenderness, weakness, swelling, increased warmth or erythema. Shoulders: Decreased ROM to bilateral shoulders up to 100 degrees Knees: ?Full range of motion. ?No tenderness, swelling, increased warmth or erythema.?No effusion or crepitations Ankles: Full range of motion. ?No tenderness, swelling, increased warmth or erythema.? Feet: ?Negative squeeze test. ?No tenderness to palpation or swelling of the MTPs. Tender points:?No tenderness to palpation of the bilateral trapezius, supraspinatus, greater trochanters, anterior costochondral junctions, bilateral gluteal areas, bilateral suboccipital muscle insertions SKIN Skin intact without rashes. Office Procedures AMB Joint Injection/Aspiration Joint Injection/Aspiration Details: Procedure was explained to the patient and consent was obtained. ? The area of interest was identified and confirmed with patient. ?This was subsequently cleaned with chlorhexidine x3. ? The area was then anesthetized using ethyl chloride spray. 40 mg Kenalog with 1 cc 1% lidocaine was injected without issue. ?Minimal to no bleeding. ?Patient tolerated procedure. Primary Site: right shoulder Prep: site was prepped using aseptic technique and ethochloride spray was applied Injected: 40 mg of, Kenalog, with 1 mL of and 1% plain lidocaine Procedure: The patient tolerated the procedure well Coding 25800 - Glenohumeral/Tronchanteric Bursa/Intraarticular Procedure code (CPT) selection complete AMB Joint Injection/Aspiration Joint Injection/Aspiration Details: Procedure was explained to the patient and consent was obtained. ? The area of interest was identified and confirmed with patient. ?This was subsequently cleaned with chlorhexidine x3. ? The area was then anesthetized using ethyl chloride spray. 40 mg Kenalog with 1 cc 1% lidocaine was injected without issue. ?Minimal to no bleeding. ?Patient tolerated procedure. Primary Site: left shoulder Prep: site was prepped using aseptic technique and ethochloride spray was applied Injected: 40 mg of, Kenalog, with 1 mL of and 1% plain lidocaine Approach Used: other Procedure: The patient tolerated the procedure well Coding 52231 - Glenohumeral/Tronchanteric Bursa/Intraarticular Procedure code (CPT) selection complete Office Meds lidocaine (PF) 10 mg/mL (1 %) injection solution Performing Provider: Lakeisha Frias MD Performing Location: [facility] [place] Rhe[facility]ology Administered by: Lakeisha Frias MD on 09/18/24 12:19 Dose Route Admin Location Dispensed Lot Number Expiration Date [facility] [employer] 1 mL Infiltration right shoulder 2 mL [id number] 08/26/26 54411-777-73 [employer] Kenalog 40 mg/mL suspension for injection Performing Provider: Lakeisha Frias MD Performing Location: [facility] [place] Rheumatology Administered by: Lakeisha Frias MD on 09/18/24 12:19 Dose Route Admin Location Dispensed Lot Number Expiration Date [facility] [employer] 40 mg intrabursal right shoulder 1 mL [id number] 11/25/25 [address]-0 [employer] lidocaine (PF) 10 mg/mL (1 %) injection solution Performing Provider: Lakeisha Frias MD Performing Location: [facility] [place] Rheumatology Administered by: Lakeisha Frias MD on 09/18/24 12:19 Dose Route Admin Location Dispensed Lot Number Expiration Date [facility] [employer] 1 mL Infiltration left shoulder 2 mL [id number] 08/26/26 24454-913-60 [employer] Kenalog 40 mg/mL suspension for injection Performing Provider: Lakeisha Frias MD Performing Location: [facility] [place] Rheumatology Administered by: Lakeisha Frias MD on 09/18/24 12:19 Dose Route Admin Location Dispensed Lot Number Expiration Date [facility] [employer] 40 mg intrabursal left shoulder 1 mL [id number] 11/25/25 [address]-5 [employer] Results Reviewed Results Reviewed: Laboratory Tests 06/13/24 09/08/24 09:17 11:30 Sodium 141 Potassium 3.5 Chloride 107 Carbon Dioxide 26 BUN 12 Creatinine 0.94 Uric Acid 3.2 L AST 32 ALT 31 Alkaline Phosphatase 57 25-OH Vitamin D Total 45.9 02/29/24 06/13/24 12:13 09:17 WBC 6.6 RBC 5.98 H Hgb 17.3 Hct 51.0 Plt Count 153 L ESR 1 Laboratory Tests 02/24/22 13:01 Rheumatoid Factor < 15.0 Cycl Citrul Peptide IgG <16 XR Bilateral shoulders 08/2024 Findings (left shoulder) Bones intact. No dislocations. Mild arthritic change of the acromioclavicular and glenohumeral joints. No erosions. No radiopaque foreign body. Small focus of calcification within the soft tissues adjacent to the greater tuberosity. IMPRESSION: There may be a mild degree of calcific tendinitis of the rotator cuff. Findings (Right shoulder) There is no acute fracture. There are multiple chronic healed rib fractures. Minimal arthritic change. No erosions. No radiopaque foreign body. There are calcifications in the region of the rotator cuff tendons. IMPRESSION: Likely calcific tendinitis of the rotator cuff. Assessment & Plan Assessment & Plan (1) Psoriatic arthritis: Code(s): L40.50 - Arthropathic psoriasis, unspecified Category: Medical Plan: #PsO/PsA Patient is a 74 y.o. male with PsO/PsA here today for follow up. Currently in remission Plan - Continue Humira 40mg SC every 2 weeks - RTC 4 months - Labs before visit: CBC, CMP, ESR, CRP, Hepatitis panel, T spot (2) Gout: Comment: well controlled on allopurinol 300mg daily Code(s): M10.9 - Gout, unspecified Category: Medical Qualifiers: Gout site: multiple sites Gout etiology: idiopathic Chronicity: chronic Presence of tophus: without tophus Qualified Code(s): M1A.09X0 - Idiopathic chronic gout, multiple sites, without tophus (tophi) Plan: #Non crystal proven gout Patient with non crystal proven gout currently on allopurinol without breakthrough flares Plan - Allopurinol 300mg daily (3) Polyarticular osteoarthritis: Code(s): M15.9 - Polyosteoarthritis, unspecified Plan: #Polyarticular OA Patient with polyarticular OA currently seeing pain management for back injections with improvement Plan - Appreciate pain management input, continue follow up (4) Calcific tendinitis of both shoulders: Code(s): M75.31 - Calcific tendinitis of right shoulder; M75.32 - Calcific tendinitis of left shoulder Plan: #Bilateral calcific tendonitis Patient with calcific tendonitis based on XRs. s/p bilateral subacromial steroid injection Consider PT in the future, patient deferring for now (5) Encounter for monitoring allopurinol therapy: Code(s): Z51.81 - Encounter for therapeutic drug level monitoring; Z79.899 - Other usp (current) drug therapy Plan: #Long-term Current Use of Allopurinol Risks and benefits of allopurinol discussed with patient Benefits include decreased gout flares, remission of gout and reduction of tophi Risks include allopurinol hypersensitivity syndrome which is a severe cutaneous adverse reaction associated with allopurinol use particularly in patients who are HLA B*5801 positive, increased transaminases, GI upset including diarrhea, nausea and vomiting, and other dermatologic manifestations. (6) Encounter for monitoring of adalimumab therapy: Code(s): Z51.81 - Encounter for therapeutic drug level monitoring; Z79.620 - jail (current) use of immunosuppressive biologic Plan: #Long-term Use of TNF Inhibitors: Humira Discussed with the patient the benefits and risks of TNF inhibitors for the management of the rheumatic condition Benefits include reduce pain, maintenance of remission and reduction of flares as well as ?progression of the disease Risks include injection sites/infusion reactions, serious infections (such as bacterial infections, opportunistic infections), malignancy, delaminating syndromes, autoimmune phenomena, CHF exacerbations, palmar plantar psoriasis and cytopenias Recommended rotating injection sites, and holding medication during and for up to 1 week after resolution of a febrile illness or open skin wound Plan I spent 32 minutes reviewing the record and labs, taking a history, examining the patient, discussing the treatment plan, ordering diagnostic work up and documenting in the medical record Orders: Orders Erythrocyte Sedimentation Rate 4 Months L40.50 - Arthropathic psoriasis, unspecified, M75.31 - Calcific tendinitis of right shoulder, M75.32 - Calcific tendinitis of left shoulder Hepatitis A,B,C Profile 4 Months L40.50 - Arthropathic psoriasis, unspecified, M75.31 - Calcific tendinitis of right shoulder, M75.32 - Calcific tendinitis of left shoulder Uric Acid 4 Months M1A.09X0 - Idiopathic chronic gout, multiple sites, without tophus (tophi) Complete Blood Count Auto Diff 4 Months L40.50 - Arthropathic psoriasis, unspecified, M75.31 - Calcific tendinitis of right shoulder, M75.32 - Calcific tendinitis of left shoulder Comprehensive Met. Panel 4 Months L40.50 - Arthropathic psoriasis, unspecified, M75.31 - Calcific tendinitis of right shoulder, M75.32 - Calcific tendinitis of left shoulder C Reactive Protein 4 Months L40.50 - Arthropathic psoriasis, unspecified, M75.31 - Calcific tendinitis of right shoulder, M75.32 - Calcific tendinitis of left shoulder T Spot TB 4 Months L40.50 - Arthropathic psoriasis, unspecified, M75.31 - Calcific tendinitis of right shoulder, M75.32 - Calcific tendinitis of left shoulder AMB Joint Injection/Aspiration Today M75.31 - Calcific tendinitis of right shoulder, M75.32 - Calcific tendinitis of left shoulder AMB Joint Injection/Aspiration Today M75.31 - Calcific tendinitis of right shoulder, M75.32 - Calcific tendinitis of left shoulder Coding Level of Care Code Est Pt Level 4 (08617) Complex EM visit Add On G2211 Diagnoses Psoriatic arthritis L40.50 Idiopathic chronic gout of multiple sites without tophus M1A.09X0 Gout site: multiple sites Gout etiology: idiopathic Chronicity: chronic Presence of tophus: without tophus Polyarticular osteoarthritis M15.9 Calcific tendinitis of both shoulders M75.31; M75.32 Encounter for monitoring allopurinol therapy Z51.81; Z79.899 Encounter for monitoring of adalimumab therapy Z51.81; Z79.620 CPT Codes Coding - Joint 7: 13322 - Glenohumeral/Tronchanteric Bursa/Intraarticular ([id number]) Coding - Joint 7: 96976 - Glenohumeral/Tronchanteric Bursa/Intraarticular ([id number])
[2024-09-18 10:44] VITALS: BP 124/80; PULSE 108; O2SAT 96; BMI 32.8
--- OUTSIDE RECORDS SUMMARY | 2024-09-18 12:04 | XMS_ITS | Patient Health Record ---
Author Organization [facility] Address [address] [place] [address] Care Team Providers Care Dry Goods Inspector Name Role Phone Cristina Rivera Primary Care Provider Unavailab Kike Hanks Unavailable [phone] Allergies No Known Allergies Reason For Referral [...] Problem Status W/U Status Risk Notes Problem [id number] Encounter for screening for malignant neoplasm of colon (Z12.11) Active confirmed Problem 956378618 History of adenomatous polyp of colon (Z86.010) Active confirmed Problem History of polyp of colon (situation) (277800151) Personal history of colonic polyps (Z86.010) Active confirmed Problem Diverticular disease of colon (969637889) Diverticulosis of large intestine without perforation or abscess without bleeding (K57.30) Active confirmed Problem 481359377 Preprocedural examination (Z01.818) Active confirmed Problem 314986146 Long-term use of aspirin therapy (Z79.82) Active confirmed Plan Of Treatment Future Test Test Name Order Date COLONOSCOPY 05/31/2011 COLONOSCOPY 10/26/2016 COLONOSCOPY 05/10/2022 Insurance Providers Payer Name Payer Address Payer Phone Subscriber Number Group Number Insured Name Patient Relationship to Insured Coverage Start Date Coverage End Date [facility] Claims [address] [address] [place] [address] [id number] SYLVAIN SIMS Self - patient is the insured Medical (General) History Medical History History ICD Code Hyperlipidemia HTN Gout Denies NE,DM,CVA,Lung disease,renal dise ase Colonoscopy 2005 revealed a small tubular adenoma that was removed; colonoscopy in June of 2011 was negative except for diverticulosis and internal hemorrhoids Psoriasis Negative screening colonosco py in December of 2016 other than a hyperplastic polyp Surgical History Surgery Date(Month/Year) Wrist and foot surgery
--- OUTSIDE RECORDS SUMMARY | 2024-09-18 12:05 | XMS_ITS | Clinical Summary ---
Author Organization [email or web address] Address [address] [place] [address] Care Team Providers Care Shop Foreman Name Role Phone Unavailable Primary Care Provider [...] Description 07/29/2024 2:30 PM EST Office Visit [facility] [address] [place] [address] Kimberley Black Dental calculus (Primary Dx); Dental [...] Description 02/10/2025 10:00 AM EDT Office Visit [facility] [address] [place] [address] Kimberley Black Health Maintenance Due Date Last [...] Relevant to Health Maintenance Insurance DENTAL - [facility]
== END 2024-09-18 11:32 | disposition home or self-care (01) ==
LOC: HO.RHE 10:27
PROVIDERS: PCP Internal Medicine; Visit Provider Student in an Organized Health Care Education/Training Program
DX: L40.50 Arthropathic psoriasis, unspecified (principal); M1A.09X0 Idiopathic chronic gout, multiple sites, without tophus (tophi); M15.9 Polyosteoarthritis, unspecified; M75.31 Calcific tendinitis of right shoulder; M75.32 Calcific tendinitis of left shoulder; Z51.81 Encounter for therapeutic drug level monitoring; Z79.899 Other long term (current) drug therapy; Z79.620 Long term (current) use of immunosuppressive biologic
CPT/HCPCS: 20610; 99214

== ENCOUNTER → 2024-09-18 10:27 | Outpatient (BNVA) | payer OTHER, SELFPAY | PROVIDERS: PCP Internal Medicine; Visit Provider Student in an Organized Health Care Education/Training Program | DX: L40.50 Arthropathic psoriasis, unspecified (principal); M1A.09X0 Idiopathic chronic gout, multiple sites, without tophus (tophi); M15.9 Polyosteoarthritis, unspecified; M75.31 Calcific tendinitis of right shoulder; M75.32 Calcific tendinitis of left shoulder; Z51.81 Encounter for therapeutic drug level monitoring; Z79.899 Other long term (current) drug therapy; Z79.620 Long term (current) use of immunosuppressive biologic | CPT/HCPCS: 20610; 99212; J3300 ==

== ENCOUNTER 2024-10-01 12:40 | Outpatient (AMB) | payer OTHER, SELFPAY ==
[2024-10-01 13:03] VITALS: BP 145/90; PULSE 99; O2SAT 97; BMI 31.7
--- NOTE | 2024-10-01 13:03 | MHC.OFFVIS ---
Vital Signs 10/01/24 13:03 Height 5 ft 6 in Weight 196 lb 2 oz BMI 31.7 BP 145/90 H Blood Pressure Location Lt brachial Position Sitting Pulse 99 Pulse Source Pulse Oximeter Pulse Oximetry (%) 97 Oxygen Delivery Method Room Air Intake Visit Reasons: BILATERAL THERAPEUTIC SIJ INJECTIONS Allergies amitriptyline Allergy (Intermediate, Verified 09/18/24 10:43) stomach pain aspirin Allergy (Intermediate, Verified 09/18/24 10:43) stomach pain HPI Comments Details: Leeroy is back in my office after therapeutic bilateral sacroiliac joint injection. He reports that his pain today as 5/10. He reported pain before the injection was 10/10 and maybe even more. He reported that 1st 15 days after the procedure was almost 100% pain relief. However now pain is starting to cripple back. I recommended him to start wearing sacroiliac joint belt. We provided sacroiliac joint belt for the patient today. We also will schedule him for CT of bony pelvis and CT of the lumbar spine to rule out red flags which would prevent us to go for the sacroiliac joint fusion. He would need bilateral fusion. We will go 1st for the most painful site. Everything was explained to the patient. Prior:. He received in the beginning of 2022 diagnostic sacroiliac joint injection which resulted in 100% immediate pain relief and 1 month of 90% pain improvement. He reported excellent mobility at this time good activities of daily living good social interactions. Unfortunately the patient was lost for follow-up in 2022 and now he is in my office reporting that he wants to repeat this injection again. I explained to the patient that at this time therapeutic sacroiliac joint injection needs to be performed. Risks of steroid injections were briefly explained to the patient. The patient agreed to go for the procedure. Prior: very pleasant [place]-speaking 72 years old gentleman who presents in my office with complains on lower back pain with vague radiation into bilateral lower extremities.? He reports also shoulder pain in bilateral shoulders.? He reports pain on the left lower extremity radiating to the level of the knee and slightly below that level he reports pain in the right lower ext extremity radiating all the way down to the ankle but not into the toes.? he reports that his pain stays elevated all the time 8 to 9/10 level.? .? He had x-rays done on the lumbar spine and on the shoulders the report of which is dictated as below.? He tried physical therapy for his knees and his shoulders in the past and he denied any help.? He denied any injections. Past medical history significant for hypertension and some unclear symptoms from the heart.? He is under care of neurosurgery research director with diagnosis of psoriasis, he probably has psoriatic arthritis.? He never went to edge trimmer mechanic.? Past surgical history significant for ORIF of the hand and the toe surgery related to the back. [facility] Medical History Psoriatic arthritis Former smoker Gout Elevated hemoglobin GERD (gastroesophageal reflux disease) Pure hypercholesterolemia Essential hypertension Surgical History H/O wrist surgery History of foot surgery Family History Father Asthma Mother Hypertension Stomach cancer, Onset Age: 50 Family/Other Substance use disorder Brother Cancer, Onset Age: 61 Social History Household Members: Spouse and Significant Other Housing: Apartment Alcohol intake: current Alcohol intake frequency: holidays/special occasions only Alcohol type: beer and hard liquor Patient Tobacco Use Status: Former Tobacco user Tobacco use type: Cigarette e-Cigarette/Vaping Use: Never Used Second Hand Smoke Exposure: No service: No Current occupational status: disabled Cognitive needs: No Hearing needs: No Vision needs: No Review of Systems Const All systems reviewed & are unremarkable except as noted in HPI and below ENT Reports Normal hearing present Neuro Reports Normal hearing present, Denies Abnormal speech present, Denies confusion and Denies Sensory deficit (Neuro) Psych Denies confusion Physical Exam Vital Signs: Last Vital Signs Pulse 99 10/01/24 13:03 BP 145/90 H 10/01/24 13:03 Pulse Ox 97 10/01/24 13:03 Oxygen Delivery Method Room Air 10/01/24 13:03 BMI result Body Mass Index 31.7 Const General: no acute distress; No confusion Orientation/consciousness: patient oriented x3 and No confusion Eyes General: appearance normal, both eyes and all related structures Pupils: Equal, round and reactive pupils present EOM: EOMs intact bilaterally Neck Neck: Yes full ROM Chest Chest palpation & inspection: normal inspection of the chest Resp Effort & Inspection: normal respiratory effort, able to speak in complete sentences, normal respiratory pattern, no audible wheezes and no cough Cardio Jugular venous distension: no JVD GI Inspection: Yes normal to inspection Back/Spine/Pelvis Other: Able to stand on bilateral tiptoes and bilateral heels. Able to flex himself forward but reports severe pain at about 70 degrees, reports severe pain in the back with flexing back backwards. Loading test is positive bilaterally. Bernadine finger test is positive bilaterally. Gaenslen test is positive bilaterally. Stinchfield test is positive bilaterally. SLR test may be positive bilaterally. But dorsiflexion of the both feet with maximal SLR does not aggravate the pain. Tenderness on palpation on paraspinal spinal regions entire lumbar spine and lower thoracic spine. Valsalva maneuver does not aggravate the pain. Reports significant pain with bending forward in the lumbar spine and also reports significant tenderness on palpation in the projection of bilateral iliac crests at the top of bilateral iliac crests in the projection of the cluneal nerves passing over on the surface of the posterior pelvis. Neuro General: patient oriented x3, gait normal and No confusion Cranial nerves: Yes CN's II-XII intact bilaterally, Yes Equal, round and reactive pupils present, Yes Normal hearing present and Yes Ability to bilaterally elevate shoulders present Speech: No Abnormal speech present Gait exam (Neuro): Normal gait present Motor exam (neuro): 5/5 motor strength present throughout Sensory Exam: No Sensory deficit (Neuro) Extrem General: No pedal edema Psych Speech and movement: Normal speech and movement present Affect: normal affect Attitude: cooperative Thought process: Normal thought process present Thought content: Normal thought content present Insight: Good insight present (Psych) Judgement: Good judgement present (Psych) Assessment & Plan Assessment & Plan (1) Sacroiliitis: Code(s): M46.1 - Sacroiliitis, not elsewhere classified Category: Medical (2) Sacroiliac joint dysfunction of both sides: Code(s): M53.3 - Sacrococcygeal disorders, not elsewhere classified Category: Medical (3) Localized osteoarthritis of knees, bilateral: Code(s): M17.0 - Bilateral primary osteoarthritis of knee Category: Medical (4) Spondylosis of lumbar region without myelopathy or radiculopathy: Code(s): M47.816 - Spondylosis without myelopathy or radiculopathy, lumbar region Category: Medical (5) Chronic pain syndrome: Code(s): G89.4 - Chronic pain syndrome Category: Medical (6) Acromioclavicular joint arthritis: Code(s): M19.019 - Primary osteoarthritis, unspecified shoulder Category: Medical Qualifiers: Laterality: bilateral Qualified Code(s): M19.011 - Primary osteoarthritis, right shoulder; M19.012 - Primary osteoarthritis, left shoulder (7) Mononeuropathy, unspecified: Code(s): G58.9 - Mononeuropathy, unspecified Category: Medical (8) Psoriasis arthropathica: Code(s): L40.50 - Arthropathic psoriasis, unspecified Category: Medical (9) Pain of both sacroiliac joints: Code(s): M53.3 - Sacrococcygeal disorders, not elsewhere classified Category: Medical Plan Good results of diagnostic as well as therapeutic sacroiliac joint injection. Unfortunately sacroiliac joint injection with steroids resulted in only 15 days of complete pain relief. The pain of the patient now is starting to come back. Sacroiliac joint fusion discussed with the patient. Sacroiliac joint belt was provided to the patient. He will be sent for the CT scan of the bony pelvis and CT scan of the lumbar spine to rule out red flags which would preclude me to perform sacroiliac joint stabilization with fusion Nevro 1. The patient expressed understanding. I will see him in 1 month. Orders: Orders CT bony pelvis Today M46.1 - Sacroiliitis, not elsewhere classified, M53.3 - Sacrococcygeal disorders, not elsewhere classified CT lumbar spine wo IV con Today M46.1 - Sacroiliitis, not elsewhere classified, M53.3 - Sacrococcygeal disorders, not elsewhere classified Patient Instructions: I here by testify that I spent 30 minutes in conversation with this patient as well as planning his care and organizing this note. Cathy Serrano helped us today to interpret this conversation in [place]. Coding Level of Care Code Est Pt Level 4 (72246) Diagnoses Sacroiliitis M46.1 Sacroiliac joint dysfunction of both sides M53.3 Localized osteoarthritis of knees, bilateral M17.0 Spondylosis of lumbar region without myelopathy or radiculopathy M47.816 Chronic pain syndrome G89.4 Arthritis of both acromioclavicular joints M19.011; M19.012 Laterality: bilateral Mononeuropathy, unspecified G58.9 Psoriasis arthropathica L40.50 Pain of both sacroiliac joints M53.3
--- OUTSIDE RECORDS SUMMARY | 2024-10-01 13:43 | XMS_ITS | Clinical Summary ---
Author Organization [employer] Address [address] [place] [address] Care Team Providers Care Store Grocery Merchandiser Name Role Phone Unavailable Primary Care Provider [...] l VITAMIN D (Vitamin D-3) 50 MCG (1999) capsule TOME LINDSEY C PSULA TODOS LOS D 4 Active fluocinonide (Lidex) 0.05 % cream APPLY TO ARMS, TRUNK, AND LEGS TWICE DAILY NEEDED FOR FLARES, ALTERNATING WITH CALCIPOTRIENE 4 Active Encounters Date Type Department Care Team Description 07/29/2024 2:30 PM EST Office Visit [facility] [address] [place] [address] Kimberley Black Dental calculus (Primary Dx); Dental [...] Description 02/10/2025 10:00 AM EDT Office Visit [facility] [address] [place] [address] Kimberley Black Health Maintenance Due Date Last [...] Relevant to Health Maintenance Insurance DENTAL - [facility]
--- OUTSIDE RECORDS SUMMARY | 2024-10-01 13:43 | XMS_ITS | Patient Health Record ---
Author Organization [facility] Address [address] [place] [address] Care Team Providers Care Knotting Machine Operator Name Role Phone Cristina Rivera Primary Care Provider Unavailab Kike Hanks Unavailable [phone] Allergies No Known Allergies Reason For Referral [...] Problem Status W/U Status Risk Notes Problem 618582172 Encounter for screening for malignant neoplasm of colon (Z12.11) Active confirmed Problem 272403861 History of adenomatous polyp of colon (Z86.010) Active confirmed Problem History of polyp of colon (situation) (705204579) Personal history of colonic polyps (Z86.010) Active confirmed Problem Diverticular disease of colon (076661760) Diverticulosis of large intestine without perforation or abscess without bleeding (K57.30) Active confirmed Problem 487075802 Preprocedural examination (Z01.818) Active confirmed Problem 418765239 Long-term use of aspirin therapy (Z79.82) Active confirmed Plan Of Treatment Future Test Test Name Order Date COLONOSCOPY 05/31/2011 COLONOSCOPY 10/26/2016 COLONOSCOPY 05/10/2022 Insurance Providers Payer Name Payer Address Payer Phone Subscriber Number Group Number Insured Name Patient Relationship to Insured Coverage Start Date Coverage End Date [facility] Claims [address] [address] [place] [address] [id number] SYLVAIN SIMS Self - patient is the insured Medical (General) History Medical History History ICD Code Hyperlipidemia HTN Gout Denies SC,DM,CVA,Lung disease,renal dise ase Colonoscopy 2005 revealed a small tubular adenoma that was removed; colonoscopy in June of 2011 was negative except for diverticulosis and internal hemorrhoids Psoriasis Negative screening colonosco py in December of 2016 other than a hyperplastic polyp Surgical History Surgery Date(Month/Year) Wrist and foot surgery
== END 2024-10-01 13:24 | disposition home or self-care (01) ==
LOC: HO.PMC 12:40
PROVIDERS: PCP Internal Medicine; Visit Provider Anesthesiology
DX: M46.1 Sacroiliitis, not elsewhere classified (principal); M53.3 Sacrococcygeal disorders, not elsewhere classified; M17.0 Bilateral primary osteoarthritis of knee; M47.816 Spondylosis without myelopathy or radiculopathy, lumbar region; G89.4 Chronic pain syndrome; M19.011 Primary osteoarthritis, right shoulder; M19.012 Primary osteoarthritis, left shoulder; G58.9 Mononeuropathy, unspecified; L40.50 Arthropathic psoriasis, unspecified
CPT/HCPCS: 99214

== ENCOUNTER → 2024-10-01 12:40 | Outpatient (BNVA) | payer OTHER, SELFPAY | PROVIDERS: PCP Internal Medicine; Visit Provider Anesthesiology | DX: M46.1 Sacroiliitis, not elsewhere classified (principal); M53.3 Sacrococcygeal disorders, not elsewhere classified; M17.0 Bilateral primary osteoarthritis of knee; M47.816 Spondylosis without myelopathy or radiculopathy, lumbar region; G89.4 Chronic pain syndrome; M19.011 Primary osteoarthritis, right shoulder; M19.012 Primary osteoarthritis, left shoulder; G58.9 Mononeuropathy, unspecified; L40.50 Arthropathic psoriasis, unspecified | CPT/HCPCS: 99212 ==

== ENCOUNTER 2024-10-09 13:06 | Outpatient (AMB) | payer OTHER, SELFPAY ==
[2024-10-09 13:11] VITALS: BP 100/62; PULSE 107; BMI 31.5
--- NOTE | 2024-10-09 13:11 | A.OFFVIS_ITS ---
Vital Signs 10/09/24 13:11 Height 5 ft 6 in Weight 195 lb 5.273 oz BMI 31.5 BP 100/62 Blood Pressure Location Lt brachial Pulse 107 H Pulse Source Monitor Intake Visit Reasons: 6m follow up Branch Service Representative Required: Yes Branch Service Representative Name: voice abbott [id number] Body Corporate Manager: Body Corporate Manager Present Allergies amitriptyline Allergy (Intermediate, Verified 10/09/24 13:13) stomach pain aspirin Allergy (Intermediate, Verified 10/09/24 13:13) stomach pain Medication List - Last Reconciled 10/09/24 by Carole Renae NP-C acetaminophen 500 mg PO BID PRN adalimumab (Humira(CF) Pen) 40 mg subcut Q2W allopurinol 300 mg PO DAILY 90 days aspirin 81 mg PO DAILY atorvastatin 20 mg PO DAILY calcipotriene 0.005% 1 appl topical QAM cholecalciferol (vitamin D3) 50 mcg PO DAILY 90 days fluocinonide 0.05% appl topical DAILY lisinopril 50 mg (1.25 x 40 mg) PO DAILY metoprolol succinate ER 100 mg PO DAILY omeprazole 20 mg PO BID [recliner As directed] HPI HPI 6m follow up: Details: Leeroy is a 74-year-old male with past medical history of hypertension, hyperlipidemia, prior smoking, routine alcohol use, vasovagal syncope, prior chest discomfort with normal stress test, inappropriate sinus tachycardia who presents for follow-up. Today he reports that he has been doing well overall since his last visit. He will notice some brief dizziness with bending forward and rising quickly. He has no chest discomfort at rest or with activity. He will notice his heart beating fast at times. No l presyncope, syncope, falls. No shortness of breath, PND, orthopnea or edema. He continues to have back and joint discomfort which he relates to his arthritis. He does only light physical activity. Taking meds as directed. is present. 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 [facility] Medical History Psoriatic arthritis Former smoker Gout Elevated hemoglobin GERD (gastroesophageal reflux disease) Pure hypercholesterolemia Essential hypertension Surgical History H/O wrist surgery History of foot surgery Family History Father Asthma Mother Hypertension Stomach cancer, Onset Age: 50 Family/Other Substance use disorder Brother Cancer, Onset Age: 61 Social History Household Members: Spouse and Significant Other Housing: Apartment Alcohol intake: current Alcohol intake frequency: holidays/special occasions only Alcohol type: beer and hard liquor Patient Tobacco Use Status: Former Tobacco user Tobacco use type: Cigarette e-Cigarette/Vaping Use: Never Used Second Hand Smoke Exposure: No service: No Current occupational status: disabled Cognitive needs: No Hearing needs: No Vision needs: No Review of Systems Const All systems reviewed & are unremarkable except as noted in HPI and below ENT Denies dizziness Card Denies chest pain, Denies chest pain at rest, Denies chest pain with activity, Reports rapid heart rate, Denies pedal edema, Denies edema, Denies leg edema, Denies lightheadedness, Denies palpitations, Denies dyspnea, Denies dyspnea on exertion and Denies orthopnea Resp Denies cough, Denies dyspnea and Denies dyspnea on exertion GI Denies hematochezia and Denies change in stool character Musc Denies abnormal gait, Denies limited range of motion, Denies muscle cramps, Denies muscle weakness, Denies numbness, Denies radiating pain into limb, Denies stiffness and Denies tingling Neuro Denies abnormal gait, Denies dizziness, Denies numbness and Denies tingling Endo Denies palpitations Physical Exam Vital Signs: Last Vital Signs Pulse 107 H 10/09/24 13:11 BP 100/62 10/09/24 13:11 BMI result Body Mass Index 31.5 Const General: cooperative, healthy appearing, comfortable and no acute distress Orientation/consciousness: patient oriented x3 Neck Neck: Yes normal visual inspection Resp Effort & Inspection: normal respiratory effort Auscultation: clear to auscultation bilaterally, no crackles, no rales, no rhonchi and no wheezes Cardio Jugular venous distension: no JVD Rate: tachycardic Rhythm: regular rhythm Heart sounds: S1 normal heart sound present, S2 normal heart sound present, no murmurs and no rubs Neuro General: patient oriented x3 Extrem General: Yes normal to inspection Psych Appearance: grossly normal Mental Status: mental status grossly normal Speech and movement: Normal speech and movement present Office Procedures EKG Details: Today, read by me, sinus tachycardia, rate 107, QTC 429 millisecond [id number], Complete Assessment & Plan Assessment & Plan (1) Sinus tachycardia: Code(s): R00.0 - Tachycardia, unspecified Category: Medical Plan: Known history of sinus tachycardia, likely inappropriate sinus tachycardia which is being treated with metoprolol. Holter monitor 01/25/2023 shows 61% of the time heart rate greater than 100. Holter monitor done again on 03/17/2024 showing sinus tach with average heart rate 106, 74% of the time heart rate greater than 100. Echocardiogram done 03/17/2024 shows EF 57%, no valve abnormalities, grade 2 diastolic dysfunction, episode of Mobitz 1 during clinical leader hours. A sleep study had been previously done showing no sleep apnea but severe restless legs. An EKG done today is showing sinus tachycardia, rate 107. Labs previously reviewed and showed no significant findings to contribute to his rapid heart rate. He is currently on metoprolol XL 100 mg daily. Will further increase his dose up to 100 mg daily. He admits to drinking 2 Tequila drinks per day. Instructed that he cut back to 1 then eventually stop. This is likely contributing to his tachycardia. Instructed on maintaining good hydration, physical activity as tolerated. Recheck of Holter monitor prior to next visit. Cardiology follow-up 3 months, sooner if needed to assess for further medication adjustments. (2) Syncope: Code(s): R55 - Syncope and collapse Category: Medical Qualifiers: Syncope type: vasovagal syncope Qualified Code(s): R55 - Syncope and collapse Plan: Prior episodes of presyncope and syncope with last known episode presyncope on 03/06/2023 following prostate biopsy, in the office which was thought to be vasovagal in nature. A Holter monitor did show some evidence of Mobitz 1 during sleep, no other significant arrhythmia. Exercise stress test was done on 01/25/2023 with exercise 9 minutes, shortness of breath present, no EKG changes and normal myocardial perfusion imaging. A tilt-table test was done on 09/24/2023 confirming vasovagal syncope. Reviewed good hydration, recognizing symptoms, avoid triggers if possible. (3) Mobitz type 1 second degree atrioventricular block: Code(s): I44.1 - Atrioventricular block, second degree Category: Medical Plan: Brief during sleep. No daytime second-degree heart block reported. No sleep apnea noted on sleep study. Rechecking Holter monitor to reassess Plan Time spent on chart review, documentation, interview and assessment Orders: Orders ECG 3 day holter monitor 6 Weeks I44.1 - Atrioventricular block, second degree, R00.0 - Tachycardia, unspecified Medications: Changed From lisinopril 50 mg (1.25 x 40 mg) PO DAILY 90 tabs 2RF To lisinopril dose adjusted 40 mg PO DAILY 90 tabs 1RF From metoprolol succinate ER 100 mg PO DAILY 90 tabs 3RF To metoprolol succinate ER Dose increased Take 1.5 tablets daily 150 mg (1.5 x 100 mg) PO DAILY 90 days 135 tabs 3RF Patient Instructions: - Take 1-1/2 tablets of Metoprolol daily. - Continue taking 1 tablet of Lisinopril each day. - Try to cut back alcohol to one drink per day. - Use prescribed medications as directed. - Monitor any new or worsening symptoms. Coding Level of Care Code Est Pt Level 4 (64420) Complex EM visit Add On G2211 Diagnoses Sinus tachycardia R00.0 Vasovagal syncope R55 Syncope type: vasovagal syncope Mobitz type 1 second degree atrioventricular block I44.1 CPT Codes EKG - CPT: 17262-[id number], Complete ([id number]) Time Spent (min) 28
--- OUTSIDE RECORDS SUMMARY | 2024-10-09 13:39 | XMS_ITS | Patient Health Record ---
Author Organization [facility] Address [address] [place] [address] Care Team Providers Care Manager Of Supply Chain Name Role Phone Cristina Rivera Primary Care Provider Unavailab Kike Hanks Unavailable [phone] Allergies No Known Allergies Reason For Referral [...] Problem Status W/U Status Risk Notes Problem [id number] Encounter for screening for malignant neoplasm of colon (Z12.11) Active confirmed Problem 621494259 History of adenomatous polyp of colon (Z86.010) Active confirmed Problem History of polyp of colon (situation) (279451853) Personal history of colonic polyps (Z86.010) Active confirmed Problem Diverticulosis o f large intestine without perforation or abscess without bleeding (K57.30) Active confirmed Problem 293635025 Preprocedural examination (Z01.818) Active confirmed Problem 403855604 Long-term use of aspirin therapy (Z79.82) Active confirmed Plan Of Treatment Future Test Test Name Order Date COLONOSCOPY 05/31/2011 COLONOSCOPY 10/26/2016 COLONOSCOPY 05/10/2022 Insurance Providers Payer Name Payer Address Payer Phone Subscriber Number Group Number Insured Name Patient Relationship to Insured Coverage Start Date Coverage End Date [facility] [address] [address] [place] [address] [phone] [id number] SYLVAIN SIMS Self - patient is the insured Medical (General) History Medical History History ICD Code Hyperlipidemia HTN Gout Denies PR,DM,CVA,Lung disease,renal dise ase Colonoscopy 2005 revealed a small tubular adenoma that was removed; colonoscopy in June of 2011 was negative except for diverticulosis and internal hemorrhoids Psoriasis Negative screening colonosco py in December of 2016 other than a hyperplastic polyp Surgical History Surgery Date(Month/Year) Wrist and foot surgery
--- OUTSIDE RECORDS SUMMARY | 2024-10-09 13:40 | XMS_ITS | Clinical Summary ---
Author Organization [employer] Address [address] [facility] [address] [place] [address] Care Team Providers Care Miller Supervisor Name Role Phone Unavailable Primary Care Provider [...] Description 07/29/2024 2:30 PM EST Office Visit [facility] [address] [place] [address] Kimberley Black Dental calculus (Primary Dx); Dental [...] Description 02/10/2025 10:00 AM EDT Office Visit [facility] [address] [place] [address] Kimberley Black Health Maintenance Due Date Last [...] patient's age to complete this topic Meningococcal B Vaccine Aged Out No l onger eligible based on patient's age to complete [...] Relevant to Health Maintenance Insurance DENTAL - [facility]
== END 2024-10-09 13:57 | disposition home or self-care (01) ==
LOC: HO.HCS 13:07
PROVIDERS: PCP Internal Medicine; Visit Provider Nurse Practitioner Family
DX: R00.0 Tachycardia, unspecified (principal); R55 Syncope and collapse; I44.1 Atrioventricular block, second degree
CPT/HCPCS: 93010; 99214; G2211

== ENCOUNTER → 2024-10-09 13:06 | Outpatient (BNVA) | payer OTHER, SELFPAY | PROVIDERS: PCP Internal Medicine; Visit Provider Nurse Practitioner Family | DX: I44.1 Atrioventricular block, second degree (principal); R00.0 Tachycardia, unspecified; R55 Syncope and collapse | CPT/HCPCS: 93005; 99212 ==

== ENCOUNTER 2024-10-17 09:20 | Outpatient (REF) | payer OTHER, SELFPAY ==
--- OUTSIDE RECORDS SUMMARY | 2024-10-17 09:33 | XMS_ITS | Patient Health Record ---
Author Organization [facility] Address [address] [place] [address] Care Team Providers Care Automotive Teacher Name Role Phone Cristina Rivera Primary Care Provider Unavailab Kike Hanks Unavailable [phone] Allergies No Known Allergies Reason For Referral [...] Problem Status W/U Status Risk Notes Problem 626764889 Encounter for screening for malignant neoplasm of colon (Z12.11) Active confirmed Problem 307933408 History of adenomatous polyp of colon (Z86.010) Active confirmed Problem History of polyp of colon (situation) (795727716) Personal history of colonic polyps (Z86.010) Active confirmed Problem Diverticular disease of colon (628264319) Diverticulosis of large intestine without perforation or abscess without bleeding (K57.30) Active confirmed Problem 467109871 Preprocedural examination (Z01.818) Active confirmed Problem 143515408 Long-term use of aspirin therapy (Z79.82) Active confirmed Plan Of Treatment Future Test Test Name Order Date COLONOSCOPY 05/31/2011 COLONOSCOPY 10/26/2016 COLONOSCOPY 05/10/2022 Insurance Providers Payer Name Payer Address Payer Phone Subscriber Number Group Number Insured Name Patient Relationship to Insured Coverage Start Date Coverage End Date [facility] Claims [address] [address] [place] [address] [id number] SYLVAIN SIMS Self - patient is the [...]
[2024-10-17 10:58] LABS: Alanine Aminotransferase 88 U/L (0-40); Albumin Level 4.3 g/dL (3.5-5.0); Alkaline Phosphatase 62 U/L (39-117); Anion Gap 11 (12-20); Aspartate Amino Transferase 43 U/L (5-37); Bilirubin Total 1.4 mg/dL (0.0-1.0); Blood Urea Nitrogen 22 mg/dL (9-16); Calcium 9.5 mg/dL (8.4-10.2); Carbon Dioxide 28 mmol/L (22-29); Chloride 107 mmol/L (96-108); Estimated Glomerular Filt Rate > 60; Glucose Fasting 90 mg/dL (60-99); Potassium 4.1 mmol/L (3.3-5.1); Sodium 142 mmol/L (135-145)
== END 2024-10-17 09:21 | disposition home or self-care (01) ==
LOC: HO.LAB 09:20
PROVIDERS: PCP Internal Medicine; Visit Provider Internal Medicine
DX: L40.50 Arthropathic psoriasis, unspecified (principal)
CPT/HCPCS: 36415; 80053

== ENCOUNTER 2024-10-22 13:36 | Outpatient (AMB) | payer OTHER, SELFPAY ==
--- NOTE | 2024-10-22 13:44 | A.OFFPC_ITS ---
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 Accompanied by: Spouse Allergies amitriptyline Allergy (Intermediate, Verified 10/22/24 13:59) stomach pain aspirin Allergy (Intermediate, Verified 10/22/24 13:59) stomach pain Medication List - Last Reconciled 10/22/24 by Cristina Calixto MD acetaminophen 500 mg PO BID PRN adalimumab (Humira(CF) Pen) 40 mg subcut Q2W allopurinol 300 mg PO DAILY 90 days aspirin 81 mg PO DAILY atorvastatin 20 mg PO DAILY calcipotriene 0.005% 1 appl topical QAM cholecalciferol (vitamin D3) 50 mcg PO DAILY 90 days fluocinonide 0.05% appl topical DAILY lisinopril 40 mg PO DAILY metoprolol succinate ER 150 mg (1.5 x 100 mg) PO DAILY 90 days omeprazole 20 mg PO BID [recliner As directed] Tobacco use date assessed: 06/18/24 Fall risk assessment: No Falls in past year Last assessed Fall Risk: 10/22/24 Dental Screening Dental Screen Date: 06/18/24 HPI HPI Comments History of Present Illness Details The patient is a 74-year-old male presenting with multiple chronic conditions and concerns about memory impairment. He has a history of psoriatic arthritis, for which he is currently on Humira. He also has gout and takes allopurinol to manage this condition. There is a history of tachycardia, and the patient reports occasional episodes where he feels fatigued and short of breath, likely related to this condition. The patient also reports experiencing memory issues, describing episodes where he forgets tasks or becomes confused. This has become more noticeable recently, and he expresses concern about this decline. He does not have a pacemaker or any metal implants. Also has difficulty swallowing solids. His liver enzymes and bilirubin levels have been noted to be elevated, which is a new finding, as they have not been elevated previously. The patient consumes alcohol daily and acknowledges that this, alongside medication, could be contributing to the liver enzyme elevation. Has BPH follow by Urology. Also has hypertension and pure hypercholesterolemia stable with medications. [facility] Medical History (Updated 10/22/24 @ 14:18 by Cristina Calixto MD) Psoriatic arthritis Former smoker Gout Elevated hemoglobin GERD (gastroesophageal reflux disease) Pure hypercholesterolemia Essential hypertension Surgical History H/O wrist surgery History of foot surgery Family History Father Asthma Mother Hypertension Stomach cancer, Onset Age: 50 Family/Other Substance use disorder Brother Cancer, Onset Age: 61 Social History (Updated 10/22/24 @ 14:05 by Cristina Calixto MD) Household Members: Spouse and Significant Other Housing: Apartment Alcohol intake: current Alcohol intake frequency: 0-2 drinks per day Alcohol type: beer and hard liquor Patient Tobacco Use Status: Former Tobacco user Tobacco use type: Cigarette e-Cigarette/Vaping Use: Never Used Second Hand Smoke Exposure: No service: No Current occupational status: disabled Cognitive needs: No Hearing needs: No Vision needs: No Questionnaire PHQ-9 Over the last 2 weeks, how often have you been bothered by any of the following problems? 1. Little interest or pleasure in doing things: not at all 2. Feeling down, depressed, or hopeless: several days 3. Trouble falling or staying asleep, or sleeping too much: more than half the days 4. Feeling tired or having little energy: more than half the days 5. Poor appetite or overeating: not at all 6. Feeling bad about yourself - or that you are a failure or have let yourself or your family down: not at all 7. Trouble concentrating on things, such as reading the newspaper or watching television: not at all 8. Moving or speaking so slowly that other people could have noticed. Or the opposite - being so fidgety or restless that you have been moving around a lot more than usual: not at all 9. Thoughts that you would be better off or of hurting yourself in some way: not at all Total score: 5 Depression Screening Interpretation: Positive Depression Screening Follow-up: Existing condition and Follow-up Visit Requested Depression Screening Done: Yes 96304 - PHQ-9 Billing: Yes Source: Developed by Drs. Kike Nichols, Jodi B.W. Keith Eng and colleagues, with an educational oscar from [employer]. Thrive Questionnaire Date Thrive assessed: 06/18/24 I am a: Patient What is your living situation today?: I have a steady place to live Within the past 12 months, did the food you bought not last and you didn't have the money to get more?: Never true Within the past 12 months, did you worry whether your food would run out before you got money to buy more?: Never true Do you have trouble paying for medicines?: No Do you have trouble getting transportation to medical appointments?: No Do you have trouble paying your heating and electricity bill?: No Do you have trouble taking care of your child, family member or friend?: No Do you have trouble with day-to-day activities such as bathing, preparing meals, shopping, managing finances, etc.?: No Are you currently unemployed and looking for a job?: Yes Are you interested in more education?: Yes Please select the resources that you would like help with: None Currently or been in a relationship where the following occur: No concerns reported THRIVE Score: 0 AUDIT C Alcohol Use Questionnaire (AUDIT-C) 1. How often do you have a drink containing alcohol?: 2-3 times a week 2. How many drinks containing alcohol do you have on a typical day when you are drinking?: 1 or 2 3. How often do you have six or more drinks on one occasion?: Monthly Total Score: 5 TARYN-7 AMB Questionnaire TARYN-7 Date TARYN - 7 assessed: 06/18/24 Feeling nervous, anxious, or on edge: 0 = Not at all Not being able to stop or control worryin = Not at all Worrying too much about different things: 0 = Not at all Trouble relaxin = Not at all Being so restless that it is hard to sit still: 0 = Not at all Becoming easily annoyed or irritable: 0 = Not at all Feeling afraid as if something awful might happen: 0 = Not at all Total TARYN-7 score (0-4 normal; 5-9 mild; 10-14 moderate; 15-21 severe): 0 Source: Developed by Drs. Kike Nichols, Keith Marino and colleagues, with an educational oscar from [employer]. TARYN-7 Assessment Billing TARYN-7 Assessment Tool: TARYN-7 Assessment 71767 Review of Systems Const All systems reviewed & are unremarkable except as noted in HPI and below Card Denies chest pain at rest, Denies chest pain with activity, Denies edema, Denies irregular heart rhythm, Denies claudication, Denies dyspnea, Denies dyspnea on exertion, Denies orthopnea, Denies paroxysmal nocturnal dyspnea and Denies slow heart rate Resp Denies cough, Denies dyspnea and Denies dyspnea on exertion GI Denies abdominal pain, Denies change in bowel habits, Denies excessive flatus, Denies nausea and Denies vomiting Denies urinary hesitancy, Denies urinary incontinence and Denies urinary urgency Musc Denies atrophy, Denies deformity and Denies limited range of motion Skin/Breast Denies bleeding lesions, Denies changing lesions and Denies rash Neuro Reports memory loss Psych Reports memory loss Physical exam (Primary Care) Vital Signs: Last Vital Signs BP 118/72 10/22/24 13:48 BMI result Body Mass Index 31.3 Tobacco/Smoking Status: Tobacco use Status Tobacco use date assessed 06/18/24 10/22/24 13:45 Patient Tobacco Use Status Former Tobacco user 10/22/24 14:05 Tobacco use type Cigarette 10/22/24 14:05 e-Cigarette/Vaping Use Never Used 10/22/24 14:05 PHQ-9: PHQ-9 Score PHQ-9: Total score 5 10/22/24 14:01 Depression Screening Interpretation: Positive Depression Screening Follow-up: Existing condition and Follow-up Visit Requested Thrive Assessment: Date of Thrive Assessment Date Thrive assessed 06/18/24 10/22/24 13:45 Currently or been in a relationship where the following occur: No concerns reported Resp Effort & Inspection: normal respiratory effort Auscultation: clear to auscultation bilaterally Cardio Jugular venous distension: no JVD Rate: regular rate Rhythm: regular rhythm Heart sounds: S1 normal heart sound present and S2 normal heart sound present Extrem General: Yes full ROM Coding Level of Care Code Est Pt Level 4 (05160) Complex EM visit Add On G2211 Diagnoses Dysphagia R13.10 Memory loss R41.3 Psoriatic arthritis L40.50 Idiopathic chronic gout of multiple sites without tophus M1A.09X0 Gout site: multiple sites Gout etiology: idiopathic Chronicity: chronic Presence of tophus: without tophus Essential hypertension I10 Pure hypercholesterolemia E78.00 BPH (benign prostatic hyperplasia) N40.0 Additional Codes TARYN-7 Assessment Billing - TARYN-7 Assessment Tool: TARYN-7 Assessment 02517 ([id number]) PHQ-9 - 39072 - PHQ-9 Billing: Yes ([id number]) Time Spent (min) 25 Assessment & Plan Assessment & Plan (1) Dysphagia: Code(s): R13.10 - Dysphagia, unspecified Category: Medical (2) Memory loss: Code(s): R41.3 - Other amnesia Category: Medical (3) Psoriatic arthritis: Code(s): L40.50 - Arthropathic psoriasis, unspecified Category: Medical (4) Gout: Comment: well controlled on allopurinol 300mg daily Code(s): M10.9 - Gout, unspecified Category: Medical Qualifiers: Gout site: multiple sites Gout etiology: idiopathic Chronicity: chronic Presence of tophus: without tophus Qualified Code(s): M1A.09X0 - Idiopathic chronic gout, multiple sites, without tophus (tophi) (5) Essential hypertension: Code(s): I10 - Essential (primary) hypertension Category: Medical (6) Pure hypercholesterolemia: Code(s): E78.00 - Pure hypercholesterolemia, unspecified Category: Medical (7) BPH (benign prostatic hyperplasia): Code(s): N40.0 - Benign prostatic hyperplasia without lower urinary tract symptoms Category: Medical Plan The patient's ongoing management for psoriatic arthritis with Elumira and gout with allopurinol will continue. Tachycardia will be evaluated further in an upcoming cardiology appointment. Memory issues are concerning, and a rich rological evaluation is warranted with head imaging planned. Monitoring of liver enzymes and bilirubin levels is necessary, considering the potential impact of alcohol and medication. Hypertension management with current medications will continue, and lifestyle modifications to address alcohol use and overall health will be discussed. Patient was informed and verbally consented to the use of an ambient scribe for clinic note documentation during this visit. During our visit, we discussed the management of the patient's psoriatic arthritis with Elumira and gout with allopurinol. I emphasized the importance of monitoring tachycardia and its potential impact on his health, with a plan to follow up with cardiology. The patient expressed concerns about memory impairment, and we agreed to conduct a neurological evaluation. I explained the significance of the elevated liver enzymes and bilirubin, discussing lifestyle adjustments and the role of medications. The patient is aware of his hyp ertension management plan, and we reviewed the potential benefits and risks of the current medications. Follow-up appointments with rheumatology and cardiology are scheduled, and we discussed the importance of consistent monitoring and adjustments as necessary. Orders: Orders MR head/brain wo con Today R41.3 - Other amnesia Vitamin B12 and Folate 4 Months E53.8 - Deficiency of other specified B group vitamins Vitamin D 25-OH Total 4 Months E55.9 - Vitamin D deficiency, unspecified Comprehensive [place]. Panel Fast 4 Months R41.3 - Other amnesia Lipid Panel 4 Months E78.5 - Hyperlipidemia, unspecified [place] barium swallow Today R13.10 - Dysphagia, unspecified Referrals Neurology Referral R41.3 - Other amnesia Patient Instructions: - Continue taking Elumira and allopurinol as prescribed. - Attend the scheduled cardiology follow-up in December. - Monitor and report any changes in memory or cognitive function. - Limit alcohol consumption to reduce liver strain. - Maintain current hypertension medications and monitor blood pressure. - Follow up with scheduled CT scan of the back and head imaging. - Schedule a neurological evaluation for memory concerns.
[2024-10-22 13:48] VITALS: BP 118/72; BMI 31.3
--- OUTSIDE RECORDS SUMMARY | 2024-10-22 14:31 | XMS_ITS | Patient Health Record ---
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 Safety Specialist Name Role Phone Cristina Rivera Primary Care Provider Unavailab Kike Hanks Unavailable [phone] Allergies No Known Allergies Reason For Referral [...] Problem Status W/U Status Risk Notes Problem 323267185 Encounter for screening for malignant neoplasm of colon (Z12.11) Active confirmed Problem 146725969 History of adenomatous polyp of colon (Z86.010) Active confirmed Problem History of polyp of colon (situation) (613038858) Personal history of colonic polyps (Z86.010) Active confirmed Problem Diverticulosis o f large intestine without perforation or abscess without bleeding (K57.30) Active confirmed Problem 349154060 Preprocedural examination (Z01.818) Active confirmed Problem 411058798 Long-term use of aspirin therapy (Z79.82) Active confirmed Plan Of Treatment Future Test Test Name Order Date COLONOSCOPY 05/31/2011 COLONOSCOPY 10/26/2016 COLONOSCOPY 05/10/2022 Insurance Providers Payer Name Payer Address Payer Phone Subscriber Number Group Number Insured Name Patient Relationship to Insured Coverage Start Date Coverage End Date [facility] Claims [address] [address] [place] [address] [phone] [id number] SYLVAIN SIMS Self - patient is the insured Medical (General) History Medical History History ICD Code Hyperlipidemia HTN Gout Denies [place],DM,CVA,Lung disease,renal dise ase Colonoscopy 2005 revealed a small tubular adenoma that was removed; colonoscopy in June of 2011 was negative except for diverticulosis and internal hemorrhoids Psoriasis Negative screening colonosco py in December of 2016 other than a hyperplastic polyp Surgical History Surgery Date(Month/Year) Wrist and foot surgery
== END 2024-10-22 14:11 | disposition home or self-care (01) ==
LOC: HO.HMCH 13:37
PROVIDERS: PCP Internal Medicine; Visit Provider Internal Medicine
DX: R13.10 Dysphagia, unspecified (principal); R41.3 Other amnesia; L40.50 Arthropathic psoriasis, unspecified; M1A.09X0 Idiopathic chronic gout, multiple sites, without tophus (tophi); I10 Essential (primary) hypertension; E78.00 Pure hypercholesterolemia, unspecified; N40.0 Benign prostatic hyperplasia without lower urinary tract symptoms

== ENCOUNTER → 2024-10-22 13:36 | Outpatient (BNVA) | payer OTHER, SELFPAY | PROVIDERS: PCP Internal Medicine; Visit Provider Internal Medicine | DX: R41.3 Other amnesia (principal); R13.10 Dysphagia, unspecified; L40.50 Arthropathic psoriasis, unspecified; M1A.09X0 Idiopathic chronic gout, multiple sites, without tophus (tophi); I10 Essential (primary) hypertension; E78.00 Pure hypercholesterolemia, unspecified; N40.0 Benign prostatic hyperplasia without lower urinary tract symptoms; Z79.899 Other long term (current) drug therapy | CPT/HCPCS: 96127; 99212 ==

== ENCOUNTER → 2024-10-27 10:01 | Outpatient (REF) | payer OTHER, SELFPAY ==
--- OUTSIDE RECORDS SUMMARY | 2024-10-27 10:54 | XMS_ITS | Patient Health Record ---
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 Cristina Rivera Primary Care Provider Unavailab Kike Hanks Unavailable [phone] Allergies No Known Allergies Reason For Referral [...] Problem Status W/U Status Risk Notes Problem 462789706 Encounter for screening for malignant neoplasm of colon (Z12.11) Active confirmed Problem 633111344 History of adenomatous polyp of colon (Z86.010) Active confirmed Problem History of polyp of colon (situation) (078042212) Personal history of colonic polyps (Z86.010) Active confirmed Problem Diverticulosis o f large intestine without perforation or abscess without bleeding (K57.30) Active confirmed Problem 739904350 Preprocedural examination (Z01.818) Active confirmed Problem 476973001 Long-term use of aspirin therapy (Z79.82) Active confirmed Plan Of Treatment Future Test Test Name Order Date COLONOSCOPY 05/31/2011 COLONOSCOPY 10/26/2016 COLONOSCOPY 05/10/2022 Insurance Providers Payer Name Payer Address Payer Phone Subscriber Number Group Number Insured Name Patient Relationship to Insured Coverage Start Date Coverage End Date [facility] Claims [address] [address] [place] [address] [phone] [id number] SYLVAIN SIMS Self - patient is the insured Medical (General) History Medical History History ICD Code Hyperlipidemia HTN Gout Denies [place],DM,CVA,Lung disease,renal dise ase Colonoscopy 2005 revealed a small tubular adenoma that was removed; colonoscopy in June of 2011 was negative except for diverticulosis and internal hemorrhoids Psoriasis Negative screening colonosco py in December of 2016 other than a hyperplastic polyp Surgical History Surgery Date(Month/Year) Wrist and foot surgery
== END ==
LOC: HO.CARD 10:01
PROVIDERS: PCP Internal Medicine; Visit Provider Nurse Practitioner Family
DX: R00.0 Tachycardia, unspecified (principal); I44.1 Atrioventricular block, second degree
CPT/HCPCS: 93242

== ENCOUNTER → 2024-10-27 10:03 | Outpatient (BNV) | payer OTHER, SELFPAY | PROVIDERS: PCP Internal Medicine; Visit Provider Internal Medicine Cardiovascular Disease | DX: I44.1 Atrioventricular block, second degree (principal); I49.1 Atrial premature depolarization; R00.0 Tachycardia, unspecified | CPT/HCPCS: 93244 ==

== ENCOUNTER 2024-10-29 12:34 | Outpatient (AMB) | payer OTHER, SELFPAY ==
[2024-10-29 12:53] VITALS: BP 131/85; PULSE 119; O2SAT 100
--- NOTE | 2024-10-29 12:53 | MHC.OFFVIS ---
Vital Signs 10/29/24 12:53 Weight 194 lb BP 131/85 Blood Pressure Location Lt brachial Position Sitting Pulse 119 H Pulse Source Pulse Oximeter Pulse Oximetry (%) 100 Oxygen Delivery Method Room Air Intake Visit Reasons: 1 Month Follow Up General Office Worker Required: Yes General Office Worker Services: General Office Worker Present General Office Worker Name: [id number] Allergies amitriptyline Allergy (Intermediate, Verified 10/29/24 12:55) stomach pain aspirin Allergy (Intermediate, Verified 10/29/24 12:55) stomach pain HPI Comments Details: Leeroy is back in my office for the follow-up. He continued to were sacroiliac joint belt. He reports only minimal improvement from the sacroiliac joint belt. He is scheduled for the CT scan on 11/19/2024. After CT scan we will start to plan the sacroiliac joint fusion. He reports that right side hurts him more than the left. We will insert right-sided device 1st. Prior: Results of therapeutic bilateral sacroiliac joint injection. He reports that his pain today as 5/10. He reported pain before the injection was 10/10 and maybe even more. He reported that 1st 15 days after the procedure was almost 100% pain relief. However now pain is starting to cripple back. I recommended him to start wearing sacroiliac joint belt. We provided sacroiliac joint belt for the patient today. We also will schedule him for CT of bony pelvis and CT of the lumbar spine to rule out red flags which would prevent us to go for the sacroiliac joint fusion. He would need bilateral fusion. We will go 1st for the most painful site. Everything was explained to the patient. Prior:. He received in the beginning of 2022 diagnostic sacroiliac joint injection which resulted in 100% immediate pain relief and 1 month of 90% pain improvement. He reported excellent mobility at this time good activities of daily living good social interactions. Unfortunately the patient was lost for follow-up in 2022 and now he is in my office reporting that he wants to repeat this injection again. I explained to the patient that at this time therapeutic sacroiliac joint injection needs to be performed. Risks of steroid injections were briefly explained to the patient. The patient agreed to go for the procedure. Prior: very pleasant Welsh-speaking 72 years old gentleman who presents in my office with complains on lower back pain with vague radiation into bilateral lower extremities.? He reports also shoulder pain in bilateral shoulders.? He reports pain on the left lower extremity radiating to the level of the knee and slightly below that level he reports pain in the right lower ext extremity radiating all the way down to the ankle but not into the toes.? he reports that his pain stays elevated all the time 8 to 9/10 level.? .? He had x-rays done on the lumbar spine and on the shoulders the report of which is dictated as below.? He tried physical therapy for his knees and his shoulders in the past and he denied any help.? He denied any injections. Past medical history significant for hypertension and some unclear symptoms from the heart.? He is under care of event av operator with diagnosis of psoriasis, he probably has psoriatic arthritis.? He never went to personal care service provider.? Past surgical history significant for ORIF of the hand and the toe surgery related to the back. [facility] Medical History Psoriatic arthritis Former smoker Gout Elevated hemoglobin GERD (gastroesophageal reflux disease) Pure hypercholesterolemia Essential hypertension Surgical History H/O wrist surgery History of foot surgery Family History Father Asthma Mother Hypertension Stomach cancer, Onset Age: 50 Family/Other Substance use disorder Brother Cancer, Onset Age: 61 Social History (Updated 10/22/24 @ 14:05 by Cristina Calixto MD) Household Members: Spouse and Significant Other Housing: Apartment Alcohol intake: current Alcohol intake frequency: 0-2 drinks per day Alcohol type: beer and hard liquor Patient Tobacco Use Status: Former Tobacco user Tobacco use type: Cigarette e-Cigarette/Vaping Use: Never Used Second Hand Smoke Exposure: No service: No Current occupational status: disabled Cognitive needs: No Hearing needs: No Vision needs: No Review of Systems Const All systems reviewed & are unremarkable except as noted in HPI and below ENT Reports Normal hearing present Neuro Reports Normal hearing present, Denies Abnormal speech present, Denies confusion and Denies Sensory deficit (Neuro) Psych Denies confusion Physical Exam Vital Signs: Last Vital Signs Pulse 119 H 06/04/25 12:53 BP 131/85 10/29/24 12:53 Pulse Ox 100 10/29/24 12:53 Oxygen Delivery Method Room Air 10/29/24 12:53 Const General: no acute distress; No confusion Orientation/consciousness: patient oriented x3 and No confusion Eyes General: appearance normal, both eyes and all related structures Pupils: Equal, round and reactive pupils present EOM: EOMs intact bilaterally Neck Neck: Yes full ROM Chest Chest palpation & inspection: normal inspection of the chest Resp Effort & Inspection: normal respiratory effort, able to speak in complete sentences, normal respiratory pattern, no audible wheezes and no cough Cardio Jugular venous distension: no JVD GI Inspection: Yes normal to inspection Back/Spine/Pelvis Other: Able to stand on bilateral tiptoes and bilateral heels. Able to flex himself forward but reports severe pain at about 70 degrees, reports severe pain in the back with flexing back backwards. Loading test is positive bilaterally. Bernadine finger test is positive bilaterally. Gaenslen test is positive bilaterally. Stinchfield test is positive bilaterally. SLR test may be positive bilaterally. But dorsiflexion of the both feet with maximal SLR does not aggravate the pain. Tenderness on palpation on paraspinal spinal regions entire lumbar spine and lower thoracic spine. Valsalva maneuver does not aggravate the pain. Reports significant pain with bending forward in the lumbar spine and also reports significant tenderness on palpation in the projection of bilateral iliac crests at the top of bilateral iliac crests in the projection of the cluneal nerves passing over on the surface of the posterior pelvis. Neuro General: patient oriented x3, gait normal and No confusion Cranial nerves: Yes CN's II-XII intact bilaterally, Yes Equal, round and reactive pupils present, Yes Normal hearing present and Yes Ability to bilaterally elevate shoulders present Speech: No Abnormal speech present Gait exam (Neuro): Normal gait present Motor exam (neuro): 5/5 motor strength present throughout Sensory Exam: No Sensory deficit (Neuro) Extrem General: No pedal edema Psych Speech and movement: Normal speech and movement present Affect: normal affect Attitude: cooperative Thought process: Normal thought process present Thought content: Normal thought content present Insight: Good insight present (Psych) Judgement: Good judgement present (Psych) Assessment & Plan Assessment & Plan (1) Sacroiliitis: Code(s): M46.1 - Sacroiliitis, not elsewhere classified Category: Medical (2) Sacroiliac joint dysfunction of both sides: Code(s): M53.3 - Sacrococcygeal disorders, not elsewhere classified Category: Medical (3) Localized osteoarthritis of knees, bilateral: Code(s): M17.0 - Bilateral primary osteoarthritis of knee Category: Medical (4) Spondylosis of lumbar region without myelopathy or radiculopathy: Code(s): M47.816 - Spondylosis without myelopathy or radiculopathy, lumbar region Category: Medical (5) Chronic pain syndrome: Code(s): G89.4 - Chronic pain syndrome Category: Medical (6) Acromioclavicular joint arthritis: Code(s): M19.019 - Primary osteoarthritis, unspecified shoulder Category: Medical Qualifiers: Laterality: bilateral Qualified Code(s): M19.011 - Primary osteoarthritis, right shoulder; M19.012 - Primary osteoarthritis, left shoulder (7) Mononeuropathy, unspecified: Code(s): G58.9 - Mononeuropathy, unspecified Category: Medical (8) Psoriasis arthropathica: Code(s): L40.50 - Arthropathic psoriasis, unspecified Category: Medical (9) Pain of both sacroiliac joints: Code(s): M53.3 - Sacrococcygeal disorders, not elsewhere classified Category: Medical Plan Good results of diagnostic as well as therapeutic sacroiliac joint injection. Unfortunately sacroiliac joint injection with steroids resulted in only 15 days of complete pain relief. In 1 month his pain was back. Sacroiliac joint fusion discussed with the patient. Physical therapy would provide very minimal pain relief for this patient. He tried multiple sessions. He continues home exercise program to receive small improvements. SI joint belt was prescribed to the patient. He continues to wear the belt. He reports only minimal improvement. He is scheduled for CT of the pelvis and CT of the lumbar spine. After red flags will be cleared we will start scheduling this patient for sacroiliac joint fusion. I will use [employer] system for this patient. Patient Instructions: I here by testify that I spent 30 minutes in conversation with this patient as well as planning his care and organizing this note. coffee weigher from [employer] [phone] was helping us to maintain this conversation is Welsh. Coding Level of Care Code Est Pt Level 4 (79417) Diagnoses Sacroiliitis M46.1 Sacroiliac joint dysfunction of both sides M53.3 Localized osteoarthritis of knees, bilateral M17.0 Spondylosis of lumbar region without myelopathy or radiculopathy M47.816 Chronic pain syndrome G89.4 Arthritis of both acromioclavicular joints M19.011; M19.012 Laterality: bilateral Mononeuropathy, unspecified G58.9 Psoriasis arthropathica L40.50 Pain of both sacroiliac joints M53.3
--- OUTSIDE RECORDS SUMMARY | 2024-10-29 13:05 | XMS_ITS | Patient Health Record ---
Author Organization [facility] Address [address] [place] [address] Care Team Providers Care Fluid Jet Cutter Operator Name Role Phone Cristina Rivera Primary Care Provider Unavailab Kike Hanks Unavailable [phone] Allergies No Known Allergies Reason For Referral [...] Problem Status W/U Status Risk Notes Problem [id number] Encounter for screening for malignant neoplasm of colon (Z12.11) Active confirmed Problem 516447839 History of adenomatous polyp of colon (Z86.010) Active confirmed Problem History of polyp of colon (situation) (685703280) Personal history of colonic polyps (Z86.010) Active confirmed Problem Diverticulosis o f large intestine without perforation or abscess without bleeding (K57.30) Active confirmed Problem 577581857 Preprocedural examination (Z01.818) Active confirmed Problem 242858334 Long-term use of aspirin therapy (Z79.82) Active confirmed Plan Of Treatment Future Test Test Name Order Date COLONOSCOPY 05/31/2011 COLONOSCOPY 10/26/2016 COLONOSCOPY 05/10/2022 Insurance Providers Payer Name Payer Address Payer Phone Subscriber Number Group Number Insured Name Patient Relationship to Insured Coverage Start Date Coverage End Date [facility] Claims [address] [address] [place] [address] [phone] [id number] SYLVAIN SIMS Self - patient is the insured Medical (General) History Medical History History ICD Code Hyperlipidemia HTN Gout Denies OH,DM,CVA,Lung disease,renal dise ase Colonoscopy 2005 revealed a small tubular adenoma that was removed; colonoscopy in June of 2011 was negative except for diverticulosis and internal hemorrhoids Psoriasis Negative screening colonosco py in December of 2016 other than a hyperplastic polyp Surgical History Surgery Date(Month/Year) Wrist and foot surgery
== END 2024-10-29 13:00 | disposition home or self-care (01) ==
LOC: HO.PMC 12:34
PROVIDERS: PCP Internal Medicine; Visit Provider Anesthesiology
DX: M46.1 Sacroiliitis, not elsewhere classified (principal); M53.3 Sacrococcygeal disorders, not elsewhere classified; M17.0 Bilateral primary osteoarthritis of knee; M47.816 Spondylosis without myelopathy or radiculopathy, lumbar region; G89.4 Chronic pain syndrome; M19.011 Primary osteoarthritis, right shoulder; M19.012 Primary osteoarthritis, left shoulder; G58.9 Mononeuropathy, unspecified; L40.50 Arthropathic psoriasis, unspecified
CPT/HCPCS: 99214

== ENCOUNTER → 2024-10-29 12:34 | Outpatient (BNVA) | payer OTHER, SELFPAY | PROVIDERS: PCP Internal Medicine; Visit Provider Anesthesiology | DX: M46.1 Sacroiliitis, not elsewhere classified (principal); M53.3 Sacrococcygeal disorders, not elsewhere classified; M17.0 Bilateral primary osteoarthritis of knee; M47.816 Spondylosis without myelopathy or radiculopathy, lumbar region; M19.011 Primary osteoarthritis, right shoulder; M19.012 Primary osteoarthritis, left shoulder; G89.4 Chronic pain syndrome | CPT/HCPCS: 99212 ==

== ENCOUNTER 2024-11-03 12:41 | Outpatient (AMB) | payer OTHER, SELFPAY ==
--- NOTE | 2024-11-03 12:49 | A.OFFVIS_ITS ---
Vital Signs 11/03/24 12:51 Height 5 ft 6 in Weight 198 lb BMI 32.0 BP 134/82 Blood Pressure Location Rt brachial Position Sitting Intake Visit Reasons: INP-Other Amnesia Intake Note: Patient referred in-house by Dr. Campbell for memory loss Molybdenum Steamer Operator Required: Yes Molybdenum Steamer Operator Services: Molybdenum Steamer Operator Present Molybdenum Steamer Operator Name: payal cardenas Information Interpreted: non-clinical & clinical Allergies amitriptyline Allergy (Intermediate, Verified 11/03/24 12:53) stomach pain aspirin Allergy (Intermediate, Verified 11/03/24 12:53) stomach pain Medication List - Last Reconciled 11/03/24 by Doris Katz MD acetaminophen 500 mg PO BID PRN adalimumab (Humira(CF) Pen) 40 mg subcut Q2W allopurinol 300 mg PO DAILY 90 days aspirin 81 mg PO DAILY atorvastatin 20 mg PO DAILY calcipotriene 0.005% 1 appl topical QAM cholecalciferol (vitamin D3) 50 mcg PO DAILY 90 days fluocinonide 0.05% appl topical DAILY lisinopril 40 mg PO DAILY metoprolol succinate ER 150 mg (1.5 x 100 mg) PO DAILY 90 days omeprazole 20 mg PO BID [recliner As directed] HPI Comments Details: 74y/o male comes for evaluation of memory issues A certified medical support specialist Payal Cardenas helped with todays appointment. he is accompanied by his who noticed short term memory issues for about 2 years and it has progressively worsened. He has trouble remembering his shopping list, forgets conversations, phone calls, misplaces his things in the house etc. He is independent in all ADLS. He is unable to use the remote. He is able to use his phone. He used to play Guitar but does not play it now due to hand pain.He has trouble sleeping .He reports loud snoring , frequent arousals, gasping arousals, witnessed apneas. and daytime sleepiness. He has had multiple closed head injuries many years ago. He consumes alcohol for many years - now he used to take 2 shots of tequila- now taking1 shot. He had PSG in 2022- REM dominant sleep apnea and PLMD He was started on gabapentin for 1 month and stopped. He did not start CPAP [facility] Medical History (Updated 11/03/24 @ 13:29 by Doris Katz MD) Hypersomnia Snoring Psoriatic arthritis Former smoker Gout Elevated hemoglobin GERD (gastroesophageal reflux disease) Pure hypercholesterolemia Essential hypertension Surgical History H/O wrist surgery History of foot surgery Family History Father Asthma Mother Hypertension Stomach cancer, Onset Age: 50 Family/Other Substance use disorder Brother Cancer, Onset Age: 61 Social History Household Members: Spouse and Significant Other Housing: Apartment Alcohol intake: current Alcohol intake frequency: 0-2 drinks per day Alcohol type: beer and hard liquor Patient Tobacco Use Status: Former Tobacco user Tobacco use type: Cigarette e-Cigarette/Vaping Use: Never Used Second Hand Smoke Exposure: No service: No Current occupational status: disabled Cognitive needs: No Hearing needs: No Vision needs: No Physical Exam Vital Signs: Last Vital Signs BP 134/82 11/03/24 12:51 BMI result Body Mass Index 32.0 Const General: cooperative, healthy appearing, comfortable and no acute distress Nutritional Appearance: overweight Orientation/consciousness: patient oriented x3 Neuro General: patient oriented x3, gait normal, tone normal, moves all extremities and no focal motor deficits Cranial nerves: Yes Bilaterally intact EOM present, Yes Nystagmus not present, Yes Normal facial strength present, Yes Midline tongue present and Yes Symmetric palate elevation present Cognition (Neuro): normal cognition Gait exam (Neuro): Normal gait present Motor exam (neuro): 5/5 motor strength present throughout and Normal motor muscle tone present throughout Deep tendon reflexes (DTR's): Right triceps reflex intensity grade: 1+, Left triceps reflex intensity grade: 1+, Rt Biceps (C5, C6): 1+, Left biceps reflex intensity grade: 1+, Right brachioradialis reflex intensity grade: 1+, Left brachioradialis reflex intensity grade: 1+, Right patellar reflex intensity grade: 2+ and Left patellar reflex intensity grade: 2+ Coordination: [id number] test normal Orientation What is the (year) (season) (date) (day) (month)?: year, date, day and month Where are we (state) (county) (town or city) (hospital) (floor)?: state, county, town or city, hospital/clinic and floor Registration Name of 3 unrelated objects clearly and slowly, then ask patient to repeat all 3 of them. (1st repeat determines score. Make sure they can repeat all three): object 1, object 2 and object 3 Attention & Calculation (CHOOSE ONE) Spell WORLD backwards (DLROW): 4 letters Recall Ask patient to repeat the 3 items from question #3.: object 1 Language Show patient a wristwatch & ask what it is. Repeat for pencil.: watch and pencil Ask the patient to repeat the phrase 'No ifs, ands, or buts' after you.: correct Ask the patient to 'take a piece of paper with their right hand' 'fold paper in half' 'place paper on floor': take paper in right hand, fold paper in half and place paper on floor Print the sentence 'CLOSE YOUR EYES' on a piece. If patient actually closes eyes then score.: followed written direction Give patient a blank piece of paper & ask to write a sentence. Score if it contains a noun & verb.: sentence contains subject and verb Ask patient to copy figure of intersecting pentagons exactly. 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 F/u after the above evaluations. Orders: Orders RT home sleep study Today G47.10 - Hypersomnia, unspecified, R06.83 - Snoring, R41.3 - Other amnesia Coding Level of Care Code New Pt Level 4 (27889) Diagnoses Memory loss R41.3 Snoring R06.83 Hypersomnia G47.10
[2024-11-03 12:51] VITALS: BP 134/82; BMI 32.0
--- OUTSIDE RECORDS SUMMARY | 2024-11-03 14:18 | XMS_ITS | Patient Health Record ---
Author Organization [facility] Address [address] [place] [address] Care Team Providers Care Health Care Sanitary Technician Name Role Phone Cristina Rivera Primary Care Provider Unavailab Kike Hanks Unavailable [phone] Allergies No Known Allergies Reason For Referral [...] Problem Status W/U Status Risk Notes Problem [id number] Encounter for screening for malignant neoplasm of colon (Z12.11) Active confirmed Problem 306367174 History of adenomatous polyp of colon (Z86.010) Active confirmed Problem History of polyp of colon (situation) (971445437) Personal history of colonic polyps (Z86.010) Active confirmed Problem Diverticular disease of colon (903977548) Diverticulosis of large intestine without perforation or abscess without bleeding (K57.30) Active confirmed Problem 748620582 Preprocedural examination (Z01.818) Active confirmed Problem 535474470 Long-term use of aspirin therapy (Z79.82) Active confirmed Plan Of Treatment Future Test Test Name Order Date COLONOSCOPY 05/31/2011 COLONOSCOPY 10/26/2016 COLONOSCOPY 05/10/2022 Insurance Providers Payer Name Payer Address Payer Phone Subscriber Number Group Number Insured Name Patient Relationship to Insured Coverage Start Date Coverage End Date [facility] Claims [address] [address] [place] [address] [id number] SYLVAIN SIMS Self - patient is the [...]
== END 2024-11-03 13:38 | disposition home or self-care (01) ==
LOC: HO.HSMS 12:42
PROVIDERS: PCP Internal Medicine; Visit Provider Psychiatry & Neurology Neurology
DX: R41.3 Other amnesia (principal); R06.83 Snoring; G47.10 Hypersomnia, unspecified
CPT/HCPCS: 99204

== ENCOUNTER → 2024-11-03 12:41 | Outpatient (BNVA) | payer OTHER, SELFPAY | PROVIDERS: PCP Internal Medicine; Visit Provider Psychiatry & Neurology Neurology | DX: G47.10 Hypersomnia, unspecified (principal); R06.83 Snoring; R41.3 Other amnesia | CPT/HCPCS: 99202 ==

== ENCOUNTER 2024-11-15 10:40 | Outpatient (REF) | payer OTHER, SELFPAY ==
--- NOTE | ~2024-11-15 | MR_ITS ---
EXAMINATION: MR BRAIN WITHOUT IV CONTRAST HISTORY: R41.3 - Other amnesia TECHNIQUE: Sagittal T1, and axial T1, FLAIR, T2, gradient echo, and diffusion weighted MR images of the brain were obtained. COMPARISON: Comparison is made with the prior examination dated 01/23/2019. FINDINGS: There is diffuse prominence of the ventricular system and cortical sulci, consistent with atrophy. Periventricular and subcortical white matter hyperintensities are noted on the FLAIR and T2-weighted images which are nonspecific, but often seen in the setting of small vessel ischemic disease. Again seen is encephalomalacia inferior aspects of the inferior frontal lobes bilaterally, likely posttraumatic in nature. There is no mass effect or midline shift. No intra or extra-axial fluid collections are identified. There are no foci of restricted diffusion. Normal vascular flow voids are noted in the basilar and carotid arteries. There is mucosal thickening in the right maxillary sinus. MR/MR head/brain wo con IMPRESSION: No acute intracranial abnormality. Electronically signed by: Kike Flaherty MD 11/17/2024 09:03 AM EDT
--- OUTSIDE RECORDS SUMMARY | 2024-11-15 10:45 | XMS_ITS | Clinical Summary ---
Author Organization [employer] Address [address] [place] [address] Care Team Providers Care Boat Oar Maker Name Role Phone Unavailable Primary Care Provider [...] Description 02/10/2025 10:00 AM EDT Office Visit [facility] [address] [place] [address] Wayne, Kimberley Health Maintenance Due Date Last Done Comments CT Colonography 1952 Colonoscopy 1952 Colorectal Cancer Screening 1952 Depression Screening 1952 FIT DNA/Cologuard 1952 FIT 1952 FOBT 1952 Lipid Panel 1952 SDOH Screening 1952 Sigmoidoscopy 1952 Alcohol/Substance Use Screening 1964 Hepatitis C Screening 02/06/1970 COVID-19 Vaccine ( season) 2024 03/24/2023, 12/05/2021, 04/12/2021, Additional history exists Dental Oral Exam 04/18/2024 10/16/2023, 01/2021, 01/10/2019, Additional history exists Dental X-Ray: Bitewings 10/16/2024 10/16/19 24, 07/06/2020, 01/10/2019, Additional history exists Influenza Vaccine (Season Ended) 2025 04/27/2022, 03/11/2021, 04/26/2020, Additional history exists Dental Prophylaxis 01/30/2025 07/29/2024, [...] Associated Diagnosis Comments PROPHYLAXIS - ADULT Routine 07/29/2024 2 :30 PM EST Dental calculus Dental plaque INTRAORAL - COMPLETE SERIES OF RADIOGRAPHIC IMAGES Routine 10/16/2023 1:00 PM EDT PERIODIC ORAL EVALUATION - ESTABLISHED PATIENT Routine 10/16/2023 1:00 PM EDT Dental plaque Dental calculus Encounter for dental examination Teeth missing Gingival recession, generalized from Last 3 Months or Most Recently Relevant to Health Maintenance Insurance D[facility]AL [facility]
== END 2024-11-15 10:41 | disposition home or self-care (01) ==
LOC: HO.MRI 10:40
PROVIDERS: PCP Internal Medicine; Visit Provider Internal Medicine
DX: R41.3 Other amnesia (principal)
CPT/HCPCS: 70551

== ENCOUNTER → 2024-11-15 10:40 | Outpatient (BNV) | payer OTHER, SELFPAY | PROVIDERS: PCP Internal Medicine; Visit Provider Radiology Diagnostic Radiology | DX: R41.3 Other amnesia (principal) | CPT/HCPCS: 70551 ==

== ENCOUNTER 2024-12-03 11:10 | Outpatient (AMB) | payer OTHER, SELFPAY ==
[2024-12-03 11:19] VITALS: BP 128/80; PULSE 102; RESP 18; O2SAT 97
--- NOTE | 2024-12-03 11:19 | A.OFFVIS_ITS ---
Vital Signs 12/03/24 11:19 Weight 196 lb BP 128/80 Blood Pressure Location Rt brachial Position Sitting Respiration 18 Pulse 102 H Pulse Source Pulse Oximeter Pulse Oximetry (%) 97 Oxygen Delivery Method Room Air Intake Visit Reasons: 1 Month Follow Up Stripper And Opaquer Apprentice Required: Yes Stripper And Opa[employer] Apprentice Services: Stripper And Opa[employer] Apprentice Present Stripper And Opaquer Apprentice Name: [id number] Allergies amitriptyline Allergy (Intermediate, Verified 12/03/24 11:22) stomach pain aspirin Allergy (Intermediate, Verified 12/03/24 11:22) stomach pain HPI Comments Details: Leeroy is back in my office for the follow-up. He continued to wear the SI joint belt with minimal improvement. His CT scan is scheduled for 12/17/2024. This diagnostic study is scheduled to rule out red flags such as infection or new mass growth in the patient's pelvis. He will be scheduled for the appointment for the follow-up of this CT scan on 12/26/2024. In the absence of the red flags of this patient pelvic bones and organs we will schedule him for the sacroiliac joint fusion 1st on the left and after that on the right. Prior: Results of therapeutic bilateral sacroiliac joint injection. He reports that his pain today as 5/10. He reported pain before the injection was 10/10 and maybe even more. He reported that 1st 15 days after the procedure was almost 100% pain relief. However now pain is starting to cripple back. I recommended him to start wearing sacroiliac joint belt. We provided sacroiliac joint belt for the patient today. We also will schedule him for CT of bony pelvis and CT of the lumbar spine to rule out red flags which would prevent us to go for the sacroiliac joint fusion. He would need bilateral fusion. We will go 1st for the most painful site. Everything was explained to the patient. Prior:. He received in the beginning of 2022 diagnostic sacroiliac joint injection which resulted in 100% immediate pain relief and 1 month of 90% pain improvement. He reported excellent mobility at this time good activities of daily living good social interactions. Unfortunately the patient was lost for follow-up in 2022 and now he is in my office reporting that he wants to repeat this injection again. I explained to the patient that at this time therapeutic sacroiliac joint injection needs to be performed. Risks of steroid injections were briefly explained to the patient. The patient agreed to go for the procedure. Prior: very pleasant Armenian-speaking 72 years old gentleman who presents in my office with complains on lower back pain with vague radiation into bilateral lower extremities.? He reports also shoulder pain in bilateral shoulders.? He reports pain on the left lower extremity radiating to the level of the knee and slightly below that level he reports pain in the right lower ext extremity radiating all the way down to the ankle but not into the toes.? he reports that his pain stays elevated all the time 8 to 9/10 level.? .? He had x-rays done on the lumbar spine and on the shoulders the report of which is dictated as below.? He tried physical therapy for his knees and his shoulders in the past and he denied any help.? He denied any injections. Past medical history significant for hypertension and some unclear symptoms from the heart.? 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 Past surgical history significant for ORIF of the hand and the toe surgery related to the back. [facility] Medical History (Updated 11/03/24 @ 13:29 by Doris Katz MD) Hypersomnia Snoring Psoriatic arthritis Former smoker Gout Elevated hemoglobin GERD (gastroesophageal reflux disease) Pure hypercholesterolemia Essential hypertension Surgical History H/O wrist surgery History of foot surgery Family History Father Asthma Mother Hypertension Stomach cancer, Onset Age: 50 Family/Other Substance use disorder Brother Cancer, Onset Age: 61 Social History Household Members: Spouse and Significant Other Housing: Apartment Alcohol intake: current Alcohol intake frequency: 0-2 drinks per day Alcohol type: beer and hard liquor Patient Tobacco Use Status: Former Tobacco user Tobacco use type: Cigarette e-Cigarette/Vaping Use: Never Used Second Hand Smoke Exposure: No service: No Current occupational status: disabled Cognitive needs: No Hearing needs: No Vision needs: No Review of Systems Const All systems reviewed & are unremarkable except as noted in HPI and below Neuro Denies Abnormal speech present and Denies Sensory deficit (Neuro) Physical Exam Vital Signs: Last Vital Signs Pulse 102 H 12/03/24 11:19 Resp 18 12/03/24 11:19 BP 128/80 12/03/24 11:19 Pulse Ox 97 12/03/24 11:19 Oxygen Delivery Method Room Air 12/03/24 11:19 Const General: cooperative, healthy appearing, comfortable and no acute distress Nutritional Appearance: overweight Orientation/consciousness: patient oriented x3 Eyes General: appearance normal, both eyes and all related structures Pupils: Equal, round and reactive pupils present EOM: EOMs intact bilaterally Neck Neck: Yes full ROM Chest Chest palpation & inspection: normal inspection of the chest Resp Effort & Inspection: normal respiratory effort, able to speak in complete sentences, normal respiratory pattern, no audible wheezes and no cough Cardio Jugular venous distension: no JVD GI Inspection: Yes normal to inspection Back/Spine/Pelvis Other: Able to stand on bilateral tiptoes and bilateral heels. Able to flex himself forward but reports severe pain at about 70 degrees, reports severe pain in the back with flexing back backwards. Loading test is positive bilaterally. Bernadine finger test is positive bilaterally. Gaenslen test is positive bilaterally. Stinchfield test is positive bilaterally. SLR test may be positive bilaterally. But dorsiflexion of the both feet with maximal SLR does not aggravate the pain. Tenderness on palpation on paraspinal spinal regions entire lumbar spine and lower thoracic spine. Valsalva maneuver does not aggravate the pain. Reports significant pain with bending forward in the lumbar spine and also reports significant tenderness on palpation in the projection of bilateral iliac crests at the top of bilateral iliac crests in the projection of the cluneal nerves passing over on the surface of the posterior pelvis. Neuro General: patient oriented x3, gait normal, tone normal, moves all extremities and no focal motor deficits Cranial nerves: Yes Equal, round and reactive pupils present, Yes Bilaterally intact EOM present, Yes Nystagmus not present, Yes Normal facial strength present, Yes Midline tongue present and Yes Symmetric palate elevation present Cognition (Neuro): normal cognition Speech: No Abnormal speech present Gait exam (Neuro): Normal gait present Motor exam (neuro): 5/5 motor strength present throughout and Normal motor muscle tone present throughout Sensory Exam: No Sensory deficit (Neuro) Deep tendon reflexes (DTR's): Right triceps reflex intensity grade: 1+, Left triceps reflex intensity grade: 1+, Rt Biceps (C5, C6): 1+, Left biceps reflex intensity grade: 1+, Right brachioradialis reflex intensity grade: 1+, Left brachioradialis reflex intensity grade: 1+, Right patellar reflex intensity grade: 2+ and Left patellar reflex intensity grade: 2+ Coordination: [id number]-[id number] test normal Extrem General: No pedal edema Psych Speech and movement: Normal speech and movement present Affect: normal affect Attitude: cooperative Thought process: Normal thought process present Thought content: Normal thought content present Insight: Good insight present (Psych) Judgement: Good judgement present (Psych) Assessment & Plan Assessment & Plan (1) Sacroiliitis: Code(s): M46.1 - Sacroiliitis, not elsewhere classified Category: Medical (2) Sacroiliac joint dysfunction of both sides: Code(s): M53.3 - Sacrococcygeal disorders, not elsewhere classified Category: Medical (3) Localized osteoarthritis of knees, bilateral: Code(s): M17.0 - Bilateral primary osteoarthritis of knee Category: Medical (4) Spondylosis of lumbar region without myelopathy or radiculopathy: Code(s): M47.816 - Spondylosis without myelopathy or radiculopathy, lumbar region Category: Medical (5) Chronic pain syndrome: Code(s): G89.4 - Chronic pain syndrome Category: Medical (6) Acromioclavicular joint arthritis: Code(s): M19.019 - Primary osteoarthritis, unspecified shoulder Category: Medical Qualifiers: Laterality: bilateral Qualified Code(s): M19.011 - Primary osteoarthritis, right shoulder; M19.012 - Primary osteoarthritis, left shoulder (7) Mononeuropathy, unspecified: Code(s): G58.9 - Mononeuropathy, unspecified Category: Medical (8) Psoriasis arthropathica: Code(s): L40.50 - Arthropathic psoriasis, unspecified Category: Medical (9) Pain of both sacroiliac joints: Code(s): M53.3 - Sacrococcygeal disorders, not elsewhere classified Category: Medical Plan Good results of diagnostic as well as therapeutic sacroiliac joint injection. Unfortunately sacroiliac joint injection with steroids resulted in only 15 days of complete pain relief. In 1 month his pain was back. Sacroiliac joint fusion discussed with the patient. Physical therapy would provide very minimal pain relief for this patient. He tried multiple sessions. He continues home exerc ise program to receive small improvements. SI joint belt was prescribed to the patient. He continues to wear the belt. He reports only minimal improvement. He is scheduled for CT of the pelvis and CT of the lumbar spine. After red flags will be cleared we will start scheduling this patient for sacroiliac joint fusion. I will use [employer] system for this patient. Coding Level of Care Code Est Pt Level 3 (22393) Diagnoses Sacroiliitis M46.1 Sacroiliac joint dysfunction of both sides M53.3 Localized osteoarthritis of knees, bilateral M17.0 Spondylosis of lumbar region without myelopathy or radiculopathy M47.816 Chronic pain syndrome G89.4 Arthritis of both acromioclavicular joints M19.011; M19.012 Laterality: bilateral Mononeuropathy, unspecified G58.9 Psoriasis arthropathica L40.50 Pain of both sacroiliac joints M53.3
--- OUTSIDE RECORDS SUMMARY | 2024-12-03 12:25 | XMS_ITS | Patient Health Record ---
Author Organization [facility] Address [address] [place] [address] Care Team Providers Care Pocket Closer Name Role Phone Cristina Rivera Primary Care Provider Unavailab Kike Hanks Unavailable [phone] Allergies No Known Allergies Reason For Referral [...] Problem Status W/U Status Risk Notes Problem [id number] Encounter for screening for malignant neoplasm of colon (Z12.11) Active confirmed Problem 879049302 History of adenomatous polyp of colon (Z86.010) Active confirmed Problem History of polyp of colon (situation) (235777879) Personal history of colonic polyps (Z86.010) Active confirmed Problem Diverticulosis o f large intestine without perforation or abscess without bleeding (K57.30) Active confirmed Problem 784922159 Preprocedural examination (Z01.818) Active confirmed Problem 135192437 Long-term use of aspirin therapy (Z79.82) Active confirmed Plan Of Treatment Future Test Test Name Order Date COLONOSCOPY 05/31/2011 COLONOSCOPY 10/26/2016 COLONOSCOPY 05/10/2022 Insurance Providers Payer Name Payer Address Payer Phone Subscriber Number Group Number Insured Name Patient Relationship to Insured Coverage Start Date Coverage End Date [facility] Claims [address] [address] [place] [address] [phone] [id number] SYLVAIN SIMS Self - patient is the insured Medical (General) History Medical History History ICD Code Hyperlipidemia HTN Gout Denies [place],DM,CVA,Lung disease,renal dise ase Colonoscopy 2005 revealed a small tubular adenoma that was removed; colonoscopy in June of 2011 was negative except for diverticulosis and internal hemorrhoids Psoriasis Negative screening colonosco py in December of 2016 other than a hyperplastic polyp Surgical History Surgery Date(Month/Year) Wrist and foot surgery
--- OUTSIDE RECORDS SUMMARY | 2024-12-03 12:25 | XMS_ITS | Clinical Summary ---
Author Organization [employer] Address [address] [facility] [address] [place] [address] Care Team Providers Care Planning Coordinator Name Role Phone Unavailable Primary Care Provider [...] Description 02/10/2025 10:00 AM EDT Office Visit [facility] [address] [place] [address] WayneKimberley whiting Health Maintenance Due Date Last Done Comments [...] 07/06/2020, 01/10/2019, Additional history exists Influenza Vaccine (#1) 2025 , 03/11/2021, 04/26/2020, Additional history exists Dental Prophylaxis [...] Recently Relevant to Health Maintenance Insurance DENTAL [facility]
== END 2024-12-03 11:46 | disposition home or self-care (01) ==
PROVIDERS: PCP Internal Medicine; Visit Provider Anesthesiology
DX: M46.1 Sacroiliitis, not elsewhere classified (principal); M53.3 Sacrococcygeal disorders, not elsewhere classified; M17.0 Bilateral primary osteoarthritis of knee; M47.816 Spondylosis without myelopathy or radiculopathy, lumbar region; G89.4 Chronic pain syndrome; M19.011 Primary osteoarthritis, right shoulder; M19.012 Primary osteoarthritis, left shoulder; G58.9 Mononeuropathy, unspecified; L40.50 Arthropathic psoriasis, unspecified
CPT/HCPCS: 99213

== ENCOUNTER → 2024-12-03 11:10 | Outpatient (BNVA) | payer OTHER, SELFPAY | PROVIDERS: PCP Internal Medicine; Visit Provider Anesthesiology | DX: M46.1 Sacroiliitis, not elsewhere classified (principal); M53.3 Sacrococcygeal disorders, not elsewhere classified; L40.50 Arthropathic psoriasis, unspecified; G58.9 Mononeuropathy, unspecified; M19.012 Primary osteoarthritis, left shoulder; M19.011 Primary osteoarthritis, right shoulder; G89.4 Chronic pain syndrome; M47.816 Spondylosis without myelopathy or radiculopathy, lumbar region; M17.0 Bilateral primary osteoarthritis of knee | CPT/HCPCS: 99212 ==

== ENCOUNTER 2024-12-17 07:18 | Outpatient (REF) | payer OTHER, SELFPAY ==
--- NOTE | ~2024-12-17 | CT_ITS ---
CLINICAL HISTORY: M53.3 - Sacrococcygeal disorders, not elsewhere classified CT lumbar spine without contrast Comparison: None provided Findings: Normal vertebral body alignment. No acute fractures or dislocations. Mild multilevel disc height loss with reactive endplate change. Posterior disc bulge seen at L3-4, L4-5 and L5-S1. Bilateral facet hypertrophy with ligamentum flavum hypertrophy greatest at L3-4 and L4-5. Together these likely cause a degree of central canal narrowing which would be better characterized by MRI. Suspect at least moderate neural foraminal narrowing on the left at L3-4. This would also be better characterized by MRI. SI joints are maintained without significant sclerosis. Mild irregularity could indicate mild prior sacroiliitis. Findings could also simply be age related. Incidental note made of a 3 cm benign-appearing right adrenal myelolipoma. Remaining visualized intra-abdominal structures are unremarkable. IMPRESSION: Multilevel degenerative change of the lumbar spine as described. Suspect a degree of central canal narrowing at L3-4 and L4-5 due to facet hypertrophy and posterior disc protrusion. MRI recommended to better assess the degree of canal and neural foraminal narrowing. This document has been electronically signed by: Mariposa Lopez MD on 12/17/2024 10:41:43
--- NOTE | ~2024-12-17 | CT_ITS ---
CLINICAL HISTORY: M53.3 - Sacrococcygeal disorders, not elsewhere classified CT pelvis without contrast Comparison: None provided Findings: The prostate is enlarged. Bladder is decompressed. Soft tissues within the pelvis are otherwise unremarkable in noncontrast technique. Mild vascular calcification. No acute fracture or destructive osseous lesion. Degenerative changes of the lower lumbar spine are discussed on the concurrent CT lumbar spine report. SI joints are maintained. Mild degenerative change of the hips with joint space loss and osteophyte formation. Calcification of the proximal aspect of the hamstring tendon along the ischial tuberosity bilaterally. IMPRESSION: Mild to moderate degenerative change of the hips. No acute findings. No acute sacrococcygeal findings. This document has been electronically signed by: Mariposa Lopez MD on 12/17/2024 10:55:48
--- OUTSIDE RECORDS SUMMARY | 2024-12-17 07:20 | XMS_ITS | Patient Health Record ---
Author Organization [facility] Address [address] [place] [address] Care Team Providers Care Pack Out Operator Name Role Phone Cristina Rivera Primary Care Provider Unavailab Kike Hanks Unavailable [phone] Allergies No Known Allergies Reason For Referral [...] Problem Status W/U Status Risk Notes Problem 856207603 Encounter for screening for malignant neoplasm of colon (Z12.11) Active confirmed Problem 627520145 History of adenomatous polyp of colon (Z86.010) Active confirmed Problem History of polyp of colon (situation) (033823210) Personal history of colonic polyps (Z86.010) Active confirmed Problem Diverticulosis o f large intestine without perforation or abscess without bleeding (K57.30) Active confirmed Problem 650480869 Preprocedural examination (Z01.818) Active confirmed Problem 054590290 Long-term use of aspirin therapy (Z79.82) Active confirmed Plan Of Treatment Future Test Test Name Order Date COLONOSCOPY 05/31/2011 COLONOSCOPY 10/26/2016 COLONOSCOPY 05/10/2022 Insurance Providers Payer Name Payer Address Payer Phone Subscriber Number Group Number Insured Name Patient Relationship to Insured Coverage Start Date Coverage End Date [facility] Claims [address] [address] [place] [address] [phone] [id number] SYLVAIN SIMS Self - patient is the insured Medical (General) History Medical History History ICD Code Hyperlipidemia HTN Gout Denies [place],DM,CVA,Lung disease,renal dise ase Colonoscopy 2005 revealed a small tubular adenoma that was removed; colonoscopy in June of 2011 was negative except for diverticulosis and internal hemorrhoids Psoriasis Negative screening colonosco py in December of 2016 other than a hyperplastic polyp Surgical History Surgery Date(Month/Year) Wrist and foot surgery
--- OUTSIDE RECORDS SUMMARY | 2024-12-17 07:20 | XMS_ITS | Clinical Summary ---
Author Organization [employer] Address [address] [facility] [address] [place] [address] Care Team Providers Care Automobile Drivers Name Role Phone Unavailable Primary Care Provider [...] Description 02/10/2025 10:00 AM EDT Office Visit [facility] [address] [place] [address] WayneKimberley whiting Health Maintenance Due Date Last [...] Recently Relevant to Health Maintenance Insurance [facility]AL [facility]
== END 2024-12-17 07:19 | disposition home or self-care (01) ==
LOC: HO.CT 07:18
PROVIDERS: PCP Internal Medicine; Visit Provider Anesthesiology
DX: M53.3 Sacrococcygeal disorders, not elsewhere classified (principal); M46.1 Sacroiliitis, not elsewhere classified
CPT/HCPCS: 72131; 72192

== ENCOUNTER → 2024-12-17 07:21 | Outpatient (BNV) | payer OTHER, SELFPAY | PROVIDERS: PCP Internal Medicine; Visit Provider Radiology Diagnostic Radiology | DX: M16.0 Bilateral primary osteoarthritis of hip (principal); M51.369 Other intervertebral disc degeneration, lumbar region without mention of lumbar back pain or lower extremity pain | CPT/HCPCS: 72131; 72192 ==

== ENCOUNTER 2024-12-26 14:41 | Outpatient (AMB) | payer OTHER, SELFPAY ==
--- OUTSIDE RECORDS SUMMARY | 2024-12-26 14:44 | XMS_ITS | Patient Health Record ---
Author Organization [facility] Address [address] [place] [address] Care Team Providers Care Foreign Language Interpreter Name Role Phone Cristina Rivera Primary Care Provider Unavailab Kike Hanks Unavailable [phone] Allergies No Known Allergies Reason For Referral [...] Problem Status W/U Status Risk Notes Problem [id number] Encounter for screening for malignant neoplasm of colon (Z12.11) Active confirmed Problem 575770879 History of adenomatous polyp of colon (Z86.010) Active confirmed Problem History of polyp of colon (situation) (977102953) Personal history of colonic polyps (Z86.010) Active confirmed Problem Diverticulosis o f large intestine without perforation or abscess without bleeding (K57.30) Active confirmed Problem 409407058 Preprocedural examination (Z01.818) Active confirmed Problem 277371432 Long-term use of aspirin therapy (Z79.82) Active confirmed Plan Of Treatment Future Test Test Name Order Date COLONOSCOPY 05/31/2011 COLONOSCOPY 10/26/2016 COLONOSCOPY 05/10/2022 Insurance Providers Payer Name Payer Address Payer Phone Subscriber Number Group Number Insured Name Patient Relationship to Insured Coverage Start Date Coverage End Date [facility] Claims [address] [address] [place] [address] [phone] [id number] SYLVAIN SIMS Self - patient is the insured Medical (General) History Medical History History ICD Code Hyperlipidemia HTN Gout Denies [place],DM,CVA,Lung disease,renal dise ase Colonoscopy 2005 revealed a small tubular adenoma that was removed; colonoscopy in June of 2011 was negative except for diverticulosis and internal hemorrhoids Psoriasis Negative screening colonosco py in December of 2016 other than a hyperplastic polyp Surgical History Surgery Date(Month/Year) Wrist and foot surgery
--- OUTSIDE RECORDS SUMMARY | 2024-12-26 14:44 | XMS_ITS | Clinical Summary ---
Author Organization [employer] Address [address] [facility] [address] [place] [address] Care Team Providers Care Content Writer Name Role Phone Unavailable Primary Care Provider [...] Description 02/10/2025 10:00 AM EDT Office Visit [facility] [address] [place] [address] WayneKimberley whiting Health Maintenance Due Date Last [...] Recently Relevant to Health Maintenance Insurance [facility]AL [facility]
[2024-12-26 14:49] VITALS: BP 134/89; PULSE 102; RESP 16; O2SAT 98; BMI 32.0
--- NOTE | 2024-12-26 14:49 | MHC.OFFVIS ---
Vital Signs 12/26/24 14:49 Height 5 ft 6 in Weight 198 lb BMI 32.0 BP 134/89 Blood Pressure Location Lt brachial Position Sitting Respiration 16 Pulse 102 H Pulse Source Pulse Oximeter Pulse Oximetry (%) 98 Oxygen Delivery Method Room Air Intake Visit Reasons: CT results Circus Roustabout Required: Yes Circus Roustabout Name: Akosua Accompanied by: Life Partner Allergies amitriptyline Allergy (Intermediate, Verified 12/26/24 14:56) stomach pain aspirin Allergy (Intermediate, Verified 12/26/24 14:56) stomach pain HPI Comments Details: The patient is a 74-year-old male presenting back to the office today for follow-up, review recent CAT scan. Imaging studies, including a CT scan of the pelvis and lumbar spine, were conducted to evaluate the condition of the sacroiliac joint and surrounding structures. These studies showed mild to moderate degenerative changes in the hips and lumbar spine, with central canal narrowing at L3-4 and L4-5 due to arthritis of the facet joints and a small posterior disc protrusion. The sacroiliac joint instability is contributing to significant discomfort, leading to the recommendation for sacroiliac joint fusion to address the instability and alleviate pain. - Pain associated with sacroiliac joint instability - Pain exacerbated by instability and movement of the sacroiliac joint - Affect: Pain is causing significant discomfort and impacting daily activities. - Analgesia: Sacroiliac joint fusion planned to alleviate pain by eliminating joint instability. - Activities of Daily Living: Pain affects daily activities due to joint instability. Prior visit with Dr. Sanchez: Leeroy is back in my office for the follow-up. He continued to wear the SI joint belt with minimal improvement. His CT scan is scheduled for 12/17/2024. This diagnostic study is scheduled to rule out red flags such as infection or new mass growth in the patient's pelvis. He will be scheduled for the appointment for the follow-up of this CT scan on 12/26/2024. In the absence of the red flags of this patient pelvic bones and organs we will schedule him for the sacroiliac joint fusion 1st on the left and after that on the right. Prior: Results of therapeutic bilateral sacroiliac joint injection. He reports that his pain today as 5/10. He reported pain before the injection was 10/10 and maybe even more. He reported that 1st 15 days after the procedure was almost 100% pain relief. However now pain is starting to cripple back. I recommended him to start wearing sacroiliac joint belt. We provided sacroiliac joint belt for the patient today. We also will schedule him for CT of bony pelvis and CT of the lumbar spine to rule out red flags which would prevent us to go for the sacroiliac joint fusion. He would need bilateral fusion. We will go 1st for the most painful site. Everything was explained to the patient. Prior:. He received in the beginning of 2022 diagnostic sacroiliac joint injection which resulted in 100% immediate pain relief and 1 month of 90% pain improvement. He reported excellent mobility at this time good activities of daily living good social interactions. Unfortunately the patient was lost for follow-up in 2022 and now he is in my office reporting that he wants to repeat this injection again. I explained to the patient that at this time therapeutic sacroiliac joint injection needs to be performed. Risks of steroid injections were briefly explained to the patient. The patient agreed to go for the procedure. Prior: very pleasant Estonian-speaking 72 years old gentleman who presents in my office with complains on lower back pain with vague radiation into bilateral lower extremities.? He reports also shoulder pain in bilateral shoulders.? He reports pain on the left lower extremity radiating to the level of the knee and slightly below that level he reports pain in the right lower ext extremity radiating all the way down to the ankle but not into the toes.? he reports that his pain stays elevated all the time 8 to 9/10 level.? .? He had x-rays done on the lumbar spine and on the shoulders the report of which is dictated as below.? He tried physical therapy for his knees and his shoulders in the past and he denied any help.? He denied any injections. Past medical history significant for hypertension and some unclear symptoms from the heart.? He is under care of personal companion with diagnosis of psoriasis, he probably has psoriatic arthritis.? He never went to digital developer.? Past surgical history significant for ORIF of the hand and the toe surgery related to the back. [facility] Medical History (Updated 11/03/24 @ 13:29 by Doris Katz MD) Hypersomnia Snoring Psoriatic arthritis Former smoker Gout Elevated hemoglobin GERD (gastroesophageal reflux disease) Pure hypercholesterolemia Essential hypertension Surgical History H/O wrist surgery History of foot surgery Family History Father Asthma Mother Hypertension Stomach cancer, Onset Age: 50 Family/Other Substance use disorder Brother Cancer, Onset Age: 61 Social History Household Members: Spouse and Significant Other Housing: Apartment Alcohol intake: current Alcohol intake frequency: 0-2 drinks per day Alcohol type: beer and hard liquor Patient Tobacco Use Status: Former Tobacco user Tobacco use type: Cigarette e-Cigarette/Vaping Use: Never Used Second Hand Smoke Exposure: No service: No Current occupational status: disabled Cognitive needs: No Hearing needs: No Vision needs: No Review of Systems Const All systems reviewed & are unremarkable except as noted in HPI and below Physical Exam Exam Exam: General: awake, alert, oriented. Answers questions appropriately. Fully engaged in examination. Skin: warm, dry, intact HEENT: Normocephalic. Hearing intact. Cardiac: External chest normal in appearance. Respiratory: No cough, audible wheezing or stridor. Abdomen: without gross distension. MS: No obvious swelling or deformities. Able to transition from sit to stand unassisted. Ambulates with bilaterally normal heel strike and toe off Neurological: Oriented to person, place, time and situation. Thought process intact. No gait abnormalities appreciated. Psychiatric: Appropriate mood and affect. Good judgment and insight. Results Reviewed Results Reviewed: 12/17/24 CT of the pelvis Findings: The prostate is enlarged. Bladder is decompressed. Soft tissues within the pelvis are otherwise unremarkable in noncontrast technique. Mild vascular calcification. No acute fracture or destructive osseous lesion. Degenerative changes of the lower lumbar spine are discussed on the concurrent CT lumbar spine report. SI joints are maintained. Mild degenerative change of the hips with joint space loss and osteophyte formation. Calcification of the proximal aspect of the hamstring tendon along the ischial tuberosity bilaterally. IMPRESSION: Mild to moderate degenerative change of the hips. No acute findings. No acute sacrococcygeal findings. 12/17/24 CT lumbar spine Findings: Normal vertebral body alignment. No acute fractures or dislocations. Mild multilevel disc height loss with reactive endplate change. Posterior disc bulge seen at L3-4, L4-5 and L5-S1. Bilateral facet hypertrophy with ligamentum flavum hypertrophy greatest at L3-4 and L4-5. Together these likely cause a degree of central canal narrowing which would be better characterized by MRI. Suspect at least moderate neural foraminal narrowing on the left at L3-4. This would also be better characterized by MRI. SI joints are maintained without significant sclerosis. Mild irregularity could indicate mild prior sacroiliitis. Findings could also simply be age related. Incidental note made of a 3 cm benign-appearing right adrenal myelolipoma. Remaining visualized intra-abdominal structures are unremarkable. IMPRESSION: Multilevel degenerative change of the lumbar spine as described. Suspect a degree of central canal narrowing at L3-4 and L4-5 due to facet hypertrophy and posterior disc protrusion. MRI recommended to better assess the degree of canal and neural foraminal narrowing. X-ray lumbar spine 02/24/2022. Findings: X-ray lumbosacral spine: The bony demineralization is present. Vertebral body heights and alignments are normal. Role lumbar disc spaces are well maintained. No acute fracture or spondylolisthesis is seen. There is multilevel very mild lumbar arterial spondylosis. The posterior elements are intact. The paravertebral soft tissues are unremarkable. No acute fracture dislocation. X-ray shoulder right 02/24/2022. Bony alignment and mineralization are normal. The glenohumeral joints are intact. The acromioclavicular and coracoclavicular intervals are normal. There is moderate osteoarthritic changes in the acromioclavicular joint. There is distal acromial undersurface osteophyte. Faint calcific tendonitis is suspected in the right rotator cuff. No foreign bodies seen. There is no right pneumothorax. X-ray left knee 02/24/2022. Findings bony alignment and mineralization are normal. No significant varus or valgus configuration is seen. There is moderate narrowing of the medial joint space compartment. Peripheral osteophyte formation. The lateral and patellofemoral joint spaces compartments are well maintained. There is chondrocalcinosis. No fracture dislocation is seen. There is a small right knee joint effusion. No foreign bodies seen. Assessment & Plan Assessment & Plan (1) Sacroiliitis: Code(s): M46.1 - Sacroiliitis, not elsewhere classified Category: Medical (2) Sacroiliac joint dysfunction of both sides: Code(s): M53.3 - Sacrococcygeal disorders, not elsewhere classified Category: Medical (3) Localized osteoarthritis of knees, bilateral: Code(s): M17.0 - Bilateral primary osteoarthritis of knee Category: Medical (4) Spondylosis of lumbar region without myelopathy or radiculopathy: Code(s): M47.816 - Spondylosis without myelopathy or radiculopathy, lumbar region Category: Medical (5) Chronic pain syndrome: Code(s): G89.4 - Chronic pain syndrome Category: Medical (6) Acromioclavicular joint arthritis: Code(s): M19.019 - Primary osteoarthritis, unspecified shoulder Category: Medical Qualifiers: Laterality: bilateral Qualified Code(s): M19.011 - Primary osteoarthritis, right shoulder; M19.012 - Primary osteoarthritis, left shoulder (7) Mononeuropathy, unspecified: Code(s): G58.9 - Mononeuropathy, unspecified Category: Medical (8) Psoriasis arthropathica: Code(s): L40.50 - Arthropathic psoriasis, unspecified Category: Medical (9) Pain of both sacroiliac joints: Code(s): M53.3 - Sacrococcygeal disorders, not elsewhere classified Category: Medical Plan The plan includes performing sacroiliac joint fusion to address the instability and alleviate pain. The procedure will be conducted under anesthesia as a same-day surgery, allowing the patient to return home the same day. Post-operative care will involve restrictions on activities such as bending, lifting, and twisting to promote healing. The surgery will be performed initially on the left side with right-sided follow up. Nevro SI fusion pamphlet provided to the patient. Continue wearing sacroiliac joint belt as tolerated. Patient was informed and verbally consented to the use of an ambient scribe for clinic note documentation during this visit. Patient Instructions: - Follow post-operative instructions carefully, avoiding bending, lifting, and twisting. - Attend follow-up appointments as scheduled to monitor healing and plan for the second procedure. - Contact the healthcare provider if there are any concerns or questions regarding recovery. Coding Level of Care Code Est Pt Level 3 (21900) Complex EM visit Add On G2211 Diagnoses Sacroiliitis M46.1 Sacroiliac joint dysfunction of both sides M53.3 Localized osteoarthritis of knees, bilateral M17.0 Spondylosis of lumbar region without myelopathy or radiculopathy M47.816 Chronic pain syndrome G89.4 Arthritis of both acromioclavicular joints M19.011; M19.012 Laterality: bilateral Mononeuropathy, unspecified G58.9 Psoriasis arthropathica L40.50 Pain of both sacroiliac joints M53.3
== END 2024-12-26 15:09 | disposition home or self-care (01) ==
PROVIDERS: PCP Internal Medicine; Visit Provider Registered Nurse Emergency
DX: M46.1 Sacroiliitis, not elsewhere classified (principal); M53.3 Sacrococcygeal disorders, not elsewhere classified; M17.0 Bilateral primary osteoarthritis of knee; M47.816 Spondylosis without myelopathy or radiculopathy, lumbar region; G89.4 Chronic pain syndrome; M19.011 Primary osteoarthritis, right shoulder; M19.012 Primary osteoarthritis, left shoulder; G58.9 Mononeuropathy, unspecified; L40.50 Arthropathic psoriasis, unspecified
CPT/HCPCS: 99213; G2211

== ENCOUNTER → 2024-12-26 14:41 | Outpatient (BNVA) | payer OTHER, SELFPAY | PROVIDERS: PCP Internal Medicine; Visit Provider Registered Nurse Emergency | DX: Z71.2 Person consulting for explanation of examination or test findings (principal); M46.1 Sacroiliitis, not elsewhere classified; M53.3 Sacrococcygeal disorders, not elsewhere classified; M17.0 Bilateral primary osteoarthritis of knee; M47.816 Spondylosis without myelopathy or radiculopathy, lumbar region; G89.4 Chronic pain syndrome; M19.011 Primary osteoarthritis, right shoulder; M19.012 Primary osteoarthritis, left shoulder; G58.9 Mononeuropathy, unspecified; L40.50 Arthropathic psoriasis, unspecified | CPT/HCPCS: 99212 ==

== ENCOUNTER 2025-01-07 12:51 | Outpatient (AMB) | payer OTHER, SELFPAY ==
--- NOTE | 2025-01-07 12:56 | MHC.OFFVIS ---
Vital Signs 01/07/25 12:57 Height 5 ft 6 in Weight 200 lb 6 oz BMI 32.3 BP 126/76 Blood Pressure Location Rt brachial Position Sitting Pulse 111 H Pulse Source Pulse Oximeter Pulse Oximetry (%) 95 Oxygen Delivery Method Room Air Intake Visit Reasons: 2 mo follow up Intake Note: Patient presents follow up memory/Sleep. HST booked 01/14. Patient process of l spine surgery awaiting for insurance. Paralegal Instructor Required: Yes Paralegal Instructor Language: Toggler Services: Paralegal Instructor Present Paralegal Instructor Name: Surjit [id number] Information Interpreted: non-clinical & clinical Accompanied by: Spouse Allergies amitriptyline Allergy (Intermediate, Verified 01/07/25 13:01) stomach pain aspirin Allergy (Intermediate, Verified 01/07/25 13:01) stomach pain HPI Comments Details: 74y/o Cymro speaking male comes for evaluation of memory issues and DOLORES f/u. Sadie his helps with history today. 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 He has trouble sleeping. He reports loud snoring, frequent arousals, gasping arousals, witnessed apneas has chronic daytime sleepiness. He is accompanied by his who noticed short term memory issues for about 2 years and it has progressively worsened. He has trouble remembering his shopping list, forgets conversations, phone calls, misplaces his things in the house etc. He is independent in all ADLS. He is unable to use the remote. He is able to use his phone. He used to play Guitar but does not play it now due to hand pain, pending insurance approval for lower back surgery, sacro-illiac. He has had multiple closed head injuries many years ago. He consumes alcohol for many years 1x tequila. He had PSG in 2022- REM dominant sleep apnea and PLMD He was started on gabapentin for 1 month and stopped. He did not start cpap, and will pharmacy picking technician the cpap machine 01/14 and use it at night then f/u again after we have results of his test. RLS symptoms, tingling, numbness, radiating pain. [facility] Medical History Hypersomnia Snoring Psoriatic arthritis Former smoker Gout Elevated hemoglobin GERD (gastroesophageal reflux disease) Pure hypercholesterolemia Essential hypertension Surgical History H/O wrist surgery History of foot surgery Family History Father Asthma Mother Hypertension Stomach cancer, Onset Age: 50 Family/Other Substance use disorder Brother Cancer, Onset Age: 61 Social History Household Members: Spouse and Significant Other Housing: Apartment Alcohol intake: current Alcohol intake frequency: 0-2 drinks per day Alcohol type: beer and hard liquor Patient Tobacco Use Status: Former Tobacco user Tobacco use type: Cigarette e-Cigarette/Vaping Use: Never Used Second Hand Smoke Exposure: No service: No Current occupational status: disabled Cognitive needs: No Hearing needs: No Vision needs: No Physical Exam Vital Signs: Last Vital Signs Pulse 111 H 01/07/25 12:57 BP 126/76 01/07/25 12:57 Pulse Ox 95 01/07/25 12:57 Oxygen Delivery Method Room Air 01/07/25 12:57 BMI result Body Mass Index 32.3 Orientation What is the (year) (season) (date) (day) (month)?: year, season and month Where are we (state) (county) (town or city) (hospital) (floor)?: state, town or city and floor Registration Name of 3 unrelated objects clearly and slowly, then ask patient to repeat all 3 of them. (1st repeat determines score. Make sure they can repeat all three): object 1, object 2 and object 3 Attention & Calculation (CHOOSE ONE) Spell WORLD backwards (DLROW): 4 letters Recall Ask patient to repeat the 3 items from question #3.: object 1, object 2 and object 3 Language Show patient a wristwatch & ask what it is. Repeat for pencil.: watch and pencil Ask the patient to repeat the phrase 'No ifs, ands, or buts' after you.: correct Ask the patient to 'take a piece of paper with their right hand' 'fold paper in half' 'place paper on floor': take paper in right hand, fold paper in half and place paper on floor Print the sentence 'CLOSE YOUR EYES' on a piece. If patient actually closes eyes then score.: followed written direction Give patient a blank piece of paper & ask to write a sentence. Score if it contains a noun & verb.: sentence contains subject and verb Score Score: 24 Results Reviewed Results Reviewed: There is diffuse prominence of the ventricular system and cortical sulci, consistent with atrophy. Periventricular and subcortical white matter hyperintensities are noted on the FLAIR and T2-weighted images which are nonspecific, but often seen in the setting of small vessel ischemic disease. Again seen is encephalomalacia inferior aspects of the inferior frontal lobes bilaterally, likely posttraumatic in nature. There is no mass effect or midline shift. No intra or extra-axial fluid collections are identified. There are no foci of restricted diffusion. Normal vascular flow voids are noted in the basilar and carotid arteries. There is mucosal thickening in the right maxillary sinus. Assessment & Plan Assessment & Plan (1) Memory loss: Comment: MCI vs early dementia Untreated sleep apnea Code(s): R41.3 - Other amnesia Category: Medical (2) Snoring: Code(s): R06.83 - Snoring Category: Medical (3) Hypersomnia: Comment: gasping arousals Code(s): G47.10 - Hypersomnia, unspecified Category: Medical (4) Muscle cramps: Code(s): R25.2 - Cramp and spasm Category: Medical Plan HST to r/o DOLORES 01/14/2025 will pharmacy picking technician study kit. MRI brain reviewed - MCI mild cognitive impairment PT declines today, continue 400mg magnesium Start memantine 10mg po daily - F/u after hst. in 3 months Medications: New memantine Start this medication at 7mg PO daily for one week, then titrate up to the next dose of 14mg PO daily for one week, then titrate up to 21mg PO daily for one week, then titrate up to 28mg PO daily for ongoing maintenance dose of 28mg PO daily. 7 mg PO DAILY 7 ea 0RF magnesium oxide 400 mg PO DAILY 90 tabs 3RF muslce cramps 3 months MDD 400mg R25.2 - Cramp and spasm Patient Instructions: Sleep Hygiene provided: set a scheduled bedtime and wake time to help regulate the circadian rhythm and balance the release of pituitary hormones. Sleep in a dark room, temperatures below 68 degrees, and no devices n bed. Limit caffeinated products 6 hours prior to bed, and limit fluids 2-4 hours prior to bed. Gentle night yoga, diffusing essential oils, and playing soft music can be relaxing. Coding Level of Care Code Est Pt Level 4 (92958) Diagnoses Memory loss R41.3 Snoring R06.83 Hypersomnia G47.10 Muscle cramps R25.2
[2025-01-07 12:57] VITALS: BP 126/76; PULSE 111; O2SAT 95; BMI 32.3
--- OUTSIDE RECORDS SUMMARY | 2025-01-07 13:22 | XMS_ITS | Patient Health Record ---
Author Organization [facility] Address [address] [place] [address] Care Team Providers Care Cloth Bin Packer Name Role Phone Cristina Rivera Primary Care Provider Unavailab Kike Hanks Unavailable [phone] Allergies No Known Allergies Reason For Referral [...] Problem Status W/U Status Risk Notes Problem [id number] Encounter for screening for malignant neoplasm of colon (Z12.11) Active confirmed Problem [id number] History of adenomatous polyp of colon (Z86.010) Active confirmed Problem History of polyp of colon (situation) (944643080) Personal history of colonic polyps (Z86.010) Active confirmed Problem Diverticular disease of colon (812293491) Diverticulosis of large intestine without perforation or abscess without bleeding (K57.30) Active confirmed Problem 460758495 Preprocedural examination (Z01.818) Active confirmed Problem 963502439 Long-term use of aspirin therapy (Z79.82) Active confirmed Plan Of Treatment Future Test Test Name Order Date COLONOSCOPY 05/31/2011 COLONOSCOPY 10/26/2016 COLONOSCOPY 05/10/2022 Insurance Providers Payer Name Payer Address Payer Phone Subscriber Number Group Number Insured Name Patient Relationship to Insured Coverage Start Date Coverage End Date [facility] Claims [address] [address] [place] [address] [id number] SYLVAIN SIMS Self - patient is the insured Medical (General) History Medical History History ICD Code Hyperlipidemia HTN Gout Denies OR,DM,CVA,Lung disease,renal dise ase Colonoscopy 2005 revealed a small tubular adenoma that was removed; colonoscopy in June of 2011 was negative except for diverticulosis and internal hemorrhoids Psoriasis Negative screening colonosco py in December of 2016 other than a hyperplastic polyp Surgical History Surgery Date(Month/Year) Wrist and foot surgery
--- OUTSIDE RECORDS SUMMARY | 2025-01-07 13:22 | XMS_ITS | Clinical Summary ---
Author Organization [employer] Address [address] [place] [address] Care Team Providers Care Supervisor Feed House Name Role Phone Unavailable Primary Care Provider [...] Description 02/10/2025 10:00 AM EDT Office Visit [facility] [address] [place] [address] WayneKimberley whiting Health Maintenance Due Date Last [...] Recently Relevant to Health Maintenance Insurance [facility]AL [facility]
== END 2025-01-07 14:13 | disposition home or self-care (01) ==
LOC: HO.HSMS 12:51
PROVIDERS: PCP Internal Medicine; Visit Provider Physician Assistant Medical
DX: R41.3 Other amnesia (principal); R06.83 Snoring; G47.10 Hypersomnia, unspecified; R25.2 Cramp and spasm
CPT/HCPCS: 99214

== ENCOUNTER → 2025-01-07 12:51 | Outpatient (BNVA) | payer OTHER, SELFPAY | PROVIDERS: PCP Internal Medicine; Visit Provider Physician Assistant Medical | DX: R06.83 Snoring (principal); R25.2 Cramp and spasm; G47.10 Hypersomnia, unspecified; R41.3 Other amnesia | CPT/HCPCS: 99212 ==

== ENCOUNTER → 2025-01-14 08:04 | Outpatient (REF) | payer OTHER, SELFPAY | LOC: HO.SL 08:04 | PROVIDERS: PCP Internal Medicine; Visit Provider Psychiatry & Neurology Neurology | DX: G47.33 Obstructive sleep apnea (adult) (pediatric) (principal); G47.10 Hypersomnia, unspecified; R06.83 Snoring; R41.3 Other amnesia; R00.0 Tachycardia, unspecified; F10.10 Alcohol abuse, uncomplicated; Z87.891 Personal history of nicotine dependence | CPT/HCPCS: 95806; 99212 ==

== ENCOUNTER 2025-01-14 13:36 | Outpatient (AMB) | payer OTHER, SELFPAY ==
--- NOTE | 2025-01-14 13:39 | A.OFFVIS_ITS ---
Vital Signs 01/14/25 13:40 Height 5 ft 6 in Weight 198 lb BMI 32.0 BP 138/68 Blood Pressure Location Lt brachial Position Sitting Pulse 90 Pulse Source Pulse Oximeter Intake Visit Reasons: 3m follow up/ holter Neonatal Critical Care Nurse Required: Yes Neonatal Critical Care Nurse Name: [id number] Allergies amitriptyline Allergy (Intermediate, Verified 01/07/25 13:01) stomach pain aspirin Allergy (Intermediate, Verified 01/07/25 13:01) stomach pain Medication List - Last Reconciled 01/14/25 by Alec Barker MD acetaminophen 500 mg PO BID PRN adalimumab (Humira(CF) Pen) 40 mg subcut Q2W allopurinol 300 mg PO DAILY 90 days aspirin 81 mg PO DAILY atorvastatin 20 mg PO DAILY calcipotriene 0.005% 1 appl topical QAM cholecalciferol (vitamin D3) 50 mcg PO DAILY 90 days diltiazem HCl CD (Cardizem CD) 120 mg PO DAILY fluocinonide 0.05% appl topical DAILY lisinopril 40 mg PO DAILY magnesium oxide 400 mg PO DAILY 3 months MDD 400mg memantine 7 mg PO DAILY metoprolol succinate ER 150 mg (1.5 x 100 mg) PO DAILY 90 days omeprazole 20 mg PO BID [recliner As directed] HPI Comments Details: Leeroy returns for follow-up. I had seen him a couple of years ago but more recently he has been following up with our nurse practitioner. He had reported several complaints of past including chest pains, shortness of breath, palpitations extra. He also has a history of alcohol use daily. He underwent a comprehensive workup and diagnosed to have sinus tachycardia. He is on both diltiazem as well as metoprolol. It seems for the most part he is doing fine. No new concerns. Denies any new cardiac symptoms as well. [facility]LY [facility] Medical History Hypersomnia Snoring Psoriatic arthritis Former smoker Gout Elevated hemoglobin GERD (gastroesophageal reflux disease) Pure hypercholesterolemia Essential hypertension Surgical History H/O wrist surgery History of foot surgery Family History Father Asthma Mother Hypertension Stomach cancer, Onset Age: 50 Family/Other Substance use disorder Brother Cancer, Onset Age: 61 Social History Household Members: Spouse and Significant Other Housing: Apartment Alcohol intake: current Alcohol intake frequency: 0-2 drinks per day Alcohol type: beer and hard liquor Patient Tobacco Use Status: Former Tobacco user Tobacco use type: Cigarette e-Cigarette/Vaping Use: Never Used Second Hand Smoke Exposure: No service: No Current occupational status: disabled Cognitive needs: No Hearing needs: No Vision needs: No Review of Systems Const Denies weakness ENT Denies dizziness Card Denies chest pain, Denies chest pain with activity, Denies syncope, Denies rapid heart rate, Denies pedal edema, Denies edema, Denies leg edema, Denies lightheadedness, Denies palpitations, Denies dyspnea, Denies dyspnea on exertion and Denies orthopnea Resp Denies cough, Denies dyspnea and Denies dyspnea on exertion GI Denies hematochezia and Denies change in stool character Musc Denies abnormal gait, Denies muscle cramps, Denies muscle weakness, Denies numbness, Denies radiating pain into limb and Denies tingling Neuro Denies abnormal gait, Denies dizziness, Denies syncope, Denies numbness, Denies tingling and Denies weakness Endo Denies palpitations Physical Exam Vital Signs: Last Vital Signs Pulse 90 01/14/25 13:40 BP 138/68 01/14/25 13:40 BMI result Body Mass Index 32.0 Const General: comfortable and no acute distress Orientation/consciousness: patient oriented x3 HEENT Other: Unremarkable Head: Yes normal to inspection Neck Neck: Yes normal visual inspection Chest Chest palpation & inspection: normal inspection of the chest Resp Auscultation: clear to auscultation bilaterally Cardio Palpation: normal PMI Heart sounds: S1 normal heart sound present, S2 normal heart sound present, no gallops, no murmurs and no rubs GI Palpation (GI): Soft to palpation Back/Spine/Pelvis Other: unremarkable Skin General skin exam: no rashes or lesions noted Neuro General: patient oriented x3 Extrem General: Yes normal to inspection Psych Mental Status: mental status grossly normal Assessment & Plan Assessment & Plan (1) Sinus tachycardia: Code(s): R00.0 - Tachycardia, unspecified Category: Medical (2) Excessive drinking alcohol: Code(s): F10.10 - Alcohol abuse, uncomplicated Category: Social Hx Plan Cardiac studies reviewed. In the echocardiogram, LVEF 60-65%; mild septal hypertrophy and mild ascending aortic dilatation. No significant valvular issues. Myocardial perfusion imaging study with normal perfusion. In the exercise component, he reached 10.1 METS In the Holter monitor, frequent sinus tachycardia with an average rate of 112/Min. Overall, sinus tachycardia of unknown etiology. Not clear if it is from drinking alcohol daily as he drinks 1-2 Tequila per day. To try to cut back on that and possibly stop as the heart rate might improve. He remains on Diltiazem and Metoprolol and may continue that. We will check him in one year with another echocardiogram to evaluate for any cardiomyopathy. Last using nutrition counselor. Total time spent including review of data, counseling, documentation, coordination of care-several minutes. Discussion Notes I discussed with the patient the importance of reducing alcohol intake to help manage his tachycardia. We reviewed his current medications, metoprolol and diltiazem, and their role in controlling heart rate. A follow-up visit is planned in one year to reassess his cardiovascular status and medication effectiveness. Patient was informed and verbally consented to the use of an ambient scribe for clinic note documentation during this visit. Orders: Orders CA echo transthoracic complete 1 Year I42.9 - Cardiomyopathy, unspecified Patient Instructions: - Reduce alcohol consumption to help manage heart rate. - Continue taking metoprolol and diltiazem as prescribed. - Return for a follow-up appointment in one year. Coding Level of Care Code Est Pt Level 4 (74932) Diagnoses Sinus tachycardia R00.0 Excessive drinking alcohol F10.10
[2025-01-14 13:40] VITALS: BP 138/68; PULSE 90; BMI 32.0
--- OUTSIDE RECORDS SUMMARY | 2025-01-14 14:32 | XMS_ITS | Patient Health Record ---
Author Organization [facility] Address [address] [place] [address] Care Team Providers Care Vending Machine Collector Name Role Phone Cristina Rivera Primary Care Provider Unavailab Kike Hanks Unavailable [phone] Allergies No Known Allergies Reason For Referral [...] Problem Status W/U Status Risk Notes Problem 579816088 Encounter for screening for malignant neoplasm of colon (Z12.11) Active confirmed Problem 000493898 History of adenomatous polyp of colon (Z86.010) Active confirmed Problem History of polyp of colon (situation) (874673651) Personal history of colonic polyps (Z86.010) Active confirmed Problem Diverticulosis o f large intestine without perforation or abscess without bleeding (K57.30) Active confirmed Problem 953876115 Preprocedural examination (Z01.818) Active confirmed Problem 445055910 Long-term use of aspirin therapy (Z79.82) Active confirmed Plan Of Treatment Future Test Test Name Order Date COLONOSCOPY 05/31/2011 COLONOSCOPY 10/26/2016 COLONOSCOPY 05/10/2022 Insurance Providers Payer Name Payer Address Payer Phone Subscriber Number Group Number Insured Name Patient Relationship to Insured Coverage Start Date Coverage End Date [facility] Claims [address] [address] [place] [address] [phone] [id number] SYLVAIN SIMS Self - patient is the insured Medical (General) History Medical History History ICD Code Hyperlipidemia HTN Gout Denies DC,DM,CVA,Lung disease,renal dise ase Colonoscopy 2005 revealed a small tubular adenoma that was removed; colonoscopy in June of 2011 was negative except for diverticulosis and internal hemorrhoids Psoriasis Negative screening colonosco py in December of 2016 other than a hyperplastic polyp Surgical History Surgery Date(Month/Year) Wrist and foot surgery
== END 2025-01-14 13:56 | disposition home or self-care (01) ==
LOC: HO.HCS 13:37
PROVIDERS: PCP Internal Medicine; Visit Provider Internal Medicine
DX: R00.0 Tachycardia, unspecified (principal); F10.10 Alcohol abuse, uncomplicated
CPT/HCPCS: 99214

== ENCOUNTER 2025-01-20 08:03 | Outpatient (REF) | payer OTHER, SELFPAY ==
--- OUTSIDE RECORDS SUMMARY | 2025-01-20 08:08 | XMS_ITS | Clinical Summary ---
Author Organization [employer] Address [address] [place] [address] Care Team Providers Care Refrigerator Room Clerk Name Role Phone Unavailable Primary Care Provider [...] Description 02/10/2025 10:00 AM EDT Office Visit [facility] [address] [place] [address] WayneKimberley whiting Health Maintenance Due Date Last [...] Recently Relevant to Health Maintenance Insurance DENTAL [facility]
--- OUTSIDE RECORDS SUMMARY | 2025-01-20 08:08 | XMS_ITS | Patient Health Record ---
Author Organization [facility] Address [address] [place] [address] Care Team Providers Care Embossing Tool Setter Name Role Phone Cristina Rivera Primary Care Provider Unavailab Kike Hanks Unavailable [phone] Allergies No Known Allergies Reason For Referral [...] Problem Status W/U Status Risk Notes Problem 330742115 Encounter for screening for malignant neoplasm of colon (Z12.11) Active confirmed Problem 741542686 History of adenomatous polyp of colon (Z86.010) Active confirmed Problem History of polyp of colon (situation) (834326935) Personal history of colonic polyps (Z86.010) Active confirmed Problem Diverticulosis o f large intestine without perforation or abscess without bleeding (K57.30) Active confirmed Problem 476459953 Preprocedural examination (Z01.818) Active confirmed Problem 133726825 Long-term use of aspirin therapy (Z79.82) Active confirmed Plan Of Treatment Future Test Test Name Order Date COLONOSCOPY 05/31/2011 COLONOSCOPY 10/26/2016 COLONOSCOPY 05/10/2022 Insurance Providers Payer Name Payer Address Payer Phone Subscriber Number Group Number Insured Name Patient Relationship to Insured Coverage Start Date Coverage End Date [facility] Claims [address] [address] [place] [address] [phone] [id number] SYLVAIN SIMS Self - patient is the insured Medical (General) History Medical History History ICD Code Hyperlipidemia HTN Gout Denies [place],DM,CVA,Lung disease,renal dise ase Colonoscopy 2005 revealed a small tubular adenoma that was removed; colonoscopy in June of 2011 was negative except for diverticulosis and internal hemorrhoids Psoriasis Negative screening colonosco py in December of 2016 other than a hyperplastic polyp Surgical History Surgery Date(Month/Year) Wrist and foot surgery
[2025-01-20 09:01] LABS: Hematocrit 49.6 % (42.0-52.0); Hemoglobin 17.1 g/dl (14.0-18.0); Imm Gran Abs Auto 0.02 X10*3/uL (0.00-0.03); Imm Gran Pct Auto 0.3 % (0.0-0.4); Lymphocytes Absolute Auto 2.2 X10*3/uL (1.2-4.9); MANUAL DIFF FLAG SCAN; Mean Corpuscular HGB Conc 34.5 g/dl (31.0-36.0); Mean Corpuscular Hemoglobin 30.6 pg (27.0-33.0); Mean Corpuscular Volume 88.7 fL (80.0-98.0); NRBC Abs Auto 0.000 X10*3/uL (0.0-0.012); NRBC Pct Auto 0.0 /100WBC (0.0-0.2); PLT CLUMP 1; Red Blood Count 5.59 X10*6/uL (4.60-5.80); SCAN SMEAR FLAG 1
[2025-01-20 09:08] LABS: Alanine Aminotransferase 36 U/L (0-40); Albumin Level 4.5 g/dL (3.5-5.0); Alkaline Phosphatase 60 U/L (39-117); Anion Gap 13 (12-20); Aspartate Amino Transferase 31 U/L (5-37); Blood Urea Nitrogen 15 mg/dL (9-16); Calcium 9.6 mg/dL (8.4-10.2); Carbon Dioxide 28 mmol/L (22-29); Chloride 107 mmol/L (96-108); Estimated Glomerular Filt Rate > 60; Potassium 4.7 mmol/L (3.3-5.1); Sodium 143 mmol/L (135-145); Total Protein 7.2 g/dL (6.5-8.0); Uric Acid 3.7 mg/dL (3.4-7.0)
[2025-01-20 09:15] LABS: Platelet Count 156 X10*3/uL (160-400); White Blood Count 6.7 X10*3/uL (4.8-10.8)
[2025-01-20 09:34] LABS: HBS Num1 1.30 mIU/mL (0-7.99); HBc Num1 0.08 S/CO (0.00-0.79); HBsAGNum1 0.40 S/CO (0.00-0.99); Hepatitis A Antibody IgM 0.39 Index (0-0.79); Hepatitis B Surface Antigen Negative (Negative); ~HepC Num1 0.08 S/CO (0.00-0.79); ~Hepatitis A Antibody IgM Nonreactive (Nonreactive); ~Hepatitis B Surface Antibody NONREACTIVE (Nonreactive); ~Hepatitis C Antibody Nonreactive (Nonreactive)
[2025-01-23 18:24] LABS: TS Negative Control Passed; TS Panel A 0; TS Panel B 0; TS Positive Control Passed; TSpotTB Negative (Negative)
== END 2025-01-20 08:04 | disposition home or self-care (01) ==
LOC: HO.LAB 08:03
PROVIDERS: Absent Provider Internal Medicine; PCP Internal Medicine; Visit Provider Student in an Organized Health Care Education/Training Program
DX: Z11.59 Encounter for screening for other viral diseases (principal); M75.31 Calcific tendinitis of right shoulder; M75.32 Calcific tendinitis of left shoulder; M1A.09X0 Idiopathic chronic gout, multiple sites, without tophus (tophi); L40.50 Arthropathic psoriasis, unspecified
CPT/HCPCS: 36415; 80053; 84550; 85025; 85652; 86140; 86481; 86704; 86706; 86709; 86803; 87340

== ENCOUNTER 2025-01-22 11:39 | Outpatient (AMB) | payer OTHER, SELFPAY ==
--- NOTE | 2025-01-22 11:42 | A.OFFVIS_ITS ---
Vital Signs 01/22/25 11:50 Height 5 ft 6 in Weight 202 lb 13.204 oz BMI 32.7 BP 132/70 Blood Pressure Location Lt brachial Position Sitting Pulse 114 H Pulse Source Pulse Oximeter Pulse Oximetry (%) 98 Oxygen Delivery Method Room Air Intake Visit Reasons: Gout Intake Note: Patient presents for Gout follow up. 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 Recent XRs show bilateral calcific tendonitis in the shoulder. - Steroid injection of bilateral shoulders Today - Humira 40mg SC every other week (dematology) and allopurinol 300mg daily - Steroid injections helped shoulders a little bit but continues to have bilateral shoulder pain R>L - No gout flares Rheumatologic History: Psoriasis/psoriatic arthritis on Humira Non crystal proven gout on allopurinol Current Rheumatology Medication(s): Humira 40 mg SC every other week (dermatology) Allopurinol 300 mg daily PFSH Medical History Hypersomnia Snoring Psoriatic arthritis Former smoker Gout Elevated hemoglobin GERD (gastroesophageal reflux disease) Pure hypercholesterolemia Essential hypertension Surgical History H/O wrist surgery History of foot surgery Family History Father Asthma Mother Hypertension Stomach cancer, Onset Age: 50 Family/Other Substance use disorder Brother Cancer, Onset Age: 61 Social History Household Members: Spouse and Significant Other Housing: Apartment Alcohol intake: current Alcohol intake frequency: 0-2 drinks per day Alcohol type: beer and hard liquor Patient Tobacco Use Status: Former Tobacco user Tobacco use type: Cigarette e-Cigarette/Vaping Use: Never Used Second Hand Smoke Exposure: No service: No Current occupational status: disabled Cognitive needs: No Hearing needs: No Vision needs: No Review of Systems Const Details: Review of Systems Constitutional: Denies fever, chills, weight loss ENT: Denies vision changes, eye pain or eye redness, dental caries, dry mouth GI: Denies nausea, vomiting, diarrhea, abdominal pain, change in BM Pulm: Denies SOB, TEIXEIRA, hemoptysis, wheezing Cards: Denies chest pain, palpitations Skin: Denies Raynaud's, rash, nail changes, photosensitivity, CORE MICROARCHITECT: Denies headaches, weakness, paresthesias, recurrent falls MSK: as per HPI All other systems reviewed and are unremarkable except noted above Physical Exam Exam Exam: Vital signs reviewed Physical Examination CONSTITUITIONAL Patient alert and cooperative. Well appearing and in no apparent painful distress MSK Hands * Right Hand: Able to make a fist. No swelling or tenderness to palpation of the MCPs, PIPs or DIPs. * Left Hand: Able to make a fist. No swelling or tenderness to palpation of the MCPs, PIPs or DIPs. * Herbedens nodes noted bilaterally Wrists * Right Wrist: Full ROM to flexion and extension. No swelling or TTP * Left Wrist: Full ROM to flexion and extension. No swelling or TTP Elbows * Right Elbow: Full ROM. No swelling or TTP. No TTP of the medial epicondyle. No TTP of the lateral epicondyle * Left Elbow: Full ROM. No swelling or TTP. No TTP of the medial epicondyle. No TTP of the lateral epicondyle Shoulders * Right shoulder: Able to get full passive ROM but the movement was not smooth and there was pain at the extreme. No swelling noted. No TTP of the AC joint. No TTP of the subacromial bursa. No TTP of the posterior shoulder * Left shoulder: Full ROM. No swelling noted. No TTP of the AC joint. No TTP of the subacromial bursa. No TTP of the posterior shoulder Knees * Right knee: Full ROM. No swelling noted. No TTP of the knee joint line. No TTP of pes anserine bursa * Left knee: Full ROM. No swelling noted. No TTP of the knee joint line. No TTP of pes anserine bursa. * Crepitations felt bilaterally Ankles * Right ankle: Good ankle dorsiflexion and plantar flexion. No swelling. No TTP of the ankle joint * Left ankle: Good ankle dorsiflexion and plantar flexion. No swelling. No TTP of the ankle joint Feet * Right foot: Negative squeeze test * Left foot: Negative squeeze test Tender points? * No tenderness to palpation of the bilateral trapezius, supraspinatus, anterior costochondral junctions, bilateral suboccipital muscle insertions SKIN No rashes No tophi Results Reviewed Results Reviewed: Laboratory Tests 01/20/25 08:17 WBC 6.7 RBC 5.59 Hgb 17.1 Hct 49.6 ESR 2 Sodium 143 Potassium 4.7 Chloride 107 Carbon Dioxide 28 BUN 15 Creatinine 1.11 Estimated GFR > 60 Uric Acid 3.7 AST 31 ALT 36 C-Reactive Protein < 0.10 XR Bilateral shoulders 08/2024 Findings (left shoulder) Bones intact. No dislocations. Mild arthritic change of the acromioclavicular and glenohumeral joints. No erosions. No radiopaque foreign body. Small focus of calcification within the soft tissues adjacent to the greater tuberosity. IMPRESSION: There may be a mild degree of calcific tendinitis of the rotator cuff. Findings (Right shoulder) There is no acute fracture. There are multiple chronic healed rib fractures. Minimal arthritic change. No erosions. No radiopaque foreign body. There are calcifications in the region of the rotator cuff tendons. IMPRESSION: Likely calcific tendinitis of the rotator cuff. Assessment & Plan Assessment & Plan (1) Psoriatic arthritis: Code(s): L40.50 - Arthropathic psoriasis, unspecified Category: Medical Plan: #PsO/PsA Patient is a 74 y.o. male with PsO/PsA here today for follow up. Currently in remission Plan - Continue Humira 40mg SC every 2 weeks from Dermatology (2) Gout: Comment: well controlled on allopurinol 300mg daily Code(s): M10.9 - Gout, unspecified Category: Medical Qualifiers: Gout site: multiple sites Gout etiology: idiopathic Chronicity: chronic Presence of tophus: without tophus Qualified Code(s): M1A.09X0 - Idiopathic chronic gout, multiple sites, without tophus (tophi) Plan: #Non crystal proven gout Patient with non crystal proven gout currently on allopurinol without breakthrough flares UA at goal Plan - Allopurinol 300mg daily - RTC 1 year - Labs before visit: ESR, CRP, CMP, Uric Acid (3) Polyarticular osteoarthritis: Code(s): M15.9 - Polyosteoarthritis, unspecified Plan: #Polyarticular OA Patient with polyarticular OA currently seeing pain management for back injections with improvement Plan - Appreciate pain management input, continue follow up (4) Calcific tendinitis of both shoulders: Code(s): M75.31 - Calcific tendinitis of right shoulder; M75.32 - Calcific tendinitis of left shoulder Plan: #Bilateral calcific tendonitis Patient with calcific tendonitis based on XRs. Consider PT in the future, patient deferring for now (5) Encounter for monitoring allopurinol therapy: Code(s): Z51.81 - Encounter for therapeutic drug level monitoring; Z79.899 - Other [place] [facility] ([facility] drug therapy Plan: #Long-term Current Use of Allopurinol Risks and benefits of allopurinol discussed with patient Benefits include decreased gout flares, remission of gout and reduction of tophi Risks include allopurinol hypersensitivity syndrome which is a severe cutaneous adverse reaction associated with allopurinol use particularly in patients who are HLA B*5801 positive, increased transaminases, GI upset including diarrhea, nausea and vomiting, and other dermatologic manifestations. Plan I spent 30 minutes reviewing the record and labs, taking a history, examining the patient, discussing the treatment plan, ordering diagnostic work up and documenting in the medical record Orders: Orders C Reactive Protein 1 Year M1A.09X0 - Idiopathic chronic gout, multiple sites, without tophus (tophi), Z79.899 - Other [place] [facility] ([facility] drug therapy Uric Acid 1 Year M1A.09X0 - Idiopathic chronic gout, multiple sites, without tophus (tophi) Comprehensive Met. Panel 1 Year M1A.09X0 - Idiopathic chronic gout, multiple sites, without tophus (tophi), Z79.899 - Other [place] [facility] drug therapy Erythrocyte Sedimentation Rate 1 Year M1A.09X0 - Idiopathic chronic gout, multiple sites, without tophus (tophi), Z79.899 - Other [place] [facility] (current[facility] drug therapy Coding Level of Care Code Est Pt Level 4 (40206) Complex EM visit Add On G2211 Diagnoses Psoriatic arthritis L40.50 Idiopathic chronic gout of multiple sites without tophus M1A.09X0 Gout site: multiple sites Gout etiology: idiopathic Chronicity: chronic Presence of tophus: without tophus Polyarticular osteoarthritis M15.9 Calcific tendinitis of both shoulders M75.31; M75.32 Encounter for monitoring allopurinol therapy Z51.81; Z79.899
[2025-01-22 11:50] VITALS: BP 132/70; PULSE 114; O2SAT 98; BMI 32.7
--- OUTSIDE RECORDS SUMMARY | 2025-01-22 12:52 | XMS_ITS | Patient Health Record ---
Author Organization [facility] Address [address] [place] [address] Care Team Providers Care Wind Turbine Blade Repair Technician Name Role Phone Cristina Rivera Primary Care Provider Unavailab Kike Hanks Unavailable [phone] Allergies No Known Allergies Reason For Referral [...] Problem Status W/U Status Risk Notes Problem 792917512 Encounter for screening for malignant neoplasm of colon (Z12.11) Active confirmed Problem 985908561 History of adenomatous polyp of colon (Z86.010) Active confirmed Problem History of polyp of colon (situation) (328001416) Personal history of colonic polyps (Z86.010) Active confirmed Problem Diverticular disease of colon (655815903) Diverticulosis of large intestine without perforation or abscess without bleeding (K57.30) Active confirmed Problem 753790626 Preprocedural examination (Z01.818) Active confirmed Problem 682095852 Long-term use of aspirin therapy (Z79.82) Active confirmed Plan Of Treatment Future Test Test Name Order Date COLONOSCOPY 05/31/2011 COLONOSCOPY 10/26/2016 COLONOSCOPY 05/10/2022 Insurance Providers Payer Name Payer Address Payer Phone Subscriber Number Group Number Insured Name Patient Relationship to Insured Coverage Start Date Coverage End Date [facility] Claims [address] [address] [place] [address] [id number] SYLVAIN SIMS Self - patient is the insured Medical (General) History Medical History History ICD Code Hyperlipidemia HTN Gout Denies [place],DM,CVA,Lung disease,renal dise ase Colonoscopy 2005 revealed a small tubular adenoma that was removed; colonoscopy in June of 2011 was negative except for diverticulosis and internal hemorrhoids Psoriasis Negative screening colonosco py in December of 2016 other than a hyperplastic polyp Surgical History Surgery Date(Month/Year) Wrist and foot surgery
== END 2025-01-22 12:08 | disposition home or self-care (01) ==
LOC: HO.RHES 11:40
PROVIDERS: PCP Internal Medicine; Visit Provider Student in an Organized Health Care Education/Training Program
DX: L40.50 Arthropathic psoriasis, unspecified (principal); M1A.09X0 Idiopathic chronic gout, multiple sites, without tophus (tophi); M15.9 Polyosteoarthritis, unspecified; M75.31 Calcific tendinitis of right shoulder; M75.32 Calcific tendinitis of left shoulder; Z51.81 Encounter for therapeutic drug level monitoring; Z79.899 Other long term (current) drug therapy
CPT/HCPCS: 99214; G2211

== ENCOUNTER → 2025-01-22 11:39 | Outpatient (BNVA) | payer OTHER, SELFPAY | PROVIDERS: PCP Internal Medicine; Visit Provider Student in an Organized Health Care Education/Training Program | DX: M1A.09X0 Idiopathic chronic gout, multiple sites, without tophus (tophi) (principal); L40.50 Arthropathic psoriasis, unspecified; Z79.899 Other long term (current) drug therapy; Z51.81 Encounter for therapeutic drug level monitoring | CPT/HCPCS: 99212 ==

== ENCOUNTER 2025-02-11 08:03 | Outpatient (REF) | payer OTHER, SELFPAY ==
--- OUTSIDE RECORDS SUMMARY | 2025-02-10 11:00 | XMS_ITS | Encounter Summary ---
Author Organization [employer] Address [address] [place] [address] Care Team Providers Care Laborer Shellfish Processing Name Role Phone Unavailable Primary Care Provider Unavailabl e Reason for Visit * Reason Comments Routine Cleaning x-rays Perio chart Encounter Details Date Type Department Care Team (Late st Contact Info) Description 02/10/2025 11:00 AM EDT Office Visit [facility] ADULT DENTAL [address] [place] [address] Judith Person [address] [place] [address] Dental plaque (Primary Dx); Dental calculus; Teeth missing; Gingival recession, generalized Social History Tobacco Use Types Packs/Day Years Used Date Smoking Tobacco: Never Smokeless Tobacco: Never Sex and Gender Information Value Date Recorded Sex Assigned at Male 03/27/2022 10:17 AM EDT Legal Sex Male 10:17 AM EDT Gender Identity Male 03/27/2022 10:17 AM EDT Sexual Orientation Straight 03/27/2022 10 :17 AM EDT documented as of this encounter Last Filed Vital Signs Vital Sign Reading Time Taken Comments Blood Pressure 128/78 02/10/2025 11:02 AM EDT Pulse - - Temperature - - Respiratory Rate - - Oxygen Saturation - - Inhaled Oxygen Concentration - - Weight - - Height - - Body Mass Index - - documented in this encounter Progress Notes * Judith Person - 02/10/2025 11:00 AM EDT Patient ID: Leeroy Salazar is a 75 y.o. male. Time Out: Timeout Date: 02/10/25, Timeout Time: 1106 (X-rays, prophy, perio chart. Pt will like to see Dr. Osorio, however Dr. Osorio not here today.) Location: [facility] Tooth: Maxilla and Mandible Procedure: X-rays, Prophylaxis, and Perio chart Verified the above with patient, multimedia assistant, and provider. Confirmed via patient's chart, intraorally and by radiographs. Rehab Director Occupational Therapist: not applicable Medical Hx: Vitals: Blood pressure 128/78. Medications, Med Hx reviewed with patient and updated in chart. Treatment Provided Dental procedures in this visit D0274 - BITEWINGS - 4 RADIOGRAPHIC IMAGES (Completed) Service provider: Judith Barron provider: David Ryan DDS D0220 - INTRAORAL - PERIAPICAL FIRST RADIOGRAPHIC IMAGE (Completed) Service provider: Judith Person Billjose provider: David Ryan DDS D0230 - INTRAORAL - PERIAPICAL EACH ADDITIONAL RADIOGRAPHIC IMAGE (Completed) Service provider: Judith Barron provider: David Ryan DDS D0230 - INTRAORAL - PERIAPICAL EACH ADDITIONAL RADIOGRAPHIC IMAGE (Completed) Service provider: Judith Barron provider: David Ryan DDS D1110 - PROPHYLAXIS - ADULT (Completed) Service provider: Judith Barron provider: David Ryan DDS D1206 - TOPICAL APPLICATION OF FLUORIDE VARNISH (Completed) Service provider: Judith Barron provider: David Ryan DDS D9450 - CASE PRESENTATION, DETAILED AND EXTENSIVE TREATMENT PLANNING (Completed) Service provider: Judith Barron provider: David Ryan DDS D1330 - ORAL HYGIENE INSTRUCTIONS (Completed) Service provider: Judith Barron provider: David Ryan DDS Instruments Used: Ultrasonic Scalers, Hand Scalers, and Prophy angle, pt reports that every time hegets prophy done, his gingiva hurts. I offered topical anesthetic, pt agreed. Applied benzocaine todo [place]. Fluoride: 5% NaF varnish applied and POI given Oral Cancer Screening: No lesions mandibular gage Head/Neck Exam: No Lesions Calculus: Light Plaque: Light and Moderate Stain: Light and Moderate Bleeding: Light and Moderate Gingiva: pink, scattered recession OH: Good Perio Chart: completed Oral hygiene instructions provided to patient including brushing technique and flossing. Pt's C/C: Maxillary dentures fractured. And has not worn mandibular partials ill fitting. Recommendations: [place] two times daily, modified agustin technique, Floss daily, Electric toothbrush, Soft bristle toothbrush, [place] Tongue, Anti-sensitivity toothpaste, OTC fluoride mouthwash. Recall Frequency: 6 mo Pt will like to see Dr. Osorio . Dr. Osorio not here today. NV: Dr. Osorio for periodic exam, and denture repair. And adjust mandibular partials. Hygienist: Judith Person RDH documented in this encounter Plan of Treatment Upcoming Encounters Date Type Department Care Team (Late st Contact Info) Description 03/02/2025 2:30 PM EDT Office Visit [facility] ADULT DENTAL [address] [place] [address] Barak Osorio, DMD [address] [place] [address] 08/12/2025 12:45 PM EDT Office Visit [facility] ADULT DENTAL [address] [place] [address] Judith Person [address] [place] [address] Scheduled Orders Name Type Priority Associated Diagnoses Orde r Schedule REPAIR RESIN PARTIAL DENTURE BASE, MAX Dental Routine 1 Occurrences starting 02/10/2025 PERIODIC ORAL EVALUATION - ESTABLISHED PATIENT Dental Routine 1 Occurren jenifer starting 02/10/2025 PROPHYLAXIS - ADULT Dental Routine 1 Occ urrences starting 02/10/2025 CASE PRESENTATION, DETAILED AND EXTENSIVE TREATMENT PLANNING Dental Routine 1 Occurrences starting 02/10/2025 ORAL HYGIENE INSTRUCTIONS Dental Routine 1 Occurrences starting 02/10/2025 documented as of this encounter Procedures Procedure Name Priority Date/Time Associated Diagnosis Comments TOPICAL APPLICATION OF FLUORIDE VARNISH Routine 02/10/2025 11:00 AM EDT Dental plaque Dental calculus Teeth missing Gingival recession, generalized PROPHYLAXIS - ADULT Routine 02/10/2025 1 1:00 AM EDT Dental plaque Dental calculus Teeth missing Gingival recession, generalized ORAL HYGIENE INSTRUCTIONS Routine 02/10/2025 11:00 AM EDT Dental plaque Dental calculus Teeth missing Gingival recession, generalized INTRAORAL - PERIAPICAL FIRST RADIOGRAPHIC IMAGE Routine 02/10/2025 11:00 AM EDT Dental plaque Dental calculus Teeth missing Gingival recession, generalized INTRAORAL - PERIAPICAL EACH ADDITIONAL RADIOGRAPHIC IMAGE Routine 02/10/2025 11:00 AM EDT Dental plaque Dental calculus Teeth missing Gingival recession, generalized INTRAORAL - PERIAPICAL EACH ADDITIONAL RADIOGRAPHIC IMAGE Routine 02/10/2025 11:00 AM EDT Dental plaque Dental calculus Teeth missing Gingival recession, generalized CASE PRESENTATION, DETAILED AND EXTENSIVE TREATMENT PLANNING Routine 02/10/2025 11:00 AM EDT Dental plaque Dental calculus Teeth missing Gingival recession, generalized BITEWINGS - 4 RADIOGRAPHIC IMAGES Routine 02/10/2025 11:00 AM EDT Dental plaque Dental calculus Teeth missing Gingival recession, generalized documented in this encounter Visit Diagnoses Diagnosis Dental plaque- Primary Accretions on teeth Dental calculus Accretions on teeth Teeth missing Acquired absence of teeth, unspecified Gingival recession, generalized documented in this encounter
--- NOTE | ~2025-02-11 | FL_ITS ---
EXAMINATION: XR FLUOROSCOPY BARIUM SWALLOW CLINICAL INFORMATION: Globus sensation, dysphagia. COMPARISON: None TECHNIQUE: Fluoroscopic air contrast barium swallow examination was performed utilizing standard techniques with thin and thick barium and effervescent granules. Numerous spot images were obtained. Several fluoroscopic image hold cine sequences were also obtained. FINDINGS: BARIUM SWALLOW: Lateral cine images of the oropharynx and hypopharynx demonstrate normal swallow mechanism with normal epiglottic inversion and soft palate elevation. No laryngeal penetration, glottic or subglottic aspiration identified. No nasopharyngeal reflux present. Hypopharyngeal structures appear normal without evidence of mass or diverticulum. There was no significant cricopharyngeal achalasia. Dual and single contrast images of the esophagus demonstrate normal caliber, contour, and mucosal pattern. No evidence of stricture, mass, or ulcerations identified. Esophageal peristalsis was mildly disordered. Small type I hiatus hernia present. No significant gastroesophageal reflux was seen during the course of the examination. Evaluation of the stomach is somewhat limited due to patient inability to retain the effervescent granule gas. Stomach demonstrates grossly normal contour and mucosal pattern without evidence of mass, ulceration, or other abnormality. Grossly normal gastric rugal fold pattern. Contrast freely passed into the gastric antrum and duodenal bulb without delay. FLUOROSCOPY TIME: 2 minutes 0 seconds Number of Spot Images:9 Number of cines obtained: 6 DOSE AREA PRODUCT: 3568 uGy-m2 (microgray-meter squared) FL/FL barium swallow with air IMPRESSION: 1. No imaging findings seen to explain globus sensation. 2. Mildly disordered esophageal peristalsis. 3. Small type I hiatus hernia. 4. No definite gastroesophageal reflux noted during the examination. 5. Grossly normal stomach allowing for patient inability to adequately retain the effervescent granule gas. Electronically signed by: Charles Sethi MD 02/11/2025 08:44 AM EDT
--- OUTSIDE RECORDS SUMMARY | 2025-02-11 08:20 | XMS_ITS | Patient Health Record ---
Author Organization [facility] Address [address] [place] [address] Care Team Providers Care Sample Shoe Inspector And Reworker Name Role Phone Cristina Rivera Primary Care Provider Unavailab Kike Hanks Unavailable [phone] Allergies No Known Allergies Reason For Referral [...] Problem Status W/U Status Risk Notes Problem [id number] Encounter for screening for malignant neoplasm of colon (Z12.11) Active confirmed Problem 815108121 History of adenomatous polyp of colon (Z86.010) Active confirmed Problem History of polyp of colon (situation) (800568660) Personal history of colonic polyps (Z86.010) Active confirmed Problem Diverticular disease of colon (553054601) Diverticulosis of large intestine without perforation or abscess without bleeding (K57.30) Active confirmed Problem 079179897 Preprocedural examination (Z01.818) Active confirmed Problem 086157378 Long-term use of aspirin therapy (Z79.82) Active confirmed Plan Of Treatment Future Test Test Name Order Date COLONOSCOPY 05/31/2011 COLONOSCOPY 10/26/2016 COLONOSCOPY 05/10/2022 Insurance Providers Payer Name Payer Address Payer Phone Subscriber Number Group Number Insured Name Patient Relationship to Insured Coverage Start Date Coverage End Date [facility] Claims [address] [address] [place] [address] [id number] SYLVAIN SIMS Self - patient is the insured Medical (General) History Medical History History ICD Code Hyperlipidemia HTN Gout Denies NV,DM,CVA,Lung disease,renal dise ase Colonoscopy 2005 revealed a small tubular adenoma that was removed; colonoscopy in June of 2011 was negative except for diverticulosis and internal hemorrhoids Psoriasis Negative screening colonosco py in December of 2016 other than a hyperplastic polyp Surgical History Surgery Date(Month/Year) Wrist and foot surgery
--- OUTSIDE RECORDS SUMMARY | 2025-02-11 08:21 | XMS_ITS | Clinical Summary ---
Author Organization [employer] Address [address] [place] [address] Care Team Providers Care Authors Motivational Name Role Phone Unavailable Primary Care Provider Unavailabl e Allergies No known active allergies Medications Robynoe, 2 Pen, 40 MG/0.4ML Pen-injector Kit pen-injector [...] FOR FLARES, ALTERNATING WITH CALCIPOTRIENE 4 Active dilTIAZem CD (Cardizem CD) 120 MG 24 hr capsule 5 Active lisinopril 40 MG tablet TAKE 1 + 1/4 TABLETA POR V A ORAL TODOS LOS D Active magnesium oxide (Mag-Ox) 400 MG tablet TAKE 1 TABLET (400 MG) ORALLY DAILY FOR MUSLCE CRAMPS FOR 3 MONTHS, MAX DAILY DOSE: 400MG 5 Active Memantine HCl ER 7 MG capsule sustained-rele ase 24 hr TOME 1 C PSULA POR V A ORAL A DIARIO POR 7 D THEN INCREASE TO 14MG 5 Active metoprolol succinate XL (Toprol-XL) 100 MG 24 hr tablet TAKE 1 + 1/2 TABLETS POR V A ORAL TODOS LOS D 5 Active omeprazole (PriLOSEC) [address] capsule TOMMahogany 1 C PSULA POR V A ORAL DOS VECES AL D A Active Encounters Date Type Department Care Team Description 02/10/2025 11:00 AM EDT Office Visit [facility] ADULT DENTAL [address] [place] [address] Judith Person Dental plaque (Primary Dx); Dental calculus; Teeth missing; Gingival recession, generalized from Last 3 Months Social History Tobacco [...] Description 03/02/2025 2:30 PM EDT Office Visit [facility] ADULT DENTAL [address] [place] [address] Barak Osorio, ISA [address] [place] [address] 08/12/2025 12:45 PM EDT Office Visit [facility] ADULT DENTAL [address] [place] [address] NayaJudith melissa [address] [place] [address] Health Maintenance Due Date Last Done Comments CT Colonography 1952 Colonoscopy 1952 Colorectal Cancer Screening 1952 Depression Screening 1952 FIT DNA/Cologuard 1952 FIT 1952 FOBT 1952 Lipid Panel 1952 SDOH Screening 1952 Sigmoidoscopy 1952 Alcohol/Substance Use Screening 1964 Hepatitis C Screening 02/06/1970 Dental Oral Exam 04/18/2024 10/16/2023, 01/2021, 01/10/2019, Additional history exists COVID-19 Vaccine ( season) 2025 03/24/2023, 12/05/2021, 04/12/2021, Additional history exists Influenza Vaccine (#1) 2025 , 03/11/2021, 04/26/2020, Additional history exists Tobacco Screening 07/29/2025 07/29/2024 Dental Prophylaxis 08/11/2025 02/10/2025, 0 07/29/2024, 10/16/2023, Additional history exists Dental X-Ray: Bitewings 02/11/2026 02/11/20 25, 10/16/2023, 07/06/2020, Additional history exists DTaP/Tdap/Td Vaccines (3 - [...] Procedure Name Priority Date/Time Associated Diagnosis Comments ORAL HYGIENE INSTRUCTIONS Routine 02/10/2025 11:00 AM EDT Dental plaque Dental calculus Teeth missing Gingival recession, generalized CASE PRESENTATION, DETAILED AND EXTENSIVE TREATMENT PLANNING Routine 02/10/2025 11:00 AM EDT Dental plaque Dental calculus Teeth missing Gingival recession, generalized TOPICAL APPLICATION OF FLUORIDE VARNISH Routine 02/10/2025 [...] Teeth missing Gingival recession, generalized INTRAORAL - COMPLETE SERIES OF RADIOGRAPHIC IMAGES Routine 10/16/2023 1:00 PM EDT PERIODIC ORAL EVALUATION - ESTABLISHED PATIENT Routine 10/16/2023 1:00 PM EDT Dental plaque Dental calculus Encounter for dental examination Teeth missing Gingival recession, generalized from Last 3 Months or Most Recently Relevant to Health Maintenance Insurance DENTAL - [facility]
== END 2025-02-11 08:04 | disposition home or self-care (01) ==
LOC: HO.XRAY 08:03
PROVIDERS: PCP Internal Medicine; Visit Provider Internal Medicine
DX: Z00.01 Encounter for general adult medical examination with abnormal findings (principal); L40.50 Arthropathic psoriasis, unspecified; R10.13 Epigastric pain; I10 Essential (primary) hypertension; E78.00 Pure hypercholesterolemia, unspecified; Z87.891 Personal history of nicotine dependence
CPT/HCPCS: 74220; 74221; 99212; 99397

== ENCOUNTER → 2025-02-11 08:04 | Outpatient (BNV) | payer OTHER, SELFPAY | PROVIDERS: PCP Internal Medicine; Visit Provider Radiology Diagnostic Radiology | DX: R13.10 Dysphagia, unspecified (principal); R09.A2 Foreign body sensation, throat | CPT/HCPCS: 74221 ==

== ENCOUNTER → 2025-02-11 12:46 | Outpatient (AMB) | payer OTHER, SELFPAY ==
[2025-02-11 12:54] VITALS: BP 110/60; PULSE 104; RESP 18; TEMP 36.2; O2SAT 97; BMI 33.2
--- NOTE | 2025-02-11 12:54 | MHC.PC.OV ---
Vital Signs 02/11/25 12:54 Height 5 ft 6 in Weight 206 lb BMI 33.2 BP 110/60 Blood Pressure Location Lt brachial Position Sitting Respiration 18 Pulse 104 H Pulse Source Pulse Oximeter Temp 97.1 F Temp Source Temporal Artery Scan Pulse Oximetry (%) 97 Oxygen Delivery Method Room Air Intake Visit Reasons: Annual Exam Medical Laboratory Scientist Required: No Accompanied by: Self / Same As Patient Allergies amitriptyline Allergy (Intermediate, Verified 02/11/25 13:16) stomach pain aspirin Allergy (Intermediate, Verified 02/11/25 13:16) stomach pain Medication List - Last Reconciled 02/11/25 by Cristina Calixto MD acetaminophen 500 mg PO BID PRN adalimumab (Humira(CF) Pen) 40 mg subcut Q2W allopurinol 300 mg PO DAILY 90 days aspirin 81 mg PO DAILY atorvastatin 20 mg PO DAILY calcipotriene 0.005% 1 appl topical QAM cholecalciferol (vitamin D3) 50 mcg PO DAILY 90 days diltiazem HCl CD (Cardizem CD) 120 mg PO DAILY fluocinonide 0.05% appl topical DAILY lisinopril 40 mg PO DAILY magnesium oxide 400 mg PO DAILY 3 months MDD 400mg memantine 7 mg PO DAILY metoprolol succinate ER 150 mg (1.5 x 100 mg) PO DAILY 90 days omeprazole 20 mg PO BID [recliner As directed] Tobacco use date assessed: 02/11/25 Fall risk assessment: No Falls in past year Last assessed Fall Risk: 02/11/25 Dental Screening Dental Screen Date: 02/11/25 Did you have a dental visit in the last 12 months?: Yes Did you have a dental problem in the last 6 months where you did not have access to dental care?: No Was dental information given to patient?: Patient has dentist HPI HPI Comments History of Present Illness Details The patient is a 75-year-old male presenting for a physical examination. He has a history of benign prostatic hyperplasia (BPH) and is followed by urology for this condition. Additionally, he has psoriatic arthritis for which he is on Humira and is followed by dermatology. The patient underwent a colonoscopy in 2016, which was normal, and the next one is scheduled for 2026. His last Tdap vaccine was in 2016, with the next one due in 2026, and he received a pneumonia vaccine at age 67. He has a history of a barium swallow showing a peristalsis disorder and a hiatal hernia. He continues to experience epigastric pain and will be referred to gastroenterology for further evaluation and management. Socially, the patient consumes alcohol daily and has been advised to reduce his intake. [facility] Medical History (Updated 02/11/25 @ 14:07 by Cristina Calixto MD) Hypersomnia Snoring Psoriatic arthritis Former smoker Gout Elevated hemoglobin GERD (gastroesophageal reflux disease) Pure hypercholesterolemia Essential hypertension Surgical History H/O wrist surgery History of foot surgery Family History Father Asthma Mother Hypertension Stomach cancer, Onset Age: 50 Family/Other Substance use disorder Brother Cancer, Onset Age: 61 Social History Household Members: Spouse and Significant Other Housing: Apartment Alcohol intake: current Alcohol intake frequency: 0-2 drinks per day Alcohol type: beer and hard liquor Patient Tobacco Use Status: Former Tobacco user Tobacco use type: Cigarette e-Cigarette/Vaping Use: Never Used Second Hand Smoke Exposure: No service: No Current occupational status: disabled Cognitive needs: No Hearing needs: No Vision needs: No Questionnaire Thrive Questionnaire Date Thrive assessed: 10/22/24 I am a: Patient What is your living situation today?: I have a steady place to live Within the past 12 months, did the food you bought not last and you didn't have the money to get more?: Never true Within the past 12 months, did you worry whether your food would run out before you got money to buy more?: Never true Do you have trouble paying for medicines?: No Do you have trouble getting transportation to medical appointments?: No Do you have trouble paying your heating and electricity bill?: No Do you have trouble taking care of your child, family member or friend?: No Do you have trouble with day-to-day activities such as bathing, preparing meals, shopping, managing finances, etc.?: No Are you currently unemployed and looking for a job?: Yes Are you interested in more education?: Yes Please select the resources that you would like help with: None Currently or been in a relationship where the following occur: No concerns reported THRIVE Score: 0 TARYN-7 AMB Questionnaire TARYN-7 Date TARYN - 7 assessed: 06/18/24 Source: Developed by Drs. Kike Nichols, Jodi Eng, Keith Treadwell and colleagues, with an educational oscar from [employer]. Review of Systems Const All systems reviewed & are unremarkable except as noted in HPI and below Card Denies chest pain at rest, Denies chest pain with activity, Denies edema, Denies irregular heart rhythm, Denies claudication, Denies dyspnea, Denies dyspnea on exertion, Denies orthopnea, Denies paroxysmal nocturnal dyspnea and Denies slow heart rate Resp Denies cough, Denies dyspnea and Denies dyspnea on exertion GI Denies abdominal pain, Denies change in bowel habits, Denies excessive flatus, Denies nausea and Denies vomiting Physical exam (Primary Care) Vital Signs: Last Vital Signs Temp 97.1 F 02/11/25 12:54 Pulse 104 H 02/11/25 12:54 Resp 18 02/11/25 12:54 BP 110/60 02/11/25 12:54 Pulse Ox 97 02/11/25 12:54 Oxygen Delivery Method Room Air 02/11/25 12:54 BMI result Body Mass Index 33.2 BMI Assessment/Plan discussion: High BMI High, discussed plan: lifestyle, weight reduction, dietary and physical activity Tobacco/Smoking Status: Tobacco use Status Tobacco use date assessed 02/11/25 02/11/25 12:55 Patient Tobacco Use Status Former Tobacco user 02/11/25 12:55 Tobacco use type Cigarette 02/11/25 12:55 e-Cigarette/Vaping Use Never Used 02/11/25 12:55 Thrive Assessment: Date of Thrive Assessment Date Thrive assessed 10/22/24 02/11/25 12:55 Currently or been in a relationship where the following occur: No concerns reported HENNH Head: Yes normal to inspection, Yes normocephalic and Yes atraumatic Ears: external ears normal Eyes General: appearance normal, both eyes and all related structures Eyelids: Yes eyelids normal Conjunctivae: conjunctivae normal Neck Neck: Yes normal visual inspection and Yes supple Resp Effort & Inspection: normal respiratory effort Auscultation: clear to auscultation bilaterally Cardio Jugular venous distension: no JVD Rate: regular rate Rhythm: regular rhythm Heart sounds: S1 normal heart sound present and S2 normal heart sound present GI Inspection: Yes normal to inspection Palpation (GI): Soft to palpation and nontender Auscultation: normal bowel sounds Skin General skin exam: no rashes or lesions noted Neuro General: no focal motor deficits Extrem General: Yes full ROM Psych Appearance: grossly normal Office Procedures Advance Care Planning Advance Care Planning discussion: Completed/Scanned Date of discussion: 02/11/25 Who was present: patient, and me Forms completed: Health Care Proxy Time spent: 1-15 minutes, on File Actual minutes spent: 1 Coding Level of Care Code Est Pt Level 3 (09209) Est Pt Prev Care >65y(27487) Diagnoses Physical exam Z00.00 Psoriatic arthritis L40.50 Epigastric pain R10.13 CPT Codes Advance Care Planning - Time spent: 1-15 minutes, on File ([id number]) Time Spent (min) 33 Assessment & Plan Assessment & Plan (1) Physical exam: Code(s): Z00.00 - Encounter for general adult medical examination without abnormal findings Category: Medical (2) Psoriatic arthritis: Code(s): L40.50 - Arthropathic psoriasis, unspecified Category: Medical (3) Epigastric pain: Code(s): R10.13 - Epigastric pain Category: Medical Plan Plan Patient was informed and verbally consented to the use of an ambient scribe for clinic note documentation during this visit. 1. Hiatal Hernia The patient will be referred to gastroenterology for further evaluation and management of the hiatal hernia and associated epigastric pain. 2. Peristalsis Disorder Further evaluation by gastroenterology is planned to address the peristalsis disorder identified in the barium swallow. Orders: Referrals Gastroenterology Referral R10.13 - Epigastric pain
== END ==
LOC: HO.HMCH 12:46
PROVIDERS: PCP Internal Medicine; Visit Provider Internal Medicine
DX: Z00.00 Encounter for general adult medical examination without abnormal findings (principal); R10.13 Epigastric pain; L40.50 Arthropathic psoriasis, unspecified

== ENCOUNTER 2025-03-13 08:11 | Day surgery (SDC) | payer OTHER, SELFPAY ==
--- OUTSIDE RECORDS SUMMARY | 2025-02-26 15:07 | XMS_ITS | Patient Health Record ---
Author Organization [facility] Address [address] [place] [address] Care Team Providers Care Clinical Geneticist Name Role Phone Cristina Rivera Primary Care Provider Unavailab Kike Hanks Unavailable [phone] Allergies No Known Allergies Reason For Referral [...] Problem Status W/U Status Risk Notes Problem 906533472 Encounter for screening for malignant neoplasm of colon (Z12.11) Active confirmed Problem 917587723 History of adenomatous polyp of colon (Z86.010) Active confirmed Problem History of polyp of colon (situation) (093010250) Personal history of colonic polyps (Z86.010) Active confirmed Problem Diverticular disease of colon (054648047) Diverticulosis of large intestine without perforation or abscess without bleeding (K57.30) Active confirmed Problem 747952631 Preprocedural examination (Z01.818) Active confirmed Problem 788284993 Long-term use of aspirin therapy (Z79.82) Active confirmed Plan Of Treatment Future Test Test Name Order Date COLONOSCOPY 05/31/2011 COLONOSCOPY 10/26/2016 COLONOSCOPY 05/10/2022 Insurance Providers Payer Name Payer Address Payer Phone Subscriber Number Group Number Insured Name Patient Relationship to Insured Coverage Start Date Coverage End Date [facility] Claims [address] [address] [place] [address] [id number] SYLVAIN SIMS Self - patient is the [...]
--- OUTSIDE RECORDS SUMMARY | 2025-02-26 15:07 | XMS_ITS | Clinical Summary ---
Author Organization [employer] Address [address] [place] [address] Care Team Providers Care Oyster Grader Name Role Phone Unavailable Primary Care Provider [...] Description 02/10/2025 11:00 AM EDT Office Visit [facility] [address] [place] [address] Judith Person Dental plaque (Primary Dx); Dental [...] Description 03/02/2025 2:30 PM EDT Office Visit [facility] [address] [place] [address] Barak Osorio, ISA [address] [place] [address] 08/12/2025 12:45 PM EDT Office Visit [facility] [address] [place] [address] NayaJudith melissa [address] [place] [address] Health Maintenance Due Date Last Done Comments [...] Relevant to Health Maintenance Insurance DENTAL - [facility]
[2025-03-11 09:01] VITALS: BMI 32.0
--- NOTE | 2025-03-11 11:48 | HO.ANESPROP2 ---
Documented by User: Gloria Enriquez NP 03/11/25 11:51 HPI - Anesthesia Eval Consult details Narrative: 75yo M for Left Sacroiliac Joint Stabilization and Fusion Follows [facility] Cardiology for Sinus Tach of unknown etiology. Stable at 12/2024 office visit. Rec'd decrease daily ETOH PMFSH Active Problems Active Problems: All Active Problems Epigastric pain (Acute) Excessive drinking alcohol (Acute) Muscle cramps (Acute) Hypersomnia (Acute) Snoring (Acute) BPH (benign prostatic hyperplasia) (Acute) Dysphagia (Acute) Memory loss (Acute) Sacroiliac joint dysfunction of both sides (Acute) Lumbar degenerative disc disease (Acute) Right shoulder pain (Acute) Left shoulder pain (Acute) Bilateral primary osteoarthritis of knee (Acute) Physical exam (Acute) Psoriatic arthritis (Acute) Tendinitis of both rotator cuffs (Acute) Mobitz type 1 second degree atrioventricular block (Acute) Sinus tachycardia (Acute) Pain of both sacroiliac joints (Acute) Mononeuropathy, unspecified (Acute) Acromioclavicular joint arthritis (Acute) Spondylosis of lumbar region without myelopathy or radiculopathy (Acute) Osteoarthritis of knees, bilateral (Acute) Chondrocalcinosis (Acute) Psoriasis (Acute) Family history of colon cancer (Acute) Former smoker (Acute) Gout (Acute) Polycythemia (Chronic) GERD (gastroesophageal reflux disease) (Acute) Pure hypercholesterolemia (Acute) Essential hypertension (Acute) Past Medical History Medical History Hypersomnia Snoring Psoriatic arthritis Former smoker Gout Elevated hemoglobin GERD (gastroesophageal reflux disease) Pure hypercholesterolemia Essential hypertension Family History Family History Father Asthma Mother Hypertension Stomach cancer, Onset Age: 50 Family/Other Substance use disorder Brother Cancer, Onset Age: 61 Family history of problems with anesthesia: No Surgical History Surgical History H/O wrist surgery History of foot surgery History of Problems with Anesthesia: No Social History Social History Household Members: Spouse and Significant Other Housing: Apartment Alcohol intake: current Alcohol intake frequency: holidays/special occasions only Alcohol type: beer and hard liquor Patient Tobacco Use Status: Former Tobacco user Tobacco use type: Cigarette e-Cigarette/Vaping Use: Never Used Second Hand Smoke Exposure: No Are you DNR?: No Advance Directives: No Advance Directives Information Provided: Yes service: No Current occupational status: disabled Cognitive needs: No Hearing needs: No Vision needs: No Meds Allergies Allergy/AdvReac Type Severity Reaction Status Date / Time amitriptyline Allergy Intermediate stomach Verified 02/11/25 13:16 pain aspirin Allergy Intermediate stomach Verified 02/11/25 13:16 pain Home Medications ?Medication ?Instructions ?Recorded ?Confirmed ?Last Taken ?Type adalimumab 40 mg/0.4 mL 40 mg subcut Q2W 02/24/22 03/13/25 Unknown History subcutaneous pen kit (Humira(CF) Pen) calcipotriene 0.005 % topical cream 1 appl topical QAM 03/13/23 03/13/25 Unknown History fluocinonide 0.05 % topical cream 1 appl topical DAILY 10/09/24 03/13/25 Unknown History diltiazem HCl 120 mg 120 mg PO DAILY 12/03/24 03/13/25 03/13/25 History capsule,extended release 24 hr (Cardizem CD) Exam Height,Weight and Vital Signs: Height 5 ft 6 in Weight 89.811 kg Pertinent Lab Results Pertinent Lab Results: Laboratory Tests 01/20/25 08:17 WBC 6.7 Hgb 17.1 Hct 49.6 Plt Count 156 L Sodium 143 Potassium 4.7 Chloride 107 Carbon Dioxide 28 BUN 15 Creatinine 1.11 Narrative Narrative: Per cardiac review: In the echocardiogram, LVEF 60-65%; mild septal hypertrophy and mild ascending aortic dilatation. No significant valvular issues. Myocardial perfusion imaging study with normal perfusion. In the exercise component, he reached 10.1 METS In the Holter monitor, frequent sinus tachycardia with an average rate of 112/Min. Assessment and Plan Assessment Anesthesia Assessment: Chart Reviewed Final Anesthetic Review Family History of Problems with Anesthesia: No History of Problems with Anesthesia: No Documented by User: Lawanda Mcnulty MD 03/13/25 08:48 [facility] Past Medical History Medical History Hypersomnia Snoring Psoriatic arthritis Former smoker Gout Elevated hemoglobin GERD (gastroesophageal reflux disease) Pure hypercholesterolemia Essential hypertension Family History Family History Father Asthma Mother Hypertension Stomach cancer, Onset Age: 50 Family/Other Substance use disorder Brother Cancer, Onset Age: 61 Surgical History Surgical History H/O wrist surgery History of foot surgery Social History Social History Household Members: Spouse and Significant Other Housing: Apartment Alcohol intake: current Alcohol intake frequency: holidays/special occasions only Alcohol type: beer and hard liquor Patient Tobacco Use Status: Former Tobacco user Tobacco use type: Cigarette e-Cigarette/Vaping Use: Never Used Second Hand Smoke Exposure: No Are you DNR?: No Advance Directives: No Advance Directives Information Provided: Yes service: No Current occupational status: disabled Cognitive needs: No Hearing needs: No Vision needs: No Meds Allergies Allergy/AdvReac Type Severity Reaction Status Date / Time amitriptyline Allergy Intermediate stomach Verified 02/11/25 13:16 pain aspirin Allergy Intermediate stomach Verified 02/11/25 13:16 pain Home Medications ?Medication ?Instructions ?Recorded ?Confirmed ?Last Taken ?Type adalimumab 40 mg/0.4 mL 40 mg subcut Q2W 02/24/22 03/13/25 Unknown History subcutaneous pen kit (Humira(CF) Pen) calcipotriene 0.005 % topical cream 1 appl topical QAM 03/13/23 03/13/25 Unknown History fluocinonide 0.05 % topical cream 1 appl topical DAILY 10/09/24 03/13/25 Unknown History diltiazem HCl 120 mg 120 mg PO DAILY 12/03/24 03/13/25 03/13/25 History capsule,extended release 24 hr (Cardizem CD) Exam Airway Mallampati Class: II TM Dist: >3cm Neck ROM: Full Heart: rrr Lungs: cta Assessment and Plan Assessment Anesthesia Assessment: Anesthesia Plan Discussed Final Anesthetic Review NPO: Yes ASA Class: II Final Preanesthetic Review: No Changes in Pt Med Stat, Meds/Allgs Chart Reviewed and Consent Obtained/Reviewed Patient Risk: Low Procedure Risk: Intermediate Anesthetic Plan Anesthetic Plan: MAC: Disposition: Standard PACU
[2025-03-13] VITALS (9 sets, daily range): BP systolic 108–131; BP diastolic 76–89; PULSE 78–95; RESP 12–20; TEMP 36.1–36.4; O2SAT 93–97; BMI 32.8
--- NOTE | ~2025-03-13 | FL_ITS ---
EXAMINATION: FL GUIDANCE ONLY HISTORY: Sacroiliac Joint Stabilization and Fusion COMPARISON: None available. TECHNIQUE: Fluoroscopy time: 2 minutes, 52.0 seconds. Cumulative Dose: 114.58 mGy. DAP: 40.336 Gycm2 Images: 2. FINDINGS: Fluoroscopic spot films of the left hemipelvis demonstrate a metallic device in the region of the sacroiliac joint. FL/FL guidance in OR IMPRESSION: Fluoroscopy during procedure. Please see procedure report for additional information. Electronically signed by: Kike Flaherty MD 03/13/2025 12:30 PM EDT
[2025-03-13] MEDS: Lactated Ringers 1,000 ML 100 ML IVCONT (08:39)
--- NOTE | 2025-03-13 09:44 | MHC.SHP ---
Pre-Procedural Eval Section A - 24 Hr Update-Section A only Date of Service: 03/13/25 The patient is an INPATIENT: No Changes since office visit: Yes Patient answered all questions The patient has been examined within 24 hours of the surgical procedure. The History & Physical has been completed within 30 days and I have reviewed it.: No Section B - Complete if H&P > 30 days Chief Complaint: Sacrococcygeal disorders,sacroiliitis Details of Present Illness: As above Relevant Family History (Specify if Yes): No Relevant Social History: None Present Medications: see Short Stay Collaborative assessment Medical History: No relevant PMH History of Previous Operations: No relevant previous surgery Allergies: Allergies Allergy/AdvReac Type Severity Reaction Status Date / Time amitriptyline Allergy Intermediate stomach Verified 02/11/25 13:16 pain aspirin Allergy Intermediate stomach Verified 02/11/25 13:16 pain Review of Systems Sugical H&P ROS: Negative: Respiratory, Neurological, Psychiatric, Hem-Onc, Allergic/Immunologic, Gastrointestinal, Genitourinary, Endocrine and Eyes/Ears/Nose/Throat and Yes, Specify: Constitution (Obesity), Cardiovascular (HTN), Musculoskeletal (Sacroiliitis bilateral SI joint dysfunction psoriatic arthritis) and Integumentary (Psoriasis) Exam Surgical H&P Exam: Normal: HEENT, Normal: Heart, Normal: Lungs, Normal: Extremities, Normal: Skin and Normal: Neurological and Significant Findings: Abdomen (Enlarged due to fat) Plan Diagnosis/Plan: Unchanged I have reviewed the history and physical and performed a pertinent physical examination on my patient. No changes have occurred unless specified. Time Spent With Patient Time: Total time managing care of this patient today ____ minutes.
--- NOTE | 2025-03-13 12:14 | P.BOP_ITS ---
Brief Operative Note Date of Service: 03/13/25 Pre-op diagnosis: Sacroiliitis bilateral sacroiliac joint dysfunction. Procedure: Sacroiliac joint stabilization with fusion left Nevro device Surgeon: Sotero Sanchez MD Was an Construction Equipment Overhauler used for this Procedure?: No Estimated blood loss (mL): 80 Pathology: none sent Condition: stable Disposition: PACU
--- NOTE | 2025-03-13 12:16 | P.OP_ITS ---
Operative Note Operative Note Date of Service: 03/13/25 Narrative: Sacroiliac joint stabilization with fusion using Nevro implantable device. Leeroy is very pleasant 75 years old Burkinan-speaking gentleman who presents in my office with complains on left-sided and right-sided sacroiliac joint pain. He complains more on left-sided pain and decision was made to address left-sided sacroiliac joint 1st. Informed consent was thoroughly explained to the patient and risks and benefits including bleeding and infection as well as peripheral nerve damage were explained to the patient. The patient was taken to the operating room and positioned supine on the stretcher. ASA monitors were applied and patient was induced with general anesthesia. After that patient was transferred prone on the operating table, the lower back of the patient was prepped and draped with ChloraPrep and draped with full body drape with sterile utility fashion. Sterilely draped C-arm arms were brought for anterior posterior and lateral views. Left PSIS was located by palpation and using C-arm view and small incision was created just medial to the left posterior superior iliac spine. The incision carried down through the skin and subcutaneous tissues. Thorough hemostasis was obtained. A starting guide was placed into the left SI joint. The joint was then fully developed using opening wedge. A working cannula was then inserted. All devices were placed under C-arm image guiding. Three parallel drill holes were created using the working cannula. A box osteotome was used to further prepare the SI joint. A rasp was impacted into the place. Finally implant packed with bone ortho biologic materials was impacted into the place. Again image intensification was used to guide the positioning of the implant. The transfixing blades were then e engaged, they went into the bones under the view of C-arm image. The insertion devices were removed. Final images were performed demonstrating good position of the hardware. The wound was irrigated fascia was closed using Vicryl sutures subcutaneous tissues were closed with 2 0 Vicryl sutures lacey were applied to the skin. Sterile dressing was applied. Sacroiliac joint belt was provided and fastened of the patient's pelvis. Patient tolerated procedure well, she was awakened, extubated and transferred stable to PACU.
== END 2025-03-13 14:25 | disposition home or self-care (01) ==
PROVIDERS: PCP Internal Medicine; Visit Provider Anesthesiology
PROC: (CPT 27279; principal; 2025-03-13 10:10)
DX: M46.1 Sacroiliitis, not elsewhere classified (principal); M53.3 Sacrococcygeal disorders, not elsewhere classified; G89.4 Chronic pain syndrome; M47.816 Spondylosis without myelopathy or radiculopathy, lumbar region; M17.0 Bilateral primary osteoarthritis of knee; G58.9 Mononeuropathy, unspecified; M10.9 Gout, unspecified; G47.10 Hypersomnia, unspecified; R06.83 Snoring; L40.50 Arthropathic psoriasis, unspecified; I10 Essential (primary) hypertension; E78.00 Pure hypercholesterolemia, unspecified; Z79.620 Long term (current) use of immunosuppressive biologic; Z79.899 Other long term (current) drug therapy; Z98.890 Other specified postprocedural states; Z88.6 Allergy status to analgesic agent; Z88.8 Allergy status to other drugs, medicaments and biological substances; Z87.891 Personal history of nicotine dependence
CPT/HCPCS: 27279; C1713; C1776; J0131; J0690; J1100; J2003; J2250; J2371; J2405; J2704; J2795; J3010; J3374

== ENCOUNTER → 2025-03-13 08:11 | Outpatient (BNV) | payer OTHER, SELFPAY | PROVIDERS: PCP Internal Medicine; Visit Provider Anesthesiology | DX: M46.1 Sacroiliitis, not elsewhere classified (principal) | CPT/HCPCS: 27279 ==

== ENCOUNTER 2025-03-19 10:49 | Outpatient (AMB) | payer OTHER, SELFPAY ==
[2025-03-19 10:56] VITALS: BP 114/88; PULSE 120; O2SAT 96; BMI 32.1
--- NOTE | 2025-03-19 10:56 | A.OFFVIS_ITS ---
Vital Signs 03/19/25 10:56 Height 5 ft 6 in Weight 199 lb BMI 32.1 BP 114/88 Blood Pressure Location Lt brachial Position Sitting Pulse 120 H Pulse Source Pulse Oximeter Pulse Oximetry (%) 96 Oxygen Delivery Method Room Air Intake Visit Reasons: S/p (L) SI Fusion: Nevro 03/13/25 Intake Note: Dressing changed successfully. Site looks cleaned and healthy. Field Account Director Required: No Field Account Director Services: Field Account Director Offered & Declined Accompanied by: Daughter Allergies amitriptyline Allergy (Intermediate, Verified 03/19/25 10:58) stomach pain aspirin Allergy (Intermediate, Verified 03/19/25 10:58) stomach pain HPI Comments Details: Leeroy is back in my office after left SI joint fusion. The patient is doing very well. The dressing was removed and the staple line was washed with ChloraPrep. The lacey are competent. No swelling no redness no pathological discharge. The wound was prepped with ChloraPrep again and dry sterile dressing with 2 x 2 and Tegaderm were applied. Patient was explained to continue for at least 8 weeks to wear sacroiliac joint belt 18/12, after that he may wear SI joint belt only during the daytime./ I will see this patient in while on week we will remove the lacey. He is doing very well. Prior: He continued to wear the SI joint belt with minimal improvement. His CT scan is scheduled for 12/17/2024. This diagnostic study is scheduled to rule out red flags such as infection or new mass growth in the patient's pelvis. He will be scheduled for the appointment for the follow-up of this CT scan on 12/26/2024. In the absence of the red flags of this patient pelvic bones and organs we will schedule him for the sacroiliac joint fusion 1st on the left and after that on the right. Prior: Results of therapeutic bilateral sacroiliac joint injection. He reports that his pain today as 5/10. He reported pain before the injection was 10/10 and maybe even more. He reported that 1st 15 days after the procedure was almost 100% pain relief. However now pain is starting to cripple back. I recommended him to start wearing sacroiliac joint belt. We provided sacroiliac joint belt for the patient today. We also will schedule him for CT of bony pel vis and CT of the lumbar spine to rule out red flags which would prevent us to go for the sacroiliac joint fusion. He would need bilateral fusion. We will go 1st for the most painful site. Everything was explained to the patient. Prior:. He received in the beginning of 2022 diagnostic sacroiliac joint injection which resulted in 100% immediate pain relief and 1 month of 90% pain improvement. He reported excellent mobility at this time good activities of daily living good social interactions. Unfortunately the patient was lost for follow-up in 2022 and now he is in my office reporting that he wants to repeat this injection again. I explained to the patient that at this time therapeutic sacroiliac joint injection needs to be performed. Risks of steroid injections were briefly explained to the patient. The patient agreed to go for the procedure. Prior: very pleasant Guamanian-speaking 72 years old gentleman who presents in my office with complains on lower back pain with vague radiation into bilateral lower extremities.? He reports also shoulder pain in bilateral shoulders.? He reports pain on the left lower extremity radiating to the level of the knee and slightly below that level he reports pain in the right lower ext extremity radiating all the way down to the ankle but not into the toes.? he reports that his pain stays elevated all the time 8 to 9/10 level.? .? He had x-rays done on the lumbar spine and on the shoulders the report of which is dictated as below.? He tried physical therapy for his knees and his shoulders in the past and he denied any help.? He denied any injections. Past medical history significant for hypertension and some unclear symptoms from the heart.? 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 He never went to [facility] Past surgical history significant for ORIF of the hand and the toe surgery related to the back. [facility] Medical History Hypersomnia Snoring Psoriatic arthritis Former smoker Gout Elevated hemoglobin GERD (gastroesophageal reflux disease) Pure hypercholesterolemia Essential hypertension Surgical History H/O wrist surgery History of foot surgery Family History Father Asthma Mother Hypertension Stomach cancer, Onset Age: 50 Family/Other Substance use disorder Brother Cancer, Onset Age: 61 Social History Household Members: Spouse and Significant Other Housing: Apartment Alcohol intake: current Alcohol intake frequency: holidays/special occasions only Alcohol type: beer and hard liquor Patient Tobacco Use Status: Former Tobacco user Tobacco use type: Cigarette e-Cigarette/Vaping Use: Never Used Second Hand Smoke Exposure: No service: No Current occupational status: disabled Cognitive needs: No Hearing needs: No Vision needs: No Review of Systems Const All systems reviewed & are unremarkable except as noted in HPI and below Neuro Denies Abnormal speech present and Denies Sensory deficit (Neuro) Physical Exam Vital Signs: Last Vital Signs Pulse 120 H 03/19/25 10:56 BP 114/88 03/19/25 10:56 Pulse Ox 96 03/19/25 10:56 Oxygen Delivery Method Room Air 03/19/25 10:56 BMI result Body Mass Index 32.1 Const General: cooperative, healthy appearing, comfortable and no acute distress Nutritional Appearance: overweight Orientation/consciousness: patient oriented x3 Eyes General: appearance normal, both eyes and all related structures Pupils: Equal, round and reactive pupils present EOM: EOMs intact bilaterally Neck Neck: Yes full ROM Chest Chest palpation & inspection: normal inspection of the chest Resp Effort & Inspection: normal respiratory effort, able to speak in complete sentences, normal respiratory pattern, no audible wheezes and no cough Cardio Jugular venous distension: no JVD GI Inspection: Yes normal to inspection Back/Spine/Pelvis Other: Able to stand on bilateral tiptoes and bilateral heels. Able to flex himself forward but reports severe pain at about 70 degrees, reports severe pain in the back with flexing back backwards. Loading test is positive bilaterally. Bernadine finger test is positive bilaterally. Gaenslen test is positive bilaterally. Stinchfield test is positive bilaterally. SLR test may be positive bilaterally. But dorsiflexion of the both feet with maximal SLR does not aggravate the pain. Tenderness on palpation on paraspinal spinal regions entire lumbar spine and lower thoracic spine. Valsalva maneuver does not aggravate the pain. Reports significant pain with bending forward in the lumbar spine and also reports significant tenderness on palpation in the projection of bilateral iliac crests at the top of bilateral iliac crests in the projection of the cluneal nerves passing over on the surface of the posterior pelvis. Neuro General: patient oriented x3, gait normal, tone normal, moves all extremities and no focal motor deficits Cranial nerves: Yes Equal, round and reactive pupils present, Yes Bilaterally in tact EOM present, Yes Nystagmus not present, Yes Normal facial strength present, Yes Midline tongue present and Yes Symmetric palate elevation present Cognition (Neuro): normal cognition Speech: No Abnormal speech present Gait exam (Neuro): Normal gait present Motor exam (neuro): 5/5 motor strength present throughout and Normal motor muscle tone present throughout Sensory Exam: No Sensory deficit (Neuro) Deep tendon reflexes (DTR's): Right triceps reflex intensity grade: 1+, Left triceps reflex intensity grade: 1+, Rt Biceps (C5, C6): 1+, Left biceps reflex intensity grade: 1+, Right brachioradialis reflex intensity grade: 1+, Left brachioradialis reflex intensity grade: 1+, Right patellar reflex intensity grade: 2+ and Left patellar reflex intensity grade: 2+ Coordination: [id number] test normal Extrem General: No pedal edema Psych Speech and movement: Normal speech and movement present Affect: normal affect Attitude: cooperative Thought process: Normal thought process present Thought content: Normal thought content present Insight: Good insight present (Psych) Judgement: Good judgement present (Psych) Assessment & Plan Assessment & Plan (1) Sacroiliitis: Code(s): M46.1 - Sacroiliitis, not elsewhere classified Category: Medical (2) Sacroiliac joint dysfunction of both sides: Code(s): M53.3 - Sacrococcygeal disorders, not elsewhere classified Category: Medical (3) Localized osteoarthritis of knees, bilateral: Code(s): M17.0 - Bilateral primary osteoarthritis of knee Category: Medical (4) Spondylosis of lumbar region without myelopathy or radiculopathy: Code(s): M47.816 - Spondylosis without myelopathy or radiculopathy, lumbar region Category: Medical (5) Chronic pain syndrome: Code(s): G89.4 - Chronic pain syndrome Category: Medical (6) Acromioclavicular joint arthritis: Code(s): M19.019 - Primary osteoarthritis, unspecified shoulder Category: Medical Qualifiers: Laterality: bilateral Qualified Code(s): M19.011 - Primary osteoarthritis, right shoulder; M19.012 - Primary osteoarthritis, left shoulder (7) Mononeuropathy, unspecified: Code(s): G58.9 - Mononeuropathy, unspecified Category: Medical (8) Psoriasis arthropathica: Code(s): L40.50 - Arthropathic psoriasis, unspecified Category: Medical (9) Pain of both sacroiliac joints: Code(s): M53.3 - Sacrococcygeal disorders, not elsewhere classified Category: Medical Plan Good results of diagnostic as well as therapeutic sacroiliac joint injection. Unfortunately sacroiliac joint injection with steroids resulted in only 15 days of complete pain relief. In 1 month his pain was back. Sacroiliac joint fusion discussed with the patient. Physical therapy would provide very minimal pain relief for this patient. He tried multiple sessions. He continues home exercise program to receive small improvements. SI joint belt was prescribed to the patient. He continues to wear the belt. He reports only minimal improvement. CT of the pelvis did not demonstrate any ?red flags ?. SI joint fusion was performed on the left joint on 03/13/2025. Patient is doing very well. Dressing change today see as above. Next week I will remove the lacey. He will continue SI joint belt 2447 for the next 8 weeks. Coding Level of Care Code Est Pt Level 3 (32008) Diagnoses Sacroiliitis M46.1 Sacroiliac joint dysfunction of both sides M53.3 Localized osteoarthritis of knees, bilateral M17.0 Spondylosis of lumbar region without myelopathy or radiculopathy M47.816 Chronic pain syndrome G89.4 Arthritis of both acromioclavicular joints M19.011; M19.012 Laterality: bilateral Mononeuropathy, unspecified G58.9 Psoriasis arthropathica L40.50 Pain of both sacroiliac joints M53.3
== END 2025-03-19 11:09 | disposition home or self-care (01) ==
LOC: HO.PMC 10:50
PROVIDERS: PCP Internal Medicine; Visit Provider Anesthesiology
DX: M46.1 Sacroiliitis, not elsewhere classified (principal); M53.3 Sacrococcygeal disorders, not elsewhere classified; M17.0 Bilateral primary osteoarthritis of knee; M47.816 Spondylosis without myelopathy or radiculopathy, lumbar region; G89.4 Chronic pain syndrome; M19.011 Primary osteoarthritis, right shoulder; M19.012 Primary osteoarthritis, left shoulder; G58.9 Mononeuropathy, unspecified; L40.50 Arthropathic psoriasis, unspecified
CPT/HCPCS: 99024

== ENCOUNTER → 2025-03-19 10:49 | Outpatient (BNVA) | payer OTHER, SELFPAY | PROVIDERS: PCP Internal Medicine; Visit Provider Anesthesiology | DX: M47.816 Spondylosis without myelopathy or radiculopathy, lumbar region (principal); M46.1 Sacroiliitis, not elsewhere classified; M17.0 Bilateral primary osteoarthritis of knee; M19.011 Primary osteoarthritis, right shoulder; M19.012 Primary osteoarthritis, left shoulder; G58.9 Mononeuropathy, unspecified; L40.50 Arthropathic psoriasis, unspecified; M53.3 Sacrococcygeal disorders, not elsewhere classified | CPT/HCPCS: 99212 ==

== ENCOUNTER 2025-03-26 10:45 | Outpatient (AMB) | payer OTHER, SELFPAY ==
--- OUTSIDE RECORDS SUMMARY | 2025-03-23 09:00 | XMS_ITS | Encounter Summary ---
Author Organization [employer] [facility] Address [address] [place] [address] Care Team Providers Care Filler Feeder Name Role Phone Unavailable Primary Care Provider Unavailabl e Reason for Visit * Reason Comments Dental Exam Dentures Encounter Details Date Type Department Care Team (Late st Contact Info) Description 03/23/2025 9:00 AM EDT Office Visit [facility] [address], [place] [id number] Barak Osorio DMD [address], [place] [phone] Social History Tobacco Use Types Packs/Day Years Used Date Smoking Tobacco: Never Smokeless Tobacco: Never Sex and Gender Information Value Date Recorded Sex Assigned at Male 03/27/2022 10:17 AM EDT Legal Sex Male 10:17 AM EDT Gender Identity Male 03/27/2022 10:17 AM EDT Sexual Orientation Straight 03/27/2022 10 :17 AM EDT documented as of this encounter Progress Notes * Barak Osorio DMD - 03/23/2025 9:00 AM EDT Bite registration of P/P NV: Teeth try in of P/P Luiz documented in this encounter Plan of Treatment Upcoming Encounters Date Type Department Care Team (Late st Contact Info) Description 04/02/2025 1:30 PM EST Office Visit [facility] [address] [place] [address] Barak Osorio DMD [address] [place] [address] 08/12/2025 12:45 PM EDT Office Visit [facility] [address] [place] [address] Naya Judith [address] [place] [address] documented as of this encounter Procedures Procedure Name Priority Date/Time Associated Diagnosis Comments BITE REGISTRATION Routine 03/23/2025 9:00 AM EDT documented in this encounter Visit Diagnoses Not on filedocumented in this encounter
[2025-03-26 10:59] VITALS: BP 165/94; PULSE 100; RESP 16; O2SAT 98; BMI 32.4
--- NOTE | 2025-03-26 10:59 | MHC.OFFVIS ---
Vital Signs 03/26/25 10:59 Height 5 ft 6 in Weight 201 lb BMI 32.4 BP 165/94 H Blood Pressure Location Lt brachial Position Sitting Respiration 16 Pulse 100 Pulse Source Pulse Oximeter Pulse Oximetry (%) 98 Oxygen Delivery Method Room Air Intake Visit Reasons: S/p (L) SI Fusion: Nevro 03/13/25 (2nd Visit) Bristle Machine Operator Required: No Bristle Machine Operator Services: Bristle Machine Operator Present Allergies amitriptyline Allergy (Intermediate, Verified 03/26/25 11:02) stomach pain aspirin Allergy (Intermediate, Verified 03/26/25 11:02) stomach pain HPI Comments Details: Leeroy is back in my office after left SI joint fusion. The patient is doing very well. The dressing was removed and the staple line was washed with ChloraPrep. The crow were removed. No swelling no redness no pathological discharge. The wound was prepped with ChloraPrep again and dry sterile dressing with 2 x 2 and Tegaderm were applied. Patient was explained to continue for at least 8 weeks to wear sacroiliac joint belt 18/12, after that he may wear SI joint belt only during the daytime./ I will see this patient in while on week we will remove the crow. He is doing very well. Prior: He continued to wear the SI joint belt with minimal improvement. His CT scan is scheduled for 12/17/2024. This diagnostic study is scheduled to rule out red flags such as infection or new mass growth in the patient's pelvis. He will be scheduled for the appointment for the follow-up of this CT scan on 12/26/2024. In the absence of the red flags of this patient pelvic bones and organs we will schedule him for the sacroiliac joint fusion 1st on the left and after that on the right. Prior: Results of therapeutic bilateral sacroiliac joint injection. He reports that his pain today as 5/10. He reported pain before the injection was 10/10 and maybe even more. He reported that 1st 15 days after the procedure was almost 100% pain relief. However now pain is starting to cripple back. I recommended him to start wearing sacroiliac joint belt. We provided sacroiliac joint belt for the patient today. We also will schedule him for CT of bony pelvis and CT of the lumbar spine to rule out red flags which would prevent us to go for the sacroiliac joint fusion. He would need bilateral fusion. We will go 1st for the most painful site. Everything was explained to the patient. Prior:. He received in the beginning of 2022 diagnostic sacroiliac joint injection which resulted in 100% immediate pain relief and 1 month of 90% pain improvement. He reported excellent mobility at this time good activities of daily living good social interactions. Unfortunately the patient was lost for follow-up in 2022 and now he is in my office reporting that he wants to repeat this injection again. I explained to the patient that at this time therapeutic sacroiliac joint injection needs to be performed. Risks of steroid injections were briefly explained to the patient. The patient agreed to go for the procedure. Prior: very pleasant Kenyan-speaking 72 years old gentleman who presents in my office with complains on lower back pain with vague radiation into bilateral lower extremities.? He reports also shoulder pain in bilateral shoulders.? He reports pain on the left lower extremity radiating to the level of the knee and slightly below that level he reports pain in the right lower ext extremity radiating all the way down to the ankle but not into the toes.? he reports that his pain stays elevated all the time 8 to 9/10 level.? .? He had x-rays done on the lumbar spine and on the shoulders the report of which is dictated as below.? He tried physical therapy for his knees and his shoulders in the past and he denied any help.? He denied any injections. Past medical history significant for hypertension and some unclear symptoms from the heart.? He is under care of mixer helper with diagnosis of psoriasis, he probably has psoriatic arthritis.? He never went to transmission rebuilder.? Past surgical history significant for ORIF of the hand and the toe surgery related to the back. [facility] Medical History Hypersomnia Snoring Psoriatic arthritis Former smoker Gout Elevated hemoglobin GERD (gastroesophageal reflux disease) Pure hypercholesterolemia Essential hypertension Surgical History H/O wrist surgery History of foot surgery Family History Father Asthma Mother Hypertension Stomach cancer, Onset Age: 50 Family/Other Substance use disorder Brother Cancer, Onset Age: 61 Social History Household Members: Spouse and Significant Other Housing: Apartment Alcohol intake: current Alcohol intake frequency: holidays/special occasions only Alcohol type: beer and hard liquor Patient Tobacco Use Status: Former Tobacco user Tobacco use type: Cigarette e-Cigarette/Vaping Use: Never Used Second Hand Smoke Exposure: No service: No Current occupational status: disabled Cognitive needs: No Hearing needs: No Vision needs: No Review of Systems Const All systems reviewed & are unremarkable except as noted in HPI and below Neuro Denies Abnormal speech present and Denies Sensory deficit (Neuro) Physical Exam Vital Signs: Last Vital Signs Pulse 100 03/26/25 10:59 Resp 16 03/26/25 10:59 BP 165/94 H 03/26/25 10:59 Pulse Ox 98 03/26/25 10:59 Oxygen Delivery Method Room Air 03/26/25 10:59 BMI result Body Mass Index 32.4 Const General: cooperative, healthy appearing, comfortable and no acute distress Nutritional Appearance: overweight Orientation/consciousness: patient oriented x3 Eyes General: appearance normal, both eyes and all related structures Pupils: Equal, round and reactive pupils present EOM: EOMs intact bilaterally Neck Neck: Yes full ROM Chest Chest palpation & inspection: normal inspection of the chest Resp Effort & Inspection: normal respiratory effort, able to speak in complete sentences, normal respiratory pattern, no audible wheezes and no cough Cardio Jugular venous distension: no JVD GI Inspection: Yes normal to inspection Back/Spine/Pelvis Other: Able to stand on bilateral tiptoes and bilateral heels. Able to flex himself forward but reports severe pain at about 70 degrees, reports severe pain in the back with flexing back backwards. Loading test is positive bilaterally. Bernadine finger test is positive bilaterally. Gaenslen test is positive bilaterally. Stinchfield test is positive bilaterally. SLR test may be positive bilaterally. But dorsiflexion of the both feet with maximal SLR does not aggravate the pain. Tenderness on palpation on paraspinal spinal regions entire lumbar spine and lower thoracic spine. Valsalva maneuver does not aggravate the pain. Reports significant pain with bending forward in the lumbar spine and also reports significant tenderness on palpation in the projection of bilateral iliac crests at the top of bilateral iliac crests in the projection of the cluneal nerves passing over on the surface of the posterior pelvis. Neuro General: patient oriented x3, gait normal, tone normal, moves all extremities and no focal motor deficits Cranial nerves: Yes Equal, round and reactive pupils present, Yes Bilaterally intact EOM present, Yes Nystagmus not present, Yes Normal facial strength present, Yes Midline tongue present and Yes Symmetric palate elevation present Cognition (Neuro): normal cognition Speech: No Abnormal speech present Gait exam (Neuro): Normal gait present Motor exam (neuro): 5/5 motor strength present throughout and Normal motor muscle tone present throughout Sensory Exam: No Sensory deficit (Neuro) Deep tendon reflexes (DTR's): Right triceps reflex intensity grade: 1+, Left triceps reflex intensity grade: 1+, Rt Biceps (C5, C6): 1+, Left biceps reflex intensity grade: 1+, Right brachioradialis reflex intensity grade: 1+, Left brachioradialis reflex intensity grade: 1+, Right patellar reflex intensity grade: 2+ and Left patellar reflex intensity grade: 2+ Coordination: [id number] test normal Extrem General: No pedal edema Psych Speech and movement: Normal speech and movement present Affect: normal affect Attitude: cooperative Thought process: Normal thought process present Thought content: Normal thought content present Insight: Good insight present (Psych) Judgement: Good judgement present (Psych) Assessment & Plan Assessment & Plan (1) Sacroiliitis: Code(s): M46.1 - Sacroiliitis, not elsewhere classified Category: Medical (2) Sacroiliac joint dysfunction of both sides: Code(s): M53.3 - Sacrococcygeal disorders, not elsewhere classified Category: Medical (3) Localized osteoarthritis of knees, bilateral: Code(s): M17.0 - Bilateral primary osteoarthritis of knee Category: Medical (4) Spondylosis of lumbar region without myelopathy or radiculopathy: Code(s): M47.816 - Spondylosis without myelopathy or radiculopathy, lumbar region Category: Medical (5) Chronic pain syndrome: Code(s): G89.4 - Chronic pain syndrome Category: Medical (6) Acromioclavicular joint arthritis: Code(s): M19.019 - Primary osteoarthritis, unspecified shoulder Category: Medical Qualifiers: Laterality: bilateral Qualified Code(s): M19.011 - Primary osteoarthritis, right shoulder; M19.012 - Primary osteoarthritis, left shoulder (7) Mononeuropathy, unspecified: Code(s): G58.9 - Mononeuropathy, unspecified Category: Medical (8) Psoriasis arthropathica: Code(s): L40.50 - Arthropathic psoriasis, unspecified Category: Medical (9) Pain of both sacroiliac joints: Code(s): M53.3 - Sacrococcygeal disorders, not elsewhere classified Category: Medical Plan Good results of diagnostic as well as therapeutic sacroiliac joint injection. Unfortunately sacroiliac joint injection with steroids resulted in only 15 days of complete pain relief. In 1 month his pain was back. Sacroiliac joint fusion discussed with the patient. Physical therapy would provide very minimal pain relief for this patient. He tried multiple sessions. He continues home exercise program to receive small improvements. SI joint belt was prescribed to the patient. He continues to wear the belt. He reports only minimal improvement. CT of the pelvis did not demonstrate any ?red flags ?. SI joint fusion was performed on the left joint on 03/13/2025. Patient is doing very well. Dressing change today see as above. Crow removed today. He will continue SI joint belt 18/12 for the next 8 weeks. I will see him in 5 weeks. Activities limitations were described to the patient. Hygiene limitations were explained to the patient. Patient expressed understanding. Coding Level of Care Code Est Pt Level 3 (61962) Diagnoses Sacroiliitis M46.1 Sacroiliac joint dysfunction of both sides M53.3 Localized osteoarthritis of knees, bilateral M17.0 Spondylosis of lumbar region without myelopathy or radiculopathy M47.816 Chronic pain syndrome G89.4 Arthritis of both acromioclavicular joints M19.011; M19.012 Laterality: bilateral Mononeuropathy, unspecified G58.9 Psoriasis arthropathica L40.50 Pain of both sacroiliac joints M53.3
--- OUTSIDE RECORDS SUMMARY | 2025-03-26 13:15 | XMS_ITS | Patient Health Record ---
Author Organization [facility] Address [address] [place] [address] Care Team Providers Care Lumber Chain Offbearer Name Role Phone Cristina Rivera Primary Care Provider Unavailab Kike Hanks Unavailable [phone] Allergies No Known Allergies Reason For Referral No Information Medications Medication SIG (Take, Route, Frequency, Duration) Notes Start Date End Date Status Allopurinol 300 MG Oral; Duration: 90 Active Atorvastatin Calcium 20 MG TOME LINDSEY TABLETA TODOS LOS D Oral; Duration: 90 Active Humira Pen 40 MG/0.4ML INJECT 1 PEN UNDE R THE SKIN EVERY WEEK Subcutaneous; Duration: 28 Active Omeprazole 20 MG TOME LINDSEY C PSULA DOS VECES AL D A Oral; Duration: 90 Active Metoprolol Succinate ER 50 MG Oral; Duration: 90 Active Pravastatin Sodium N ot-Taking Vitamin D3 50 MCG (1999) TOME 1 C PSULA POR V A ORAL TODOS LOS D Oral; Duration: 90 Active Aspirin Low Dose 81 MG TOME LINDSEY TABLETA TODOS LOS D Oral; Duration: 90 Active Dulcolax (colon prep) 5 MG take at 3:00 p.m and 7:00p.m. Orally two tablets twice a day for one day; Duration: 1 day 05/20/2022 Active MiraLax (colon prep) 17 GM/SCOOP 1 238Gm bottle mixed with Gatorade or Crystal Light Orally begin at 5:00 p.m. the day before the procedure; Duration: 1 day 05/20/2022 Active Dulcolax (colon prep) 5 MG take at 3:00 p.m and 7:00p.m. Orally two tablets twice a day for one day; Duration: 1 day 05/20/2022 Active MiraLax (colon prep) 17 GM/SCOOP 1 238Gm bottle mixed with Gatorade or Crystal Light Orally begin at 5:00 p.m. the day before the procedure; Duration: 1 day 05/20/2022 Active Zolpidem Tartrate No [...] Problem Status W/U Status Risk Notes Problem Screening for malignant neoplasm of colon (184897871) Encounter for screening for malignant neoplasm of colon (Z12.11) Active confirmed Problem History of adenomatous polyp of colon (168122461) History of adenomatous polyp of colon (Z86.010) Active confirmed Problem History of polyp of colon (situation) (531475751) Personal history of colonic polyps (Z86.010) Active confirmed Problem Diverticular disease of colon (943585593) Diverticulosis of large intestine without perforation or abscess without bleeding (K57.30) Active confirmed Problem Preprocedural examination (207363274434637) Preprocedural examination (Z01.818) Active confirmed Problem Long-term current use of antiplatelet drug (862274431771390) Long-term use of aspirin therapy (Z79.82) Active confirmed Plan Of Treatment Future Test Test Name Order Date COLONOSCOPY 05/31/2011 COLONOSCOPY 10/26/2016 COLONOSCOPY 05/10/2022 Insurance Providers Payer Name Payer Address Payer Phone Subscriber Number Group Number Insured Name Patient Relationship to Insured Coverage Start Date Coverage End Date [facility] Claims [address] [address] [place] [address] [id number] SYLVAIN SIMS Self - patient is the insured Medical (General) History Medical History History ICD Code Hyperlipidemia HTN Gout Denies [place],DM,CVA,Lung disease,renal dise ase Colonoscopy 2005 revealed a small tubular adenoma that was removed; colonoscopy in June of 2011 was negative except for diverticulosis and internal hemorrhoids Psoriasis Negative screening colonosco py in December of 2016 other than a hyperplastic polyp Surgical History Surgery Date(Month/Year) Wrist and foot surgery
--- OUTSIDE RECORDS SUMMARY | 2025-03-26 13:16 | XMS_ITS | Clinical Summary ---
Author Organization [employer] Address [address] [place] [address] Care Team Providers Care Iron Pourer Name Role Phone Unavailable Primary Care Provider [...] Active omeprazole (PriLOSEC) [address] capsule TOME 1 C PSULA POR V A ORAL DOS VECES AL D A Active Active Problems Problem Noted Date Diagnosed Date Diverticular disease of colon 03/02/2025 Encounter for screening for malignant neoplasm o f colon 03/02/2025 History of adenomatous polyp of colon 03/02/2025 Long-term use of aspirin therapy 03/02/2025 Preprocedural examination 03/02/2025 Chronic low back pain 02/23/2012 Chronic neck pain 02/23/2012 Erythrocytosis 02/23/2012 Hyperlipidemia 02/23/2012 Hypertension 02/23/2012 Hyperuricemia 02/23/2012 Microscopic hematuria 02/23/2012 Psoriasis 02/23/2012 Encounters Date Type Department Care Team Description 03/23/2025 9:00 AM EDT Office Visit [facility] [address] [place] [address] Barak Osorio DMD 03/06/2025 10:00 AM EDT Office Visit [facility] [address] [place] [address] Barak Osorio DMD 03/02/2025 2:30 PM EDT Office Visit [facility] [address] [place] [address] Barak Osorio DMD 02/10/2025 11:00 AM EDT Office Visit [facility] [address] [place] [address] Judith Person Dental plaque (Primary Dx); Dental [...] Sign Reading Time Taken Comments Blood Pressure 120/90 03/02/2025 2:14 PM EDT Pulse 120 03/02/2025 2:14 PM EDT Temperature - - Respiratory Rate - - Oxygen Saturation - - Inhaled Oxygen Concentration - - Weight - - Height - - Body Mass Index - - Plan of Treatment Upcoming Encounters Date Type Department Care Team (Late st Contact Info) Description 04/02/2025 1:30 PM EST Office Visit [facility] [address] [place] [address] Jo Barak, DMD [address] [place] [address] 08/12/2025 12:45 PM EDT Office Visit [facility] [address] [place] [address] Judith Person [address] [place] [address] Health Maintenance Due Date Last Done Comments CT Colonography 1952 Colonoscopy 1952 Colorectal Cancer Screening 1952 Depression Screening 1952 FIT DNA/Cologuard 1952 FIT 1952 FOBT 1952 Lipid Panel 1952 SDOH Screening 1952 Sigmoidoscopy 1952 Alcohol/Substance Use Screening 1964 Hepatitis C Screening 02/06/1970 Dental Oral Exam 04/18/2024 10/16/2023, 01/2021, 01/10/2019, Additional history exists COVID-19 Vaccine ( season) 2025 03/24/2023, 12/05/2021, 04/12/2021, Additional history exists Dental Prophylaxis 08/11/2025 02/10/2025, 0 07/29/2024, 10/16/2023, Additional history exists Dental X-Ray: Bitewings 02/11/2026 02/11/20 25, 10/16/2023, 07/06/2020, Additional history exists Tobacco Screening 03/23/2026 03/23/2025 DTaP/Tdap/Td Vaccines (3 - Td or Tdap) 06/19/2026 06/19/2016, 07/08/2013, 03/13/2003 Dental X-Ray: Full Mouth 10/16/2026 024, 01/10/2019, 04/25/2010 RSV Patients and Patients Aged 60 years or older (1 - 1-dose 75+ series) 02/06/2027 Pneumococcal Vaccine: 50+ Years Completed 12/25/2022, 07/24/2017 Zoster Vaccines Completed 10/25/2023, 04/20/2023 Influenza Vaccine Completed 03/02/2025, , 03/11/2021, Additional history exists HIB Vaccines Aged Out No longer eligi [...] Associated Diagnosis Comments BITE REGISTRATION Routine 03/23/2025 9:0 0 AM EDT DENTURE IMPRESSION Routine 03/06/2025 10 :00 AM EDT CASE PRESENTATION, DETAILED AND EXTENSIVE TREATMENT PLANNING Routine 03/02/2025 2:30 PM EDT DENTURE FOLLOWUP Routine 03/02/2025 2:30 PM EDT ORAL HYGIENE INSTRUCTIONS Routine 02/10/2025 11:00 AM [...] Relevant to Health Maintenance [facility]
== END 2025-03-26 11:27 | disposition home or self-care (01) ==
LOC: HO.PMC 10:46
PROVIDERS: PCP Internal Medicine; Visit Provider Anesthesiology
DX: M46.1 Sacroiliitis, not elsewhere classified (principal); M53.3 Sacrococcygeal disorders, not elsewhere classified; M17.0 Bilateral primary osteoarthritis of knee; M47.816 Spondylosis without myelopathy or radiculopathy, lumbar region; G89.4 Chronic pain syndrome; M19.011 Primary osteoarthritis, right shoulder; M19.012 Primary osteoarthritis, left shoulder; G58.9 Mononeuropathy, unspecified; L40.50 Arthropathic psoriasis, unspecified
CPT/HCPCS: 99024

== ENCOUNTER → 2025-03-26 10:45 | Outpatient (BNVA) | payer OTHER, SELFPAY | PROVIDERS: PCP Internal Medicine; Visit Provider Anesthesiology | DX: G89.4 Chronic pain syndrome (principal); M46.1 Sacroiliitis, not elsewhere classified; M53.3 Sacrococcygeal disorders, not elsewhere classified; M17.0 Bilateral primary osteoarthritis of knee; M47.816 Spondylosis without myelopathy or radiculopathy, lumbar region; M19.011 Primary osteoarthritis, right shoulder; M19.012 Primary osteoarthritis, left shoulder; L40.50 Arthropathic psoriasis, unspecified | CPT/HCPCS: 99212 ==

== ENCOUNTER 2025-05-13 10:37 | Outpatient (AMB) | payer OTHER, SELFPAY ==
--- NOTE | 2025-05-13 10:59 | A.OFFVIS_ITS ---
Vital Signs 05/13/25 11:06 Height 5 ft 6 in Weight 204 lb BMI 32.9 BP 123/89 Blood Pressure Location Rt brachial Position Sitting Respiration 16 Pulse 125 H Pulse Source Pulse Oximeter Pulse Oximetry (%) 95 Oxygen Delivery Method Room Air Intake Visit Reasons: Post op follow up 5 weeks Software Test Automation Engineer Required: Yes Software Test Automation Engineer Language: Fisher Spear Name: Yulisa [id number] Accompanied by: Life Partner Allergies amitriptyline Allergy (Intermediate, Verified 05/13/25 11:05) stomach pain aspirin Allergy (Intermediate, Verified 05/13/25 11:05) stomach pain HPI Comments Details: Leeroy is back in my office after left SI joint fusion. he did not complain today on pain on the left side at all. Reports that this side is fixed. However he reports the pain on the right side of the lower back which is exacerbated by a loading test on the right. I suspect that he has facet arthropathy on the right side. I will schedule him for diagnostic medial branch block L3, L4, L5, on the right. Patient agreed to go to the procedure. I also instructed to him to continue to wear SI joint belt for the next 4 weeks. However the patient can start driving. I will see the patient on the injection day and Few days after the injection. Prior: He continued to wear the SI joint belt with minimal improvement. His CT scan is scheduled for 12/17/2024. This diagnostic study is scheduled to rule out red flags such as infection or new mass growth in the patient's pelvis. He will be scheduled for the appointment for the follow-up of this CT scan on 12/26/2024. In the absence of the red flags of this patient pelvic bones and organs we will schedule him for the sacroiliac joint fusion 1st on the left and after that on the right. Prior: Results of therapeutic bilateral sacroiliac joint injection. He reports that his pain today as 5/10. He reported pain before the injection was 10/10 and maybe even more. He reported that 1st 15 days after the procedure was almost 100% pain relief. However now pain is starting to cripple back. I recommended him to start wearing sacroiliac joint belt. We provided sacroiliac joint belt for the patient today. We also will schedule him for CT of bony pelvis and CT of the lumbar spine to rule out red flags which would prevent us to go for the sacroiliac joint fusion. He would need bilateral fusion. We will go 1st for the most painful site. Everything was explained to the patient. Prior:. He received in the beginning of 2022 diagnostic sacroiliac joint injection which resulted in 100% immediate pain relief and 1 month of 90% pain improvement. He reported excellent mobility at this time good activities of daily living good social interactions. Unfortunately the patient was lost for follow-up in 2022 and now he is in my office reporting that he wants to repeat this injection again. I explained to the patient that at this time therapeutic sacroiliac joint injection needs to be performed. Risks of steroid injections were briefly explained to the patient. The patient agreed to go for the procedure. Prior: very pleasant [place]raltarian-speaking 72 years old gentleman who presents in my office with complains on lower back pain with vague radiation into bilateral lower extremities.? He reports also shoulder pain in bilateral shoulders.? He reports pain on the left lower extremity radiating to the level of the knee and slightly below that level he reports pain in the right lower ext extremity radiating all the way down to the ankle but not into the toes.? he reports that his pain stays elevated all the time 8 to 9/10 level.? .? He had x-rays done on the lumbar spine and on the shoulders the report of which is dictated as below.? He tried physical therapy for his knees and his shoulders in the past and he denied any help.? He denied any injections. Past medical history significant for hypertension and some unclear symptoms from the heart.? 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 He never went to soda fountain manager.? Past surgical history significant for ORIF of the hand and the toe surgery related to the back. [facility] Medical History Hypersomnia Snoring Psoriatic arthritis Former smoker Gout Elevated hemoglobin GERD (gastroesophageal reflux disease) Pure hypercholesterolemia Essential hypertension Surgical History H/O wrist surgery History of foot surgery Family History Father Asthma Mother Hypertension Stomach cancer, Onset Age: 50 Family/Other Substance use disorder Brother Cancer, Onset Age: 61 Social History Household Members: Spouse and Significant Other Housing: Apartment Alcohol intake: current Alcohol intake frequency: holidays/special occasions only Alcohol type: beer and hard liquor Patient Tobacco Use Status: Former Tobacco user Tobacco use type: Cigarette e-Cigarette/Vaping Use: Never Used Second Hand Smoke Exposure: No service: No Current occupational status: disabled Cognitive needs: No Hearing needs: No Vision needs: No Review of Systems Const All systems reviewed & are unremarkable except as noted in HPI and below Neuro Denies Abnormal speech present and Denies Sensory deficit (Neuro) Physical Exam Vital Signs: Last Vital Signs Pulse 125 H 05/13/25 11:06 Resp 16 05/13/25 11:06 BP 123/89 05/13/25 11:06 Pulse Ox 95 05/13/25 11:06 Oxygen Delivery Method Room Air 05/13/25 11:06 BMI result Body Mass Index 32.9 Const General: cooperative, healthy appearing, comfortable and no acute distress Nutritional Appearance: overweight Orientation/consciousness: patient oriented x3 Eyes General: appearance normal, both eyes and all related structures Pupils: Equal, round and reactive pupils present EOM: EOMs intact bilaterally Neck Neck: Yes full ROM Chest Chest palpation & inspection: normal inspection of the chest Resp Effort & Inspection: normal respiratory effort, able to speak in complete sentences, normal respiratory pattern, no audible wheezes and no cough Cardio Jugular venous distension: no JVD GI Inspection: Yes normal to inspection Back/Spine/Pelvis Other: Able to stand on bilateral tiptoes and bilateral heels. Able to flex himself forward but reports severe pain at about 70 degrees, reports severe pain in the back with flexing back backwards. Loading test is positive bilaterally. Bernadine finger test is positive bilaterally. Gaenslen test is positive bilaterally. Stinchfield test is positive bilaterally. SLR test may be positive bilaterally. But dorsiflexion of the both feet with maximal SLR does not aggravate the pain. Tenderness on palpation on paraspinal spinal regions entire lumbar spine and lower thoracic spine. Valsalva maneuver does not aggravate the pain. Reports significant pain with bending forward in the lumbar spine and also reports significant tenderness on palpation in the projection of bilateral iliac crests at the top of bilateral iliac crests in the projection of the cluneal nerves passing over on the surface of the posterior pelvis. Neuro General: patient oriented x3, gait normal, tone normal, moves all extremities and no focal motor deficits Cranial nerves: Yes Equal, round and reactive pupils present, Yes Bilaterally intact EOM present, Yes Nystagmus not present, Yes Normal facial strength present, Yes Midline tongue present and Yes Symmetric palate elevation present Cognition (Neuro): normal cognition Speech: No Abnormal speech present Gait exam (Neuro): Normal gait present Motor exam (neuro): 5/5 motor strength present throughout and Normal motor muscle tone present throughout Sensory Exam: No Sensory deficit (Neuro) Deep tendon reflexes (DTR's): Right triceps reflex intensity grade: 1+, Left triceps reflex intensity grade: 1+, Rt Biceps (C5, C6): 1+, Left biceps reflex intensity grade: 1+, Right brachioradialis reflex intensity grade: 1+, Left brachioradialis reflex intensity grade: 1+, Right patellar reflex intensity grade: 2+ and Left patellar reflex intensity grade: 2+ Coordination: [id number] test normal Extrem General: No pedal edema Psych Speech and movement: Normal speech and movement present Affect: normal affect Attitude: cooperative Thought process: Normal thought process present Thought content: Normal thought content present Insight: Good insight present (Psych) Judgement: Good judgement present (Psych) Assessment & Plan Assessment & Plan (1) Sacroiliitis: Code(s): M46.1 - Sacroiliitis, not elsewhere classified Category: Medical (2) Sacroiliac joint dysfunction of both sides: Code(s): M53.3 - Sacrococcygeal disorders, not elsewhere classified Category: Medical (3) Localized osteoarthritis of knees, bilateral: Code(s): M17.0 - Bilateral primary osteoarthritis of knee Category: Medical (4) Spondylosis of lumbar region without myelopathy or radiculopathy: Code(s): M47.816 - Spondylosis without myelopathy or radiculopathy, lumbar region Category: Medical (5) Chronic pain syndrome: Code(s): G89.4 - Chronic pain syndrome Category: Medical (6) Acromioclavicular joint arthritis: Code(s): M19.019 - Primary osteoarthritis, unspecified shoulder Category: Medical Qualifiers: Laterality: bilateral Qualified Code(s): M19.011 - Primary osteoarthritis, right shoulder; M19.012 - Primary osteoarthritis, left shoulder (7) Mononeuropathy, unspecified: Code(s): G58.9 - Mononeuropathy, unspecified Category: Medical (8) Psoriasis arthropathica: Code(s): L40.50 - Arthropathic psoriasis, unspecified Category: Medical (9) Pain of both sacroiliac joints: Code(s): M53.3 - Sacrococcygeal disorders, not elsewhere classified Category: Medical Plan Good results of diagnostic as well as therapeutic sacroiliac joint injection. Excellent results of the sacroiliac joint fusion on the left. Now the patient starts to complain on pain on the right side slightly higher than the level of the sacroiliac joint level with the loading test aggravating the pain. I suspect that facet arthropathy on the right is the cause of this pain of the patient. I will perform bilateral diagnostic medial branch block L3, L4, L5. After that I will make a conclusion whether or not patient needs right-sided SI joint fusion or maybe he needs sprint PNS versus RFA of the medial branches. Coding Level of Care Code Est Pt Level 3 (18312) Diagnoses Sacroiliitis M46.1 Sacroiliac joint dysfunction of both sides M53.3 Localized osteoarthritis of knees, bilateral M17.0 Spondylosis of lumbar region without myelopathy or radiculopathy M47.816 Chronic pain syndrome G89.4 Arthritis of both acromioclavicular joints M19.011; M19.012 Laterality: bilateral Mononeuropathy, unspecified G58.9 Psoriasis arthropathica L40.50 Pain of both sacroiliac joints M53.3
[2025-05-13 11:06] VITALS: BP 123/89; PULSE 125; RESP 16; O2SAT 95; BMI 32.9
--- OUTSIDE RECORDS SUMMARY | 2025-05-13 13:24 | XMS_ITS | Patient Health Record ---
Author Organization [facility] Address [address] [place] [address] Care Team Providers Care Sales Service Executive Name Role Phone Cristina Rivera Primary Care Provider Unavailab Kike Hanks Unavailable [phone] Allergies No Known Allergies Reason For Referral No Information Medications Medication SIG (Take, Route, Frequency, Duration) Notes Start Date End Date Status Allopurinol 300 MG Tablet Oral; Duration: 90 Active Atorvastatin Calcium 20 MG Tablet TOME LINDSEY TABLETA TODOS LOS D Oral; Duration: 90 Active Humira Pen 40 MG/0.4ML Pen-injector Kit INJECT 1 PEN UNDER THE SKIN EVERY WEEK Subcutaneous; Duration: 28 Active Omeprazole 20 MG Capsule Delayed Release TOME LINDSEY C PSULA DOS VECES AL D A Oral; Duration: 90 Active Metoprolol Succinate ER 50 MG Tablet Extended Release 24 Hour Oral; Duration: 90 Active Pravastatin Sodium N ot-Taking/PRN Vitamin D3 50 MCG (1999) Capsule TOME 1 C PSULA POR V A ORAL TODOS LOS D Oral; Duration: 90 Active Aspirin Low Dose 81 MG Tablet Delayed Release TOME LINDSEY TABLETA TODOS LOS D Oral; Duration: 90 Active Dulcolax (colon prep) 5 MG Tablet Delayed Release take at 3:00 p.m and 7:00p.m. Orally two tablets twice a day for one day; Duration: 1 day 05/20/2022 Active MiraLax (colon prep) 17 GM/SCOOP Powder 1 238Gm bottle mixed with Gatorade or Crystal Light Orally begin at 5:00 p.m. the day before the procedure; Duration: 1 day 05/20/2022 Active Dulcolax (colon prep) 5 MG Tablet Delayed Release take at 3:00 p.m and 7:00p.m. Orally two tablets twice a day for one day; Duration: 1 day 05/20/2022 Active MiraLax (colon prep) 17 GM/SCOOP Powder 1 238Gm bottle mixed with Gatorade or Crystal Light Orally begin at 5:00 p.m. the day before the procedure; Duration: 1 day 05/20/2022 Active Zolpidem Tartrate No t-Taking/PRN Immunizations Vaccine Route Administration Date Status Comme nts Influenza Unknown 04/27/2022 Administered Social History Social History Drugs/Alcohol: Social Info Question Answer Notes Alcohol Screen Did you have a drink containing alcohol in the past year? Yes How often did you have a drink containing alcohol in the past year? 4 or more times a week (4 points) How many drinks did you have on a typical day when you were drinking in the past year? 1 or 2 drinks (0 point) Points 4 Interpretation Positive Additional Details Category Social Info Options Details Miscellaneous: Marital status: Occupation: retired Section Notes: He does not smoke nor drink any sig. amounts of alcohol. He does not smoke nor drink any sig. amounts of alcohol. He does not smoke; 2 drinks daily Problems Problem Type SNOMED Code ICD Code Onset Dates Problem Status W/U Status Risk Notes Problem Screening for malignant neoplasm of colon (092930166) Encounter for screening for malignant neoplasm of colon (Z12.11) Active confirmed Problem History of adenomatous polyp of colon (785248647) History of adenomatous polyp of colon (Z86.010) Active confirmed Problem History of polyp of colon (situation) (528282653) Personal history of colonic polyps (Z86.010) Active confirmed Problem Diverticular disease of colon (946181516) Diverticulosis of large intestine without perforation or abscess without bleeding (K57.30) Active confirmed Problem Preprocedural examination (424057652706838) Preprocedural examination (Z01.818) Active confirmed Problem Long-term current use of antiplatelet drug (918068143918312) Long-term use of aspirin therapy (Z79.82) Active confirmed Plan Of Treatment Future Test Test Name Order Date COLONOSCOPY 05/31/2011 COLONOSCOPY 10/26/2016 COLONOSCOPY 05/10/2022 Insurance Providers Payer Name Payer Address Payer Phone Subscriber Number Group Number Insured Name Patient Relationship to Insured Coverage Start Date Coverage End Date [facility] Claims [address] [address] [place] [address] [phone] [id number] SYLVAIN SIMS Self - patient is the [...]
--- OUTSIDE RECORDS SUMMARY | 2025-05-13 13:25 | XMS_ITS | Clinical Summary ---
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 use of antiplate let drug 04/02/2025 Diverticular disease of colon 03/02/2025 Encounter for screening for malignant neoplasm o f colon 03/02/2025 History of adenomatous polyp of colon 03/02/2025 Long-term use of aspirin therapy 03/02/2025 Preprocedural examination 03/02/2025 Chronic low back pain 02/23/2012 Chronic neck pain 02/23/2012 Erythrocytosis 02/23/2012 Hyperlipidemia 02/23/2012 Hypertension 02/23/2012 Hyperuricemia 02/23/2012 Microscopic hematuria 02/23/2012 Psoriasis 02/23/2012 Encounters Date Type Department Care Team Description 04/13/2025 3:00 PM EST Office Visit [facility] [address] [place] [id number] Barak Osorio DMD 04/02/2025 1:30 PM EST Office Visit [facility] [address] [place] [id number] Barak Osorio DMD 03/23/2025 9:00 AM EDT Office Visit [facility] [address] [place] [id number] Barak Osorio DMD 03/06/2025 10:00 AM EDT Office Visit [facility] [address] [place] [phone] Barak Osorio DMD 03/02/2025 2:30 PM EDT Office Visit [facility] [address] [place] [id number] Barak Osorio DMD from Last 3 Months Social History Tobacco [...] Care Team (Late st Contact Info) Description 08/12/2025 12:45 PM EDT Office Visit [facility] [address] [place] [address] Naya, Judith [address] [place] [address] Health Maintenance Due Date Last Done Comments [...] 10/16/2023, 07/06/2020, Additional history exists Tobacco Screening 04/13/2026 04/13/2025 DTaP/Tdap/Td Vaccines (3 - Td or Tdap) [...] Procedure Name Priority Date/Time Associated Diagnosis Comments CASE PRESENTATION, DETAILED AND EXTENSIVE TREATMENT PLANNING Routine 04/13/2025 3:00 PM EST 18,19,30 MANDIBULAR PARTIAL DENTURE - RESIN BASE (INCLUDING, RETENTIVE/CLASPING MATERIALS, RESTS, AND TEETH) Routine 04/13/2025 3:00 PM EST 2,3,4,5,7,8,10,12,13 MAXILLARY PARTIAL DENTURE - RESIN BASE (INCLUDING, RETENTIVE/CLASPING MATERIALS, RESTS, AND TEETH) Routine 04/13/2025 3:00 PM EST WAX TRY IN Routine 04/02/2025 1:30 PM EST BITE REGISTRATION Routine 03/23/2025 9:0 0 AM EDT DENTURE IMPRESSION Routine 03/06/2025 10 :00 AM EDT CASE PRESENTATION, DETAILED AND EXTENSIVE TREATMENT PLANNING Routine 03/02/2025 2:30 PM EDT DENTURE FOLLOWUP Routine 03/02/2025 2:30 PM EDT PROPHYLAXIS - ADULT Routine 02/10/2025 1 1:00 [...] Most Recently Relevant to Health Maintenance Insurance [facility]
== END 2025-05-13 11:16 | disposition home or self-care (01) ==
LOC: HO.PMC 10:37
PROVIDERS: PCP Internal Medicine; Visit Provider Anesthesiology
DX: M46.1 Sacroiliitis, not elsewhere classified (principal); M53.3 Sacrococcygeal disorders, not elsewhere classified; M17.0 Bilateral primary osteoarthritis of knee; M47.816 Spondylosis without myelopathy or radiculopathy, lumbar region; G89.4 Chronic pain syndrome; M19.011 Primary osteoarthritis, right shoulder; M19.012 Primary osteoarthritis, left shoulder; G58.9 Mononeuropathy, unspecified; L40.50 Arthropathic psoriasis, unspecified
CPT/HCPCS: 99213

== ENCOUNTER → 2025-05-13 10:37 | Outpatient (BNVA) | payer OTHER, SELFPAY | PROVIDERS: PCP Internal Medicine; Visit Provider Anesthesiology | DX: M46.1 Sacroiliitis, not elsewhere classified (principal); M53.3 Sacrococcygeal disorders, not elsewhere classified; M47.816 Spondylosis without myelopathy or radiculopathy, lumbar region; M19.011 Primary osteoarthritis, right shoulder; M19.012 Primary osteoarthritis, left shoulder; G89.4 Chronic pain syndrome; M17.0 Bilateral primary osteoarthritis of knee; G58.9 Mononeuropathy, unspecified; L40.50 Arthropathic psoriasis, unspecified | CPT/HCPCS: 99212 ==